=== PATIENT | female | born 1995 | race Caucasian/White ===

== ENCOUNTER 2017-09-01 05:31 | Outpatient (CLI) | payer BC ==
[~2017-09-01] VITALS: Ht 165.1 cm; Wt 63.5 kg
[~2017-09-01 05:31] MED LIST: [UNRECOGNIZED DRUG - REMARK]
[2017-09-06] MEDS ORDERED: PANT40TA2 PO (15:11)
[2017-09-06] MEDS ORDERED: METO5TAB75 PO (15:11)
== END 2017-09-01 11:44 ==
LOC: PREOP 05:31
PROVIDERS: ATTEND Surgery
DX: Z01.818 Encounter for other preprocedural examination (principal); R13.10 Dysphagia, unspecified

== ENCOUNTER 2017-09-06 13:54 | Day surgery (SDC) | payer BC ==
[~2017-09-06] VITALS: Ht 165.1 cm; Wt 63.5 kg
[2017-09-06] MEDS ORDERED: NS IV 500 ML 500 ML ONE (13:57)
--- OUTSIDE RECORDS SUMMARY | 2017-09-06 14:02 | XMS REPORT | Clinical Summary ---
Author Author Admin, CRISTOPHER Organization [facility] Address Unknown Phone Unavailable Allergies, Adverse Reactions, Alerts Allergy Name Reaction Description Start Date Severity Status Provider No Known Allergies CADE Carter NKDA Critical Active Amie Gant RN Conditions or Problems Problem Name Problem Code Onset Date Status Entry Date Provider Comment Standard Description Annotate ACUTE PHARYNGITIS 462 Resolved Natanael Araujo MD Acute pharyngitis FH DIABETES V18.0 Resolved Natanael Araujo MD Family history of diabetes mellitus CHEST PAIN 786.50 Correction Mary De Paz Unspecified chest pain left CHEST WALL PAIN 786.52 Resolved Natanael Araujo MD Painful respiration left ACUTE PHARYNGITIS 462 Resolved Natanael Araujo MD Acute pharyngitis LUMBAR-SACRAL STRAIN 846.0 Resolved Natanael Araujo MD Lumbosacral (joint) (ligament) sprain Sinusitis, acute 461.9 Resolved Natanael Araujo MD Acute sinusitis, unspecified Dysphagia 787.20 Resolved Natanael Araujo MD Dysphagia, unspecified Influenza like illness 487.1 Resolved Natanael Araujo MD Influenza with other respiratory manifestations Knee pain, left 719.46 Resolved Natanael Araujo MD Pain in joint involving lower leg Postconcussion syndrome 310.2 Resolved Natanael Araujo MD Postconcussion syndrome Back pain 724.5 Resolved Natanael Araujo MD Backache, unspecified Dysphagia 787.20 Resolved Natanael Araujo MD Dysphagia, unspecified Anxiety 300.00 Inactive Natanael Araujo MD Anxiety state, unspecified Depression/anxiety 300.4 Active Natanael Araujo MD Dysthymic disorder Allergic reaction 995.3 Resolved Natanael Araujo MD Allergy, unspecified, not elsewhere classified Eosinophilic esophagitis 530.13 Active Mahogany Garza [employer] Eosinophilic esophagitis Pharyngitis 462 Resolved Natanael Araujo MD Acute pharyngitis Nausea alone 787.02 Resolved Natanael Araujo MD Nausea alone Bilateral headache 784.0 Resolved Natanael Araujo MD Headache Hair loss 704.00 Active Natanael Araujo MD Alopecia, unspecified Folliculitis 704.8 Active Natanael Araujo MD Other specified diseases of hair and hair follicles ACUTE PHARYNGITIS ICD-462 Inactive Natanael Araujo MD FH DIABETES ICD-V18.0 Inactive Natanael Araujo MD CHEST WALL PAIN ICD-786.52 Inactive Natanael Araujo MD ACUTE PHARYNGITIS ICD-462 Inactive Natanael Araujo MD LUMBAR-SACRAL STRAIN ICD-846.0 Inactive Natanael Araujo MD Sinusitis, acute ICD-461.9 Inactive Natanael Araujo MD Dysphagia ICD-787.20 Inactive Natanael Araujo MD Influenza like illness ICD-487.1 Inactive Natanael Araujo MD Knee pain, left ICD-719.46 Inactive Natanael Araujo MD Postconcussion syndrome ICD-310.2 Inactive Natanael Araujo MD Back pain ICD-724.5 Inactive Natanael Araujo MD Dysphagia ICD-787.20 Inactive Natanael Araujo MD Allergic reaction ICD-995.3 Inactive Natanael Araujo MD Pharyngitis ICD-462 Inactive Natanael Araujo MD Nausea alone ICD-787.02 Inactive Natanael Araujo MD Bilateral headache ICD-784.0 Inactive Natanael Araujo MD Medication List Medication Instructions Start Date Stop Date Generic Name NDC Status Provider Patient Instruction DOXYCYCLINE MONOHYDRATE 100 MG ORAL CAPS 1 po BID x 10 days 05/15 DOXYCYCLINE MONOHYDRATE 11844227396 Active Natanael Araujo MD Active SAFYRAL 3-0.03-0.451 MG ORAL TABS Take one by mouth daily DROSPIREN-ETH ESTRAD-LEVOMEFOL 98537424263 No Longer Active Natanael Araujo MD Active NAPROXEN SODIUM 550 MG ORAL TABS 1 po BID PRN Headache NAPROXEN SODIUM 56753417333 No Longer Active Natanael Araujo MD Active PREDNISONE 10 MG ORAL TABS 3 po qd x 3 days, then 2 po qd x 3 days, then 1 po qd x 2 days PREDNISONE 33990939129 No Longer Active Natanael Araujo MD Active LEXAPRO 10 MG TABS 1 tablet by mouth daily ESCITALOPRAM OXALATE 08212825987 No Longer Active Natanael Araujo MD Active CLARITIN 10 MG TAB 1 tablet by mouth daily as needed for allergies LORATADINE 10515635899 No Longer Active Natanael Araujo MD Active OMEPRAZOLE 20 MG TBEC 1 po q a.m. 30min prior to first food intake OMEPRAZOLE 21479655353 No Longer Active Natanael Araujo MD Active ZOFRAN 4 MG TABS 1 po q6hr PRN Nausea ONDANSETRON HCL 22980469155 No Longer Active Natanael Araujo MD Active AZITHROMYCIN 250 MG TABS 2 po qd x 1 day, then 1 po qd x 4 days AZITHROMYCIN 86486062201 No Longer Active Mahogany Garza [employer] Active PROAIR HFA 108 (90 BASE) MCG/ACT AERS 2 puffs four times a day as needed 2012 ALBUTEROL SULFATE 79844405311 No Longer Active Natanael Araujo MD Active PRILOSEC 20 MG CAP CR 1 tab po q am OMEPRAZOLE 00236917104 No Longer Active Natanael Araujo MD Active CELEBREX 200 MG CAPS 1 tablet by mouth daily with meals CELECOXIB 22749411786 No Longer Active Natanael Araujo MD Active CLARITIN 10 MG TAB 1 tablet by mouth daily as needed for allergies LORATADINE 79584014136 No Longer Active Natanael Araujo MD Active PULMICORT 0.5 MG/2ML INH SUSP mix 2 ml with 5 packets of splenda and swallow. rinse the mouth after 30 min. do not eat or drink anything for 30 min. 12/19 BUDESONIDE 82257431196 No Longer Active Natanael Araujo MD Active OMEPRAZOLE 20 MG CPDR 1 tablet by mouth daily OMEPRAZOLE 87933356992 No Longer Active Natanael Araujo MD Active PROTONIX 40 MG SOLR 1 po q a.m. PANTOPRAZOLE SODIUM 95361441478 No Longer Active Natanael Araujo MD Active CYCLOBENZAPRINE HCL 5 MG ORAL TABS 1/2 tab po q hs, prn CYCLOBENZAPRINE HCL 10517128307 No Longer Active Natanael Araujo MD Active CELEBREX 100 MG CAPS 1 tab daily CELECOXIB 46055338984 No Longer Active Mahogany Cuellarcelsa MOLINA Active OMEPRAZOLE 20 MG CPDR 1 tablet by mouth daily OMEPRAZOLE 55678586413 No Longer Active Natanael Araujo MD Active TAMIFLU 75 MG CAPS 1 bid x 5 days OSELTAMIVIR PHOSPHATE 10058460015 No Longer Active Natanael Araujo MD Active PREDNISONE 20 MG TAB 2 tabs daily for 3 days, 1 tab daily for 3 days, 1/2 tab daily for 2 days PREDNISONE 71363263795 No Longer Active Natanael Araujo MD Active AMOXICILLIN 400 MG/5ML SUSR 12.5ml po BID x 10 days AMOXICILLIN 58654516206 No Longer Active Natanael Araujo MD Active IBUPROFEN 800 MG TABS 1 tab every 8 hours as needed IBUPROFEN 52826279666 No Longer Active Natanael Araujo MD Active FLEXERIL 10 MG TAB 1 tablet by mouth at bedtime as needed for pain CYCLOBENZAPRINE HCL 64524840172 No Longer Active Natanael Araujo MD Active AMOXICILLIN 500 MG TABS take one tab po tid x 7 days AMOXICILLIN 66401190364 No Longer Active Natanael Araujo MD Active PRILOSEC 10 MG CAP CR Take one by mouth daily OMEPRAZOLE 90036391922 No Longer Active Natanael Araujo MD Active ZYRTEC ALLERGY 10 MG CAPS Take one by mouth daily as needed 10/25 CETIRIZINE HCL 84679865147 No Longer Active Natanael Araujo MD Active ZYRTEC ALLERGY 10 MG CAPS Take one by mouth daily as needed 10/25 ZYRTEC ALLERGY 10 MG CAPS CETIRIZINE HCL Inactive PRILOSEC 10 MG CAP CR Take one by mouth daily PRILOSEC 10 MG CAP CR 985327 OMEPRAZOLE Inactive AMOXICILLIN 500 MG TABS take one tab po tid x 7 days AMOXICILLIN 500 MG TABS 730196 AMOXICILLIN Inactive FLEXERIL 10 MG TAB 1 tablet by mouth at bedtime as needed for pain FLEXERIL 10 MG TAB CYCLOBENZAPRINE HCL Inactive IBUPROFEN 800 MG TABS 1 tab every 8 hours as needed IBUPROFEN 800 MG TABS 457076 IBUPROFEN Inactive OMEPRAZOLE 20 MG CPDR 1 tablet by mouth daily OMEPRAZOLE 20 MG CPDR 970738 OMEPRAZOLE Inactive CELEBREX 100 MG CAPS 1 tab daily CELEBREX 100 MG CAPS 156597 CELECOXIB Inactive CYCLOBENZAPRINE HCL 5 MG ORAL TABS 1/2 tab po q hs, prn CYCLOBENZAPRINE HCL 5 MG ORAL TABS 082419 CYCLOBENZAPRINE HCL Inactive OMEPRAZOLE 20 MG CPDR 1 tablet by mouth daily OMEPRAZOLE 20 MG CPDR 19791102 OMEPRAZOLE Inactive PULMICORT 0.5 MG/2ML INH SUSP mix 2 ml with 5 packets of splenda and swallow. rinse the mouth after 30 min. do not eat or drink anything for 30 min. 12/19 PULMICORT 0.5 MG/2ML INH SUSP 842294 BUDESONIDE Inactive CLARITIN 10 MG TAB 1 tablet by mouth daily as needed for allergies CLARITIN 10 MG TAB 850074 LORATADINE Inactive CELEBREX 200 MG CAPS 1 tablet by mouth daily with meals CELEBREX 200 MG CAPS 053374 CELECOXIB Inactive PRILOSEC 20 MG CAP CR 1 tab po q am PRILOSEC 20 MG CAP CR 979925 OMEPRAZOLE Inactive PROAIR HFA 108 (90 BASE) MCG/ACT AERS 2 puffs four times a day as needed 2012 PROAIR HFA 108 (90 BASE) MCG/ACT AERS ALBUTEROL SULFATE Inactive ZOFRAN 4 MG TABS 1 po q6hr PRN Nausea ZOFRAN 4 MG TABS 184843 ONDANSETRON HCL Inactive OMEPRAZOLE 20 MG TBEC 1 po q a.m. 30min prior to first food intake OMEPRAZOLE 20 MG TBEC 794641 OMEPRAZOLE Inactive CLARITIN 10 MG TAB 1 tablet by mouth daily as needed for allergies CLARITIN 10 MG TAB 725487 LORATADINE Inactive LEXAPRO 10 MG TABS 1 tablet by mouth daily LEXAPRO 10 MG TABS 482568 ESCITALOPRAM OXALATE Inactive NAPROXEN SODIUM 550 MG ORAL TABS 1 po BID PRN Headache NAPROXEN SODIUM 550 MG ORAL TABS 042905 NAPROXEN SODIUM Inactive SAFYRAL 3-0.03-0.451 MG ORAL TABS Take one by mouth daily SAFYRAL 3-0.03-0.451 MG ORAL TABS 0168760 DROSPIREN-ETH ESTRAD-LEVOMEFOL Inactive AMOXICILLIN 400 MG/5ML SUSR 12.5ml po BID x 10 days AMOXICILLIN 400 MG/5ML SUSR 091628 AMOXICILLIN Inactive PREDNISONE 20 MG TAB 2 tabs daily for 3 days, 1 tab daily for 3 days, 1/2 tab daily for 2 days PREDNISONE 20 MG TAB 365459 PREDNISONE Inactive TAMIFLU 75 MG CAPS 1 bid x 5 days TAMIFLU 75 MG CAPS 210398 OSELTAMIVIR PHOSPHATE Inactive AZITHROMYCIN 250 MG TABS 2 po qd x 1 day, then 1 po qd x 4 days AZITHROMYCIN 250 MG TABS 020971 AZITHROMYCIN Inactive PREDNISONE 10 MG ORAL TABS 3 po qd x 3 days, then 2 po qd x 3 days, then 1 po qd x 2 days PREDNISONE 10 MG ORAL TABS 414011 PREDNISONE Inactive Advance Directives Directive Description Start Date PERMISSION TO SHARE Vital Signs Date Name Value Unit Range Description blood pressure, diastolic 64 mm[Hg] BP parada blood pressure, systolic 108 mm[Hg] BP sys height E&M 67 [in_us] Bdy height pulse rate E&M 88 /min Heart rate temperature E&M 97.1 [degF] Body temperature weight E&M 138.5 [lb_av] Weight Measured blood pressure, diastolic 73 mm[Hg] BP parada blood pressure, systolic 119 mm[Hg] BP sys pulse rate E&M 70 /min Heart rate temperature E&M 98.8 [degF] Body temperature weight E&M 138.50 [lb_av] Weight Measured Diagnostic Results Date Name Value Unit Range Description Lab Report: CBC W/DIFF, Comp. Metabolic Panel, Free Thyroxine (L), Thyro ... - Chemistry sodium, serum 144 mmol/L 299-137 8386/11/02 carbon dioxide, venous blood 25.2 mmol/L 21.0-32.0 potassium, serum 4.4 mmol/L 3.5-5.2 chloride, serum 107 mmol/L 98-107 blood glucose 85 mg/dL 65-110 urea nitrogen, blood 12 mg/dL 7-18 creatinine, serum 1.16 mg/dL 0.60-1.30 alanine aminotransferase (SGPT), serum 28 U/L 12-78 aspartate aminotransferase (SGOT), serum 17 U/L 15-37 calcium, serum 9.0 mg/dL 8.5-10.1 bilirubin, serum, total 0.40 mg/dL 0.00-1.00 thyroxine, serum, free 0.90 ng/dL 0.59-1.17 TSH 1.06 m[iU]/mL 0.36-3.74 Lab Report: CBC W/DIFF, Comp. Metabolic Panel, Free Thyroxine (L), Thyro ... - Hematology leukocyte count, blood 4.8 10^3/MM^3 10*3/mm3 4.6-10.2 neutrophils as percent of blood leukocytes 56.0 % 42.2-75.2 monocytes as percent of blood leukocytes 9.4 % 1.7-9.3 lymphocytes as percent of blood leukocytes 29.2 % 20.5-51.1 erythrocyte (RBC) count 4.76 10^6/MM^3 10*6/mm3 3.80-5.80 hemoglobin, blood 13.7 g/dL 12.0-16.0 hematocrit, blood 41.5 % 37.0-47.0 mean corpuscular volume, RBC 87 fL 80-97 mean corpuscular hemoglobin, RBC 28.9 pg 27.0-31.2 mean corpuscular hemoglobin concentration, RBC 33.1 G/DL % 31.8- 35.4 red blood cell distribution width 13.0 % 13.0-18.0 platelet count 257 10^3/MM^3 10*3/mm3 142-424 Encounters Code Encounter Date Provider Facility CPT-16567 Level 4 Est. Patient 09:59:40 CDT Natanael Araujo MD [facility] CPT-00991 Level 3 Est. Patient 14:27:39 CDT Natanael Araujo MD [facility] CPT-00432 Level 3 Est. Patient 16:08:13 CDT Natanael Araujo MD [facility] CPT-68662 Level 3 Est. Patient 10:44:11 [facility] Est[facility] 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 Patient 16:32:02 SOFTWARE QA MANAGER Natanael Araujo MD [facility] CPT-65445 Level 3 Est. Patient 15:45:10 CDT Natanael Araujo MD [facility] CPT-34217 Level 4 Est. Patient 16:43:28 CDT Natanael Araujo MD [facility] CPT-12630 Level 3 Est. Patient 15:06:06 CDT Natanael Araujo MD [facility] CPT-35053 Level 3 Est. 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 Patient 10:18:16 SOFTWARE QA MANAGER Natanael Araujo MD [facility] CPT-18277 Level 3 Est. Patient 16:04:12 CDT Natanael Araujo MD [facility] CPT-19092 Level 3 Est. Patient 11:25:05 CDT Natanael Araujo MD [facility] CPT-15154 Level 3 Est. Patient 13:17:34 CDT Gail Valerio [facility] CPT-31014 Level 3 Est. Patient 17:03:36 CDT Natanael Araujo MD [facility] CPT-20878 Level 2 Est. Patient 14:41:40 SOFTWARE QA MANAGER Mahogany Garza [facility] CPT-70332 Level 3 New Patient 16:12:19 SOFTWARE QA MANAGER Gail Valerio [facility] Procedures Code Procedure Name Date Entry Date Standard Description CPT-33291 Menactra 10:44:48 CDT CPT-58022 Administration single or combination vaccine inc oral 10 :44:48 CDT CPT-69795 Menactra 10:42:17 CDT CPT-40180 Administration single or combination vaccine inc oral 10 :42:17 CDT CPT-42043 Knee 3V 13:46:23 SOFTWARE QA MANAGER CPT-94911 LS spine comp w obliq 16:17:55 CDT CPT-JTINJ Joint Injection 17:03:35 CDT CPT-J0561 Bicillin LA 1,200,000 u (PCN G Benzathine) 16:12:19 SOFTWARE QA MANAGER [facility]-78604 Abx/Therapy Injection 16:12:19 SOFTWARE QA MANAGER
--- OUTSIDE RECORDS SUMMARY | 2017-09-06 14:02 | XMS REPORT | Clinical Summary ---
Author Author Admin, CRISTOPHER Organization [facility] Address Unknown Phone Unavailable Allergies, Adverse Reactions, Alerts Allergy Name Reaction Description Start Date Severity Status Provider No Known Allergies CADE Carter NKKAYE Critical Active Amie Gant RN Conditions or [...] Natanael Araujo MD Backache, unspecified Dysphagia 787.20 Active Natanael Araujo MD Dysphagia, unspecified Anxiety 300.00 Active Natanael Araujo MD Anxiety state, unspecified Allergic reaction 995.3 Active Natanael Araujo MD Allergy, unspecified, not elsewhere classified ACUTE PHARYNGITIS ICD-462 Inactive Natanael Araujo MD [...] Back pain ICD-724.5 Inactive Natanael Araujo MD Medication List Medication Instructions Start Date Stop Date Generic Name NDC Status Provider Patient Instruction CELEBREX 200 MG CAPS 1 tablet by mouth daily with meals CELECOXIB 92625588137 Active Natanael Araujo MD Active OMEPRAZOLE 20 MG CPDR 1 tablet by mouth daily OMEPRAZOLE 44028698399 No Longer Active Natanael Araujo MD Active PROTONIX 40 MG SOLR 1 po q a.m. PANTOPRAZOLE SODIUM 83709555054 Active Natanael Araujo MD Active CYCLOBENZAPRINE HCL 5 MG ORAL TABS 1/2 tab po q hs, prn CYCLOBENZAPRINE HCL 57234814133 No Longer Active Natanael Araujo MD Active CELEBREX 100 MG CAPS 1 tab daily CELECOXIB 95905568296 No Longer Active Mahogany Polocelsa BEEN Active OMEPRAZOLE 20 MG CPDR 1 tablet by mouth daily OMEPRAZOLE 19330066681 No Longer Active Natanael Araujo MD Active TAMIFLU 75 MG CAPS 1 bid x 5 days OSELTAMIVIR PHOSPHATE 92002900805 No Longer Active Natanael Araujo MD Active PREDNISONE 20 MG TAB 2 tabs daily for 3 days, 1 tab daily for 3 days, 1/2 tab daily for 2 days PREDNISONE 57324197103 No Longer Active Natanael Araujo MD Active AMOXICILLIN 400 MG/5ML SUSR 12.5ml po BID x 10 days AMOXICILLIN 11759912617 No Longer Active Natanael Araujo MD Active IBUPROFEN 800 MG TABS 1 tab every 8 hours as needed IBUPROFEN 86467286875 No Longer Active Natanael Araujo MD Active PROAIR HFA 108 (90 BASE) MCG/ACT AERS 2 puffs four times a day as needed 2012 ALBUTEROL SULFATE 22154723274 Active Natanael Araujo MD Active FLEXERIL 10 MG TAB 1 tablet by mouth at bedtime as needed for pain CYCLOBENZAPRINE HCL 94105057445 No Longer Active Natanael Araujo MD Active AMOXICILLIN 500 MG TABS take one tab po tid x 7 days AMOXICILLIN 32473942009 No Longer Active Natanael Araujo MD Active PRILOSEC 10 MG CAP CR Take one by mouth daily OMEPRAZOLE 30160717901 No Longer Active Natanael Araujo MD Active ZYRTEC ALLERGY 10 MG CAPS Take one by mouth daily as needed 10/25 CETIRIZINE HCL 91107350187 No Longer Active Natanael Araujo MD Active ZYRTEC ALLERGY 10 MG CAPS Take one by mouth daily as needed 10/25 ZYRTEC ALLERGY 10 MG CAPS CETIRIZINE HCL Inactive PRILOSEC 10 MG CAP CR Take one by mouth daily PRILOSEC 10 MG CAP CR 19900712 OMEPRAZOLE Inactive AMOXICILLIN 500 MG TABS take one tab po tid x 7 days AMOXICILLIN 500 MG TABS 947716 AMOXICILLIN Inactive FLEXERIL 10 MG TAB 1 tablet by mouth at bedtime as needed for pain FLEXERIL 10 MG TAB CYCLOBENZAPRINE HCL Inactive IBUPROFEN 800 MG TABS 1 tab every 8 hours as needed IBUPROFEN 800 MG TABS 893138 IBUPROFEN Inactive OMEPRAZOLE 20 MG CPDR 1 tablet by mouth daily OMEPRAZOLE 20 MG CPDR 172555 OMEPRAZOLE Inactive CELEBREX 100 MG CAPS 1 tab daily CELEBREX 100 MG CAPS 569195 CELECOXIB Inactive CYCLOBENZAPRINE HCL 5 MG ORAL TABS 1/2 tab po q hs, prn CYCLOBENZAPRINE HCL 5 MG ORAL TABS 373566 CYCLOBENZAPRINE HCL Inactive OMEPRAZOLE 20 MG CPDR 1 tablet by mouth daily OMEPRAZOLE 20 MG CPDR 001178 OMEPRAZOLE Inactive AMOXICILLIN 400 MG/5ML SUSR 12.5ml po BID x 10 days AMOXICILLIN 400 MG/5ML SUSR 264080 AMOXICILLIN Inactive PREDNISONE 20 MG TAB 2 tabs daily for 3 days, 1 tab daily for 3 days, 1/2 tab daily for 2 days PREDNISONE 20 MG TAB 648102 PREDNISONE Inactive TAMIFLU 75 MG CAPS 1 bid x 5 days TAMIFLU 75 MG CAPS OSELTAMIVIR PHOSPHATE Inactive Advance Directives Directive Description Start Date PERMISSION TO SHARE Vital Signs Date Name Value Unit Range Description blood pressure, diastolic - 8462-4 78 mm[Hg] BP parada blood pressure, systolic - 8480-6 108 mm[Hg] BP sys pulse rate E&M - 8867-4 62 /min Heart rate temperature E&M 98.4 [degF] Body temperature weight E&M - 3141-9 138 [lb_av] Weight Measured blood pressure, diastolic - 8462-4 68 mm[Hg] BP parada blood pressure, systolic - 8480-6 104 mm[Hg] BP sys pulse rate E&M - 8867-4 56 /min Heart rate temperature E&M 97.6 [degF] Body temperature weight E&M - 3141-9 139 [lb_av] Weight Measured blood pressure, diastolic - 8462-4 71 mm[Hg] BP parada blood pressure, systolic - 8480-6 116 mm[Hg] BP sys pulse rate E&M - 8867-4 59 /min Heart rate temperature E&M 98.3 [degF] Body temperature weight E&M - 3141-9 141 [lb_av] Weight Measured blood pressure, diastolic - 8462-4 65 mm[Hg] BP parada blood pressure, systolic - 8480-6 102 mm[Hg] BP sys height E&M - 8302-2 67 [in_us] Bdy height pulse rate E&M - 8867-4 67 /min Heart rate temperature E&M 96.5 [degF] Body temperature weight E&M - 3141-9 150 [lb_av] Weight Measured blood pressure, diastolic - 8462-4 74 mm[Hg] BP paraad blood pressure, systolic - 8480-6 119 mm[Hg] BP sys pulse rate E&M - 8867-4 66 /min Heart rate temperature E&M 98.1 [degF] Body temperature weight E&M - 3141-9 142 [lb_av] Weight Measured Diagnostic Results Date Name Value Unit Range Description Lab Report: CBC, Comp. Metabolic Panel, UADIP W/MICRO, AUTO - Chemistry sodium, serum 143 mmol/L 157-568 0630/01/07 potassium, serum 4.2 mmol/L 3.5-5.2 chloride, serum 107 mmol/L 98-107 carbon dioxide, venous blood 30.4 mmol/L 21.0-32.0 blood glucose 76 mg/dL 65-110 urea nitrogen, blood 13 mg/dL 7-18 creatinine, serum 1.10 mg/dL 0.60-1.30 alanine aminotransferase (SGPT), serum 15 U/L 12-78 aspartate aminotransferase (SGOT), serum 13 U/L 15-37 calcium, serum 8.6 mg/dL 8.5-10.1 bilirubin, serum, total 0.30 mg/dL 0.00-1.00 protein, total urine random Negative mg/dL Negative RBC, urine, dipstick Negative Negative Lab Report: CBC, Comp. Metabolic Panel, UADIP W/MICRO, AUTO - Hematology leukocyte count, blood 5.4 10^3/MM^3 10*3/mm3 4.6-10.2 erythrocyte (RBC) count 4.60 10^6/MM^3 10*6/mm3 4.04-5.48 hemoglobin, blood 13.0 g/dL 12.0-16.0 hematocrit, blood 39.8 % 36.0-46.0 mean corpuscular volume, RBC 87 fL 80-97 mean corpuscular hemoglobin, RBC 28.3 pg 27.0-31.2 mean corpuscular hemoglobin concentration, RBC 32.7 G/DL % 31.8- 35.4 red blood cell distribution width 14.2 % 11.6-14.8 platelet count 267 10^3/MM^3 10*3/mm3 142-424 Lab Report: CBC, Comp. Metabolic Panel, UADIP W/MICRO, AUTO - Urinalysis urine color Yellow Colorless;Lightyellow;Straw;Yellow appearance, urine Clear Clear specific gravity, urine 1.025 1.000-1.030 pH, urine, semiquantitative 7.5 5.0-8.5 urobilinogen, urine, semiquantitative (dipstick) 1.0 Normal leukocyte esterase, urine, by dipstick Negative Negative nitrite, urine, semiquantitative Negative Negative glucose, urine, semiquantitative Negative Negative ketones, urine, by test strip Negative Negative bilirubin, urine Negative Negative Encounters Code Encounter Date Provider Facility CPT-81116 Level 3 Est. Patient 15:45:10 CDT Natanael Araujo MD [facility] CPT-79146 Level 4 Est. Patient 16:43:28 CDT Natanael Araujo MD [facility] CPT-68750 Level 3 Est. Patient 15:06:06 CDT Natanael Araujo MD [facility] CPT-28128 Level 3 Est. 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 Patient 10:18:16 DIMENSION MILL WORKER Natanael Araujo MD [facility] CPT-01621 Level 3 Est. Patient 16:04:12 CDT Natanael Araujo MD [facility] CPT-63882 Level 3 Est. Patient 11:25:05 CDT Natanael Araujo MD [facility] CPT-98670 Level 3 Est. Patient 13:17:34 CDT Gail KIMBALL [facility] CPT-76684 Level 3 Est. Patient 17:03:36 CDT Natanael Araujo MD [facility] CPT-19811 Level 2 Est. Patient 14:41:40 DIMENSION MILL WORKER Mahogany Garza APRN [facility] CPT-44811 Level 3 New Patient 16:12:19 DIMENSION MILL WORKER Gail KIMBALL [facility] Procedures Code Procedure Name Date Entry Date Standard Description CPT-61690 Knee 3V 13:46:23 DIMENSION MILL WORKER CPT-41064 LS spine comp w obliq 16:17:55 CDT CPT-JTINJ Joint Injection 17:03:35 CDT CPT-J0561 Bicillin LA 1,200,000 u (PCN G Benzathine) 16:12:19 DIMENSION MILL WORKER CPT-85752 Abx/Therapy Injection 16:12:19 DIMENSION MILL WORKER
--- OUTSIDE RECORDS SUMMARY | 2017-09-06 14:03 | XMS REPORT | Clinical Summary ---
Author Author Admin, CRISTOPHER Organization [facility] Address Unknown Phone Unavailable Allergies, Adverse Reactions, [...] unspecified Influenza like illness 487.1 Resolved Natanael Arajuo MD Influenza with other respiratory manifestations Knee [...] Araujo MD Dysthymic disorder Allergic reaction 995.3 Active Natanael Araujo MD Allergy, unspecified, not elsewhere classified Eosinophilic esophagitis 530.13 Active Jillrandy Garza BPM SOLUTION ARCHITECT Eosinophilic esophagitis Pharyngitis 462 Active Mahogany Garza BPM SOLUTION ARCHITECT Acute pharyngitis ACUTE PHARYNGITIS ICD-462 Inactive Natanael Araujo MD FH DIABETES ICD-V18.0 Inactive Natanael Araujo MD ACUTE PHARYNGITIS ICD-462 Inactive Natanael Araujo MD LUMBAR-SACRAL STRAIN ICD-846.0 Inactive Natanael Araujo MD Sinusitis, acute ICD-461.9 Inactive Natanael Araujo MD CHEST WALL PAIN ICD-786.52 Inactive Natanael Araujo MD Dysphagia ICD-787.20 Inactive Natanael Arauoj MD Influenza like illness ICD-487.1 Inactive Natanael Araujo MD Knee pain, left ICD-719.46 Inactive Natanael Araujo MD Back pain ICD-724.5 Inactive Natanael Araujo MD Postconcussion syndrome ICD-310.2 Inactive Natanael Araujo MD Medication List Medication Instructions Start Date Stop Date Generic Name NDC Status Provider Patient Instruction CLARITIN 10 MG TAB 1 tablet by mouth daily as needed for allergies LORATADINE 77885762299 Active Mahogany Garza APRN Active AZITHROMYCIN 250 MG TABS 2 po qd x 1 day, then 1 po qd x 4 days AZITHROMYCIN 82025050996 No Longer Active Jillina Greg BPM SOLUTION ARCHITECT Active LEXAPRO 10 MG TABS 1 tablet by mouth daily ESCITALOPRAM OXALATE 99686644691 Active Ntaanael Araujo MD Active PROAIR HFA 108 (90 BASE) MCG/ACT AERS 2 puffs four times a day as needed 2012 ALBUTEROL SULFATE 02338261549 No Longer Active Natanael Araujo MD Active PRILOSEC 20 MG CAP CR 1 tab po q am OMEPRAZOLE 33464222748 No Longer Active Natanael Araujo MD Active CELEBREX 200 MG CAPS 1 tablet by mouth daily with meals CELECOXIB 38262360707 No Longer Active Natanael Araujo MD Active CLARITIN 10 MG TAB 1 tablet by mouth daily as needed for allergies LORATADINE 39489558073 No Longer Active Natanael Araujo MD Active PULMICORT 0.5 MG/2ML INH SUSP mix 2 ml with 5 packets of splenda and swallow. rinse the mouth after 30 min. do not eat or drink anything for 30 min. 12/19 BUDESONIDE 12751753371 No Longer Active Natanael Araujo MD Active OMEPRAZOLE 20 MG CPDR 1 tablet by mouth daily OMEPRAZOLE 82491410876 No Longer Active Natanael Araujo MD Active PROTONIX 40 MG SOLR 1 po q a.m. PANTOPRAZOLE SODIUM 44574840836 No Longer Active Natanael Araujo MD Active CYCLOBENZAPRINE HCL 5 MG ORAL TABS 1/2 tab po q hs, prn CYCLOBENZAPRINE HCL 64490823871 No Longer Active Natanael Araujo MD Active CELEBREX 100 MG CAPS 1 tab daily CELECOXIB 24155425552 No Longer Active Mahogany Garza APRN Active OMEPRAZOLE 20 MG CPDR 1 tablet by mouth daily OMEPRAZOLE 71080932861 No Longer Active Natanael Araujo MD Active TAMIFLU 75 MG CAPS 1 bid x 5 days OSELTAMIVIR PHOSPHATE 63032589819 No Longer Active Natanael Araujo MD Active PREDNISONE 20 MG TAB 2 tabs daily for 3 days, 1 tab daily for 3 days, 1/2 tab daily for 2 days PREDNISONE 57291566399 No Longer Active Natanael Araujo MD Active AMOXICILLIN 400 MG/5ML SUSR 12.5ml po BID x 10 days AMOXICILLIN 05450838721 No Longer Active Natanael Araujo MD Active IBUPROFEN 800 MG TABS 1 tab every 8 hours as needed IBUPROFEN 68051304731 No Longer Active Natanael Araujo MD Active FLEXERIL 10 MG TAB 1 tablet by mouth at bedtime as needed for pain CYCLOBENZAPRINE HCL 25885816066 No Longer Active Natanael Araujo MD Active AMOXICILLIN 500 MG TABS take one tab po tid x 7 days AMOXICILLIN 88265787235 No Longer Active Natanael Araujo MD Active PRILOSEC 10 MG CAP CR Take one by mouth daily OMEPRAZOLE 34721341393 No Longer Active Natanael Araujo MD Active ZYRTEC ALLERGY 10 MG CAPS Take one by mouth daily as needed 10/25 CETIRIZINE HCL 87927548214 No Longer Active Natanael Araujo MD Active ZYRTEC ALLERGY 10 MG CAPS Take one by mouth daily as needed 10/25 ZYRTEC ALLERGY 10 MG CAPS CETIRIZINE HCL Inactive PRILOSEC 10 MG CAP CR Take one by mouth daily PRILOSEC 10 MG CAP CR 856161 OMEPRAZOLE Inactive AMOXICILLIN 500 MG TABS take one tab po tid x 7 days AMOXICILLIN 500 MG TABS 804203 AMOXICILLIN Inactive FLEXERIL 10 MG TAB 1 tablet by mouth at bedtime as needed for pain FLEXERIL 10 MG TAB CYCLOBENZAPRINE HCL Inactive IBUPROFEN 800 MG TABS 1 tab every 8 hours as needed IBUPROFEN 800 MG TABS 488452 IBUPROFEN Inactive OMEPRAZOLE 20 MG CPDR 1 tablet by mouth daily OMEPRAZOLE 20 MG CPDR 509252 OMEPRAZOLE Inactive CELEBREX 100 MG CAPS 1 tab daily CELEBREX 100 MG CAPS 579906 CELECOXIB Inactive CYCLOBENZAPRINE HCL 5 MG ORAL TABS 1/2 tab po q hs, prn CYCLOBENZAPRINE HCL 5 MG ORAL TABS 912834 CYCLOBENZAPRINE HCL Inactive OMEPRAZOLE 20 MG CPDR 1 tablet by mouth daily OMEPRAZOLE 20 MG CPDR 19791102 OMEPRAZOLE Inactive PULMICORT 0.5 MG/2ML INH SUSP mix 2 ml with 5 packets of splenda and swallow. rinse the mouth after 30 min. do not eat or drink anything for 30 min. 12/19 PULMICORT 0.5 MG/2ML INH SUSP 664744 BUDESONIDE Inactive CLARITIN 10 MG TAB 1 tablet by mouth daily as needed for allergies CLARITIN 10 MG TAB 896435 LORATADINE Inactive CELEBREX 200 MG CAPS 1 tablet by mouth daily with meals CELEBREX 200 MG CAPS 026226 CELECOXIB Inactive PRILOSEC 20 MG CAP CR 1 tab po q am PRILOSEC 20 MG CAP CR 744612 OMEPRAZOLE Inactive PROAIR HFA 108 (90 BASE) MCG/ACT AERS 2 puffs four times a day as needed 2012 PROAIR HFA 108 (90 BASE) MCG/ACT AERS ALBUTEROL SULFATE Inactive AMOXICILLIN 400 MG/5ML SUSR 12.5ml po BID x 10 days AMOXICILLIN 400 MG/5ML SUSR 044400 AMOXICILLIN Inactive PREDNISONE 20 MG TAB 2 tabs daily for 3 days, 1 tab daily for 3 days, 1/2 tab daily for 2 days PREDNISONE 20 MG TAB 217911 PREDNISONE Inactive TAMIFLU 75 MG CAPS 1 bid x 5 days TAMIFLU 75 MG CAPS OSELTAMIVIR PHOSPHATE Inactive AZITHROMYCIN 250 MG TABS 2 po qd x 1 day, then 1 po qd x 4 days AZITHROMYCIN 250 MG TABS 3679867 AZITHROMYCIN Inactive Advance Directives Directive Description Start Date PERMISSION TO SHARE Vital Signs Date Name Value Unit Range Description blood pressure, diastolic - 8462-4 65 mm[Hg] BP parada blood pressure, systolic - 8480-6 114 mm[Hg] BP sys pulse rate E&M - 8867-4 72 /min Heart rate temperature E&M 96.8 [degF] Body temperature weight E&M - 3141-9 139 [lb_av] Weight Measured blood pressure, diastolic - 8462-4 73 mm[Hg] BP parada blood pressure, systolic - 8480-6 110 mm[Hg] BP sys pulse rate E&M - 8867-4 74 /min Heart rate temperature E&M 99.1 [degF] Body temperature weight E&M - 3141-9 140.0 [lb_av] Weight Measured blood pressure, diastolic - 8462-4 67 mm[Hg] BP parada blood pressure, systolic - 8480-6 109 mm[Hg] BP sys pulse rate E&M - 8867-4 87 /min Heart rate temperature E&M 99 [degF] Body temperature weight E&M - 3141-9 138.5 [lb_av] Weight Measured blood pressure, diastolic - 8462-4 71 mm[Hg] BP parada blood pressure, systolic - 8480-6 103 mm[Hg] BP sys pulse rate E&M - 8867-4 61 /min Heart rate temperature E&M 98.6 [degF] Body temperature weight E&M - 3141-9 137.2 [lb_av] Weight Measured blood pressure, diastolic - 8462-4 78 mm[Hg] [...] E&M - 3141-9 139 [lb_av] Weight Measured Diagnostic Results Date Name Value Unit Range Description Lab Report: YUE INFLUENZA A/B, RapidStrep Rflx/Cx - Lab Microbial identification kit, rapid strep method Negative-Throat Culture to Follow Negative Lab Report: YUE INFLUENZA A/B, RapidStrep Rflx/Cx - Toxicology rapid flu test Negative Negative;Positive Encounters Code Encounter Date Provider Facility CPT-01281 Level 3 Est. Patient 10:44:11 CDT Mahogany Garza APRN [facility] CPT-00207 Level 3 Est. Patient 15:58:41 GRADER GREEN MEAT Natanael Araujo MD [facility] CPT-30817 Level 3 Est. Patient 16:32:02 GRADER GREEN MEAT Natanael Araujo MD [facility] CPT-99456 Level 3 Est. Patient 15:45:10 CDT Natanael Araujo MD [facility] CPT-34837 Level 4 Est. Patient 16:43:28 CDT Natanael Araujo MD [facility] CPT-74847 Level 3 Est. Patient 15:06:06 CDT Natanael Araujo MD [facility] CPT-49080 Level 3 Est. Patient 13:38:04 GRADER GREEN MEAT Natanael Araujo MD [facility] CPT-37571 Level 3 Est. Patient 10:18:16 GRADER GREEN MEAT Natanael Araujo MD [facility] CPT-14569 Level 3 Est. Patient 16:04:12 CDT Natanael Araujo MD [facility] CPT-06082 Level 3 Est. Patient 11:25:05 CDT Natanael Araujo MD [facility] CPT-00305 Level 3 Est. Patient 13:17:34 CDT Gail Valerio [facility] CPT-07134 Level 3 Est. Patient 17:03:36 CDT Natanael Araujo MD [facility] CPT-72797 Level 2 Est. Patient 14:41:40 GRADER GREEN MEAT [facility] Level 3 New Patient 16:12:19 GRADER GREEN MEAT Gail KIMBALL [facility] Procedures Code Procedure Name Date Entry Date Standard Description CPT-08233 Menactra 10:44:48 CDT CPT-60209 Administration single or combination vaccine inc oral 10 :44:48 CDT CPT-44476 Menactra 10:42:17 CDT CPT-03829 Administration single or combination vaccine inc oral 10 :42:17 CDT CPT-07403 Knee 3V 13:46:23 GRADER GREEN MEAT CPT-34491 LS spine comp w obliq 16:17:55 CDT CPT-JTINJ Joint Injection 17:03:35 CDT CPT-J0561 Bicillin LA 1,200,000 u (PCN G Benzathine) 16:12:19 GRADER GREEN [employer] CPT-47536 Abx/Therapy Injection 16:12:19 GRADER GREEN [employer]
--- OUTSIDE RECORDS SUMMARY | 2017-09-06 14:03 | XMS REPORT | Clinical Summary ---
Author Author Admin, CRISTOPHER Organization [facility] Address Unknown Phone Unavailable Allergies, Adverse Reactions, [...] classified Eosinophilic esophagitis 530.13 Active Mahogany Garza APRN Eosinophilic esophagitis ACUTE PHARYNGITIS ICD-462 Inactive Natanael Araujo MD [...] Generic Name NDC Status Provider Patient Instruction PULMICORT 0.5 MG/2ML INH SUSP mix 2 ml with 5 packets of splenda and swallow. rinse the mouth after 30 min. do not eat or drink anything for 30 min. 12/19 BUDESONIDE 84575808122 Active Jillina Frazell CARE AIDE Active CLARITIN 10 MG TAB 1 tablet by mouth daily as needed for allergies LORATADINE 65245918941 Active Mahogany Garza APRN Active PRILOSEC 20 MG CAP CR 1 tab po q am OMEPRAZOLE 64555680557 Active Mahogany Garza APRN Active CELEBREX 200 MG CAPS 1 tablet by mouth daily with meals CELECOXIB 50806034799 Active Natanael Araujo MD Active OMEPRAZOLE 20 MG CPDR 1 tablet by mouth daily OMEPRAZOLE 97881123444 No Longer Active Natanael Araujo MD Active PROTONIX 40 MG SOLR 1 po q a.m. PANTOPRAZOLE SODIUM 93662903560 No Longer Active Natanael Araujo MD Active CYCLOBENZAPRINE HCL 5 MG ORAL TABS 1/2 tab po q hs, prn CYCLOBENZAPRINE HCL 99241001938 No Longer Active Natanael Araujo MD Active CELEBREX 100 MG CAPS 1 tab daily CELECOXIB 83807296524 No Longer Active Mahogany Garza APRN Active OMEPRAZOLE 20 MG CPDR 1 tablet by mouth daily OMEPRAZOLE 06984993454 No Longer Active Natanael Araujo MD Active TAMIFLU 75 MG CAPS 1 bid x 5 days OSELTAMIVIR PHOSPHATE 65375908398 No Longer Active Natanael Araujo MD Active PREDNISONE 20 MG TAB 2 tabs daily for 3 days, 1 tab daily for 3 days, 1/2 tab daily for 2 days PREDNISONE 92070121354 No Longer Active Natanael Araujo MD Active AMOXICILLIN 400 MG/5ML SUSR 12.5ml po BID x 10 days AMOXICILLIN 40834276571 No Longer Active Natanael Araujo MD Active IBUPROFEN 800 MG TABS 1 tab every 8 hours as needed IBUPROFEN 47143240752 No Longer Active Natanael Aruajo MD Active PROAIR HFA 108 (90 BASE) MCG/ACT AERS 2 puffs four times a day as needed 2012 ALBUTEROL SULFATE 57479537627 Active Mahogany Garza TRACY Active FLEXERIL 10 MG TAB 1 tablet by mouth at bedtime as needed for pain CYCLOBENZAPRINE HCL 30966894292 No Longer Active Natanael Araujo MD Active AMOXICILLIN 500 MG TABS take one tab po tid x 7 days AMOXICILLIN 87727851848 No Longer Active Natanael Araujo MD Active PRILOSEC 10 MG CAP CR Take one by mouth daily OMEPRAZOLE 12573424134 No Longer Active Natanael Araujo MD Active ZYRTEC ALLERGY 10 MG CAPS Take one by mouth daily as needed 10/25 CETIRIZINE HCL 82088416720 No Longer Active Natanael Araujo MD Active ZYRTEC ALLERGY 10 MG CAPS Take one by mouth daily as needed 10/25 ZYRTEC ALLERGY 10 MG CAPS CETIRIZINE HCL Inactive PRILOSEC 10 MG CAP CR Take one by mouth daily PRILOSEC 10 MG CAP CR 534518 OMEPRAZOLE Inactive AMOXICILLIN 500 MG TABS take one tab po tid x 7 days AMOXICILLIN 500 MG TABS 285969 AMOXICILLIN Inactive FLEXERIL 10 MG TAB 1 tablet by mouth at bedtime as needed for pain FLEXERIL 10 MG TAB CYCLOBENZAPRINE HCL Inactive IBUPROFEN 800 MG TABS 1 tab every 8 hours as needed IBUPROFEN 800 MG TABS 549705 IBUPROFEN Inactive OMEPRAZOLE 20 MG CPDR 1 tablet by mouth daily OMEPRAZOLE 20 MG CPDR 19791102 OMEPRAZOLE Inactive CELEBREX 100 MG CAPS 1 tab daily CELEBREX 100 MG CAPS 979024 CELECOXIB Inactive CYCLOBENZAPRINE HCL 5 MG ORAL TABS 1/2 tab po q hs, prn CYCLOBENZAPRINE HCL 5 MG ORAL TABS 458528 CYCLOBENZAPRINE HCL Inactive OMEPRAZOLE 20 MG CPDR 1 tablet by mouth daily OMEPRAZOLE 20 MG CPDR 19791102 OMEPRAZOLE Inactive AMOXICILLIN 400 MG/5ML SUSR 12.5ml po BID x 10 days AMOXICILLIN 400 MG/5ML SUSR 363156 AMOXICILLIN Inactive PREDNISONE 20 MG TAB 2 tabs daily for 3 days, 1 tab daily for 3 days, 1/2 tab daily for 2 days PREDNISONE 20 MG TAB 225703 PREDNISONE Inactive TAMIFLU 75 MG CAPS 1 bid x 5 days TAMIFLU 75 MG CAPS OSELTAMIVIR PHOSPHATE Inactive Advance Directives Directive Description Start Date PERMISSION TO SHARE Vital Signs Date Name Value Unit Range Description blood pressure, diastolic - 8462-4 71 mm[Hg] [...] pressure, diastolic - 8462-4 74 mm[Hg] BP parada blood pressure, systolic - 8480-6 119 mm[Hg] BP sys pulse rate E&M - 8867-4 66 /min Heart rate temperature E&M 98.1 [degF] Body temperature weight E&M - 3141-9 142 [lb_av] Weight Measured Diagnostic Results Date Name Value Unit Range Description Lab Report: CBC, Comp. Metabolic Panel, UADIP W/MICRO, AUTO - Chemistry sodium, serum 143 mmol/L 241-206 9534/01/07 potassium, serum 4.2 mmol/L 3.5-5.2 chloride, serum [...] Negative Encounters Code Encounter Date Provider Facility CPT-80817 Level 3 Est. Patient 15:45:10 CDT Natanael Araujo MD [facility] CPT-85852 Level 4 Est. Patient 16:43:28 CDT Natanael Araujo MD [facility] CPT-59777 Level 3 Est. Patient 15:06:06 CDT Natanael Araujo MD [facility] CPT-54211 Level 3 Est. Patient 13:38:04 SPRINKLER REPAIR TECHNICIAN Natanael Araujo MD [facility] CPT-60196 Level 3 Est. Patient 10:18:16 SPRINKLER REPAIR TECHNICIAN Natanael Araujo MD [facility] CPT-75033 Level 3 Est. Patient 16:04:12 CDT Natanael Araujo MD [facility] CPT-92616 Level 3 Est. Patient 11:25:05 CDT Natanael Araujo MD [facility] CPT-07964 Level 3 Est. Patient 13:17:34 CDT Gail Valerio [facility] CPT-70469 Level 3 Est. Patient 17:03:36 CDT Natanael Araujo MD [facility] CPT-01766 Level 2 Est. Patient 14:41:40 SPRINKLER REPAIR TECHNICIAN [facility] Level 3 New Patient 16:12:19 SPRINKLER REPAIR TECHNICIAN Gail Valerio [facility] Procedures Code Procedure Name Date Entry Date Standard Description CPT-91989 Knee 3V 13:46:23 SPRINKLER REPAIR TECHNICIAN CPT-04630 LS spine comp w obliq 16:17:55 CDT CPT-JTINJ Joint Injection 17:03:35 CDT CPT-J0561 Bicillin LA 1,200,000 u (PCN G Benzathine) 16:12:19 SPRINKLER REPAIR TECHNICIAN CPT-45884 Abx/Therapy Injection 16:12:19 SPRINKLER REPAIR TECHNICIAN
--- OUTSIDE RECORDS SUMMARY | 2017-09-06 14:04 | XMS REPORT | Clinical Summary ---
Author Author Admin, CRISTOPHER Organization [facility] Address Unknown Phone Unavailable Allergies, Adverse Reactions, [...] classified Eosinophilic esophagitis 530.13 Active Mahogany Garza COMPUTER TAPE LIBRARIAN Eosinophilic esophagitis FH DIABETES ICD-V18.0 Inactive Natanael Araujo MD ACUTE PHARYNGITIS ICD-462 Inactive Natanael Araujo MD ACUTE PHARYNGITIS ICD-462 Inactive Natanael Araujo MD LUMBAR-SACRAL STRAIN ICD-846.0 Inactive Natanael Araujo MD Sinusitis, acute ICD-461.9 Inactive Natanael Araujo MD CHEST WALL PAIN ICD-786.52 Inactive Natanael Araujo MD Knee pain, left ICD-719.46 Inactive Natanael Araujo MD Postconcussion syndrome ICD-310.2 Inactive Natanael Araujo MD Back pain ICD-724.5 Inactive Natanael Araujo MD Dysphagia ICD-787.20 Inactive Natanael Araujo MD Influenza like illness ICD-487.1 Inactive Natanael Araujo MD Medication List Medication Instructions Start Date Stop Date Generic Name NDC Status Provider Patient Instruction LEXAPRO 10 MG TABS 1 tablet by mouth daily ESCITALOPRAM OXALATE 92754027274 Active Natanael Araujo MD Active PROAIR HFA 108 (90 BASE) MCG/ACT AERS 2 puffs four times a day as needed 2012 ALBUTEROL SULFATE 31650530481 No Longer Active Natanael Araujo MD Active PRILOSEC 20 MG CAP CR 1 tab po q am OMEPRAZOLE 78765924449 No Longer Active Natanael Araujo MD Active CELEBREX 200 MG CAPS 1 tablet by mouth daily with meals CELECOXIB 45788249829 No Longer Active Natanael Araujo MD Active CLARITIN 10 MG TAB 1 tablet by mouth daily as needed for allergies LORATADINE 25279440852 No Longer Active Natanael Araujo MD Active PULMICORT 0.5 MG/2ML INH SUSP mix 2 ml with 5 packets of splenda and swallow. rinse the mouth after 30 min. do not eat or drink anything for 30 min. 12/19 BUDESONIDE 82028932819 No Longer Active Natanael Araujo MD Active OMEPRAZOLE 20 MG CPDR 1 tablet by mouth daily OMEPRAZOLE 90143079196 No Longer Active Natanael Araujo MD Active PROTONIX 40 MG SOLR 1 po q a.m. PANTOPRAZOLE SODIUM 31532963905 No Longer Active Natanael Araujo MD Active CYCLOBENZAPRINE HCL 5 MG ORAL TABS 1/2 tab po q hs, prn CYCLOBENZAPRINE HCL 39322257900 No Longer Active Natanael Araujo MD Active CELEBREX 100 MG CAPS 1 tab daily CELECOXIB 33554269655 No Longer Active Mahogany Garza APRN Active OMEPRAZOLE 20 MG CPDR 1 tablet by mouth daily OMEPRAZOLE 76054851206 No Longer Active Natanael Araujo MD Active TAMIFLU 75 MG CAPS 1 bid x 5 days OSELTAMIVIR PHOSPHATE 96650512811 No Longer Active Natanael Araujo MD Active PREDNISONE 20 MG TAB 2 tabs daily for 3 days, 1 tab daily for 3 days, 1/2 tab daily for 2 days PREDNISONE 06025085181 No Longer Active Natanael Araujo MD Active AMOXICILLIN 400 MG/5ML SUSR 12.5ml po BID x 10 days AMOXICILLIN 18038597220 No Longer Active Natanael Araujo MD Active IBUPROFEN 800 MG TABS 1 tab every 8 hours as needed IBUPROFEN 71527576676 No Longer Active Natanael Araujo MD Active FLEXERIL 10 MG TAB 1 tablet by mouth at bedtime as needed for pain CYCLOBENZAPRINE HCL 83909567409 No Longer Active Natanael Araujo MD Active AMOXICILLIN 500 MG TABS take one tab po tid x 7 days AMOXICILLIN 34674288098 No Longer Active Natanael Araujo MD Active PRILOSEC 10 MG CAP CR Take one by mouth daily OMEPRAZOLE 65186293870 No Longer Active Natanael Araujo MD Active ZYRTEC ALLERGY 10 MG CAPS Take one by mouth daily as needed 10/25 CETIRIZINE HCL 69198917577 No Longer Active Natanael Araujo MD Active ZYRTEC ALLERGY 10 MG CAPS Take one by mouth daily as needed 10/25 ZYRTEC ALLERGY 10 MG CAPS CETIRIZINE HCL Inactive PRILOSEC 10 MG CAP CR Take one by mouth daily PRILOSEC 10 MG CAP CR 945137 OMEPRAZOLE Inactive AMOXICILLIN 500 MG TABS take one tab po tid x 7 days AMOXICILLIN 500 MG TABS 106042 AMOXICILLIN Inactive FLEXERIL 10 MG TAB 1 tablet by mouth at bedtime as needed for pain FLEXERIL 10 MG TAB CYCLOBENZAPRINE HCL Inactive IBUPROFEN 800 MG TABS 1 tab every 8 hours as needed IBUPROFEN 800 MG TABS IBUPROFEN Inactive OMEPRAZOLE 20 MG CPDR 1 tablet by mouth daily OMEPRAZOLE 20 MG CPDR 765690 OMEPRAZOLE Inactive CELEBREX 100 MG CAPS 1 tab daily CELEBREX 100 MG CAPS 603357 CELECOXIB Inactive CYCLOBENZAPRINE HCL 5 MG ORAL TABS 1/2 tab po q hs, prn CYCLOBENZAPRINE HCL 5 MG ORAL TABS 940665 CYCLOBENZAPRINE HCL Inactive OMEPRAZOLE 20 MG CPDR 1 tablet by mouth daily OMEPRAZOLE 20 MG CPDR 619924 OMEPRAZOLE Inactive PULMICORT 0.5 MG/2ML INH SUSP mix 2 ml with 5 packets of splenda and swallow. rinse the mouth after 30 min. do not eat or drink anything for 30 min. 12/19 PULMICORT 0.5 MG/2ML INH SUSP 064318 BUDESONIDE Inactive CLARITIN 10 MG TAB 1 tablet by mouth daily as needed for allergies CLARITIN 10 MG TAB 758315 LORATADINE Inactive CELEBREX 200 MG CAPS 1 tablet by mouth daily with meals CELEBREX 200 MG CAPS 864977 CELECOXIB Inactive PRILOSEC 20 MG CAP CR 1 tab po q am PRILOSEC 20 MG CAP CR 605014 OMEPRAZOLE Inactive PROAIR HFA 108 (90 BASE) MCG/ACT AERS 2 puffs four times a day as needed 2012 PROAIR HFA 108 (90 BASE) MCG/ACT AERS ALBUTEROL SULFATE Inactive AMOXICILLIN 400 MG/5ML SUSR 12.5ml po BID x 10 days AMOXICILLIN 400 MG/5ML SUSR 894745 AMOXICILLIN Inactive PREDNISONE 20 MG TAB 2 tabs daily for 3 days, 1 tab daily for 3 days, 1/2 tab daily for 2 days PREDNISONE 20 MG TAB 658884 PREDNISONE Inactive TAMIFLU 75 MG CAPS 1 bid x 5 days TAMIFLU 75 MG CAPS OSELTAMIVIR PHOSPHATE Inactive Advance Directives Directive Description Start Date PERMISSION TO SHARE Vital Signs Date Name Value Unit Range Description blood pressure, diastolic - 8462-4 67 mm[Hg] [...] E&M - 3141-9 141 [lb_av] Weight Measured Encounters Code Encounter Date Provider Facility CPT-49752 Level 3 Est. Patient 16:32:02 ADVERTISING SALES ASSOCIATE Natanael Araujo MD [facility] CPT-32438 Level 3 Est. Patient 15:45:10 CDT Natanael Araujo MD [facility] CPT-36008 Level 4 Est. Patient 16:43:28 CDT Natanael Araujo MD [facility] CPT-48126 Level 3 Est. Patient 15:06:06 CDT Natanael Araujo MD [facility] CPT-64595 Level 3 Est. Patient 13:38:04 ADVERTISING SALES ASSOCIATE Natanael Araujo MD [facility] CPT-70432 Level 3 Est. Patient 10:18:16 ADVERTISING SALES ASSOCIATE Natanael Araujo MD [facility] CPT-05175 Level 3 Est. Patient 16:04:12 CDT Natanael Araujo MD [facility] CPT-15461 Level 3 Est. Patient 11:25:05 CDT Natanael Araujo MD [facility] CPT-82194 Level 3 Est. Patient 13:17:34 CDT Gail Valerio [facility] CPT-91488 Level 3 Est. Patient 17:03:36 CDT Natanael Araujo MD [facility] CPT-97604 Level 2 Est. Patient 14:41:40 ADVERTISING SALES ASSOCIATE Mahogany Garza APRN [facility] CPT-09899 Level 3 New Patient 16:12:19 ADVERTISING SALES ASSOCIATE Gail KIMBALL [facility] Procedures Code Procedure Name Date Entry Date Standard Description CPT-66880 Menactra 10:44:48 CDT CPT-31070 Administration single or combination vaccine inc oral 10 :44:48 CDT CPT-48064 Menactra 10:42:17 CDT CPT-33165 Administration single or combination vaccine inc oral 10 :42:17 CDT CPT-23420 Knee 3V 13:46:23 ADVERTISING SALES ASSOCIATE CPT-01668 LS spine comp w obliq 16:17:55 CDT CPT-JTINJ Joint Injection 17:03:35 CDT CPT-J0561 Bicillin LA 1,200,000 u (PCN G Benzathine) 16:12:19 ADVERTISING SALES ASSOCIATE CPT-85984 Abx/Therapy Injection 16:12:19 ADVERTISING SALES ASSOCIATE
--- OUTSIDE RECORDS SUMMARY | 2017-09-06 14:04 | XMS REPORT | Clinical Summary ---
Author Author Admin, CRISTOPHER Organization [facility] Address Unknown Phone Unavailable Allergies, Adverse Reactions, [...] of diabetes mellitus CHEST PAIN 786.50 Correction Mayr De Paz Unspecified chest pain left CHEST [...] tablet by mouth daily with meals CELECOXIB 93345518990 Active Natanael Araujo MD Active OMEPRAZOLE 20 MG CPDR 1 tablet by mouth daily OMEPRAZOLE 13620966132 No Longer Active Natanael Araujo MD Active PROTONIX 40 MG SOLR 1 po q a.m. PANTOPRAZOLE SODIUM 55868233824 Active Natanael Araujo MD Active CYCLOBENZAPRINE HCL 5 MG ORAL TABS 1/2 tab po q hs, prn CYCLOBENZAPRINE HCL 62594261242 No Longer Active Natanael Araujo MD Active CELEBREX 100 MG CAPS 1 tab daily CELECOXIB 03664257068 No Longer Active Mahogany Polocelsa BEEN Active OMEPRAZOLE 20 MG CPDR 1 tablet by mouth daily OMEPRAZOLE 99030499183 No Longer Active Natanael Araujo MD Active TAMIFLU 75 MG CAPS 1 bid x 5 days OSELTAMIVIR PHOSPHATE 49248189765 No Longer Active Natanael Araujo MD Active PREDNISONE 20 MG TAB 2 tabs daily for 3 days, 1 tab daily for 3 days, 1/2 tab daily for 2 days PREDNISONE 46800503696 No Longer Active Natanael Araujo MD Active AMOXICILLIN 400 MG/5ML SUSR 12.5ml po BID x 10 days AMOXICILLIN 17819353720 No Longer Active Natanael Araujo MD Active IBUPROFEN 800 MG TABS 1 tab every 8 hours as needed IBUPROFEN 67697248194 No Longer Active Natanael Araujo MD Active PROAIR HFA 108 (90 BASE) MCG/ACT AERS 2 puffs four times a day as needed 2012 ALBUTEROL SULFATE 10295577165 Active Natanael Araujo MD Active FLEXERIL 10 MG TAB 1 tablet by mouth at bedtime as needed for pain CYCLOBENZAPRINE HCL 59004529961 No Longer Active Natanael Araujo MD Active AMOXICILLIN 500 MG TABS take one tab po tid x 7 days AMOXICILLIN 77858805296 No Longer Active Natanael Araujo MD Active PRILOSEC 10 MG CAP CR Take one by mouth daily OMEPRAZOLE 50996058702 No Longer Active Natanael Araujo MD Active ZYRTEC ALLERGY 10 MG CAPS Take one by mouth daily as needed 10/25 CETIRIZINE HCL 53607670124 No Longer Active Natanael Araujo MD Active ZYRTEC ALLERGY 10 MG CAPS Take one by mouth daily as needed 10/25 ZYRTEC ALLERGY 10 MG CAPS CETIRIZINE HCL Inactive PRILOSEC 10 MG CAP CR Take one by mouth daily PRILOSEC 10 MG CAP CR 19900712 OMEPRAZOLE Inactive AMOXICILLIN 500 MG TABS take one tab po tid x 7 days AMOXICILLIN 500 MG TABS 282036 AMOXICILLIN Inactive FLEXERIL 10 MG TAB 1 tablet by mouth at bedtime as needed for pain FLEXERIL 10 MG TAB CYCLOBENZAPRINE HCL Inactive IBUPROFEN 800 MG TABS 1 tab every 8 hours as needed IBUPROFEN 800 MG TABS 540188 IBUPROFEN Inactive OMEPRAZOLE 20 MG CPDR 1 tablet by mouth daily OMEPRAZOLE 20 MG CPDR 208896 OMEPRAZOLE Inactive CELEBREX 100 MG CAPS 1 tab daily CELEBREX 100 MG CAPS 319658 CELECOXIB Inactive CYCLOBENZAPRINE HCL 5 MG ORAL TABS 1/2 tab po q hs, prn CYCLOBENZAPRINE HCL 5 MG ORAL TABS 367682 CYCLOBENZAPRINE HCL Inactive OMEPRAZOLE 20 MG CPDR 1 tablet by mouth daily OMEPRAZOLE 20 MG CPDR 853263 OMEPRAZOLE Inactive AMOXICILLIN 400 MG/5ML SUSR 12.5ml po BID x 10 days AMOXICILLIN 400 MG/5ML SUSR 934188 AMOXICILLIN Inactive PREDNISONE 20 MG TAB 2 tabs daily for 3 days, 1 tab daily for 3 days, 1/2 tab daily for 2 days PREDNISONE 20 MG TAB 367730 PREDNISONE Inactive TAMIFLU 75 MG CAPS 1 bid x 5 days TAMIFLU 75 MG CAPS OSELTAMIVIR PHOSPHATE Inactive Advance Directives Directive Description Start Date PERMISSION TO SHARE Vital Signs Date Name Value Unit Range Description blood pressure, diastolic - 8462-4 68 mm[Hg] [...] AUTO - Chemistry sodium, serum 143 mmol/L 000-324 3843/01/07 potassium, serum 4.2 mmol/L 3.5-5.2 chloride, serum [...] Negative Encounters Code Encounter Date Provider Facility CPT-28402 Level 3 Est. Patient 15:45:10 CDT Natanael Araujo MD [facility] CPT-07264 Level 4 Est. Patient 16:43:28 CDT Natanael Araujo MD [facility] CPT-15513 Level 3 Est. Patient 15:06:06 CDT Natanael Araujo MD [facility] CPT-89668 Level 3 Est. Patient 13:38:04 AMBULANCE PARAMEDIC Natanael Araujo MD [facility] CPT-14522 Level 3 Est. Patient 10:18:16 AMBULANCE PARAMEDIC Natanael Araujo MD [facility] CPT-17280 Level 3 Est. Patient 16:04:12 CDT Natanael Araujo MD [facility] CPT-06059 Level 3 Est. Patient 11:25:05 CDT Natanael Araujo MD [facility] CPT-04466 Level 3 Est. Patient 13:17:34 CDT Gail KIMBALL [facility] CPT-98295 Level 3 Est. Patient 17:03:36 CDT Natanael Araujo MD [facility] CPT-31882 Level 2 Est. Patient 14:41:40 AMBULANCE PARAMEDIC Mahogany Garza APRN [facility] CPT-53089 Level 3 New Patient 16:12:19 AMBULANCE PARAMEDIC Gail [facility] Procedures Code Procedure Name Date Entry Date Standard Description CPT-64555 Knee 3V 13:46:23 AMBULANCE PARAMEDIC CPT-10790 LS spine comp w obliq 16:17:55 CDT CPT-JTINJ Joint Injection 17:03:35 CDT CPT-J0561 Bicillin LA 1,200,000 u (PCN G Benzathine) 16:12:19 AMBULANCE PARAMEDIC CPT-66307 Abx/Therapy Injection 16:12:19 AMBULANCE PARAMEDIC
--- OUTSIDE RECORDS SUMMARY | 2017-09-06 14:05 | XMS REPORT | Clinical Summary ---
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 30min prior to first food intake OMEPRAZOLE 38796074255 Active Natanael Araujo MD Active CLARITIN 10 MG TAB 1 tablet by mouth daily as needed for allergies LORATADINE 66756040452 Active Mahogany Garza APRN Active AZITHROMYCIN 250 MG TABS 2 po qd x 1 day, then 1 po qd x 4 days AZITHROMYCIN 62482845284 No Longer Active Mahogany Garza REFRIGERATION ENGINEER Active LEXAPRO 10 MG TABS 1 tablet by mouth daily ESCITALOPRAM OXALATE 18561121839 Active Natanael Araujo MD Active PROAIR HFA 108 (90 BASE) MCG/ACT AERS 2 puffs four times a day as needed 2012 ALBUTEROL SULFATE 24645629553 No Longer Active Natanael Araujo MD Active PRILOSEC 20 MG CAP CR 1 tab po q am OMEPRAZOLE 20810630915 No Longer Active Natanael Araujo MD Active CELEBREX 200 MG CAPS 1 tablet by mouth daily with meals CELECOXIB 11598929885 No Longer Active Natanael Araujo MD Active CLARITIN 10 MG TAB 1 tablet by mouth daily as needed for allergies LORATADINE 37825494533 No Longer Active Natanael Araujo MD Active PULMICORT 0.5 MG/2ML INH SUSP mix 2 ml with 5 packets of splenda and swallow. rinse the mouth after 30 min. do not eat or drink anything for 30 min. 12/19 BUDESONIDE 23190409294 No Longer Active Natanael Araujo MD Active OMEPRAZOLE 20 MG CPDR 1 tablet by mouth daily OMEPRAZOLE 59334750627 No Longer Active Natanael Araujo MD Active PROTONIX 40 MG SOLR 1 po q a.m. PANTOPRAZOLE SODIUM 91490391082 No Longer Active Natanael Araujo MD Active CYCLOBENZAPRINE HCL 5 MG ORAL TABS 1/2 tab po q hs, prn CYCLOBENZAPRINE HCL 48838103070 No Longer Active Natanael Araujo MD Active CELEBREX 100 MG CAPS 1 tab daily CELECOXIB 33992575539 No Longer Active Mahogany Garza APRN Active OMEPRAZOLE 20 MG CPDR 1 tablet by mouth daily OMEPRAZOLE 70893591192 No Longer Active Natanael Araujo MD Active TAMIFLU 75 MG CAPS 1 bid x 5 days OSELTAMIVIR PHOSPHATE 08988783784 No Longer Active Natanael Araujo MD Active PREDNISONE 20 MG TAB 2 tabs daily for 3 days, 1 tab daily for 3 days, 1/2 tab daily for 2 days PREDNISONE 05436257901 No Longer Active Natanael Araujo MD Active AMOXICILLIN 400 MG/5ML SUSR 12.5ml po BID x 10 days AMOXICILLIN 39303536165 No Longer Active Natanael Araujo MD Active IBUPROFEN 800 MG TABS 1 tab every 8 hours as needed IBUPROFEN 81338129488 No Longer Active Natanael Araujo MD Active FLEXERIL 10 MG TAB 1 tablet by mouth at bedtime as needed for pain CYCLOBENZAPRINE HCL 27913445595 No Longer Active Natanael Araujo MD Active AMOXICILLIN 500 MG TABS take one tab po tid x 7 days AMOXICILLIN 55093120919 No Longer Active Natanael Araujo MD Active PRILOSEC 10 MG CAP CR Take one by mouth daily OMEPRAZOLE 89600577907 No Longer Active Natanael Araujo MD Active ZYRTEC ALLERGY 10 MG CAPS Take one by mouth daily as needed 10/25 CETIRIZINE HCL 50451248704 No Longer Active Natanael Araujo MD Active ZYRTEC ALLERGY 10 MG CAPS Take one by mouth daily as needed 10/25 ZYRTEC ALLERGY 10 MG CAPS CETIRIZINE HCL Inactive PRILOSEC 10 MG CAP CR Take one by mouth daily PRILOSEC 10 MG CAP CR 19900712 OMEPRAZOLE Inactive AMOXICILLIN 500 MG TABS take one tab po tid x 7 days AMOXICILLIN 500 MG TABS 226931 AMOXICILLIN Inactive FLEXERIL 10 MG TAB 1 tablet by mouth at bedtime as needed for pain FLEXERIL 10 MG TAB CYCLOBENZAPRINE HCL Inactive IBUPROFEN 800 MG TABS 1 tab every 8 hours as needed IBUPROFEN 800 MG TABS 105643 IBUPROFEN Inactive OMEPRAZOLE 20 MG CPDR 1 tablet by mouth daily OMEPRAZOLE 20 MG CPDR 19791102 OMEPRAZOLE Inactive CELEBREX 100 MG CAPS 1 tab daily CELEBREX 100 MG CAPS 028647 CELECOXIB Inactive CYCLOBENZAPRINE HCL 5 MG ORAL TABS 1/2 tab po q hs, prn CYCLOBENZAPRINE HCL 5 MG ORAL TABS 485926 CYCLOBENZAPRINE HCL Inactive OMEPRAZOLE 20 MG CPDR 1 tablet by mouth daily OMEPRAZOLE 20 MG CPDR 19791102 OMEPRAZOLE Inactive PULMICORT 0.5 MG/2ML INH SUSP mix 2 ml with 5 packets of splenda and swallow. rinse the mouth after 30 min. do not eat or drink anything for 30 min. 12/19 PULMICORT 0.5 MG/2ML INH SUSP 458112 BUDESONIDE Inactive CLARITIN 10 MG TAB 1 tablet by mouth daily as needed for allergies CLARITIN 10 MG TAB 035738 LORATADINE Inactive CELEBREX 200 MG CAPS 1 tablet by mouth daily with meals CELEBREX 200 MG CAPS 253952 CELECOXIB Inactive PRILOSEC 20 MG CAP CR 1 tab po q am PRILOSEC 20 MG CAP CR 576946 OMEPRAZOLE Inactive PROAIR HFA 108 (90 BASE) MCG/ACT AERS 2 puffs four times a day as needed 2012 PROAIR HFA 108 (90 BASE) MCG/ACT AERS ALBUTEROL SULFATE Inactive AMOXICILLIN 400 MG/5ML SUSR 12.5ml po BID x 10 days AMOXICILLIN 400 MG/5ML SUSR 968485 AMOXICILLIN Inactive PREDNISONE 20 MG TAB 2 tabs daily for 3 days, 1 tab daily for 3 days, 1/2 tab daily for 2 days PREDNISONE 20 MG TAB 055588 PREDNISONE Inactive TAMIFLU 75 MG CAPS 1 bid x 5 days TAMIFLU 75 MG CAPS OSELTAMIVIR PHOSPHATE Inactive AZITHROMYCIN 250 MG TABS 2 po qd x 1 day, then 1 po qd x 4 days AZITHROMYCIN 250 MG TABS 0979353 AZITHROMYCIN Inactive Advance Directives Directive Description Start Date PERMISSION TO SHARE Vital Signs Date Name Value Unit Range Description blood pressure, diastolic - 8462-4 70 mm[Hg] BP parada blood pressure, systolic - 8480-6 113 mm[Hg] BP sys pulse rate E&M - 8867-4 88 /min Heart rate temperature E&M 99 [degF] Body temperature weight E&M - 3141-9 139.5 [lb_av] Weight Measured blood pressure, diastolic - [...] E&M - 3141-9 138.5 [lb_av] Weight Measured Diagnostic Results Date Name Value Unit Range Description Lab Report: YUE INFLUENZA A/B, RapidStrep Rflx/Cx - Lab Microbial identification kit, rapid strep method Negative-Throat Culture to Follow Negative Lab Report: YUE INFLUENZA A/B, RapidStrep Rflx/Cx - Toxicology rapid flu test Negative Negative;Positive Encounters Code Encounter Date Provider Facility CPT-76508 Level 3 Est. Patient 16:08:13 CDT Natanael Araujo MD [facility] CPT-56871 Level 3 Est. Patient 10:44:11 [facility] Level 3 Est. Patient 15:58:41 DATA MANAGEMENT ASSOCIATE Natanael Araujo MD [facility] CPT-09404 Level 3 Est. Patient 16:32:02 DATA MANAGEMENT ASSOCIATE Natanael Araujo MD [facility] CPT-97815 Level 3 Est. Patient 15:45:10 CDT Natanael Araujo MD [facility] CPT-23366 Level 4 Est. Patient 16:43:28 CDT Natanael Araujo MD [facility] CPT-78825 Level 3 Est. Patient 15:06:06 CDT Natanael Araujo MD [facility] CPT-46788 Level 3 Est. Patient 13:38:04 DATA MANAGEMENT ASSOCIATE Natanael Araujo MD [facility] CPT-70659 Level 3 Est. Patient 10:18:16 DATA MANAGEMENT ASSOCIATE Natanael Araujo MD [facility] CPT-69535 Level 3 Est. Patient 16:04:12 CDT Natanael Araujo MD [facility] CPT-82180 Level 3 Est. Patient 11:25:05 CDT Natanael Araujo MD [facility] CPT-21791 Level 3 Est. Patient 13:17:34 CDT Gail Valerio [facility] CPT-44982 Level 3 Est. Patient 17:03:36 CDT Natanael Araujo MD [facility] CPT-71218 Level 2 Est. Patient 14:41:40 DATA MANAGEMENT ASSOCIATE Mahogany Garza [facility] CPT-51505 Level 3 New Patient 16:12:19 DATA MANAGEMENT ASSOCIATE Gail Valerio [facility] Procedures Code Procedure Name Date Entry Date Standard Description CPT-06318 Menactra 10:44:48 CDT CPT-99327 Administration single or combination vaccine inc oral 10 :44:48 CDT CPT-83199 Menactra 10:42:17 CDT CPT-33163 Administration single or combination vaccine inc oral 10 :42:17 CDT CPT-30489 Knee 3V 13:46:23 DATA MANAGEMENT ASSOCIATE CPT-39162 LS spine comp w obliq 16:17:55 CDT CPT-JTINJ Joint Injection 17:03:35 CDT CPT-J0561 Bicillin LA 1,200,000 u (PCN G Benzathine) 16:12:19 DATA MANAGEMENT ASSOCIATE CPT-49445 Abx/Therapy Injection 16:12:19 DATA MANAGEMENT ASSOCIATE
--- OUTSIDE RECORDS SUMMARY | 2017-09-06 14:05 | XMS REPORT | Clinical Summary ---
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 Eosinophilic esophagitis Pharyngitis 462 Resolved Natanael Araujo MD Acute pharyngitis Nausea alone 787.02 Active Natanael Araujo MD Nausea alone Bilateral headache 784.0 Active Natanael Araujo MD Headache ACUTE PHARYNGITIS ICD-462 Inactive Natanael Araujo MD [...] Generic Name NDC Status Provider Patient Instruction NAPROXEN SODIUM 550 MG ORAL TABS 1 po BID PRN Headache NAPROXEN SODIUM 13903723365 Active Natanael Araujo MD Active PREDNISONE 10 MG ORAL TABS 3 po qd x 3 days, then 2 po qd x 3 days, then 1 po qd x 2 days PREDNISONE 20650710293 No Longer Active Natanael Araujo MD Active SAFYRAL 3-0.03-0.451 MG ORAL TABS Take one by mouth daily DROSPIREN- ETH ESTRAD-LEVOMEFOL 76387319591 Active Natanael Araujo MD Active LEXAPRO 10 MG TABS 1 tablet by mouth daily ESCITALOPRAM OXALATE 36396339823 No Longer Active Natanael Araujo MD Active CLARITIN 10 MG TAB 1 tablet by mouth daily as needed for allergies LORATADINE 20471552814 No Longer Active Natanael Araujo MD Active OMEPRAZOLE 20 MG TBEC 1 po q a.m. 30min prior to first food intake OMEPRAZOLE 33197784972 No Longer Active Natanael Araujo MD Active ZOFRAN 4 MG TABS 1 po q6hr PRN Nausea ONDANSETRON HCL 50416249569 No Longer Active Natanael Araujo MD Active AZITHROMYCIN 250 MG TABS 2 po qd x 1 day, then 1 po qd x 4 days AZITHROMYCIN 52441947349 No Longer Active Mahogany Garza APRN Active PROAIR HFA 108 (90 BASE) MCG/ACT AERS 2 puffs four times a day as needed 2012 ALBUTEROL SULFATE 91676997324 No Longer Active Natanael Araujo MD Active PRILOSEC 20 MG CAP CR 1 tab po q am OMEPRAZOLE 19805678040 No Longer Active Natanael Araujo MD Active CELEBREX 200 MG CAPS 1 tablet by mouth daily with meals CELECOXIB 54882805017 No Longer Active Natanael Araujo MD Active CLARITIN 10 MG TAB 1 tablet by mouth daily as needed for allergies LORATADINE 76905716100 No Longer Active Natanael Araujo MD Active PULMICORT 0.5 MG/2ML INH SUSP mix 2 ml with 5 packets of splenda and swallow. rinse the mouth after 30 min. do not eat or drink anything for 30 min. 12/19 BUDESONIDE 54351199264 No Longer Active Natanael Araujo MD Active OMEPRAZOLE 20 MG CPDR 1 tablet by mouth daily OMEPRAZOLE 48449616522 No Longer Active Natanael Araujo MD Active PROTONIX 40 MG SOLR 1 po q a.m. PANTOPRAZOLE SODIUM 43979248725 No Longer Active Natanael Araujo MD Active CYCLOBENZAPRINE HCL 5 MG ORAL TABS 1/2 tab po q hs, prn CYCLOBENZAPRINE HCL 75933241835 No Longer Active Natanael Araujo MD Active CELEBREX 100 MG CAPS 1 tab daily CELECOXIB 09478208541 No Longer Active Mahogany Garza APRN Active OMEPRAZOLE 20 MG CPDR 1 tablet by mouth daily OMEPRAZOLE 27551549289 No Longer Active Natanael Araujo MD Active TAMIFLU 75 MG CAPS 1 bid x 5 days OSELTAMIVIR PHOSPHATE 52884258465 No Longer Active Natanael Araujo MD Active PREDNISONE 20 MG TAB 2 tabs daily for 3 days, 1 tab daily for 3 days, 1/2 tab daily for 2 days PREDNISONE 52343163857 No Longer Active Natanael Araujo MD Active AMOXICILLIN 400 MG/5ML SUSR 12.5ml po BID x 10 days AMOXICILLIN 20051154581 No Longer Active Natanael Araujo MD Active IBUPROFEN 800 MG TABS 1 tab every 8 hours as needed IBUPROFEN 55998505213 No Longer Active Natanael Araujo MD Active FLEXERIL 10 MG TAB 1 tablet by mouth at bedtime as needed for pain CYCLOBENZAPRINE HCL 98322138216 No Longer Active Natanael Araujo MD Active AMOXICILLIN 500 MG TABS take one tab po tid x 7 days AMOXICILLIN 92507013756 No Longer Active Natanael Araujo MD Active PRILOSEC 10 MG CAP CR Take one by mouth daily OMEPRAZOLE 97072954694 No Longer Active Natanael Araujo MD Active ZYRTEC ALLERGY 10 MG CAPS Take one by mouth daily as needed 10/25 CETIRIZINE HCL 81747132773 No Longer Active Natanael Araujo MD Active ZYRTEC ALLERGY 10 MG CAPS Take one by mouth daily as needed 10/25 ZYRTEC ALLERGY 10 MG CAPS CETIRIZINE HCL Inactive PRILOSEC 10 MG CAP CR Take one by mouth daily PRILOSEC 10 MG CAP CR OMEPRAZOLE Inactive AMOXICILLIN 500 MG TABS take one tab po tid x 7 days AMOXICILLIN 500 MG TABS 596084 AMOXICILLIN Inactive FLEXERIL 10 MG TAB 1 tablet by mouth at bedtime as needed for pain FLEXERIL 10 MG TAB CYCLOBENZAPRINE HCL Inactive IBUPROFEN 800 MG TABS 1 tab every 8 hours as needed IBUPROFEN 800 MG TABS 825658 IBUPROFEN Inactive OMEPRAZOLE 20 MG CPDR 1 tablet by mouth daily OMEPRAZOLE 20 MG CPDR 19791102 OMEPRAZOLE Inactive CELEBREX 100 MG CAPS 1 tab daily CELEBREX 100 MG CAPS 174254 CELECOXIB Inactive CYCLOBENZAPRINE HCL 5 MG ORAL TABS 1/2 tab po q hs, prn CYCLOBENZAPRINE HCL 5 MG ORAL TABS 997648 CYCLOBENZAPRINE HCL Inactive OMEPRAZOLE 20 MG CPDR 1 tablet by mouth daily OMEPRAZOLE 20 MG CPDR 19791102 OMEPRAZOLE Inactive PULMICORT 0.5 MG/2ML INH SUSP mix 2 ml with 5 packets of splenda and swallow. rinse the mouth after 30 min. do not eat or drink anything for 30 min. 12/19 PULMICORT 0.5 MG/2ML INH SUSP 218598 BUDESONIDE Inactive CLARITIN 10 MG TAB 1 tablet by mouth daily as needed for allergies CLARITIN 10 MG TAB 821084 LORATADINE Inactive CELEBREX 200 MG CAPS 1 tablet by mouth daily with meals CELEBREX 200 MG CAPS 010620 CELECOXIB Inactive PRILOSEC 20 MG CAP CR 1 tab po q am PRILOSEC 20 MG CAP CR 092297 OMEPRAZOLE Inactive PROAIR HFA 108 (90 BASE) MCG/ACT AERS 2 puffs four times a day as needed 2012 PROAIR HFA 108 (90 BASE) MCG/ACT AERS ALBUTEROL SULFATE Inactive ZOFRAN 4 MG TABS 1 po q6hr PRN Nausea ZOFRAN 4 MG TABS 651819 ONDANSETRON HCL Inactive OMEPRAZOLE 20 MG TBEC 1 po q a.m. 30min prior to first food intake OMEPRAZOLE 20 MG TBEC 031129 OMEPRAZOLE Inactive CLARITIN 10 MG TAB 1 tablet by mouth daily as needed for allergies CLARITIN 10 MG TAB 437133 LORATADINE Inactive LEXAPRO 10 MG TABS 1 tablet by mouth daily LEXAPRO 10 MG TABS 378590 ESCITALOPRAM OXALATE Inactive AMOXICILLIN 400 MG/5ML SUSR 12.5ml po BID x 10 days AMOXICILLIN 400 MG/5ML SUSR 997735 AMOXICILLIN Inactive PREDNISONE 20 MG TAB 2 tabs daily for 3 days, 1 tab daily for 3 days, 1/2 tab daily for 2 days PREDNISONE 20 MG TAB 741004 PREDNISONE Inactive TAMIFLU 75 MG CAPS 1 bid x 5 days TAMIFLU 75 MG CAPS 956247 OSELTAMIVIR PHOSPHATE Inactive AZITHROMYCIN 250 MG TABS 2 po qd x 1 day, then 1 po qd x 4 days AZITHROMYCIN 250 MG TABS 8120275 AZITHROMYCIN Inactive PREDNISONE 10 MG ORAL TABS 3 po qd x 3 days, then 2 po qd x 3 days, then 1 po qd x 2 days PREDNISONE 10 MG ORAL TABS 946036 PREDNISONE Inactive Advance Directives Directive Description Start Date PERMISSION TO SHARE Vital Signs Date Name Value Unit Range Description blood pressure, diastolic - 8462-4 73 mm[Hg] BP parada blood pressure, systolic - 8480-6 119 mm[Hg] BP sys pulse rate E&M - 8867-4 70 /min Heart rate temperature E&M 98.8 [degF] Body temperature weight E&M - 3141-9 138.50 [lb_av] Weight Measured blood pressure, diastolic - 8462-4 70 mm[Hg] BP parada blood pressure, systolic - 8480-6 113 mm[Hg] BP sys pulse rate E&M - 8867-4 88 /min Heart rate temperature E&M 99 [degF] Body temperature weight E&M - 3141-9 139.5 [lb_av] Weight Measured Encounters Code Encounter Date Provider Facility CPT-80686 Level 3 Est. Patient 14:27:39 CDT Natanael Araujo MD [facility] CPT-77562 Level 3 Est. Patient 16:08:13 CDT Natanael Araujo MD [facility] CPT-32002 Level 3 Est. Patient 10:44:11 CDT Mahogany Garza APRN [facility] CPT-27086 Level 3 Est. Patient 15:58:41 WATER AND SEWER SYSTEMS SUPERINTENDENT Natanael Araujo MD [facility] CPT-39310 Level 3 Est. Patient 16:32:02 WATER AND SEWER SYSTEMS SUPERINTENDENT Natanael Araujo MD [facility] CPT-22333 Level 3 Est. Patient 15:45:10 CDT Natanael Araujo MD [facility] CPT-85560 Level 4 Est. Patient 16:43:28 CDT Natanael Araujo MD [facility] CPT-70750 Level 3 Est. Patient 15:06:06 CDT Natanael Araujo MD [facility] CPT-24647 Level 3 Est. Patient 13:38:04 WATER AND SEWER SYSTEMS SUPERINTENDENT Natanael Araujo MD [facility] CPT-50187 Level 3 Est. Patient 10:18:16 WATER AND SEWER SYSTEMS SUPERINTENDENT Natanael Araujo MD [facility] CPT-37310 Level 3 Est. Patient 16:04:12 CDT Natanael Araujo MD [facility] CPT-68512 Level 3 Est. Patient 11:25:05 CDT Natanael Araujo MD [facility] CPT-26148 Level 3 Est. Patient 13:17:34 CDT Gail Valerio [facility] CPT-06890 Level 3 Est. Patient 17:03:36 CDT Natanael Araujo MD [facility] CPT-02079 Level 2 Est. Patient 14:41:40 WATER AND SEWER SYSTEMS SUPERINTENDENT [facility] Level 3 New Patient 16:12:19 WATER AND SEWER SYSTEMS SUPERINTENDENT Gail Valerio [facility] Procedures Code Procedure Name Date Entry Date Standard Description CPT-47180 Menactra 10:44:48 CDT CPT-23916 Administration single or combination vaccine inc oral 10 :44:48 CDT CPT-82283 Menactra 10:42:17 CDT CPT-62546 Administration single or combination vaccine inc oral 10 :42:17 CDT CPT-19560 Knee 3V 13:46:23 WATER AND SEWER SYSTEMS SUPERINTENDENT CPT-95923 LS spine comp w obliq 16:17:55 CDT CPT-JTINJ Joint Injection 17:03:35 CDT CPT-J0561 Bicillin LA 1,200,000 u (PCN G Benzathine) 16:12:19 WATER AND SEWER SYSTEMS SUPERINTENDENT CPT-56346 Abx/Therapy Injection 16:12:19 WATER AND SEWER SYSTEMS SUPERINTENDENT
--- OUTSIDE RECORDS SUMMARY | 2017-09-06 14:06 | XMS REPORT | Clinical Summary ---
Author Author Admin, CRISTOPHER Organization [facility] Address Unknown Phone Unavailable Allergies, Adverse Reactions, [...] drink anything for 30 min. 12/19 BUDESONIDE 18026849497 Active Jillina Frazell [employer]APE[employer] SUPPORT STAFF Active CLARITIN 10 MG TAB 1 tablet by mouth daily as needed for allergies LORATADINE 18541766621 Active Mahogany Garza APRN Active PRILOSEC 20 MG CAP CR 1 tab po q am OMEPRAZOLE 55314851963 Active Mahogany Garza APRN Active CELEBREX 200 MG CAPS 1 tablet by mouth daily with meals CELECOXIB 69759153813 Active Natanael Araujo MD Active OMEPRAZOLE 20 MG CPDR 1 tablet by mouth daily OMEPRAZOLE 61244403422 No Longer Active Natanael Araujo MD Active PROTONIX 40 MG SOLR 1 po q a.m. PANTOPRAZOLE SODIUM 69834445298 No Longer Active Natanael Araujo MD Active CYCLOBENZAPRINE HCL 5 MG ORAL TABS 1/2 tab po q hs, prn CYCLOBENZAPRINE HCL 55570129562 No Longer Active Natanael Araujo MD Active CELEBREX 100 MG CAPS 1 tab daily CELECOXIB 41358572385 No Longer Active Mahogany Garza APRN Active OMEPRAZOLE 20 MG CPDR 1 tablet by mouth daily OMEPRAZOLE 41198549406 No Longer Active Natanael Araujo MD Active TAMIFLU 75 MG CAPS 1 bid x 5 days OSELTAMIVIR PHOSPHATE 62842491269 No Longer Active Natanael Araujo MD Active PREDNISONE 20 MG TAB 2 tabs daily for 3 days, 1 tab daily for 3 days, 1/2 tab daily for 2 days PREDNISONE 42831509833 No Longer Active Natanael Araujo MD Active AMOXICILLIN 400 MG/5ML SUSR 12.5ml po BID x 10 days AMOXICILLIN 35490309693 No Longer Active Natanael Araujo MD Active IBUPROFEN 800 MG TABS 1 tab every 8 hours as needed IBUPROFEN 99459392959 No Longer Active Natanael Araujo MD Active PROAIR HFA 108 (90 BASE) MCG/ACT AERS 2 puffs four times a day as needed 2012 ALBUTEROL SULFATE 16099767255 Active Mahogany Garza TRACY Active FLEXERIL 10 MG TAB 1 tablet by mouth at bedtime as needed for pain CYCLOBENZAPRINE HCL 30877405399 No Longer Active Natanael Araujo MD Active AMOXICILLIN 500 MG TABS take one tab po tid x 7 days AMOXICILLIN 40566046886 No Longer Active Natanael Araujo MD Active PRILOSEC 10 MG CAP CR Take one by mouth daily OMEPRAZOLE 30979479156 No Longer Active Natanael Araujo MD Active ZYRTEC ALLERGY 10 MG CAPS Take one by mouth daily as needed 10/25 CETIRIZINE HCL 90921242015 No Longer Active Natanael Araujo MD Active ZYRTEC ALLERGY 10 MG CAPS Take one by mouth daily as needed 10/25 ZYRTEC ALLERGY 10 MG CAPS CETIRIZINE HCL Inactive PRILOSEC 10 MG CAP CR Take one by mouth daily PRILOSEC 10 MG CAP CR 323306 OMEPRAZOLE Inactive AMOXICILLIN 500 MG TABS take one tab po tid x 7 days AMOXICILLIN 500 MG TABS 778042 AMOXICILLIN Inactive FLEXERIL 10 MG TAB 1 tablet by mouth at bedtime as needed for pain FLEXERIL 10 MG TAB CYCLOBENZAPRINE HCL Inactive IBUPROFEN 800 MG TABS 1 tab every 8 hours as needed IBUPROFEN 800 MG TABS 829382 IBUPROFEN Inactive OMEPRAZOLE 20 MG CPDR 1 tablet by mouth daily OMEPRAZOLE 20 MG CPDR 19791102 OMEPRAZOLE Inactive CELEBREX 100 MG CAPS 1 tab daily CELEBREX 100 MG CAPS 746767 CELECOXIB Inactive CYCLOBENZAPRINE HCL 5 MG ORAL TABS 1/2 tab po q hs, prn CYCLOBENZAPRINE HCL 5 MG ORAL TABS 843015 CYCLOBENZAPRINE HCL Inactive OMEPRAZOLE 20 MG CPDR 1 tablet by mouth daily OMEPRAZOLE 20 MG CPDR 19791102 OMEPRAZOLE Inactive AMOXICILLIN 400 MG/5ML SUSR 12.5ml po BID x 10 days AMOXICILLIN 400 MG/5ML SUSR 201311 AMOXICILLIN Inactive PREDNISONE 20 MG TAB 2 tabs daily for 3 days, 1 tab daily for 3 days, 1/2 tab daily for 2 days PREDNISONE 20 MG TAB 907409 PREDNISONE Inactive TAMIFLU 75 MG CAPS 1 [...] Metabolic Panel, UADIP W/MICRO, AUTO - Chemistry potassium, serum 4.2 mmol/L 3.5-5.2 chloride, serum [...] mg/dL Negative RBC, urine, dipstick Negative Negative sodium, serum 143 mmol/L 136-145 Lab Report: CBC, Comp. Metabolic Panel, UADIP W/MICRO, AUTO - Hematology platelet count 267 10^3/MM^3 10*3/mm3 850-743 3044/01/07 red blood cell distribution width 14.2 % 11.6-14.8 mean corpuscular hemoglobin concentration, RBC 32.7 G/DL % 31.8- 35.4 mean corpuscular hemoglobin, RBC 28.3 pg 27.0-31.2 mean corpuscular volume, RBC 87 fL 80-97 hematocrit, blood 39.8 % 36.0-46.0 hemoglobin, blood 13.0 g/dL 12.0-16.0 erythrocyte (RBC) count 4.60 10^6/MM^3 10*6/mm3 4.04-5.48 leukocyte count, blood 5.4 10^3/MM^3 10*3/mm3 4.6-10.2 Lab Report: CBC, Comp. Metabolic Panel, UADIP W/MICRO, AUTO - Urinalysis urobilinogen, urine, semiquantitative (dipstick) 1.0 Normal leukocyte esterase, urine, by dipstick Negative Negative nitrite, urine, semiquantitative Negative Negative glucose, urine, semiquantitative Negative Negative ketones, urine, by test strip Negative Negative bilirubin, urine Negative Negative urine color Yellow Colorless;Lightyellow;Straw;Yellow appearance, urine Clear Clear specific gravity, urine 1.025 1.000-1.030 pH, urine, semiquantitative 7.5 5.0-8.5 Encounters Code Encounter Date Provider Facility CPT-57983 Level 3 Est. Patient 15:45:10 CDT Natanael Araujo MD [facility] CPT-78526 Level 4 Est. Patient 16:43:28 CDT Natanael Araujo MD [facility] CPT-20009 Level 3 Est. Patient 15:06:06 CDT Natanael Araujo MD [facility] CPT-53943 Level 3 Est. Patient 13:38:04 DOSIMETRIST Natanael Araujo MD [facility] CPT-79455 Level 3 Est. Patient 10:18:16 DOSIMETRIST Natanael Araujo MD [facility] CPT-20059 Level 3 Est. Patient 16:04:12 CDT Natanael Araujo MD [facility] CPT-42589 Level 3 Est. Patient 11:25:05 CDT Natanael Araujo MD [facility] CPT-52268 Level 3 Est. Patient 13:17:34 CDT Gail Valerio [facility] CPT-32733 Level 3 Est. Patient 17:03:36 CDT Natanael Araujo MD [facility] CPT-77834 Level 2 Est. Patient 14:41:40 DOSIMETRIST Mahogany Garza APRN [facility] CPT-42190 Level 3 New Patient 16:12:19 DOSIMETRIST Gail Valerio [facility] Procedures Code Procedure Name Date Entry Date Standard Description CPT-58305 Menactra 10:44:48 CDT CPT-93001 Administration single or combination vaccine inc oral 10 :44:48 CDT CPT-87973 Menactra 10:42:17 CDT CPT-04156 Administration single or combination vaccine inc oral 10 :42:17 CDT CPT-97111 Knee 3V 13:46:23 DOSIMETRIST CPT-39174 LS spine comp w obliq 16:17:55 CDT CPT-JTINJ Joint Injection 17:03:35 CDT CPT-J0561 Bicillin LA 1,200,000 u (PCN G Benzathine) 16:12:19 DOSIMETRIST CPT-00897 Abx/Therapy Injection 16:12:19 DOSIMETRIST
--- OUTSIDE RECORDS SUMMARY | 2017-09-06 14:06 | XMS REPORT | Clinical Summary ---
Author Author Admin, CRISTOPHER Organization [facility] Address Unknown Phone Unavailable Allergies, Adverse Reactions, [...] classified Eosinophilic esophagitis 530.13 Active Mahogany Garza [employer] Eosinophilic esophagitis Pharyngitis 462 Resolved Natanael Araujo [...] Araujo MD Postconcussion syndrome ICD-310.2 Inactive Natanael Arauoj MD Back pain ICD-724.5 Inactive Natanael Araujo [...] BID x 10 days 05/15 DOXYCYCLINE MONOHYDRATE 84934495728 Active Natanael Araujo MD Active SAFYRAL 3-0.03-0.451 MG ORAL TABS Take one by mouth daily DROSPIREN-ETH ESTRAD-LEVOMEFOL 92401415841 No Longer Active Natanael Araujo MD Active NAPROXEN SODIUM 550 MG ORAL TABS 1 po BID PRN Headache NAPROXEN SODIUM 41267869948 No Longer Active Natanael Araujo MD Active PREDNISONE 10 MG ORAL TABS 3 po qd x 3 days, then 2 po qd x 3 days, then 1 po qd x 2 days PREDNISONE 64610919100 No Longer Active Natanael Araujo MD Active LEXAPRO 10 MG TABS 1 tablet by mouth daily ESCITALOPRAM OXALATE 61700758855 No Longer Active Natanael Araujo MD Active CLARITIN 10 MG TAB 1 tablet by mouth daily as needed for allergies LORATADINE 29947679092 No Longer Active Natanael Araujo MD Active OMEPRAZOLE 20 MG TBEC 1 po q a.m. 30min prior to first food intake OMEPRAZOLE 90498380995 No Longer Active Natanael Araujo MD Active ZOFRAN 4 MG TABS 1 po q6hr PRN Nausea ONDANSETRON HCL 10428250803 No Longer Active Natanael Araujo MD Active AZITHROMYCIN 250 MG TABS 2 po qd x 1 day, then 1 po qd x 4 days AZITHROMYCIN 27095005306 No Longer Active Mahogany Garza [employer] Active PROAIR HFA 108 (90 BASE) MCG/ACT AERS 2 puffs four times a day as needed 2012 ALBUTEROL SULFATE 24432897375 No Longer Active Natanael Araujo MD Active PRILOSEC 20 MG CAP CR 1 tab po q am OMEPRAZOLE 86125527572 No Longer Active Natanael Araujo MD Active CELEBREX 200 MG CAPS 1 tablet by mouth daily with meals CELECOXIB 35723456216 No Longer Active Natanael Araujo MD Active CLARITIN 10 MG TAB 1 tablet by mouth daily as needed for allergies LORATADINE 20214172008 No Longer Active Natanael Araujo MD Active PULMICORT 0.5 MG/2ML INH SUSP mix 2 ml with 5 packets of splenda and swallow. rinse the mouth after 30 min. do not eat or drink anything for 30 min. 12/19 BUDESONIDE 80821330853 No Longer Active Natanael Araujo MD Active OMEPRAZOLE 20 MG CPDR 1 tablet by mouth daily OMEPRAZOLE 69445888821 No Longer Active Natanael Araujo MD Active PROTONIX 40 MG SOLR 1 po q a.m. PANTOPRAZOLE SODIUM 20079686122 No Longer Active Natanael Araujo MD Active CYCLOBENZAPRINE HCL 5 MG ORAL TABS 1/2 tab po q hs, prn CYCLOBENZAPRINE HCL 90478852672 No Longer Active Natanael Araujo MD Active CELEBREX 100 MG CAPS 1 tab daily CELECOXIB 71965682517 No Longer Active Mahogany Cuellarcelsa MOLINA Active OMEPRAZOLE 20 MG CPDR 1 tablet by mouth daily OMEPRAZOLE 67449316841 No Longer Active Natanael Araujo MD Active TAMIFLU 75 MG CAPS 1 bid x 5 days OSELTAMIVIR PHOSPHATE 88784483622 No Longer Active Natanael Araujo MD Active PREDNISONE 20 MG TAB 2 tabs daily for 3 days, 1 tab daily for 3 days, 1/2 tab daily for 2 days PREDNISONE 12872185854 No Longer Active Natanael Araujo MD Active AMOXICILLIN 400 MG/5ML SUSR 12.5ml po BID x 10 days AMOXICILLIN 53835054430 No Longer Active Natanael Araujo MD Active IBUPROFEN 800 MG TABS 1 tab every 8 hours as needed IBUPROFEN 71257393149 No Longer Active Natanael Araujo MD Active FLEXERIL 10 MG TAB 1 tablet by mouth at bedtime as needed for pain CYCLOBENZAPRINE HCL 44998705514 No Longer Active Natanael Araujo MD Active AMOXICILLIN 500 MG TABS take one tab po tid x 7 days AMOXICILLIN 57881678327 No Longer Active Natanael Araujo MD Active PRILOSEC 10 MG CAP CR Take one by mouth daily OMEPRAZOLE 23471992619 No Longer Active Natanael Araujo MD Active ZYRTEC ALLERGY 10 MG CAPS Take one by mouth daily as needed 10/25 CETIRIZINE HCL 84306970693 No Longer Active Natanael Araujo MD Active ZYRTEC ALLERGY 10 MG CAPS Take one by mouth daily as needed 10/25 ZYRTEC ALLERGY 10 MG CAPS CETIRIZINE HCL Inactive PRILOSEC 10 MG CAP CR Take one by mouth daily PRILOSEC 10 MG CAP CR 567382 OMEPRAZOLE Inactive AMOXICILLIN 500 MG TABS take one tab po tid x 7 days AMOXICILLIN 500 MG TABS 957286 AMOXICILLIN Inactive FLEXERIL 10 MG TAB 1 tablet by mouth at bedtime as needed for pain FLEXERIL 10 MG TAB CYCLOBENZAPRINE HCL Inactive IBUPROFEN 800 MG TABS 1 tab every 8 hours as needed IBUPROFEN 800 MG TABS 073717 IBUPROFEN Inactive OMEPRAZOLE 20 MG CPDR 1 tablet by mouth daily OMEPRAZOLE 20 MG CPDR 053082 OMEPRAZOLE Inactive CELEBREX 100 MG CAPS 1 tab daily CELEBREX 100 MG CAPS 409406 CELECOXIB Inactive CYCLOBENZAPRINE HCL 5 MG ORAL TABS 1/2 tab po q hs, prn CYCLOBENZAPRINE HCL 5 MG ORAL TABS 070363 CYCLOBENZAPRINE HCL Inactive OMEPRAZOLE 20 MG CPDR 1 tablet by mouth daily OMEPRAZOLE 20 MG CPDR 19791102 OMEPRAZOLE Inactive PULMICORT 0.5 MG/2ML INH SUSP mix 2 ml with 5 packets of splenda and swallow. rinse the mouth after 30 min. do not eat or drink anything for 30 min. 12/19 PULMICORT 0.5 MG/2ML INH SUSP 937311 BUDESONIDE Inactive CLARITIN 10 MG TAB 1 tablet by mouth daily as needed for allergies CLARITIN 10 MG TAB 352890 LORATADINE Inactive CELEBREX 200 MG CAPS 1 tablet by mouth daily with meals CELEBREX 200 MG CAPS 421974 CELECOXIB Inactive PRILOSEC 20 MG CAP CR 1 tab po q am PRILOSEC 20 MG CAP CR 012118 OMEPRAZOLE Inactive PROAIR HFA 108 (90 BASE) MCG/ACT AERS 2 puffs four times a day as needed 2012 PROAIR HFA 108 (90 BASE) MCG/ACT AERS ALBUTEROL SULFATE Inactive ZOFRAN 4 MG TABS 1 po q6hr PRN Nausea ZOFRAN 4 MG TABS 905700 ONDANSETRON HCL Inactive OMEPRAZOLE 20 MG TBEC 1 po q a.m. 30min prior to first food intake OMEPRAZOLE 20 MG TBEC 948720 OMEPRAZOLE Inactive CLARITIN 10 MG TAB 1 tablet by mouth daily as needed for allergies CLARITIN 10 MG TAB 476871 LORATADINE Inactive LEXAPRO 10 MG TABS 1 tablet by mouth daily LEXAPRO 10 MG TABS 197415 ESCITALOPRAM OXALATE Inactive NAPROXEN SODIUM 550 MG ORAL TABS 1 po BID PRN Headache NAPROXEN SODIUM 550 MG ORAL TABS 660749 NAPROXEN SODIUM Inactive SAFYRAL 3-0.03-0.451 MG ORAL TABS Take one by mouth daily SAFYRAL 3-0.03-0.451 MG ORAL TABS 6013078 DROSPIREN-ETH ESTRAD-LEVOMEFOL Inactive AMOXICILLIN 400 MG/5ML SUSR 12.5ml po BID x 10 days AMOXICILLIN 400 MG/5ML SUSR 521291 AMOXICILLIN Inactive PREDNISONE 20 MG TAB 2 tabs daily for 3 days, 1 tab daily for 3 days, 1/2 tab daily for 2 days PREDNISONE 20 MG TAB 704102 PREDNISONE Inactive TAMIFLU 75 MG CAPS 1 bid x 5 days TAMIFLU 75 MG CAPS 048730 OSELTAMIVIR PHOSPHATE Inactive AZITHROMYCIN 250 MG TABS 2 po qd x 1 day, then 1 po qd x 4 days AZITHROMYCIN 250 MG TABS 458998 AZITHROMYCIN Inactive PREDNISONE 10 MG ORAL TABS 3 po qd x 3 days, then 2 po qd x 3 days, then 1 po qd x 2 days PREDNISONE 10 MG ORAL TABS 975747 PREDNISONE Inactive Advance Directives Directive Description Start [...] ... - Chemistry sodium, serum 144 mmol/L 843-954 4050/11/02 carbon dioxide, venous blood 25.2 mmol/L 21.0-32.0 [...] 142-424 Encounters Code Encounter Date Provider Facility CPT-90259 Level 4 Est. Patient 09:59:40 CDT Natanael Araujo MD [facility] CPT-90422 Level 3 Est. Patient 14:27:39 CDT Natanael Araujo MD [facility] CPT-26943 Level 3 Est. Patient 16:08:13 CDT Natanael Araujo MD [facility] CPT-17444 Level 3 Est. Patient 10:44:11 CDT [facility] Level 3 Est. Patient 15:58:41 BAG SORTER Natanael Araujo MD [facility] CPT-60034 Level 3 Est. Patient 16:32:02 BAG SORTER Natanael Araujo MD [facility] CPT-01216 Level 3 Est. Patient 15:45:10 CDT Natanael Araujo MD [facility] CPT-36943 Level 4 Est. Patient 16:43:28 CDT Natanael Araujo MD [facility] CPT-69232 Level 3 Est. Patient 15:06:06 CDT Natanael Araujo MD [facility] CPT-77209 Level 3 Est. Patient 13:38:04 BAG SORTER Natanael Araujo MD [facility] CPT-04122 Level 3 Est. Patient 10:18:16 BAG SORTER Natanael Araujo MD [facility] CPT-53628 Level 3 Est. Patient 16:04:12 CDT Natanael Araujo MD [facility] CPT-33420 Level 3 Est. Patient 11:25:05 CDT Natanael Araujo MD [facility] CPT-02983 Level 3 Est. Patient 13:17:[address] [facility] CPT-22066 Level 3 Est. Patient 17:03:36 CDT Natanael Araujo MD [facility] CPT-01424 Level 2 Est. Patient 14:41:40 BAG SORTER Mahogany Garza [facility] CPT-90431 Level 3 New Patient 16:12:19 [address]AG [address] [facility] Procedures Code Procedure Name Date Entry Date Standard Description CPT-52641 Menactra 10:44:48 CDT CPT-07450 Administration single or combination vaccine inc oral 10 :44:48 CDT CPT-79681 Menactra 10:42:17 CDT CPT-52755 Administration single or combination vaccine inc oral 10 :42:17 CDT CPT-70585 Knee 3V 13:46:23 BAG SORTER CPT-45383 LS spine comp w obliq 16:17:55 CDT CPT-JTINJ Joint Injection 17:03:35 CDT CPT-J0561 Bicillin LA 1,200,000 u (PCN G Benzathine) 16:12:19 BAG SORTER [facility]-84824 Abx/Therapy Injection 16:12:19 BAG SORTER
--- OUTSIDE RECORDS SUMMARY | 2017-09-06 14:07 | XMS REPORT ---
Author Author [email or web address] Medical Staff [facility] Address [address] [place] [address] Phone [phone] Care Team Providers Care Event Coordinator Marketing And Sales Name Role Phone AARON SHANKAR MD PP [phone] AARON SHANKAR MD PP [phone] Summary purpose TRANSITION OF CARE AUTO GENERATION Chief Complaint and Reason for Visit Admit Diagnosis 1 DYSPHAGIA NOS Problem list No authorized problems tracked for continuity of care are available for this visit. Encounters The following conditions tracked for encounter diagnoses were recorded for this visit: Finding or Diagnosis Status Certainty Chronicity Onset *EGD Active Medications No medications recorded for this patient visit Allergies, adverse reactions, alerts Allergen Category Ingredient Status Reaction Severity Onset No known drug allergies No known drug allergies No known drug allergies Confirmed or Verified Immunizations No immunizations recorded for this patient visit Relevant diagnostic tests and/or laboratory data RESULTS Special Chemistry 96-28-976498:25:00 Result Normal Range Units HCG (Qualitative) Negative History of procedures Procedure Code Code Type Description Date Performed Performing Physician 45.16 ICD9-CM EGD WITH CLOSED BIOPSY 12-12-2014 22193 CPT-4 UPPER GI ENDOSCOPY, BIOPSY 12-12-2014 GEOVANI SAHU 35736 CPT-4 CHORIONIC GONADOTROPIN ASSAY 12-12-2014 GEOVANI SAHU J7120 CPT-4 RINGERS LACTATE INFUSION 12-12-2014 GEOVANI SAHU J2250 CPT-4 INJ MIDAZOLAM HYDROCHLORIDE 12-12-2014 GEOVANI SAHU J2704 CPT-4 INJ, PROPOFOL, 10 MG 12-12-2014 GEOVANI SAHU J2250 CPT-4 INJ MIDAZOLAM HYDROCHLORIDE 12-12-2014 GEOVANI SAHU 02072 CPT-4 ROUTINE VENIPUNCTURE 12-12-2014 GEOVANI SAHU Functional status Functional Status Finding Observation Time Hearing Prob Loc none 54-25-483501:36 Vision Problems yes 47-19-572553:36 Vision Correct Dev glasses 24-95-855643:36 Ambulation Asst Dev none 53-79-056126:36 Range of Motion full 71-40-371182:45 Muscle Strength RUE 5 ROM full resist :45 Muscle Strength RLE 5 ROM full resist :45 Muscle Strength LUE 5 ROM full resist :45 Muscle Strength LLE 5 ROM full resist :45 Transfers independent :45 Ambulation up ad sandra :45 Balance steady :45 Bathing Assistance none :36 Eating Assistance none :36 Dressing Assistance none :36 Toileting Assistance none :36 Transfer Assistance none :36 Decline Slf Care/Mob no :36 Phys Cond Stable yes 19-57-609524:36 Nutrition dysphagia :45 Diet regular 05-22-825707:45 Oral Cavity moist and intact :45 Teeth intact 24-23-531950:45 Dental Hygiene good 91-97-423051:45 Abdomen Appearance flat 62-07-345444:45 Abdomen soft 86-55-986989:45 Bowel Sounds present 82-38-485862:45 NG Tube no :45 Feeding Tube none :45 Chan no :45 Cont Bladder Irr no 23-99-981264:45 Ostomy no 85-14-515716:45 Stool normal :45 Urination normal 08-06-759798:45 Quality sym/unlabored :45 Cough absent :45 Secretions no :45 Breath Sounds RUL clear :45 Breath Sounds RML clear :45 Breath Sounds RLL clear :45 Breath Sounds COLETTE clear :45 Breath Sounds LLL clear 24-48-481318:45 Airway natural :45 Oxygen no 96-16-108894:30 C-PAP no 13-45-719626:45 BI-PAP no 43-88-103274:45 Temp >100.4 no 42-29-550016:45 Temp <96.8 no :45 Chills with rigors no :45 HR > 90bpm no :45 Respirations > 20 no :45 Systolic <90 no :45 headache stiff neck no :45 Rapid Resp no :45 IV Site Location L Hand :30 IV Type peripheral 45-70-681596:30 IV Site Information discontinued 66-22-835977:30 IV Site Start Attmpt 1 times 00-46-036251:39 IV Site Jono 20 :45 IV Site Appearance WNL :45 IV Site Color clear :45 IV Site Patent yes :45 Dressing Changed yes :45 Dressing Type occlusive 71-17-438308:45 Nursing Note Pt dc'd to home in stable condition ambulatory with mother in personal vehical. Belongings intact. 63-88-672444:40 Cognitive Status Finding Observation Time Learning Ability comprehends well :30 Neurological no 10-83-558757:30 Psychological no 17-84-811998:30 Physical no :30 Hearing no :30 Net Finisher Needed no :30 Sign Language no :30 Emotional no :30 Vision no :30 [place] no 64-31-513300:30 Financial no :30 Vital signs Type Value Date Respiration Rate 16breaths per minute :30 Pulse 62beats per minute :30 Oxygen Saturation 100% :30 BP Systolic 110mmHg :30 BP Diastolic 64mmHg 35-66-827652:30 Temperature 96.6F 42-30-188907:41 Height 66inches :34 Weight 138LB :34 Social history Type Value Smoking Status NEVER SMOKER Treatment Plan No treatment plan text is available for this visit. Hospital discharge instructions Discharge Date/Time 12/12/14 8882 Accompanied By Mary Relationship parent Dismissal Condition good Disposition on DC home Valuables yes Valuable Type cell phone Valuables Returned T patient DC Inst/Educ Give yes Exit Care Educ Given yes PNE Vac Never Flu Vac Unknown Tetanus Vac Unknown Diet Explained yes Follow up appt other (specify) Comment: [place] will call with bx results
--- OUTSIDE RECORDS SUMMARY | 2017-09-06 14:07 | XMS REPORT | Clinical Summary ---
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 SEGMENT SPECIALIST Eosinophilic esophagitis Pharyngitis 462 Resolved Natanael Araujo [...] BID x 10 days 05/15 DOXYCYCLINE MONOHYDRATE 69869691348 Active Natanael Araujo MD Active SAFYRAL 3-0.03-0.451 MG ORAL TABS Take one by mouth daily DROSPIREN-ETH ESTRAD-LEVOMEFOL 84570996939 No Longer Active Natanael Araujo MD Active NAPROXEN SODIUM 550 MG ORAL TABS 1 po BID PRN Headache NAPROXEN SODIUM 48008284751 No Longer Active Natanael Araujo MD Active PREDNISONE 10 MG ORAL TABS 3 po qd x 3 days, then 2 po qd x 3 days, then 1 po qd x 2 days PREDNISONE 23084588785 No Longer Active Natanael Araujo MD Active LEXAPRO 10 MG TABS 1 tablet by mouth daily ESCITALOPRAM OXALATE 52591780990 No Longer Active Natanael Araujo MD Active CLARITIN 10 MG TAB 1 tablet by mouth daily as needed for allergies LORATADINE 00470829221 No Longer Active Natanael Araujo MD Active OMEPRAZOLE 20 MG TBEC 1 po q a.m. 30min prior to first food intake OMEPRAZOLE 32820487787 No Longer Active Natanael Araujo MD Active ZOFRAN 4 MG TABS 1 po q6hr PRN Nausea ONDANSETRON HCL 53012374238 No Longer Active Natanael Araujo MD Active AZITHROMYCIN 250 MG TABS 2 po qd x 1 day, then 1 po qd x 4 days AZITHROMYCIN 47775993340 No Longer Active Mahogany Garza INDUSTRY SEGMENT SPECIALIST Active PROAIR HFA 108 (90 BASE) MCG/ACT AERS 2 puffs four times a day as needed 2012 ALBUTEROL SULFATE 56350158854 No Longer Active Natanael Araujo MD Active PRILOSEC 20 MG CAP CR 1 tab po q am OMEPRAZOLE 92228175887 No Longer Active Natanael Araujo MD Active CELEBREX 200 MG CAPS 1 tablet by mouth daily with meals CELECOXIB 16572865933 No Longer Active Natanael Araujo MD Active CLARITIN 10 MG TAB 1 tablet by mouth daily as needed for allergies LORATADINE 59801520651 No Longer Active Natanael Araujo MD Active PULMICORT 0.5 MG/2ML INH SUSP mix 2 ml with 5 packets of splenda and swallow. rinse the mouth after 30 min. do not eat or drink anything for 30 min. 12/19 BUDESONIDE 44084157745 No Longer Active Natanael Araujo MD Active OMEPRAZOLE 20 MG CPDR 1 tablet by mouth daily OMEPRAZOLE 23160788274 No Longer Active Natanael Araujo MD Active PROTONIX 40 MG SOLR 1 po q a.m. PANTOPRAZOLE SODIUM 08137396104 No Longer Active Natanael Araujo MD Active CYCLOBENZAPRINE HCL 5 MG ORAL TABS 1/2 tab po q hs, prn CYCLOBENZAPRINE HCL 35693753991 No Longer Active Natanael Araujo MD Active CELEBREX 100 MG CAPS 1 tab daily CELECOXIB 48080260349 No Longer Active Mahogany Cuellarcelsa MOILNA Active OMEPRAZOLE 20 MG CPDR 1 tablet by mouth daily OMEPRAZOLE 69234630479 No Longer Active Natanael Araujo MD Active TAMIFLU 75 MG CAPS 1 bid x 5 days OSELTAMIVIR PHOSPHATE 43710255801 No Longer Active Natanael Araujo MD Active PREDNISONE 20 MG TAB 2 tabs daily for 3 days, 1 tab daily for 3 days, 1/2 tab daily for 2 days PREDNISONE 35355659421 No Longer Active Natanael Araujo MD Active AMOXICILLIN 400 MG/5ML SUSR 12.5ml po BID x 10 days AMOXICILLIN 76564024763 No Longer Active Natanael Araujo MD Active IBUPROFEN 800 MG TABS 1 tab every 8 hours as needed IBUPROFEN 83177646905 No Longer Active Natanael Araujo MD Active FLEXERIL 10 MG TAB 1 tablet by mouth at bedtime as needed for pain CYCLOBENZAPRINE HCL 47387878622 No Longer Active Natanael Araujo MD Active AMOXICILLIN 500 MG TABS take one tab po tid x 7 days AMOXICILLIN 55745875338 No Longer Active Natanael Araujo MD Active PRILOSEC 10 MG CAP CR Take one by mouth daily OMEPRAZOLE 95454461296 No Longer Active Natanael Araujo MD Active ZYRTEC ALLERGY 10 MG CAPS Take one by mouth daily as needed 10/25 CETIRIZINE HCL 14895855581 No Longer Active Natanael Araujo MD Active ZYRTEC ALLERGY 10 MG CAPS Take one by mouth daily as needed 10/25 ZYRTEC ALLERGY 10 MG CAPS CETIRIZINE HCL Inactive PRILOSEC 10 MG CAP CR Take one by mouth daily PRILOSEC 10 MG CAP CR 705205 OMEPRAZOLE Inactive AMOXICILLIN 500 MG TABS take one tab po tid x 7 days AMOXICILLIN 500 MG TABS 426046 AMOXICILLIN Inactive FLEXERIL 10 MG TAB 1 tablet by mouth at bedtime as needed for pain FLEXERIL 10 MG TAB CYCLOBENZAPRINE HCL Inactive IBUPROFEN 800 MG TABS 1 tab every 8 hours as needed IBUPROFEN 800 MG TABS 239372 IBUPROFEN Inactive OMEPRAZOLE 20 MG CPDR 1 tablet by mouth daily OMEPRAZOLE 20 MG CPDR 327334 OMEPRAZOLE Inactive CELEBREX 100 MG CAPS 1 tab daily CELEBREX 100 MG CAPS 063075 CELECOXIB Inactive CYCLOBENZAPRINE HCL 5 MG ORAL TABS 1/2 tab po q hs, prn CYCLOBENZAPRINE HCL 5 MG ORAL TABS 972961 CYCLOBENZAPRINE HCL Inactive OMEPRAZOLE 20 MG CPDR 1 tablet by mouth daily OMEPRAZOLE 20 MG CPDR 19791102 OMEPRAZOLE Inactive PULMICORT 0.5 MG/2ML INH SUSP mix 2 ml with 5 packets of splenda and swallow. rinse the mouth after 30 min. do not eat or drink anything for 30 min. 12/19 PULMICORT 0.5 MG/2ML INH SUSP 716545 BUDESONIDE Inactive CLARITIN 10 MG TAB 1 tablet by mouth daily as needed for allergies CLARITIN 10 MG TAB 764982 LORATADINE Inactive CELEBREX 200 MG CAPS 1 tablet by mouth daily with meals CELEBREX 200 MG CAPS 373280 CELECOXIB Inactive PRILOSEC 20 MG CAP CR 1 tab po q am PRILOSEC 20 MG CAP CR 078569 OMEPRAZOLE Inactive PROAIR HFA 108 (90 BASE) MCG/ACT AERS 2 puffs four times a day as needed 2012 PROAIR HFA 108 (90 BASE) MCG/ACT AERS ALBUTEROL SULFATE Inactive ZOFRAN 4 MG TABS 1 po q6hr PRN Nausea ZOFRAN 4 MG TABS 828125 ONDANSETRON HCL Inactive OMEPRAZOLE 20 MG TBEC 1 po q a.m. 30min prior to first food intake OMEPRAZOLE 20 MG TBEC 014670 OMEPRAZOLE Inactive CLARITIN 10 MG TAB 1 tablet by mouth daily as needed for allergies CLARITIN 10 MG TAB 441708 LORATADINE Inactive LEXAPRO 10 MG TABS 1 tablet by mouth daily LEXAPRO 10 MG TABS 986719 ESCITALOPRAM OXALATE Inactive NAPROXEN SODIUM 550 MG ORAL TABS 1 po BID PRN Headache NAPROXEN SODIUM 550 MG ORAL TABS 122556 NAPROXEN SODIUM Inactive SAFYRAL 3-0.03-0.451 MG ORAL TABS Take one by mouth daily SAFYRAL 3-0.03-0.451 MG ORAL TABS 6300515 DROSPIREN-ETH ESTRAD-LEVOMEFOL Inactive AMOXICILLIN 400 MG/5ML SUSR 12.5ml po BID x 10 days AMOXICILLIN 400 MG/5ML SUSR 618413 AMOXICILLIN Inactive PREDNISONE 20 MG TAB 2 tabs daily for 3 days, 1 tab daily for 3 days, 1/2 tab daily for 2 days PREDNISONE 20 MG TAB 482970 PREDNISONE Inactive TAMIFLU 75 MG CAPS 1 bid x 5 days TAMIFLU 75 MG CAPS 519405 OSELTAMIVIR PHOSPHATE Inactive AZITHROMYCIN 250 MG TABS 2 po qd x 1 day, then 1 po qd x 4 days AZITHROMYCIN 250 MG TABS 408986 AZITHROMYCIN Inactive PREDNISONE 10 MG ORAL TABS 3 po qd x 3 days, then 2 po qd x 3 days, then 1 po qd x 2 days PREDNISONE 10 MG ORAL TABS 162495 PREDNISONE Inactive Advance Directives Directive Description Start [...] ... - Chemistry sodium, serum 144 mmol/L 009-036 4059/11/02 carbon dioxide, venous blood 25.2 mmol/L 21.0-32.0 [...] 142-424 Encounters Code Encounter Date Provider Facility CPT-91834 Level 4 Est. Patient 09:59:40 CDT Natanael Araujo MD [facility] CPT-47395 Level 3 Est. Patient 14:27:39 CDT Natanael Araujo MD [facility] CPT-53618 Level 3 Est. Patient 16:08:13 CDT Natanael Araujo MD [facility] CPT-80856 Level 3 Est. Patient 10:44:11 [facility] Level 3 Est. Patient 15:58:41 INDUSTRY SEGMENT SPECIALIST Natanael Araujo MD [facility] CPT-50886 Level 3 Est. Patient 16:32:02 INDUSTRY SEGMENT SPECIALIST Natanael Araujo MD [facility] CPT-57453 Level 3 Est. Patient 15:45:10 CDT Natanael Araujo MD [facility] CPT-51048 Level 4 Est. Patient 16:43:28 CDT Natanael Araujo MD [facility] CPT-48004 Level 3 Est. Patient 15:06:06 CDT Natanael Araujo MD [facility] CPT-69656 Level 3 Est. Patient 13:38:04 INDUSTRY SEGMENT SPECIALIST Natanael Araujo MD [facility] CPT-55805 Level 3 Est. Patient 10:18:16 INDUSTRY SEGMENT SPECIALIST Natanael Araujo MD [facility] CPT-35861 Level 3 Est. Patient 16:04:12 CDT Natanael Araujo MD [facility] CPT-15425 Level 3 Est. Patient 11:25:05 CDT Natanael Araujo MD [facility] CPT-78944 Level 3 Est. Patient 13:17:34 CDT [facility] CPT-25046 Level 3 Est. Patient 17:03:36 CDT Natanael Araujo MD [facility] CPT-88406 Level 2 Est. Patient 14:41:40 INDUSTRY SEGMENT SPECIALIST Mahogany Garza [facility] CPT-83121 Level 3 New Patient 16:12:19 INDUSTRY SEGMENT SPECIALIST [facility] Procedures Code Procedure Name Date Entry Date Standard Description CPT-36108 Menactra 10:44:48 CDT CPT-30227 Administration single or combination vaccine inc oral 10 :44:48 CDT CPT-04474 Menactra 10:42:17 CDT CPT-82557 Administration single or combination vaccine inc oral 10 :42:17 CDT CPT-94052 Knee 3V 13:46:23 INDUSTRY SEGMENT SPECIALIST CPT-15194 LS spine comp w obliq 16:17:55 CDT CPT-JTINJ Joint Injection 17:03:35 CDT CPT-J0561 Bicillin LA 1,200,000 u (PCN G Benzathine) 16:12:19 INDUSTRY SEGMENT SPECIALIST [facility]-74577 Abx/Therapy Injection 16:12:19 INDUSTRY SEGMENT SPECIALIST
--- OUTSIDE RECORDS SUMMARY | 2017-09-06 14:07 | XMS REPORT | Clinical Summary ---
Author Author Admin, CRISTOPHER Organization [employer] Address Unknown Phone Unavailable Allergies, Adverse Reactions, [...] tablet by mouth daily with meals CELECOXIB 39811255253 Active Natanael Araujo MD Active OMEPRAZOLE 20 MG CPDR 1 tablet by mouth daily OMEPRAZOLE 52324653534 No Longer Active Natanael Araujo MD Active PROTONIX 40 MG SOLR 1 po q a.m. PANTOPRAZOLE SODIUM 74070454951 Active Natanael Araujo MD Active CYCLOBENZAPRINE HCL 5 MG ORAL TABS 1/2 tab po q hs, prn CYCLOBENZAPRINE HCL 28250734131 No Longer Active Natanael Araujo MD Active CELEBREX 100 MG CAPS 1 tab daily CELECOXIB 39234432341 No Longer Active Mahogany Polocelsa BEEN Active OMEPRAZOLE 20 MG CPDR 1 tablet by mouth daily OMEPRAZOLE 19771002716 No Longer Active Natanael Araujo MD Active TAMIFLU 75 MG CAPS 1 bid x 5 days OSELTAMIVIR PHOSPHATE 86506818165 No Longer Active Natanael Araujo MD Active PREDNISONE 20 MG TAB 2 tabs daily for 3 days, 1 tab daily for 3 days, 1/2 tab daily for 2 days PREDNISONE 40845256214 No Longer Active Natanael Araujo MD Active AMOXICILLIN 400 MG/5ML SUSR 12.5ml po BID x 10 days AMOXICILLIN 85199944493 No Longer Active Natanael Araujo MD Active IBUPROFEN 800 MG TABS 1 tab every 8 hours as needed IBUPROFEN 00922714640 No Longer Active Natanael Araujo MD Active PROAIR HFA 108 (90 BASE) MCG/ACT AERS 2 puffs four times a day as needed 2012 ALBUTEROL SULFATE 52696138575 Active Natanael Araujo MD Active FLEXERIL 10 MG TAB 1 tablet by mouth at bedtime as needed for pain CYCLOBENZAPRINE HCL 07891898250 No Longer Active Natanael Araujo MD Active AMOXICILLIN 500 MG TABS take one tab po tid x 7 days AMOXICILLIN 22397308172 No Longer Active Natanael Araujo MD Active PRILOSEC 10 MG CAP CR Take one by mouth daily OMEPRAZOLE 58251122060 No Longer Active Natanael Araujo MD Active ZYRTEC ALLERGY 10 MG CAPS Take one by mouth daily as needed 10/25 CETIRIZINE HCL 21499172691 No Longer Active Natanael Araujo MD Active ZYRTEC ALLERGY 10 MG CAPS Take one by mouth daily as needed 10/25 ZYRTEC ALLERGY 10 MG CAPS CETIRIZINE HCL Inactive PRILOSEC 10 MG CAP CR Take one by mouth daily PRILOSEC 10 MG CAP CR 19900712 OMEPRAZOLE Inactive AMOXICILLIN 500 MG TABS take one tab po tid x 7 days AMOXICILLIN 500 MG TABS 595659 AMOXICILLIN Inactive FLEXERIL 10 MG TAB 1 tablet by mouth at bedtime as needed for pain FLEXERIL 10 MG TAB CYCLOBENZAPRINE HCL Inactive IBUPROFEN 800 MG TABS 1 tab every 8 hours as needed IBUPROFEN 800 MG TABS 857059 IBUPROFEN Inactive OMEPRAZOLE 20 MG CPDR 1 tablet by mouth daily OMEPRAZOLE 20 MG CPDR 620580 OMEPRAZOLE Inactive CELEBREX 100 MG CAPS 1 tab daily CELEBREX 100 MG CAPS 092241 CELECOXIB Inactive CYCLOBENZAPRINE HCL 5 MG ORAL TABS 1/2 tab po q hs, prn CYCLOBENZAPRINE HCL 5 MG ORAL TABS 918586 CYCLOBENZAPRINE HCL Inactive OMEPRAZOLE 20 MG CPDR 1 tablet by mouth daily OMEPRAZOLE 20 MG CPDR 803682 OMEPRAZOLE Inactive AMOXICILLIN 400 MG/5ML SUSR 12.5ml po BID x 10 days AMOXICILLIN 400 MG/5ML SUSR 178554 AMOXICILLIN Inactive PREDNISONE 20 MG TAB 2 tabs daily for 3 days, 1 tab daily for 3 days, 1/2 tab daily for 2 days PREDNISONE 20 MG TAB 060633 PREDNISONE Inactive TAMIFLU 75 MG CAPS 1 [...] AUTO - Chemistry sodium, serum 143 mmol/L 297-074 2037/01/07 potassium, serum 4.2 mmol/L 3.5-5.2 chloride, serum [...] Negative Encounters Code Encounter Date Provider Facility CPT-81712 Level 3 Est. Patient 15:45:10 CDT Natanael Araujo MD [facility] CPT-70209 Level 4 Est. Patient 16:43:28 CDT Natanael Araujo MD [facility] CPT-86311 Level 3 Est. Patient 15:06:06 CDT Natanael Araujo MD [facility] CPT-36713 Level 3 Est. Patient 13:38:04 COMBINATION SAW OPERATOR Natanael Araujo MD [facility] CPT-66461 Level 3 Est. Patient 10:18:16 COMBINATION SAW OPERATOR Natanael Araujo MD [facility] CPT-75822 Level 3 Est. Patient 16:04:12 CDT Natanael Araujo MD [facility] CPT-88768 Level 3 Est. Patient 11:25:05 CDT Natanael Araujo MD [facility] CPT-11386 Level 3 Est. Patient 13:17:34 CDT [facility] CPT-50313 Level 3 Est. Patient 17:03:36 CDT Natanael Araujo MD [facility] CPT-99767 Level 2 Est. Patient 14:41:40 COMBINATION SAW OPERATOR Mahogany Garza APRN [facility] CPT-67974 Level 3 New Patient 16:12:19 COMBINATION SAW OPERATOR [facility] Procedures Code Procedure Name Date Entry Date Standard Description CPT-85541 Knee 3V 13:46:23 COMBINATION SAW OPERATOR CPT-19261 LS spine comp w obliq 16:17:55 CDT CPT-JTINJ Joint Injection 17:03:35 CDT CPT-J0561 Bicillin LA 1,200,000 u (PCN G Benzathine) 16:12:19 COMBINATION SAW OPERATOR CPT-60569 Abx/Therapy Injection 16:12:19 COMBINATION SAW OPERATOR
--- OUTSIDE RECORDS SUMMARY | 2017-09-06 14:08 | XMS REPORT | Clinical Summary ---
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 Eosinophilic esophagitis Pharyngitis 462 Resolved Natanael Araujo [...] Bilateral headache ICD-784.0 Inactive Natanael Araujo MD Dysphagia ICD-787.20 Inactive Natanael Araujo MD Influenza like illness ICD-487.1 Inactive Natanael Araujo MD Medication List Medication Instructions Start Date Stop Date Generic Name NDC Status Provider Patient Instruction DOXYCYCLINE MONOHYDRATE 100 MG ORAL CAPSULE 1 po BID x 10 days DOXYCYCLINE MONOHYDRATE 65132390945 No Longer Active Natanael Araujo MD Active SAFYRAL 3-0.03-0.451 MG ORAL TABLET Take one by mouth daily DROSPIREN-ETH ESTRAD-LEVOMEFOL 06065948780 No Longer Active Natanael Araujo MD Active NAPROXEN SODIUM 550 MG ORAL TABLET 1 po BID PRN Headache NAPROXEN SODIUM 00895645717 No Longer Active Natanael Araujo MD Active PREDNISONE 10 MG ORAL TABLET 3 po qd x 3 days, then 2 po qd x 3 days, then 1 po qd x 2 days PREDNISONE 64379316667 No Longer Active Natanael Araujo MD Active LEXAPRO 10 MG ORAL TABLET 1 tablet by mouth daily ESCITALOPRAM OXALATE 43889529401 No Longer Active Natanael Araujo MD Active CLARITIN 10 MG ORAL TABLET 1 tablet by mouth daily as needed for allergies LORATADINE 47386905393 No Longer Active Natanael Araujo MD Active OMEPRAZOLE 20 MG ORAL TABLET DELAYED RELEASE 1 po q a.m. 30min prior to first food intake OMEPRAZOLE 87838021718 No Longer Active Natanael Araujo MD Active ZOFRAN 4 MG ORAL TABLET 1 po q6hr PRN Nausea ONDANSETRON HCL 92379186714 No Longer Active Natanael Araujo MD Active AZITHROMYCIN 250 MG ORAL TABLET 2 po qd x 1 day, then 1 po qd x 4 days 09/14 AZITHROMYCIN 02003105190 No Longer Active Mahogany Garza APRN Active PROAIR HFA 108 (90 Base) MCG/ACT INHALATION AEROSOL SOLUTION 2 puffs four times a day as needed ALBUTEROL SULFATE 29316562868 No Longer Active Natanael Araujo MD Active PRILOSEC 20 MG ORAL CAPSULE DELAYED RELEASE 1 tab po q am OMEPRAZOLE 59451481542 No Longer Active Natanael Araujo MD Active CELEBREX 200 MG ORAL CAPSULE 1 tablet by mouth daily with meals CELECOXIB 41569949653 No Longer Active Natanael Araujo MD Active CLARITIN 10 MG ORAL TABLET 1 tablet by mouth daily as needed for allergies LORATADINE 75672000142 No Longer Active Natanael Araujo MD Active PULMICORT 0.5 MG/2ML INHALATION SUSPENSION mix 2 ml with 5 packets of splenda and swallow. rinse the mouth after 30 min. do not eat or drink anything for 30 min. BUDESONIDE 91771914630 No Longer Active Natanael Araujo MD Active OMEPRAZOLE 20 MG ORAL CAPSULE DELAYED RELEASE 1 tablet by mouth daily OMEPRAZOLE 01491881850 No Longer Active Natanael Araujo MD Active PROTONIX 40 MG INTRAVENOUS SOLUTION RECONSTITUTED 1 po q a.m. PANTOPRAZOLE SODIUM 01317869449 No Longer Active Natanael Araujo MD Active CYCLOBENZAPRINE HCL 5 MG ORAL TABLET 1/2 tab po q hs, prn CYCLOBENZAPRINE HCL 30897815046 No Longer Active Natanael Araujo MD Active CELEBREX 100 MG ORAL CAPSULE 1 tab daily CELECOXIB 79851071268 No Longer Active Mahogany Garza APRN Active OMEPRAZOLE 20 MG ORAL CAPSULE DELAYED RELEASE 1 tablet by mouth daily OMEPRAZOLE 35767020332 No Longer Active Natanael Araujo MD Active TAMIFLU 75 MG ORAL CAPSULE 1 bid x 5 days OSELTAMIVIR PHOSPHATE 51845303941 No Longer Active Natanael Araujo MD Active PREDNISONE 20 MG ORAL TABLET 2 tabs daily for 3 days, 1 tab daily for 3 days, 1/2 tab daily for 2 days PREDNISONE 86758832388 No Longer Active Natanael Araujo MD Active AMOXICILLIN 400 MG/5ML ORAL SUSPENSION RECONSTITUTED 12.5ml po BID x 10 days AMOXICILLIN 50171341960 No Longer Active Natanael Araujo MD Active IBUPROFEN 800 MG ORAL TABLET 1 tab every 8 hours as needed 08/01 IBUPROFEN 87468972001 No Longer Active Natanael Araujo MD Active FLEXERIL 10 MG TAB 1 tablet by mouth at bedtime as needed for pain CYCLOBENZAPRINE HCL 60738384316 No Longer Active Natanael Araujo MD Active AMOXICILLIN 500 MG ORAL TABLET take one tab po tid x 7 days 02/22 AMOXICILLIN 46683679891 No Longer Active Natanael Araujo MD Active PRILOSEC 10 MG ORAL CAPSULE DELAYED RELEASE Take one by mouth daily OMEPRAZOLE 89433698891 No Longer Active Natanael Araujo MD Active ZYRTEC ALLERGY 10 MG ORAL CAPSULE Take one by mouth daily as needed CETIRIZINE HCL 38769251252 No Longer Active Natanael Araujo MD Active ZYRTEC ALLERGY 10 MG ORAL CAPSULE Take one by mouth daily as needed ZYRTEC ALLERGY 10 MG ORAL CAPSULE CETIRIZINE HCL Inactive PRILOSEC 10 MG ORAL CAPSULE DELAYED RELEASE Take one by mouth daily PRILOSEC 10 MG ORAL CAPSULE DELAYED RELEASE 137239 OMEPRAZOLE Inactive AMOXICILLIN 500 MG ORAL TABLET take one tab po tid x 7 days 02/22 AMOXICILLIN 500 MG ORAL TABLET 383008 AMOXICILLIN Inactive FLEXERIL 10 MG TAB 1 tablet by mouth at bedtime as needed for pain FLEXERIL 10 MG TAB CYCLOBENZAPRINE HCL Inactive IBUPROFEN 800 MG ORAL TABLET 1 tab every 8 hours as needed 08/01 IBUPROFEN 800 MG ORAL TABLET 558878 IBUPROFEN Inactive OMEPRAZOLE 20 MG ORAL CAPSULE DELAYED RELEASE 1 tablet by mouth daily OMEPRAZOLE 20 MG ORAL CAPSULE DELAYED RELEASE 091239 OMEPRAZOLE Inactive CELEBREX 100 MG ORAL CAPSULE 1 tab daily CELEBREX 100 MG ORAL CAPSULE 258937 CELECOXIB Inactive CYCLOBENZAPRINE HCL 5 MG ORAL TABLET 1/2 tab po q hs, prn CYCLOBENZAPRINE HCL 5 MG ORAL TABLET 063004 CYCLOBENZAPRINE HCL Inactive OMEPRAZOLE 20 MG ORAL CAPSULE DELAYED RELEASE 1 tablet by mouth daily OMEPRAZOLE 20 MG ORAL CAPSULE DELAYED RELEASE 350259 OMEPRAZOLE Inactive PULMICORT 0.5 MG/2ML INHALATION SUSPENSION mix 2 ml with 5 packets of splenda and swallow. rinse the mouth after 30 min. do not eat or drink anything for 30 min. PULMICORT 0.5 MG/2ML INHALATION SUSPENSION 019227 BUDESONIDE Inactive CLARITIN 10 MG ORAL TABLET 1 tablet by mouth daily as needed for allergies CLARITIN 10 MG ORAL TABLET 563511 LORATADINE Inactive CELEBREX 200 MG ORAL CAPSULE 1 tablet by mouth daily with meals CELEBREX 200 MG ORAL CAPSULE 184227 CELECOXIB Inactive PRILOSEC 20 MG ORAL CAPSULE DELAYED RELEASE 1 tab po q am PRILOSEC 20 MG ORAL CAPSULE DELAYED RELEASE 050695 OMEPRAZOLE Inactive PROAIR HFA 108 (90 Base) MCG/ACT INHALATION AEROSOL SOLUTION 2 puffs four times a day as needed PROAIR HFA 108 (90 Base) MCG/ACT INHALATION AEROSOL SOLUTION ALBUTEROL SULFATE Inactive ZOFRAN 4 MG ORAL TABLET 1 po q6hr PRN Nausea ZOFRAN 4 MG ORAL TABLET 218820 ONDANSETRON HCL Inactive OMEPRAZOLE 20 MG ORAL TABLET DELAYED RELEASE 1 po q a.m. 30min prior to first food intake OMEPRAZOLE 20 MG ORAL TABLET DELAYED RELEASE 095095 OMEPRAZOLE Inactive CLARITIN 10 MG ORAL TABLET 1 tablet by mouth daily as needed for allergies CLARITIN 10 MG ORAL TABLET 736373 LORATADINE Inactive LEXAPRO 10 MG ORAL TABLET 1 tablet by mouth daily LEXAPRO 10 MG ORAL TABLET 196594 ESCITALOPRAM OXALATE Inactive NAPROXEN SODIUM 550 MG ORAL TABLET 1 po BID PRN Headache NAPROXEN SODIUM 550 MG ORAL TABLET 480477 NAPROXEN SODIUM Inactive SAFYRAL 3-0.03-0.451 MG ORAL TABLET Take one by mouth daily SAFYRAL 3-0.03-0.451 MG ORAL TABLET DROSPIREN-ETH ESTRAD-LEVOMEFOL Inactive AMOXICILLIN 400 MG/5ML ORAL SUSPENSION RECONSTITUTED 12.5ml po BID x 10 days AMOXICILLIN 400 MG/5ML ORAL SUSPENSION RECONSTITUTED 661864 AMOXICILLIN Inactive PREDNISONE 20 MG ORAL TABLET 2 tabs daily for 3 days, 1 tab daily for 3 days, 1/2 tab daily for 2 days PREDNISONE 20 MG ORAL TABLET 582006 PREDNISONE Inactive TAMIFLU 75 MG ORAL CAPSULE 1 bid x 5 days TAMIFLU 75 MG ORAL CAPSULE 612123 OSELTAMIVIR PHOSPHATE Inactive AZITHROMYCIN 250 MG ORAL TABLET 2 po qd x 1 day, then 1 po qd x 4 days 09/14 AZITHROMYCIN 250 MG ORAL TABLET 006535 AZITHROMYCIN Inactive PREDNISONE 10 MG ORAL TABLET 3 po qd x 3 days, then 2 po qd x 3 days, then 1 po qd x 2 days PREDNISONE 10 MG ORAL TABLET 218131 PREDNISONE Inactive DOXYCYCLINE MONOHYDRATE 100 MG ORAL CAPSULE 1 po BID x 10 days DOXYCYCLINE MONOHYDRATE 100 MG ORAL CAPSULE 0896748 DOXYCYCLINE MONOHYDRATE Inactive Advance Directives Directive Description Start Date [...] ... - Chemistry sodium, serum 144 mmol/L 939-377 6955/11/02 carbon dioxide, venous blood 25.2 mmol/L 21.0-32.0 [...] 142-424 Encounters Code Encounter Date Provider Facility CPT-94904 Level 4 Est. Patient 09:59:40 CDT Natanael Araujo MD [facility] CPT-30130 Level 3 Est. Patient 14:27:39 CDT Natanael Araujo MD [facility] CPT-33051 Level 3 Est. Patient 16:08:13 CDT Natanael Araujo MD [facility] CPT-35402 Level 3 Est. Patient 10:44:11 CDT Mahogany Garza APRN [facility] CPT-52848 Level 3 Est. Patient 15:58:41 IT GENERALIST Natanael Araujo MD [facility] CPT-10459 Level 3 Est. Patient 16:32:02 IT GENERALIST Natanael Araujo MD [facility] CPT-40392 Level 3 Est. Patient 15:45:10 CDT Natanael Araujo MD [facility] CPT-43063 Level 4 Est. Patient 16:43:28 CDT Natanael Araujo MD [facility] CPT-86988 Level 3 Est. Patient 15:06:06 CDT Natanael Araujo MD [facility] CPT-73650 Level 3 Est. Patient 13:38:04 IT GENERALIST Natanael Araujo MD [facility] CPT-65050 Level 3 Est. Patient 10:18:16 IT GENERALIST Natanael Araujo MD [facility] CPT-50034 Level 3 Est. Patient 16:04:12 CDT Natanael Araujo MD [facility] CPT-41726 Level 3 Est. Patient 11:25:05 CDT Natanael Araujo MD [facility] CPT-07502 Level 3 Est. Patient 13:17:34 CDT Gail Valerio [facility] CPT-12402 Level 3 Est. Patient 17:03:36 CDT Natanael Araujo MD [facility] CPT-47498 Level 2 Est. Patient 14:41:40 IT GENERALIST Mahogany Garza APRN [facility] CPT-29879 Level 3 New Patient 16:12:19 IT GENERALIST Gail Valerio [facility] Procedures Code Procedure Name Date Entry Date Standard Description CPT-75865 Menactra 10:44:48 CDT CPT-20472 Administration single or combination vaccine inc oral 10 :44:48 CDT CPT-85786 Menactra 10:42:17 CDT CPT-22649 Administration single or combination vaccine inc oral 10 :42:17 CDT CPT-43325 Knee 3V 13:46:23 IT GENERALIST CPT-36098 LS spine comp w obliq 16:17:55 CDT CPT-JTINJ Joint Injection 17:03:35 CDT CPT-J0561 Bicillin LA 1,200,000 u (PCN G Benzathine) 16:12:19 IT GENERALIST CPT-28393 Abx/Therapy Injection 16:12:19 IT GENERALIST
--- OUTSIDE RECORDS SUMMARY | 2017-09-06 14:08 | XMS REPORT | Clinical Summary ---
Author Author Admin, CRISTOPHER Organization [email or web address] Address Unknown Phone Unavailable Allergies, Adverse Reactions, [...] classified Eosinophilic esophagitis 530.13 Active Mahogany Garza GLASS NOVELTY MAKER Eosinophilic esophagitis Pharyngitis 462 Resolved Natanael Araujo [...] Araujo MD Back pain ICD-724.5 Inactive Natanael Arajuo MD Pharyngitis ICD-462 Inactive Natanael Araujo MD Medication List Medication Instructions Start Date Stop Date Generic Name NDC Status Provider Patient Instruction ZOFRAN 4 MG TABS 1 po q6hr PRN Nausea ONDANSETRON HCL 78115767122 Active Natanael Araujo MD Active OMEPRAZOLE 20 MG TBEC 1 po q a.m. 30min prior to first food intake OMEPRAZOLE 42490466864 Active Natanael Araujo MD Active CLARITIN 10 MG TAB 1 tablet by mouth daily as needed for allergies LORATADINE 24221147335 Active Mahogany Garza APRN Active AZITHROMYCIN 250 MG TABS 2 po qd x 1 day, then 1 po qd x 4 days AZITHROMYCIN 37522210898 No Longer Active Mahogany Garza GLASS NOVELTY MAKER Active LEXAPRO 10 MG TABS 1 tablet by mouth daily ESCITALOPRAM OXALATE 09189810786 Active Natanael Araujo MD Active PROAIR HFA 108 (90 BASE) MCG/ACT AERS 2 puffs four times a day as needed 2012 ALBUTEROL SULFATE 30317946719 No Longer Active Natanael Araujo MD Active PRILOSEC 20 MG CAP CR 1 tab po q am OMEPRAZOLE 46945796922 No Longer Active Nataanel Araujo MD Active CELEBREX 200 MG CAPS 1 tablet by mouth daily with meals CELECOXIB 75285038340 No Longer Active Natanael Araujo MD Active CLARITIN 10 MG TAB 1 tablet by mouth daily as needed for allergies LORATADINE 66307278081 No Longer Active Natanael Araujo MD Active PULMICORT 0.5 MG/2ML INH SUSP mix 2 ml with 5 packets of splenda and swallow. rinse the mouth after 30 min. do not eat or drink anything for 30 min. 12/19 BUDESONIDE 71432444677 No Longer Active Natanael Araujo MD Active OMEPRAZOLE 20 MG CPDR 1 tablet by mouth daily OMEPRAZOLE 87851469397 No Longer Active Natanael Araujo MD Active PROTONIX 40 MG SOLR 1 po q a.m. PANTOPRAZOLE SODIUM 23412549487 No Longer Active Natanael Araujo MD Active CYCLOBENZAPRINE HCL 5 MG ORAL TABS 1/2 tab po q hs, prn CYCLOBENZAPRINE HCL 80422645903 No Longer Active Natanael Araujo MD Active CELEBREX 100 MG CAPS 1 tab daily CELECOXIB 98131884902 No Longer Active Mahogany Garza APRN Active OMEPRAZOLE 20 MG CPDR 1 tablet by mouth daily OMEPRAZOLE 87044845460 No Longer Active Natanael Araujo MD Active TAMIFLU 75 MG CAPS 1 bid x 5 days OSELTAMIVIR PHOSPHATE 30923723550 No Longer Active Natanael Araujo MD Active PREDNISONE 20 MG TAB 2 tabs daily for 3 days, 1 tab daily for 3 days, 1/2 tab daily for 2 days PREDNISONE 66577718017 No Longer Active Natanael Araujo MD Active AMOXICILLIN 400 MG/5ML SUSR 12.5ml po BID x 10 days AMOXICILLIN 59639940027 No Longer Active Natanael Araujo MD Active IBUPROFEN 800 MG TABS 1 tab every 8 hours as needed IBUPROFEN 32453943239 No Longer Active Natanael Araujo MD Active FLEXERIL 10 MG TAB 1 tablet by mouth at bedtime as needed for pain CYCLOBENZAPRINE HCL 26638515276 No Longer Active Natanael Araujo MD Active AMOXICILLIN 500 MG TABS take one tab po tid x 7 days AMOXICILLIN 62035696534 No Longer Active Natanael Araujo MD Active PRILOSEC 10 MG CAP CR Take one by mouth daily OMEPRAZOLE 00522524745 No Longer Active Natanael Araujo MD Active ZYRTEC ALLERGY 10 MG CAPS Take one by mouth daily as needed 10/25 CETIRIZINE HCL 68381515316 No Longer Active Natanael Araujo MD Active ZYRTEC ALLERGY 10 MG CAPS Take one by mouth daily as needed 10/25 ZYRTEC ALLERGY 10 MG CAPS CETIRIZINE HCL Inactive PRILOSEC 10 MG CAP CR Take one by mouth daily PRILOSEC 10 MG CAP CR 19900712 OMEPRAZOLE Inactive AMOXICILLIN 500 MG TABS take one tab po tid x 7 days AMOXICILLIN 500 MG TABS 458340 AMOXICILLIN Inactive FLEXERIL 10 MG TAB 1 tablet by mouth at bedtime as needed for pain FLEXERIL 10 MG TAB CYCLOBENZAPRINE HCL Inactive IBUPROFEN 800 MG TABS 1 tab every 8 hours as needed IBUPROFEN 800 MG TABS 728707 IBUPROFEN Inactive OMEPRAZOLE 20 MG CPDR 1 tablet by mouth daily OMEPRAZOLE 20 MG CPDR 19791102 OMEPRAZOLE Inactive CELEBREX 100 MG CAPS 1 tab daily CELEBREX 100 MG CAPS 846638 CELECOXIB Inactive CYCLOBENZAPRINE HCL 5 MG ORAL TABS 1/2 tab po q hs, prn CYCLOBENZAPRINE HCL 5 MG ORAL TABS 411946 CYCLOBENZAPRINE HCL Inactive OMEPRAZOLE 20 MG CPDR 1 tablet by mouth daily OMEPRAZOLE 20 MG CPDR 19791102 OMEPRAZOLE Inactive PULMICORT 0.5 MG/2ML INH SUSP mix 2 ml with 5 packets of splenda and swallow. rinse the mouth after 30 min. do not eat or drink anything for 30 min. 12/19 PULMICORT 0.5 MG/2ML INH SUSP 013325 BUDESONIDE Inactive CLARITIN 10 MG TAB 1 tablet by mouth daily as needed for allergies CLARITIN 10 MG TAB 421201 LORATADINE Inactive CELEBREX 200 MG CAPS 1 tablet by mouth daily with meals CELEBREX 200 MG CAPS 161116 CELECOXIB Inactive PRILOSEC 20 MG CAP CR 1 tab po q am PRILOSEC 20 MG CAP CR 098353 OMEPRAZOLE Inactive PROAIR HFA 108 (90 BASE) MCG/ACT AERS 2 puffs four times a day as needed 2012 PROAIR HFA 108 (90 BASE) MCG/ACT AERS ALBUTEROL SULFATE Inactive AMOXICILLIN 400 MG/5ML SUSR 12.5ml po BID x 10 days AMOXICILLIN 400 MG/5ML SUSR 810287 AMOXICILLIN Inactive PREDNISONE 20 MG TAB 2 tabs daily for 3 days, 1 tab daily for 3 days, 1/2 tab daily for 2 days PREDNISONE 20 MG TAB 808955 PREDNISONE Inactive TAMIFLU 75 MG CAPS 1 bid x 5 days TAMIFLU 75 MG CAPS OSELTAMIVIR PHOSPHATE Inactive AZITHROMYCIN 250 MG TABS 2 po qd x 1 day, then 1 po qd x 4 days AZITHROMYCIN 250 MG TABS 7554868 AZITHROMYCIN Inactive Advance Directives Directive Description Start [...] Negative;Positive Encounters Code Encounter Date Provider Facility CPT-72378 Level 3 Est. Patient 16:08:13 CDT Natanael Araujo MD [facility] CPT-39302 Level 3 Est. Patient 10:44:11 [facility] Est[facility] Patient 15:58:41 SPECIAL NEEDS TEACHER Natanael Araujo MD [facility] CPT-04208 Level 3 Est. Patient 16:32:02 SPECIAL NEEDS TEACHER Natanael Araujo MD [facility] CPT-76506 Level 3 Est. Patient 15:45:10 CDT Natanael Araujo MD [facility] CPT-97474 Level 4 Est. Patient 16:43:28 CDT Natanael Araujo MD [facility] CPT-47792 Level 3 Est. Patient 15:06:06 CDT Natanael Araujo MD [facility] CPT-50322 Level 3 Est. Patient 13:38:04 SPECIAL NEEDS TEACHER Natanael Araujo MD [facility] CPT-58378 Level 3 Est. Patient 10:18:16 SPECIAL NEEDS TEACHER Natanael Araujo MD [facility] CPT-33797 Level 3 Est. Patient 16:04:12 CDT Natanael Araujo MD [facility] CPT-18981 Level 3 Est. Patient 11:25:05 CDT Natanael Araujo MD [facility] CPT-04216 Level 3 Est. Patient 13:17:34 CDT Gail Valerio [facility] CPT-74509 Level 3 Est. Patient 17:03:36 CDT Natanael Araujo MD [facility] CPT-89190 Level 2 Est. Patient 14:41:40 SPECIAL NEEDS TEACHER Mahogany Garza [facility] CPT-09163 Level 3 New Patient 16:12:19 SPECIAL NEEDS TEACHER Gail Valerio [facility] Procedures Code Procedure Name Date Entry Date Standard Description CPT-15452 Menactra 10:44:48 CDT CPT-42220 Administration single or combination vaccine inc oral 10 :44:48 CDT CPT-70945 Menactra 10:42:17 CDT CPT-89439 Administration single or combination vaccine inc oral 10 :42:17 CDT CPT-21684 Knee 3V 13:46:23 SPECIAL NEEDS TEACHER CPT-16222 LS spine comp w obliq 16:17:55 CDT CPT-JTINJ Joint Injection 17:03:35 CDT CPT-J0561 Bicillin LA 1,200,000 u (PCN G Benzathine) 16:12:19 SPECIAL NEEDS TEACHER CPT-81546 Abx/Therapy Injection 16:12:19 SPECIAL NEEDS TEACHER
--- OUTSIDE RECORDS SUMMARY | 2017-09-06 14:09 | XMS REPORT | Clinical Summary ---
Author Author Admin, CRISTOPHER Organization [employer] Address Unknown Phone Unavailable Allergies, Adverse Reactions, Alerts Allergy Name Reaction Description Start Date Severity Status Provider No Known Allergies CAED Carter NKKAYE Critical Active Amie Gant RN [...] MD Acute sinusitis, unspecified Dysphagia 787.20 Resolved Natanale Araujo MD Dysphagia, unspecified Influenza like illness [...] classified Eosinophilic esophagitis 530.13 Active Jillrandy Garza DATA RECOVERY PLANNER Eosinophilic esophagitis Pharyngitis 462 Active Mahogany Garza DATA RECOVERY PLANNER Acute pharyngitis ACUTE PHARYNGITIS ICD-462 Inactive Natanael [...] mouth daily as needed for allergies LORATADINE 68634426382 Active Mahogany Garza APRN Active AZITHROMYCIN 250 MG TABS 2 po qd x 1 day, then 1 po qd x 4 days AZITHROMYCIN 90848222357 Active Jillina Fraguanakol DATA RECOVERY PLANNER Active LEXAPRO 10 MG TABS 1 tablet by mouth daily ESCITALOPRAM OXALATE 84045393434 Active Natanael Araujo MD Active PROAIR HFA 108 (90 BASE) MCG/ACT AERS 2 puffs four times a day as needed 2012 ALBUTEROL SULFATE 91289451903 No Longer Active Natanael Araujo MD Active PRILOSEC 20 MG CAP CR 1 tab po q am OMEPRAZOLE 95106461503 No Longer Active Natanael Araujo MD Active CELEBREX 200 MG CAPS 1 tablet by mouth daily with meals CELECOXIB 71176938212 No Longer Active Natanael Araujo MD Active CLARITIN 10 MG TAB 1 tablet by mouth daily as needed for allergies LORATADINE 80335677720 No Longer Active Natanael Araujo MD Active PULMICORT 0.5 MG/2ML INH SUSP mix 2 ml with 5 packets of splenda and swallow. rinse the mouth after 30 min. do not eat or drink anything for 30 min. 12/19 BUDESONIDE 99360970477 No Longer Active Natanael Araujo MD Active OMEPRAZOLE 20 MG CPDR 1 tablet by mouth daily OMEPRAZOLE 48826576665 No Longer Active Natanael Araujo MD Active PROTONIX 40 MG SOLR 1 po q a.m. PANTOPRAZOLE SODIUM 80947765339 No Longer Active Natanael Araujo MD Active CYCLOBENZAPRINE HCL 5 MG ORAL TABS 1/2 tab po q hs, prn CYCLOBENZAPRINE HCL 52690874255 No Longer Active Natanael Araujo MD Active CELEBREX 100 MG CAPS 1 tab daily CELECOXIB 91688750505 No Longer Active Mahogany Garza APRN Active OMEPRAZOLE 20 MG CPDR 1 tablet by mouth daily OMEPRAZOLE 54882362495 No Longer Active Natanael Araujo MD Active TAMIFLU 75 MG CAPS 1 bid x 5 days OSELTAMIVIR PHOSPHATE 25814902648 No Longer Active Natanael Araujo MD Active PREDNISONE 20 MG TAB 2 tabs daily for 3 days, 1 tab daily for 3 days, 1/2 tab daily for 2 days PREDNISONE 21460981266 No Longer Active Natanael Araujo MD Active AMOXICILLIN 400 MG/5ML SUSR 12.5ml po BID x 10 days AMOXICILLIN 07530784882 No Longer Active Natanael Araujo MD Active IBUPROFEN 800 MG TABS 1 tab every 8 hours as needed IBUPROFEN 42984311247 No Longer Active Natanael Araujo MD Active FLEXERIL 10 MG TAB 1 tablet by mouth at bedtime as needed for pain CYCLOBENZAPRINE HCL 23043386453 No Longer Active Natanael Araujo MD Active AMOXICILLIN 500 MG TABS take one tab po tid x 7 days AMOXICILLIN 39060793568 No Longer Active Natanael Araujo MD Active PRILOSEC 10 MG CAP CR Take one by mouth daily OMEPRAZOLE 56532987920 No Longer Active Natanael Araujo MD Active ZYRTEC ALLERGY 10 MG CAPS Take one by mouth daily as needed 10/25 CETIRIZINE HCL 63045420434 No Longer Active Natanael Araujo MD Active ZYRTEC ALLERGY 10 MG CAPS Take one by mouth daily as needed 10/25 ZYRTEC ALLERGY 10 MG CAPS CETIRIZINE HCL Inactive PRILOSEC 10 MG CAP CR Take one by mouth daily PRILOSEC 10 MG CAP CR 111290 OMEPRAZOLE Inactive AMOXICILLIN 500 MG TABS take one tab po tid x 7 days AMOXICILLIN 500 MG TABS 159066 AMOXICILLIN Inactive FLEXERIL 10 MG TAB 1 tablet by mouth at bedtime as needed for pain FLEXERIL 10 MG TAB CYCLOBENZAPRINE HCL Inactive IBUPROFEN 800 MG TABS 1 tab every 8 hours as needed IBUPROFEN 800 MG TABS 141922 IBUPROFEN Inactive OMEPRAZOLE 20 MG CPDR 1 tablet by mouth daily OMEPRAZOLE 20 MG CPDR 19791102 OMEPRAZOLE Inactive CELEBREX 100 MG CAPS 1 tab daily CELEBREX 100 MG CAPS 454118 CELECOXIB Inactive CYCLOBENZAPRINE HCL 5 MG ORAL TABS 1/2 tab po q hs, prn CYCLOBENZAPRINE HCL 5 MG ORAL TABS 036661 CYCLOBENZAPRINE HCL Inactive OMEPRAZOLE 20 MG CPDR 1 tablet by mouth daily OMEPRAZOLE 20 MG CPDR 19791102 OMEPRAZOLE Inactive PULMICORT 0.5 MG/2ML INH SUSP mix 2 ml with 5 packets of splenda and swallow. rinse the mouth after 30 min. do not eat or drink anything for 30 min. 12/19 PULMICORT 0.5 MG/2ML INH SUSP 729642 BUDESONIDE Inactive CLARITIN 10 MG TAB 1 tablet by mouth daily as needed for allergies CLARITIN 10 MG TAB 798567 LORATADINE Inactive CELEBREX 200 MG CAPS 1 tablet by mouth daily with meals CELEBREX 200 MG CAPS 119148 CELECOXIB Inactive PRILOSEC 20 MG CAP CR 1 tab po q am PRILOSEC 20 MG CAP CR 311329 OMEPRAZOLE Inactive PROAIR HFA 108 (90 BASE) MCG/ACT AERS 2 puffs four times a day as needed 2012 PROAIR HFA 108 (90 BASE) MCG/ACT AERS ALBUTEROL SULFATE Inactive AMOXICILLIN 400 MG/5ML SUSR 12.5ml po BID x 10 days AMOXICILLIN 400 MG/5ML SUSR 137744 AMOXICILLIN Inactive PREDNISONE 20 MG TAB 2 tabs daily for 3 days, 1 tab daily for 3 days, 1/2 tab daily for 2 days PREDNISONE 20 MG TAB 504900 PREDNISONE Inactive TAMIFLU 75 MG CAPS 1 [...] Negative;Positive Encounters Code Encounter Date Provider Facility CPT-44485 Level 3 Est. Patient 10:44:11 CDT Mahogayn Garza APRN [facility] CPT-80213 Level 3 Est. Patient 15:58:41 MOLDING MACHINE OPERATOR Natanael Araujo MD [facility] CPT-74118 Level 3 Est. Patient 16:32:02 MOLDING MACHINE OPERATOR Natanael Araujo MD [facility] CPT-06168 Level 3 Est. Patient 15:45:10 CDT Natanael Araujo MD [facility] CPT-08146 Level 4 Est. Patient 16:43:28 CDT Natanael Araujo MD [facility] CPT-26269 Level 3 Est. Patient 15:06:06 CDT Natanael Araujo MD [facility] CPT-57347 Level 3 Est. Patient 13:38:04 MOLDING MACHINE OPERATOR Natanael Araujo MD [facility] CPT-24488 Level 3 Est. Patient 10:18:16 MOLDING MACHINE OPERATOR Natanael Araujo MD [facility] CPT-00119 Level 3 Est. Patient 16:04:12 CDT Natanael Araujo MD [facility] CPT-49404 Level 3 Est. Patient 11:25:05 CDT Natanael Araujo MD [facility] CPT-03181 Level 3 Est. Patient 13:17:34 CDT Gail KIMBALL [facility] CPT-45316 Level 3 Est. Patient 17:03:36 CDT Natanael Araujo MD [facility] CPT-44028 Level 2 Est. Patient 14:41:40 MOLDING MACHINE OPERATOR Mahogany Garza APRN [facility] CPT-90616 Level 3 New Patient 16:12:19 MOLDING MACHINE OPERATOR Gail KIMBALL [facility] Procedures Code Procedure Name Date Entry Date Standard Description CPT-68848 Menactra 10:44:48 CDT CPT-79852 Administration single or combination vaccine inc oral 10 :44:48 CDT CPT-38503 Menactra 10:42:17 CDT CPT-62915 Administration single or combination vaccine inc oral 10 :42:17 CDT CPT-61323 Knee 3V 13:46:23 MOLDING MACHINE OPERATOR CPT-68190 LS spine comp w obliq 16:17:55 CDT CPT-JTINJ Joint Injection 17:03:35 CDT CPT-J0561 Bicillin LA 1,200,000 u (PCN G Benzathine) 16:12:19 MOLDING MACHINE OPERATOR CPT-96855 Abx/Therapy Injection 16:12:19 MOLDING MACHINE OPERATOR
--- OUTSIDE RECORDS SUMMARY | 2017-09-06 14:09 | XMS REPORT | Clinical Summary ---
Author Author Admin, CRISTOPHER Organization [employer] Address Unknown Phone Unavailable Allergies, Adverse Reactions, [...] Araujo MD Backache, unspecified Dysphagia 787.20 Active Ntaanael Araujo MD Dysphagia, unspecified Anxiety 300.00 Inactive Natanael Araujo MD Anxiety state, unspecified Depression/anxiety 300.4 Active Natanael Araujo MD Dysthymic disorder Allergic reaction 995.3 Active Natanael Araujo MD Allergy, unspecified, not elsewhere classified Eosinophilic esophagitis 530.13 Active Mahogany Garza MANAGER [employer]LOBAL COMM[employer]ICATIONS Eosinophilic esophagitis Pharyngitis 462 Resolved Natanael Araujo MD Acute pharyngitis Nausea alone 787.02 Active Natanael Araujo MD Nausea alone ACUTE PHARYNGITIS ICD-462 Inactive Natanael Aarujo MD [facility] DIABETES ICD-V18.0 Inactive Natanael Araujo [...] 1 po q6hr PRN Nausea ONDANSETRON HCL 64157937064 Active Natanael Araujo MD Active OMEPRAZOLE 20 MG TBEC 1 po q a.m. 30min prior to first food intake OMEPRAZOLE 97595282452 Active Natanael Araujo MD Active CLARITIN 10 MG TAB 1 tablet by mouth daily as needed for allergies LORATADINE 70527199587 Active Mahogany Garza APRN Active AZITHROMYCIN 250 MG TABS 2 po qd x 1 day, then 1 po qd x 4 days AZITHROMYCIN 57051007421 No Longer Active Mahogany Garza MANAGER [employer]S Active LEXAPRO 10 MG TABS 1 tablet by mouth daily ESCITALOPRAM OXALATE 91033420460 Active Natanael Araujo MD Active PROAIR HFA 108 (90 BASE) MCG/ACT AERS 2 puffs four times a day as needed 2012 ALBUTEROL SULFATE 80043895509 No Longer Active Natanael Araujo MD Active PRILOSEC 20 MG CAP CR 1 tab po q am OMEPRAZOLE 04914851493 No Longer Active Natanael Araujo MD Active CELEBREX 200 MG CAPS 1 tablet by mouth daily with meals CELECOXIB 00703125860 No Longer Active Natanael Araujo MD Active CLARITIN 10 MG TAB 1 tablet by mouth daily as needed for allergies LORATADINE 86843466601 No Longer Active Natanael Araujo MD Active PULMICORT 0.5 MG/2ML INH SUSP mix 2 ml with 5 packets of splenda and swallow. rinse the mouth after 30 min. do not eat or drink anything for 30 min. 12/19 BUDESONIDE 59346618442 No Longer Active Natanael Araujo MD Active OMEPRAZOLE 20 MG CPDR 1 tablet by mouth daily OMEPRAZOLE 47087583049 No Longer Active Natanael Araujo MD Active PROTONIX 40 MG SOLR 1 po q a.m. PANTOPRAZOLE SODIUM 95735912281 No Longer Active Natanael Araujo MD Active CYCLOBENZAPRINE HCL 5 MG ORAL TABS 1/2 tab po q hs, prn CYCLOBENZAPRINE HCL 42093713514 No Longer Active Natanael Araujo MD Active CELEBREX 100 MG CAPS 1 tab daily CELECOXIB 23702788450 No Longer Active Mahogany Garza APRN Active OMEPRAZOLE 20 MG CPDR 1 tablet by mouth daily OMEPRAZOLE 11618263741 No Longer Active Natanael Araujo MD Active TAMIFLU 75 MG CAPS 1 bid x 5 days OSELTAMIVIR PHOSPHATE 18406307002 No Longer Active Natanael Araujo MD Active PREDNISONE 20 MG TAB 2 tabs daily for 3 days, 1 tab daily for 3 days, 1/2 tab daily for 2 days PREDNISONE 53578019097 No Longer Active Natanael Araujo MD Active AMOXICILLIN 400 MG/5ML SUSR 12.5ml po BID x 10 days AMOXICILLIN 68286350662 No Longer Active Natanael Araujo MD Active IBUPROFEN 800 MG TABS 1 tab every 8 hours as needed IBUPROFEN 91855704736 No Longer Active Natanael Araujo MD Active FLEXERIL 10 MG TAB 1 tablet by mouth at bedtime as needed for pain CYCLOBENZAPRINE HCL 42545719692 No Longer Active Natanael Araujo MD Active AMOXICILLIN 500 MG TABS take one tab po tid x 7 days AMOXICILLIN 07895045001 No Longer Active Natanael Araujo MD Active PRILOSEC 10 MG CAP CR Take one by mouth daily OMEPRAZOLE 28093324908 No Longer Active Natanael Araujo MD Active ZYRTEC ALLERGY 10 MG CAPS Take one by mouth daily as needed 10/25 CETIRIZINE HCL 81154201871 No Longer Active Natanael Araujo MD Active ZYRTEC ALLERGY 10 MG CAPS Take one by mouth daily as needed 10/25 ZYRTEC ALLERGY 10 MG CAPS CETIRIZINE HCL Inactive PRILOSEC 10 MG CAP CR Take one by mouth daily PRILOSEC 10 MG CAP CR 19900712 OMEPRAZOLE Inactive AMOXICILLIN 500 MG TABS take one tab po tid x 7 days AMOXICILLIN 500 MG TABS 073023 AMOXICILLIN Inactive FLEXERIL 10 MG TAB 1 tablet by mouth at bedtime as needed for pain FLEXERIL 10 MG TAB CYCLOBENZAPRINE HCL Inactive IBUPROFEN 800 MG TABS 1 tab every 8 hours as needed IBUPROFEN 800 MG TABS 592324 IBUPROFEN Inactive OMEPRAZOLE 20 MG CPDR 1 tablet by mouth daily OMEPRAZOLE 20 MG CPDR 19791102 OMEPRAZOLE Inactive CELEBREX 100 MG CAPS 1 tab daily CELEBREX 100 MG CAPS 131439 CELECOXIB Inactive CYCLOBENZAPRINE HCL 5 MG ORAL TABS 1/2 tab po q hs, prn CYCLOBENZAPRINE HCL 5 MG ORAL TABS 283924 CYCLOBENZAPRINE HCL Inactive OMEPRAZOLE 20 MG CPDR 1 tablet by mouth daily OMEPRAZOLE 20 MG CPDR 19791102 OMEPRAZOLE Inactive PULMICORT 0.5 MG/2ML INH SUSP mix 2 ml with 5 packets of splenda and swallow. rinse the mouth after 30 min. do not eat or drink anything for 30 min. 12/19 PULMICORT 0.5 MG/2ML INH SUSP 003861 BUDESONIDE Inactive CLARITIN 10 MG TAB 1 tablet by mouth daily as needed for allergies CLARITIN 10 MG TAB 419983 LORATADINE Inactive CELEBREX 200 MG CAPS 1 tablet by mouth daily with meals CELEBREX 200 MG CAPS 604187 CELECOXIB Inactive PRILOSEC 20 MG CAP CR 1 tab po q am PRILOSEC 20 MG CAP CR 953102 OMEPRAZOLE Inactive PROAIR HFA 108 (90 BASE) MCG/ACT AERS 2 puffs four times a day as needed 2012 PROAIR HFA 108 (90 BASE) MCG/ACT AERS ALBUTEROL SULFATE Inactive AMOXICILLIN 400 MG/5ML SUSR 12.5ml po BID x 10 days AMOXICILLIN 400 MG/5ML SUSR 229452 AMOXICILLIN Inactive PREDNISONE 20 MG TAB 2 tabs daily for 3 days, 1 tab daily for 3 days, 1/2 tab daily for 2 days PREDNISONE 20 MG TAB 026066 PREDNISONE Inactive TAMIFLU 75 MG CAPS 1 bid x 5 days TAMIFLU 75 MG CAPS OSELTAMIVIR PHOSPHATE Inactive AZITHROMYCIN 250 MG TABS 2 po qd x 1 day, then 1 po qd x 4 days AZITHROMYCIN 250 MG TABS 4806048 AZITHROMYCIN Inactive Advance Directives Directive Description Start [...] Negative;Positive Encounters Code Encounter Date Provider Facility CPT-16440 Level 3 Est. Patient 16:08:13 CDT Natanael Araujo MD [facility] CPT-05957 Level 3 Est. Patient 10:44:11 CDT [facility] Level 3 Est. Patient 15:58:41 CADD INSTRUCTOR Natanael Araujo MD [facility] CPT-57009 Level 3 Est. Patient 16:32:02 CADD INSTRUCTOR Natanael Araujo MD [facility] CPT-17302 Level 3 Est. Patient 15:45:10 CDT Natanael Araujo MD [facility] CPT-65696 Level 4 Est. Patient 16:43:28 CDT Natanael Araujo MD [facility] CPT-13260 Level 3 Est. Patient 15:06:06 CDT Natanael Araujo MD [facility] CPT-62300 Level 3 Est. Patient 13:38:04 CADD INSTRUCTOR Natanael Araujo MD [facility] CPT-65973 Level 3 Est. Patient 10:18:16 CADD INSTRUCTOR Natanael Araujo MD [facility] CPT-35323 Level 3 Est. Patient 16:04:12 CDT Natanael Araujo MD [facility] CPT-39417 Level 3 Est. Patient 11:25:05 CDT Natanael Araujo MD [facility] CPT-98126 Level 3 Est. Patient 13:17:34 CDT Gail Valerio [facility] CPT-28363 Level 3 Est. Patient 17:03:36 CDT Natanael Araujo MD [facility] CPT-48667 Level 2 Est. Patient 14:41:40 CADD INSTRUCTOR Mahogany Garza [facility] CPT-33757 Level 3 New Patient 16:12:19 CADD INSTRUCTOR Gail Valerio [facility] Procedures Code Procedure Name Date Entry Date Standard Description CPT-58135 Menactra 10:44:48 CDT CPT-94310 Administration single or combination vaccine inc oral 10 :44:48 CDT CPT-66302 Menactra 10:42:17 CDT CPT-20160 Administration single or combination vaccine inc oral 10 :42:17 CDT CPT-01754 Knee 3V 13:46:23 CADD INSTRUCTOR CPT-57901 LS spine comp w obliq 16:17:55 CDT CPT-JTINJ Joint Injection 17:03:35 CDT CPT-J0561 Bicillin LA 1,200,000 u (PCN G Benzathine) 16:12:19 CADD INSTRUCTOR CPT-31418 Abx/Therapy Injection 16:12:19 CADD INSTRUCTOR
--- OUTSIDE RECORDS SUMMARY | 2017-09-06 14:10 | XMS REPORT ---
Author Author [facility] [facility] Medical Staff [facility] Address [address] [place] [id number] Phone [phone] Care Team Providers Care Director Of Hospitality Name Role Phone AARON SHANKAR MD PP [phone] AARON SHANKAR MD PP [phone] Summary purpose TRANSITION OF CARE AUTO GENERATION Chief Complaint and Reason for Visit Admit Diagnosis 1 GASTROSCOPY Problem list No authorized problems tracked for [...] tests and/or laboratory data RESULTS Special Chemistry :25:00 Result Normal Range Units HCG (Qualitative) Negative History of procedures No procedures recorded for this patient visit. Functional status Functional Status Finding Observation Time Hearing Prob Loc none [id number]:36 Vision Problems yes :36 Vision Correct Dev glasses 22-23-441057:36 Ambulation Asst Dev none 58-80-011175:36 Range of Motion full :45 Muscle Strength RUE 5 ROM full resist :45 Muscle Strength RLE 5 ROM full resist :45 Muscle Strength LUE 5 ROM full resist :45 Muscle Strength LLE 5 ROM full resist :45 Transfers independent :45 Ambulation up ad sandra :45 Balance steady :45 Bathing Assistance none 74-46-373060:36 Eating Assistance none 77-56-566165:36 Dressing Assistance none 05-17-578821:36 Toileting Assistance none 92-04-927288:36 Transfer Assistance none :36 Decline Slf Care/Mob no :36 Phys Cond Stable yes 03-88-275125:36 Nutrition dysphagia :45 Diet regular 78-35-954329:45 Oral Cavity moist and intact :45 Teeth intact 97-98-346038:45 Dental Hygiene good 43-42-310072:45 Abdomen Appearance flat :45 Abdomen soft 90-41-477004:45 Bowel Sounds present 43-19-126900:45 NG Tube no :45 Feeding Tube none 41-76-634531:45 Chan no :45 Cont Bladder Irr no :45 Ostomy no :45 Stool normal :45 Urination normal 70-86-178165:45 Quality sym/unlabored :45 Cough absent :45 Secretions no :45 Breath Sounds RUL clear 21-53-770309:45 Breath Sounds RML clear :45 Breath Sounds RLL clear :45 Breath Sounds COLETTE clear :45 Breath Sounds LLL clear 66-95-249233:45 Airway natural :45 Oxygen no :30 C-PAP no :45 BI-PAP no :45 Temp >100.4 no :45 Temp <96.8 no :45 Chills with rigors no :45 HR > 90bpm no :45 Respirations > 20 no :45 Systolic <90 no :45 headache stiff neck no :45 Rapid Resp no :45 IV Site Location L Hand :30 IV Type peripheral :30 IV Site Information discontinued :30 IV Site Start Attmpt 1 times :39 IV Site Jono 20 :45 IV Site Appearance WNL :45 IV Site Color clear :45 IV Site Patent yes :45 Dressing Changed yes :45 Dressing Type occlusive :45 Nursing Note Pt dc'd to home in stable condition ambulatory with mother in personal vehical. Belongings intact. :40 Cognitive Status Finding Observation Time Learning Ability comprehends well :30 Neurological no :30 Psychological no :30 Physical no :30 Hearing no :30 Network Support Specialist Needed no :30 Sign Language no :30 Emotional no :30 Vision no :30 Laguage no :30 Financial no :30 Vital signs Type Value Date Respiration Rate 16breaths per minute :30 Pulse 62beats per minute :30 Oxygen Saturation 100% :30 BP Systolic 110mmHg :30 BP Diastolic 64mmHg :30 Temperature 96.6F :41 Height 66inches :34 Weight 138LB 72-26-680738:34 Social history Type Value Smoking Status NEVER SMOKER Treatment Plan No treatment plan text is available for this visit. Hospital discharge instructions Discharge Date/Time 12/12/14 0940 Accompanied By Mary Relationship parent Dismissal Condition good Disposition on DC home Valuables yes Valuable Type cell phone Valuables Returned T patient DC Inst/Educ Give yes Exit Care Educ Given yes PNE Vac Never Flu Vac Unknown Tetanus Vac Unknown Diet Explained yes Follow up appt other (specify) Comment: [place] will call with bx results
--- OUTSIDE RECORDS SUMMARY | 2017-09-06 14:10 | XMS REPORT | Clinical Summary ---
Author Author Admin, CRISTOPHER Organization [employer] Address Unknown Phone Unavailable Allergies, Adverse Reactions, [...] classified Eosinophilic esophagitis 530.13 Active Jillrandy Garza LOG RIDER Eosinophilic esophagitis Pharyngitis 462 Active Mahogany Garza LOG RIDER Acute pharyngitis FH DIABETES ICD-V18.0 Inactive Natanael Araujo MD [...] mouth daily as needed for allergies LORATADINE 56416697974 Active Mahogany Garza APRN Active AZITHROMYCIN 250 MG TABS 2 po qd x 1 day, then 1 po qd x 4 days AZITHROMYCIN 26007219935 No Longer Active Jillina Greg LOG RIDER Active LEXAPRO 10 MG TABS 1 tablet by mouth daily ESCITALOPRAM OXALATE 29286612870 Active Natanael Araujo MD Active PROAIR HFA 108 (90 BASE) MCG/ACT AERS 2 puffs four times a day as needed 2012 ALBUTEROL SULFATE 77998518333 No Longer Active Natanael Araujo MD Active PRILOSEC 20 MG CAP CR 1 tab po q am OMEPRAZOLE 66678326387 No Longer Active Natanael Araujo MD Active CELEBREX 200 MG CAPS 1 tablet by mouth daily with meals CELECOXIB 54990830683 No Longer Active Natanael Araujo MD Active CLARITIN 10 MG TAB 1 tablet by mouth daily as needed for allergies LORATADINE 25023121561 No Longer Active Natanael Araujo MD Active PULMICORT 0.5 MG/2ML INH SUSP mix 2 ml with 5 packets of splenda and swallow. rinse the mouth after 30 min. do not eat or drink anything for 30 min. 12/19 BUDESONIDE 95251793665 No Longer Active Natanael Araujo MD Active OMEPRAZOLE 20 MG CPDR 1 tablet by mouth daily OMEPRAZOLE 09641473911 No Longer Active Natanael Araujo MD Active PROTONIX 40 MG SOLR 1 po q a.m. PANTOPRAZOLE SODIUM 36151364121 No Longer Active Natanael Araujo MD Active CYCLOBENZAPRINE HCL 5 MG ORAL TABS 1/2 tab po q hs, prn CYCLOBENZAPRINE HCL 56061494783 No Longer Active Natanael Araujo MD Active CELEBREX 100 MG CAPS 1 tab daily CELECOXIB 35672213701 No Longer Active Mahogany Garza APRN Active OMEPRAZOLE 20 MG CPDR 1 tablet by mouth daily OMEPRAZOLE 05392765105 No Longer Active Natanael Araujo MD Active TAMIFLU 75 MG CAPS 1 bid x 5 days OSELTAMIVIR PHOSPHATE 53145997013 No Longer Active Natanael Araujo MD Active PREDNISONE 20 MG TAB 2 tabs daily for 3 days, 1 tab daily for 3 days, 1/2 tab daily for 2 days PREDNISONE 10960537646 No Longer Active Natanael Araujo MD Active AMOXICILLIN 400 MG/5ML SUSR 12.5ml po BID x 10 days AMOXICILLIN 45667821435 No Longer Active Natanael Araujo MD Active IBUPROFEN 800 MG TABS 1 tab every 8 hours as needed IBUPROFEN 88723604779 No Longer Active Natanael Araujo MD Active FLEXERIL 10 MG TAB 1 tablet by mouth at bedtime as needed for pain CYCLOBENZAPRINE HCL 34589393903 No Longer Active Natanael Araujo MD Active AMOXICILLIN 500 MG TABS take one tab po tid x 7 days AMOXICILLIN 23493273476 No Longer Active Natanael Araujo MD Active PRILOSEC 10 MG CAP CR Take one by mouth daily OMEPRAZOLE 08887157352 No Longer Active Natanael Araujo MD Active ZYRTEC ALLERGY 10 MG CAPS Take one by mouth daily as needed 10/25 CETIRIZINE HCL 45520036718 No Longer Active Natanael Araujo MD Active ZYRTEC ALLERGY 10 MG CAPS Take one by mouth daily as needed 10/25 ZYRTEC ALLERGY 10 MG CAPS CETIRIZINE HCL Inactive PRILOSEC 10 MG CAP CR Take one by mouth daily PRILOSEC 10 MG CAP CR 752859 OMEPRAZOLE Inactive AMOXICILLIN 500 MG TABS take one tab po tid x 7 days AMOXICILLIN 500 MG TABS 112404 AMOXICILLIN Inactive FLEXERIL 10 MG TAB 1 tablet by mouth at bedtime as needed for pain FLEXERIL 10 MG TAB CYCLOBENZAPRINE HCL Inactive IBUPROFEN 800 MG TABS 1 tab every 8 hours as needed IBUPROFEN 800 MG TABS 217077 IBUPROFEN Inactive OMEPRAZOLE 20 MG CPDR 1 tablet by mouth daily OMEPRAZOLE 20 MG CPDR 247649 OMEPRAZOLE Inactive CELEBREX 100 MG CAPS 1 tab daily CELEBREX 100 MG CAPS 292498 CELECOXIB Inactive CYCLOBENZAPRINE HCL 5 MG ORAL TABS 1/2 tab po q hs, prn CYCLOBENZAPRINE HCL 5 MG ORAL TABS 704250 CYCLOBENZAPRINE HCL Inactive OMEPRAZOLE 20 MG CPDR 1 tablet by mouth daily OMEPRAZOLE 20 MG CPDR 19791102 OMEPRAZOLE Inactive PULMICORT 0.5 MG/2ML INH SUSP mix 2 ml with 5 packets of splenda and swallow. rinse the mouth after 30 min. do not eat or drink anything for 30 min. 12/19 PULMICORT 0.5 MG/2ML INH SUSP 098210 BUDESONIDE Inactive CLARITIN 10 MG TAB 1 tablet by mouth daily as needed for allergies CLARITIN 10 MG TAB 751744 LORATADINE Inactive CELEBREX 200 MG CAPS 1 tablet by mouth daily with meals CELEBREX 200 MG CAPS 373912 CELECOXIB Inactive PRILOSEC 20 MG CAP CR 1 tab po q am PRILOSEC 20 MG CAP CR 309499 OMEPRAZOLE Inactive PROAIR HFA 108 (90 BASE) MCG/ACT AERS 2 puffs four times a day as needed 2012 PROAIR HFA 108 (90 BASE) MCG/ACT AERS ALBUTEROL SULFATE Inactive AMOXICILLIN 400 MG/5ML SUSR 12.5ml po BID x 10 days AMOXICILLIN 400 MG/5ML SUSR 883009 AMOXICILLIN Inactive PREDNISONE 20 MG TAB 2 tabs daily for 3 days, 1 tab daily for 3 days, 1/2 tab daily for 2 days PREDNISONE 20 MG TAB 721932 PREDNISONE Inactive TAMIFLU 75 MG CAPS 1 bid x 5 days TAMIFLU 75 MG CAPS OSELTAMIVIR PHOSPHATE Inactive AZITHROMYCIN 250 MG TABS 2 po qd x 1 day, then 1 po qd x 4 days AZITHROMYCIN 250 MG TABS 1122771 AZITHROMYCIN Inactive Advance Directives Directive Description Start [...] Negative;Positive Encounters Code Encounter Date Provider Facility CPT-59229 Level 3 Est. Patient 10:44:11 CDT Mahogany Garza APRN [facility] CPT-11352 Level 3 Est. Patient 15:58:41 RELIABILITY ENGINEER Natanael Araujo MD [facility] CPT-82466 Level 3 Est. Patient 16:32:02 RELIABILITY ENGINEER Natanael Araujo MD [facility] CPT-63605 Level 3 Est. Patient 15:45:10 CDT Natanael Araujo MD [facility] CPT-71910 Level 4 Est. Patient 16:43:28 CDT Natanael Araujo MD [facility] CPT-73608 Level 3 Est. Patient 15:06:06 CDT Natanael Araujo MD [facility] CPT-72779 Level 3 Est. Patient 13:38:04 RELIABILITY ENGINEER Natanael Araujo MD [facility] CPT-76371 Level 3 Est. Patient 10:18:16 RELIABILITY ENGINEER Natanael Araujo MD [facility] CPT-22002 Level 3 Est. Patient 16:04:12 CDT Natanael Araujo MD [facility] CPT-08428 Level 3 Est. Patient 11:25:05 CDT Natanael Araujo MD [facility] CPT-86630 Level 3 Est. Patient 13:17:34 CDT Gail Valerio [facility] CPT-83372 Level 3 Est. Patient 17:03:36 CDT Natanael Araujo MD [facility] CPT-88049 Level 2 Est. Patient 14:41:40 RELIABILITY ENGINEER [facility] Level 3 New Patient 16:12:19 RELIABILITY ENGINEER Gail KIMBALL [facility] Procedures Code Procedure Name Date Entry Date Standard Description CPT-38489 Menactra 10:44:48 CDT CPT-54619 Administration single or combination vaccine inc oral 10 :44:48 CDT CPT-32802 Menactra 10:42:17 CDT CPT-24715 Administration single or combination vaccine inc oral 10 :42:17 CDT CPT-61461 Knee 3V 13:46:23 RELIABILITY ENGINEER CPT-38118 LS spine comp w obliq 16:17:55 CDT CPT-JTINJ Joint Injection 17:03:35 CDT CPT-J0561 Bicillin LA 1,200,000 u (PCN G Benzathine) 16:12:19 RELIABILITY ENGINEER CPT-00994 Abx/Therapy Injection 16:12:19 RELIABILITY ENGINEER
--- OUTSIDE RECORDS SUMMARY | 2017-09-06 14:10 | XMS REPORT | Clinical Summary ---
Author Author Admin, CRISTOPHER Organization [employer] Address Unknown Phone Unavailable Allergies, Adverse Reactions, [...] classified Eosinophilic esophagitis 530.13 Active Jillrandy Garza AUDIOMETRIST Eosinophilic esophagitis Pharyngitis 462 Active Mahogany Garza AUDIOMETRIST Acute pharyngitis FH DIABETES ICD-V18.0 Inactive Natanael Araujo MD ACUTE PHARYNGITIS ICD-462 Inactive Natanael Araujo MD ACUTE PHARYNGITIS ICD-462 Inactive Natanael Araujo MD LUMBAR-SACRAL STRAIN ICD-846.0 Inactive Natanael Araujo MD Sinusitis, acute ICD-461.9 Inactive Natanael Araujo MD Dysphagia ICD-787.20 Inactive Natanael Araujo MD Influenza like illness ICD-487.1 Inactive Natanael Araujo MD CHEST WALL PAIN ICD-786.52 Inactive Natanael Araujo MD Knee pain, left ICD-719.46 Inactive Nataanel Araujo MD Back pain ICD-724.5 Inactive Natanael Araujo MD Postconcussion syndrome ICD-310.2 Inactive Natanael Araujo MD Medication List Medication Instructions Start Date Stop Date Generic Name NDC Status Provider Patient Instruction CLARITIN 10 MG TAB 1 tablet by mouth daily as needed for allergies LORATADINE 32170055782 Active Mahogany Garza APRN Active AZITHROMYCIN 250 MG TABS 2 po qd x 1 day, then 1 po qd x 4 days AZITHROMYCIN 71035426499 No Longer Active Jillina Greg AUDIOMETRIST Active LEXAPRO 10 MG TABS 1 tablet by mouth daily ESCITALOPRAM OXALATE 60595761717 Active Natanael Araujo MD Active PROAIR HFA 108 (90 BASE) MCG/ACT AERS 2 puffs four times a day as needed 2012 ALBUTEROL SULFATE 86886154399 No Longer Active Natanael Araujo MD Active PRILOSEC 20 MG CAP CR 1 tab po q am OMEPRAZOLE 50955105360 No Longer Active Natanael Araujo MD Active CELEBREX 200 MG CAPS 1 tablet by mouth daily with meals CELECOXIB 15001089109 No Longer Active Natanael Araujo MD Active CLARITIN 10 MG TAB 1 tablet by mouth daily as needed for allergies LORATADINE 26471263644 No Longer Active Natanael Araujo MD Active PULMICORT 0.5 MG/2ML INH SUSP mix 2 ml with 5 packets of splenda and swallow. rinse the mouth after 30 min. do not eat or drink anything for 30 min. 12/19 BUDESONIDE 90763376348 No Longer Active Natanael Araujo MD Active OMEPRAZOLE 20 MG CPDR 1 tablet by mouth daily OMEPRAZOLE 76644789443 No Longer Active Natanael Araujo MD Active PROTONIX 40 MG SOLR 1 po q a.m. PANTOPRAZOLE SODIUM 43234009987 No Longer Active Natanael Araujo MD Active CYCLOBENZAPRINE HCL 5 MG ORAL TABS 1/2 tab po q hs, prn CYCLOBENZAPRINE HCL 86053773416 No Longer Active Natanael Araujo MD Active CELEBREX 100 MG CAPS 1 tab daily CELECOXIB 77563684620 No Longer Active Mahogany Garza APRN Active OMEPRAZOLE 20 MG CPDR 1 tablet by mouth daily OMEPRAZOLE 79622230065 No Longer Active Natanael Araujo MD Active TAMIFLU 75 MG CAPS 1 bid x 5 days OSELTAMIVIR PHOSPHATE 18076659688 No Longer Active Natanael Araujo MD Active PREDNISONE 20 MG TAB 2 tabs daily for 3 days, 1 tab daily for 3 days, 1/2 tab daily for 2 days PREDNISONE 03570508698 No Longer Active Natanael Araujo MD Active AMOXICILLIN 400 MG/5ML SUSR 12.5ml po BID x 10 days AMOXICILLIN 13785528728 No Longer Active Natanael Araujo MD Active IBUPROFEN 800 MG TABS 1 tab every 8 hours as needed IBUPROFEN 78321249429 No Longer Active Natanael Araujo MD Active FLEXERIL 10 MG TAB 1 tablet by mouth at bedtime as needed for pain CYCLOBENZAPRINE HCL 58420851223 No Longer Active Natanael Araujo MD Active AMOXICILLIN 500 MG TABS take one tab po tid x 7 days AMOXICILLIN 68056656914 No Longer Active Natanael Araujo MD Active PRILOSEC 10 MG CAP CR Take one by mouth daily OMEPRAZOLE 26971147082 No Longer Active Natanael Araujo MD Active ZYRTEC ALLERGY 10 MG CAPS Take one by mouth daily as needed 10/25 CETIRIZINE HCL 50670405033 No Longer Active Natanael Araujo MD Active ZYRTEC ALLERGY 10 MG CAPS Take one by mouth daily as needed 10/25 ZYRTEC ALLERGY 10 MG CAPS CETIRIZINE HCL Inactive PRILOSEC 10 MG CAP CR Take one by mouth daily PRILOSEC 10 MG CAP CR 010668 OMEPRAZOLE Inactive AMOXICILLIN 500 MG TABS take one tab po tid x 7 days AMOXICILLIN 500 MG TABS 578448 AMOXICILLIN Inactive FLEXERIL 10 MG TAB 1 tablet by mouth at bedtime as needed for pain FLEXERIL 10 MG TAB CYCLOBENZAPRINE HCL Inactive IBUPROFEN 800 MG TABS 1 tab every 8 hours as needed IBUPROFEN 800 MG TABS 129824 IBUPROFEN Inactive OMEPRAZOLE 20 MG CPDR 1 tablet by mouth daily OMEPRAZOLE 20 MG CPDR 563700 OMEPRAZOLE Inactive CELEBREX 100 MG CAPS 1 tab daily CELEBREX 100 MG CAPS 845305 CELECOXIB Inactive CYCLOBENZAPRINE HCL 5 MG ORAL TABS 1/2 tab po q hs, prn CYCLOBENZAPRINE HCL 5 MG ORAL TABS 298121 CYCLOBENZAPRINE HCL Inactive OMEPRAZOLE 20 MG CPDR 1 tablet by mouth daily OMEPRAZOLE 20 MG CPDR 19791102 OMEPRAZOLE Inactive PULMICORT 0.5 MG/2ML INH SUSP mix 2 ml with 5 packets of splenda and swallow. rinse the mouth after 30 min. do not eat or drink anything for 30 min. 12/19 PULMICORT 0.5 MG/2ML INH SUSP 257614 BUDESONIDE Inactive CLARITIN 10 MG TAB 1 tablet by mouth daily as needed for allergies CLARITIN 10 MG TAB 015226 LORATADINE Inactive CELEBREX 200 MG CAPS 1 tablet by mouth daily with meals CELEBREX 200 MG CAPS 411331 CELECOXIB Inactive PRILOSEC 20 MG CAP CR 1 tab po q am PRILOSEC 20 MG CAP CR 190694 OMEPRAZOLE Inactive PROAIR HFA 108 (90 BASE) MCG/ACT AERS 2 puffs four times a day as needed 2012 PROAIR HFA 108 (90 BASE) MCG/ACT AERS ALBUTEROL SULFATE Inactive AMOXICILLIN 400 MG/5ML SUSR 12.5ml po BID x 10 days AMOXICILLIN 400 MG/5ML SUSR 770500 AMOXICILLIN Inactive PREDNISONE 20 MG TAB 2 tabs daily for 3 days, 1 tab daily for 3 days, 1/2 tab daily for 2 days PREDNISONE 20 MG TAB 268887 PREDNISONE Inactive TAMIFLU 75 MG CAPS 1 bid x 5 days TAMIFLU 75 MG CAPS OSELTAMIVIR PHOSPHATE Inactive AZITHROMYCIN 250 MG TABS 2 po qd x 1 day, then 1 po qd x 4 days AZITHROMYCIN 250 MG TABS 7717311 AZITHROMYCIN Inactive Advance Directives Directive Description Start [...] Negative;Positive Encounters Code Encounter Date Provider Facility CPT-49280 Level 3 Est. Patient 10:44:11 CDT Mahogany Garza APRN [facility] CPT-44789 Level 3 Est. Patient 15:58:41 COOK APPRENTICE Natanael Araujo MD [facility] CPT-24152 Level 3 Est. Patient 16:32:02 COOK APPRENTICE Natanael Araujo MD [facility] CPT-49393 Level 3 Est. Patient 15:45:10 CDT Natanale Araujo MD [facility] CPT-56718 Level 4 Est. Patient 16:43:28 CDT Natanael Araujo MD [facility] CPT-85404 Level 3 Est. Patient 15:06:06 CDT Natanael Araujo MD [facility] CPT-86826 Level 3 Est. Patient 13:38:04 COOK APPRENTICE Natanael Araujo MD [facility] CPT-80335 Level 3 Est. Patient 10:18:16 COOK APPRENTICE Natanael Araujo MD [facility] CPT-29169 Level 3 Est. Patient 16:04:12 CDT Natanael Araujo MD [facility] CPT-59952 Level 3 Est. Patient 11:25:05 CDT Natanael Araujo MD [facility] CPT-04375 Level 3 Est. Patient 13:17:34 CDT Gail KIMBALL [facility] CPT-55265 Level 3 Est. Patient 17:03:36 CDT Natanael Araujo MD [facility] CPT-49625 Level 2 Est. Patient 14:41:40 COOK APPRENTICE Mahogany Garza APRN [facility] CPT-08569 Level 3 New Patient 16:12:19 COOK APPRENTICE Gail KIMBALL [facility] Procedures Code Procedure Name Date Entry Date Standard Description CPT-50134 Menactra 10:44:48 CDT CPT-21437 Administration single or combination vaccine inc oral 10 :44:48 CDT CPT-50524 Menactra 10:42:17 CDT CPT-54616 Administration single or combination vaccine inc oral 10 :42:17 CDT CPT-58822 Knee 3V 13:46:23 COOK APPRENTICE CPT-13958 LS spine comp w obliq 16:17:55 CDT CPT-JTINJ Joint Injection 17:03:35 CDT CPT-J0561 Bicillin LA 1,200,000 u (PCN G Benzathine) 16:12:19 COOK APPRENTICE CPT-43783 Abx/Therapy Injection 16:12:19 COOK APPRENTICE
--- OUTSIDE RECORDS SUMMARY | 2017-09-06 14:11 | XMS REPORT | Clinical Summary ---
Author Author Admin, CRISTOPHER Organization [employer] Address Unknown Phone Unavailable Allergies, Adverse Reactions, [...] classified Eosinophilic esophagitis 530.13 Active Jillrandy Garza PROFESSIONAL HOUSING CONSULTANT Eosinophilic esophagitis Pharyngitis 462 Active Mahogany Garza PROFESSIONAL HOUSING CONSULTANT Acute pharyngitis ACUTE PHARYNGITIS ICD-462 Inactive Natanael [...] mouth daily as needed for allergies LORATADINE 57458845897 Active Mahogany Garza APRN Active AZITHROMYCIN 250 MG TABS 2 po qd x 1 day, then 1 po qd x 4 days AZITHROMYCIN 57496771013 No Longer Active Jillina Greg PROFESSIONAL HOUSING CONSULTANT Active LEXAPRO 10 MG TABS 1 tablet by mouth daily ESCITALOPRAM OXALATE 73638152073 Active Natanael Araujo MD Active PROAIR HFA 108 (90 BASE) MCG/ACT AERS 2 puffs four times a day as needed 2012 ALBUTEROL SULFATE 45704536499 No Longer Active Natanael Araujo MD Active PRILOSEC 20 MG CAP CR 1 tab po q am OMEPRAZOLE 21936308273 No Longer Active Natanael Araujo MD Active CELEBREX 200 MG CAPS 1 tablet by mouth daily with meals CELECOXIB 18523817581 No Longer Active Natanael Araujo MD Active CLARITIN 10 MG TAB 1 tablet by mouth daily as needed for allergies LORATADINE 12089995607 No Longer Active Natanael Araujo MD Active PULMICORT 0.5 MG/2ML INH SUSP mix 2 ml with 5 packets of splenda and swallow. rinse the mouth after 30 min. do not eat or drink anything for 30 min. 12/19 BUDESONIDE 92142158441 No Longer Active Natanael Araujo MD Active OMEPRAZOLE 20 MG CPDR 1 tablet by mouth daily OMEPRAZOLE 65795589016 No Longer Active Natanael Araujo MD Active PROTONIX 40 MG SOLR 1 po q a.m. PANTOPRAZOLE SODIUM 70128315228 No Longer Active Natanael Araujo MD Active CYCLOBENZAPRINE HCL 5 MG ORAL TABS 1/2 tab po q hs, prn CYCLOBENZAPRINE HCL 62160465077 No Longer Active Natanael Araujo MD Active CELEBREX 100 MG CAPS 1 tab daily CELECOXIB 23310800054 No Longer Active Mahogany Garza APRN Active OMEPRAZOLE 20 MG CPDR 1 tablet by mouth daily OMEPRAZOLE 91393538218 No Longer Active Natanael Araujo MD Active TAMIFLU 75 MG CAPS 1 bid x 5 days OSELTAMIVIR PHOSPHATE 49680969973 No Longer Active Natanael Araujo MD Active PREDNISONE 20 MG TAB 2 tabs daily for 3 days, 1 tab daily for 3 days, 1/2 tab daily for 2 days PREDNISONE 39057288824 No Longer Active Natanael Araujo MD Active AMOXICILLIN 400 MG/5ML SUSR 12.5ml po BID x 10 days AMOXICILLIN 39257961386 No Longer Active Natanael Araujo MD Active IBUPROFEN 800 MG TABS 1 tab every 8 hours as needed IBUPROFEN 20290569772 No Longer Active Natanael Araujo MD Active FLEXERIL 10 MG TAB 1 tablet by mouth at bedtime as needed for pain CYCLOBENZAPRINE HCL 50993642818 No Longer Active Natanael Araujo MD Active AMOXICILLIN 500 MG TABS take one tab po tid x 7 days AMOXICILLIN 16119981509 No Longer Active Natanael Araujo MD Active PRILOSEC 10 MG CAP CR Take one by mouth daily OMEPRAZOLE 72511022970 No Longer Active Natanael Araujo MD Active ZYRTEC ALLERGY 10 MG CAPS Take one by mouth daily as needed 10/25 CETIRIZINE HCL 29042531782 No Longer Active Natanael Araujo MD Active ZYRTEC ALLERGY 10 MG CAPS Take one by mouth daily as needed 10/25 ZYRTEC ALLERGY 10 MG CAPS CETIRIZINE HCL Inactive PRILOSEC 10 MG CAP CR Take one by mouth daily PRILOSEC 10 MG CAP CR 644924 OMEPRAZOLE Inactive AMOXICILLIN 500 MG TABS take one tab po tid x 7 days AMOXICILLIN 500 MG TABS 256905 AMOXICILLIN Inactive FLEXERIL 10 MG TAB 1 tablet by mouth at bedtime as needed for pain FLEXERIL 10 MG TAB CYCLOBENZAPRINE HCL Inactive IBUPROFEN 800 MG TABS 1 tab every 8 hours as needed IBUPROFEN 800 MG TABS 173267 IBUPROFEN Inactive OMEPRAZOLE 20 MG CPDR 1 tablet by mouth daily OMEPRAZOLE 20 MG CPDR 973307 OMEPRAZOLE Inactive CELEBREX 100 MG CAPS 1 tab daily CELEBREX 100 MG CAPS 294084 CELECOXIB Inactive CYCLOBENZAPRINE HCL 5 MG ORAL TABS 1/2 tab po q hs, prn CYCLOBENZAPRINE HCL 5 MG ORAL TABS 893758 CYCLOBENZAPRINE HCL Inactive OMEPRAZOLE 20 MG CPDR 1 tablet by mouth daily OMEPRAZOLE 20 MG CPDR 19791102 OMEPRAZOLE Inactive PULMICORT 0.5 MG/2ML INH SUSP mix 2 ml with 5 packets of splenda and swallow. rinse the mouth after 30 min. do not eat or drink anything for 30 min. 12/19 PULMICORT 0.5 MG/2ML INH SUSP 610890 BUDESONIDE Inactive CLARITIN 10 MG TAB 1 tablet by mouth daily as needed for allergies CLARITIN 10 MG TAB 947788 LORATADINE Inactive CELEBREX 200 MG CAPS 1 tablet by mouth daily with meals CELEBREX 200 MG CAPS 284634 CELECOXIB Inactive PRILOSEC 20 MG CAP CR 1 tab po q am PRILOSEC 20 MG CAP CR 743558 OMEPRAZOLE Inactive PROAIR HFA 108 (90 BASE) MCG/ACT AERS 2 puffs four times a day as needed 2012 PROAIR HFA 108 (90 BASE) MCG/ACT AERS ALBUTEROL SULFATE Inactive AMOXICILLIN 400 MG/5ML SUSR 12.5ml po BID x 10 days AMOXICILLIN 400 MG/5ML SUSR 336029 AMOXICILLIN Inactive PREDNISONE 20 MG TAB 2 tabs daily for 3 days, 1 tab daily for 3 days, 1/2 tab daily for 2 days PREDNISONE 20 MG TAB 478305 PREDNISONE Inactive TAMIFLU 75 MG CAPS 1 bid x 5 days TAMIFLU 75 MG CAPS OSELTAMIVIR PHOSPHATE Inactive AZITHROMYCIN 250 MG TABS 2 po qd x 1 day, then 1 po qd x 4 days AZITHROMYCIN 250 MG TABS 3826921 AZITHROMYCIN Inactive Advance Directives Directive Description Start [...] Negative;Positive Encounters Code Encounter Date Provider Facility CPT-43776 Level 3 Est. Patient 10:44:11 CDT Mahogany Garza APRN [facility] CPT-75759 Level 3 Est. 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 Patient 16:32:02 FISH HOUSEKEEPER Natanael Araujo MD [facility] CPT-78663 Level 3 Est. Patient 15:45:10 CDT Natanael Araujo MD [facility] CPT-77735 Level 4 Est. Patient 16:43:28 CDT Natanael Araujo MD [facility] CPT-90983 Level 3 Est. Patient 15:06:06 CDT Natanael Araujo MD [facility] CPT-79110 Level 3 Est. Patient 13:38:04 FISH HOUSEKEEPER Natanael Araujo MD [facility] CPT-15287 Level 3 Est. Patient 10:18:16 FISH HOUSEKEEPER Natanael Araujo MD [facility] CPT-03110 Level 3 Est. Patient 16:04:12 CDT Natanael Araujo MD [facility] CPT-84875 Level 3 Est. Patient 11:25:05 CDT Natanael Araujo MD [facility] CPT-79745 Level 3 Est. Patient 13:17:34 CDT Gail KIMBALL [facility] CPT-55493 Level 3 Est. Patient 17:03:36 CDT Natanael Araujo MD [facility] CPT-29428 Level 2 Est. Patient 14:41:40 FISH HOUSEKEEPER Mahogany Garza APRN [facility] CPT-33398 Level 3 New Patient 16:12:19 FISH HOUSEKEEPER Gail KIMBALL [facility] Procedures Code Procedure Name Date Entry Date Standard Description CPT-32304 Menactra 10:44:48 CDT CPT-01533 Administration single or combination vaccine inc oral 10 :44:48 CDT CPT-26847 Menactra 10:42:17 CDT CPT-27761 Administration single or combination vaccine inc oral 10 :42:17 CDT CPT-84931 Knee 3V 13:46:23 FISH HOUSEKEEPER CPT-75388 LS spine comp w obliq 16:17:55 CDT CPT-JTINJ Joint Injection 17:03:35 CDT CPT-J0561 Bicillin LA 1,200,000 u (PCN G Benzathine) 16:12:19 FISH HOUSEKEEPER CPT-33952 Abx/Therapy Injection 16:12:19 FISH HOUSEKEEPER
--- OUTSIDE RECORDS SUMMARY | 2017-09-06 14:11 | XMS REPORT | Clinical Summary ---
Author Author Admin, CRISTOPHER Organization [employer] Address Unknown Phone Unavailable Allergies, Adverse Reactions, [...] classified Eosinophilic esophagitis 530.13 Active Jillrandy Garza BI ARCHITECT Eosinophilic esophagitis Pharyngitis 462 Active Mahogany Garza BI ARCHITECT Acute pharyngitis ACUTE PHARYNGITIS ICD-462 Inactive [...] mouth daily as needed for allergies LORATADINE 23340611078 Active Mahogany Garza APRN Active AZITHROMYCIN 250 MG TABS 2 po qd x 1 day, then 1 po qd x 4 days AZITHROMYCIN 99979899363 No Longer Active Jillina Greg BI ARCHITECT Active LEXAPRO 10 MG TABS 1 tablet by mouth daily ESCITALOPRAM OXALATE 54824018313 Active Natanael Araujo MD Active PROAIR HFA 108 (90 BASE) MCG/ACT AERS 2 puffs four times a day as needed 2012 ALBUTEROL SULFATE 63818585801 No Longer Active Natanael Araujo MD Active PRILOSEC 20 MG CAP CR 1 tab po q am OMEPRAZOLE 25063776989 No Longer Active Natanael Araujo MD Active CELEBREX 200 MG CAPS 1 tablet by mouth daily with meals CELECOXIB 58216005371 No Longer Active Natanael Araujo MD Active CLARITIN 10 MG TAB 1 tablet by mouth daily as needed for allergies LORATADINE 08282358558 No Longer Active Natanael Araujo MD Active PULMICORT 0.5 MG/2ML INH SUSP mix 2 ml with 5 packets of splenda and swallow. rinse the mouth after 30 min. do not eat or drink anything for 30 min. 12/19 BUDESONIDE 22017824779 No Longer Active Natanael Araujo MD Active OMEPRAZOLE 20 MG CPDR 1 tablet by mouth daily OMEPRAZOLE 43647019149 No Longer Active Natanael Araujo MD Active PROTONIX 40 MG SOLR 1 po q a.m. PANTOPRAZOLE SODIUM 33617319889 No Longer Active Natanael Araujo MD Active CYCLOBENZAPRINE HCL 5 MG ORAL TABS 1/2 tab po q hs, prn CYCLOBENZAPRINE HCL 52741135552 No Longer Active Natanael Araujo MD Active CELEBREX 100 MG CAPS 1 tab daily CELECOXIB 54436097017 No Longer Active Mahogany Garza APRN Active OMEPRAZOLE 20 MG CPDR 1 tablet by mouth daily OMEPRAZOLE 56495912584 No Longer Active Natanael Araujo MD Active TAMIFLU 75 MG CAPS 1 bid x 5 days OSELTAMIVIR PHOSPHATE 23269477357 No Longer Active Natanael Araujo MD Active PREDNISONE 20 MG TAB 2 tabs daily for 3 days, 1 tab daily for 3 days, 1/2 tab daily for 2 days PREDNISONE 09050397502 No Longer Active Natanael Araujo MD Active AMOXICILLIN 400 MG/5ML SUSR 12.5ml po BID x 10 days AMOXICILLIN 69615540939 No Longer Active Natanael Araujo MD Active IBUPROFEN 800 MG TABS 1 tab every 8 hours as needed IBUPROFEN 22930068759 No Longer Active Natanael Araujo MD Active FLEXERIL 10 MG TAB 1 tablet by mouth at bedtime as needed for pain CYCLOBENZAPRINE HCL 44542899687 No Longer Active Natanael Araujo MD Active AMOXICILLIN 500 MG TABS take one tab po tid x 7 days AMOXICILLIN 85815471698 No Longer Active Natanael Araujo MD Active PRILOSEC 10 MG CAP CR Take one by mouth daily OMEPRAZOLE 97241116112 No Longer Active Natanael Araujo MD Active ZYRTEC ALLERGY 10 MG CAPS Take one by mouth daily as needed 10/25 CETIRIZINE HCL 31696928819 No Longer Active Natanael Araujo MD Active ZYRTEC ALLERGY 10 MG CAPS Take one by mouth daily as needed 10/25 ZYRTEC ALLERGY 10 MG CAPS CETIRIZINE HCL Inactive PRILOSEC 10 MG CAP CR Take one by mouth daily PRILOSEC 10 MG CAP CR 708570 OMEPRAZOLE Inactive AMOXICILLIN 500 MG TABS take one tab po tid x 7 days AMOXICILLIN 500 MG TABS 382970 AMOXICILLIN Inactive FLEXERIL 10 MG TAB 1 tablet by mouth at bedtime as needed for pain FLEXERIL 10 MG TAB CYCLOBENZAPRINE HCL Inactive IBUPROFEN 800 MG TABS 1 tab every 8 hours as needed IBUPROFEN 800 MG TABS 177193 IBUPROFEN Inactive OMEPRAZOLE 20 MG CPDR 1 tablet by mouth daily OMEPRAZOLE 20 MG CPDR 555989 OMEPRAZOLE Inactive CELEBREX 100 MG CAPS 1 tab daily CELEBREX 100 MG CAPS 497530 CELECOXIB Inactive CYCLOBENZAPRINE HCL 5 MG ORAL TABS 1/2 tab po q hs, prn CYCLOBENZAPRINE HCL 5 MG ORAL TABS 851910 CYCLOBENZAPRINE HCL Inactive OMEPRAZOLE 20 MG CPDR 1 tablet by mouth daily OMEPRAZOLE 20 MG CPDR 19791102 OMEPRAZOLE Inactive PULMICORT 0.5 MG/2ML INH SUSP mix 2 ml with 5 packets of splenda and swallow. rinse the mouth after 30 min. do not eat or drink anything for 30 min. 12/19 PULMICORT 0.5 MG/2ML INH SUSP 674069 BUDESONIDE Inactive CLARITIN 10 MG TAB 1 tablet by mouth daily as needed for allergies CLARITIN 10 MG TAB 329265 LORATADINE Inactive CELEBREX 200 MG CAPS 1 tablet by mouth daily with meals CELEBREX 200 MG CAPS 003960 CELECOXIB Inactive PRILOSEC 20 MG CAP CR 1 tab po q am PRILOSEC 20 MG CAP CR 060045 OMEPRAZOLE Inactive PROAIR HFA 108 (90 BASE) MCG/ACT AERS 2 puffs four times a day as needed 2012 PROAIR HFA 108 (90 BASE) MCG/ACT AERS ALBUTEROL SULFATE Inactive AMOXICILLIN 400 MG/5ML SUSR 12.5ml po BID x 10 days AMOXICILLIN 400 MG/5ML SUSR 326450 AMOXICILLIN Inactive PREDNISONE 20 MG TAB 2 tabs daily for 3 days, 1 tab daily for 3 days, 1/2 tab daily for 2 days PREDNISONE 20 MG TAB 810479 PREDNISONE Inactive TAMIFLU 75 MG CAPS 1 bid x 5 days TAMIFLU 75 MG CAPS OSELTAMIVIR PHOSPHATE Inactive AZITHROMYCIN 250 MG TABS 2 po qd x 1 day, then 1 po qd x 4 days AZITHROMYCIN 250 MG TABS 9174977 AZITHROMYCIN Inactive Advance Directives Directive Description Start [...] Negative;Positive Encounters Code Encounter Date Provider Facility CPT-93421 Level 3 Est. Patient 10:44:11 CDT Mahogany Garza APRN [facility] CPT-89138 Level 3 Est. Patient 15:58:41 SAP DATA ARCHITECT Natanael Araujo MD [facility] CPT-07161 Level 3 Est. Patient 16:32:02 SAP DATA ARCHITECT Natanael Araujo MD [facility] CPT-28335 Level 3 Est. Patient 15:45:10 CDT Natanael Araujo MD [facility] CPT-59561 Level 4 Est. Patient 16:43:28 CDT Natanael Araujo MD [facility] CPT-61917 Level 3 Est. Patient 15:06:06 CDT Natanael Araujo MD [facility] CPT-80550 Level 3 Est. Patient 13:38:04 SAP DATA ARCHITECT Natanael Araujo MD [facility] CPT-41143 Level 3 Est. Patient 10:18:16 SAP DATA ARCHITECT Natanael Araujo MD [facility] CPT-92790 Level 3 Est. Patient 16:04:12 CDT Natanael Araujo MD [facility] CPT-60141 Level 3 Est. Patient 11:25:05 CDT Natanael Araujo MD [facility] CPT-90168 Level 3 Est. Patient 13:17:34 CDT Gail Valerio [facility] CPT-08792 Level 3 Est. Patient 17:03:36 CDT Natanael Araujo MD [facility] CPT-59989 Level 2 Est. Patient 14:41:40 SAP DATA ARCHITECT [facility] Level 3 New Patient 16:12:19 SAP DATA ARCHITECT Gail KIMBALL [facility] Procedures Code Procedure Name Date Entry Date Standard Description CPT-37907 Menactra 10:44:48 CDT CPT-05863 Administration single or combination vaccine inc oral 10 :44:48 CDT CPT-89699 Menactra 10:42:17 CDT CPT-53564 Administration single or combination vaccine inc oral 10 :42:17 CDT CPT-53205 Knee 3V 13:46:23 SAP DATA ARCHITECT CPT-05930 LS spine comp w obliq 16:17:55 CDT CPT-JTINJ Joint Injection 17:03:35 CDT CPT-J0561 Bicillin LA 1,200,000 u (PCN G Benzathine) 16:12:19 SAP DATA ARCHITECT CPT-48680 Abx/Therapy Injection 16:12:19 SAP DATA ARCHITECT
--- OUTSIDE RECORDS SUMMARY | 2017-09-06 14:12 | XMS REPORT | Clinical Summary ---
Author Author Admin, CRISTOPHER Organization [employer] Address Unknown Phone Unavailable Allergies, Adverse [...] classified Eosinophilic esophagitis 530.[address] [employer]ICER Eosinophilic esophagitis Pharyngitis 462 Resolved Natanael Araujo MD Acute pharyngitis Nausea alone 787.02 Active Natanael Araujo MD Nausea alone FH DIABETES ICD-V18.0 Inactive Natanael Araujo MD ACUTE PHARYNGITIS ICD-462 Inactive Natanael Araujo MD ACUTE PHARYNGITIS ICD-462 Inactive Natanael Araujo MD CHEST WALL PAIN ICD-786.52 Inactive Natanael Araujo MD LUMBAR-SACRAL STRAIN ICD-846.0 Inactive Natanael Araujo MD Sinusitis, acute ICD-461.9 Inactive Natanael Araujo MD Influenza like illness ICD-487.1 Inactive Natanael Araujo MD Dysphagia ICD-787.20 Inactive Natanael Araujo MD Knee pain, left ICD-719.46 Inactive Natanael Araujo MD Back pain ICD-724.5 Inactive Natanael Araujo MD Postconcussion syndrome ICD-310.2 Inactive Natanael Araujo MD Pharyngitis ICD-462 Inactive Natanael Araujo MD Medication List Medication Instructions Start Date Stop Date Generic Name NDC Status Provider Patient Instruction ZOFRAN 4 MG TABS 1 po q6hr PRN Nausea ONDANSETRON HCL 52615729972 Active Natanael Araujo MD Active OMEPRAZOLE 20 MG TBEC 1 po q a.m. 30min prior to first food intake OMEPRAZOLE 69331476519 Active Natanael Araujo MD Active CLARITIN 10 MG TAB 1 tablet by mouth daily as needed for allergies LORATADINE 48811545611 Active Mahogany Garza APRN Active AZITHROMYCIN 250 MG TABS 2 po qd x 1 day, then 1 po qd x 4 days AZITHROMYCIN 35518047140 No Longer Active Mahogany Garza [employer] OFFICER Active LEXAPRO 10 MG TABS 1 tablet by mouth daily ESCITALOPRAM OXALATE 90420509576 Active Natanael Araujo MD Active PROAIR HFA 108 (90 BASE) MCG/ACT AERS 2 puffs four times a day as needed 2012 ALBUTEROL SULFATE 13141611594 No Longer Active Natanael Araujo MD Active PRILOSEC 20 MG CAP CR 1 tab po q am OMEPRAZOLE 45759714936 No Longer Active Natanael Araujo MD Active CELEBREX 200 MG CAPS 1 tablet by mouth daily with meals CELECOXIB 48768847980 No Longer Active Natanael Araujo MD Active CLARITIN 10 MG TAB 1 tablet by mouth daily as needed for allergies LORATADINE 01385645782 No Longer Active Natanael Araujo MD Active PULMICORT 0.5 MG/2ML INH SUSP mix 2 ml with 5 packets of splenda and swallow. rinse the mouth after 30 min. do not eat or drink anything for 30 min. 12/19 BUDESONIDE 30032922902 No Longer Active Natanael Araujo MD Active OMEPRAZOLE 20 MG CPDR 1 tablet by mouth daily OMEPRAZOLE 32938588563 No Longer Active Natanael Araujo MD Active PROTONIX 40 MG SOLR 1 po q a.m. PANTOPRAZOLE SODIUM 00321833864 No Longer Active Natanael Araujo MD Active CYCLOBENZAPRINE HCL 5 MG ORAL TABS 1/2 tab po q hs, prn CYCLOBENZAPRINE HCL 58717302396 No Longer Active Natanael Araujo MD Active CELEBREX 100 MG CAPS 1 tab daily CELECOXIB 01603339059 No Longer Active Mahogany Garza APRN Active OMEPRAZOLE 20 MG CPDR 1 tablet by mouth daily OMEPRAZOLE 27798519523 No Longer Active Natanael Araujo MD Active TAMIFLU 75 MG CAPS 1 bid x 5 days OSELTAMIVIR PHOSPHATE 17092640474 No Longer Active Natanael Araujo MD Active PREDNISONE 20 MG TAB 2 tabs daily for 3 days, 1 tab daily for 3 days, 1/2 tab daily for 2 days PREDNISONE 30162925630 No Longer Active Natanael Araujo MD Active AMOXICILLIN 400 MG/5ML SUSR 12.5ml po BID x 10 days AMOXICILLIN 99930775896 No Longer Active Natanael Araujo MD Active IBUPROFEN 800 MG TABS 1 tab every 8 hours as needed IBUPROFEN 98831831414 No Longer Active Natanael Araujo MD Active FLEXERIL 10 MG TAB 1 tablet by mouth at bedtime as needed for pain CYCLOBENZAPRINE HCL 25284718920 No Longer Active Natanael Araujo MD Active AMOXICILLIN 500 MG TABS take one tab po tid x 7 days AMOXICILLIN 09075129266 No Longer Active Natanael Araujo MD Active PRILOSEC 10 MG CAP CR Take one by mouth daily OMEPRAZOLE 14181932131 No Longer Active Natanael Araujo MD Active ZYRTEC ALLERGY 10 MG CAPS Take one by mouth daily as needed 10/25 CETIRIZINE HCL 16235450921 No Longer Active Natanael Araujo MD Active ZYRTEC ALLERGY 10 MG CAPS Take one by mouth daily as needed 10/25 ZYRTEC ALLERGY 10 MG CAPS CETIRIZINE HCL Inactive PRILOSEC 10 MG CAP CR Take one by mouth daily PRILOSEC 10 MG CAP CR 19900712 OMEPRAZOLE Inactive AMOXICILLIN 500 MG TABS take one tab po tid x 7 days AMOXICILLIN 500 MG TABS 466858 AMOXICILLIN Inactive FLEXERIL 10 MG TAB 1 tablet by mouth at bedtime as needed for pain FLEXERIL 10 MG TAB CYCLOBENZAPRINE HCL Inactive IBUPROFEN 800 MG TABS 1 tab every 8 hours as needed IBUPROFEN 800 MG TABS 045629 IBUPROFEN Inactive OMEPRAZOLE 20 MG CPDR 1 tablet by mouth daily OMEPRAZOLE 20 MG CPDR 19791102 OMEPRAZOLE Inactive CELEBREX 100 MG CAPS 1 tab daily CELEBREX 100 MG CAPS 572905 CELECOXIB Inactive CYCLOBENZAPRINE HCL 5 MG ORAL TABS 1/2 tab po q hs, prn CYCLOBENZAPRINE HCL 5 MG ORAL TABS 042321 CYCLOBENZAPRINE HCL Inactive OMEPRAZOLE 20 MG CPDR 1 tablet by mouth daily OMEPRAZOLE 20 MG CPDR 19791102 OMEPRAZOLE Inactive PULMICORT 0.5 MG/2ML INH SUSP mix 2 ml with 5 packets of splenda and swallow. rinse the mouth after 30 min. do not eat or drink anything for 30 min. 12/19 PULMICORT 0.5 MG/2ML INH SUSP 462514 BUDESONIDE Inactive CLARITIN 10 MG TAB 1 tablet by mouth daily as needed for allergies CLARITIN 10 MG TAB 891179 LORATADINE Inactive CELEBREX 200 MG CAPS 1 tablet by mouth daily with meals CELEBREX 200 MG CAPS 325265 CELECOXIB Inactive PRILOSEC 20 MG CAP CR 1 tab po q am PRILOSEC 20 MG CAP CR 050786 OMEPRAZOLE Inactive PROAIR HFA 108 (90 BASE) MCG/ACT AERS 2 puffs four times a day as needed 2012 PROAIR HFA 108 (90 BASE) MCG/ACT AERS ALBUTEROL SULFATE Inactive AMOXICILLIN 400 MG/5ML SUSR 12.5ml po BID x 10 days AMOXICILLIN 400 MG/5ML SUSR 707030 AMOXICILLIN Inactive PREDNISONE 20 MG TAB 2 tabs daily for 3 days, 1 tab daily for 3 days, 1/2 tab daily for 2 days PREDNISONE 20 MG TAB 944579 PREDNISONE Inactive TAMIFLU 75 MG CAPS 1 bid x 5 days TAMIFLU 75 MG CAPS OSELTAMIVIR PHOSPHATE Inactive AZITHROMYCIN 250 MG TABS 2 po qd x 1 day, then 1 po qd x 4 days AZITHROMYCIN 250 MG TABS 7868931 AZITHROMYCIN Inactive Advance Directives Directive Description Start [...] Negative;Positive Encounters Code Encounter Date Provider Facility CPT-05428 Level 3 Est. Patient 16:08:13 CDT Natanael Araujo MD [facility] CPT-77879 Level 3 Est. Patient 10:44:11 CD[facility] Level 3 Est. 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 Patient 16:32:02 ROUTE DELIVERY SERVICE DRIVER Natanael Araujo MD [facility] CPT-67736 Level 3 Est. Patient 15:45:10 CDT Natanael Araujo MD [facility] CPT-33370 Level 4 Est. Patient 16:43:28 CDT Natanael Araujo MD [facility] CPT-93031 Level 3 Est. Patient 15:06:06 CDT Natanael Araujo MD [facility] CPT-30214 Level 3 Est. 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 Patient 10:18:16 ROUTE DELIVERY SERVICE DRIVER Natanael Araujo MD [facility] CPT-92258 Level 3 Est. Patient 16:04:12 CDT Natanael Araujo MD [facility] CPT-62791 Level 3 Est. Patient 11:25:05 CDT Natanael Araujo MD [facility] CPT-03812 Level 3 Est. Patient 13:17:34 CDT Gail Valerio [facility] CPT-85431 Level 3 Est. Patient 17:03:36 CDT Natanael Araujo MD [facility] CPT-65310 Level 2 Est. Patient 14:41:40 ROUTE DELIVERY SERVICE DRIVER Mahogany Garza [facility] CPT-43598 Level 3 New Patient 16:12:19 ROUTE DELIVERY SERVICE DRIVER Gail Valerio [facility] Procedures Code Procedure Name Date Entry Date Standard Description CPT-34130 Menactra 10:44:48 CDT CPT-73048 Administration single or combination vaccine inc oral 10 :44:48 CDT CPT-98454 Menactra 10:42:17 CDT CPT-01523 Administration single or combination vaccine inc oral 10 :42:17 CDT CPT-93862 Knee 3V 13:46:23 ROUTE DELIVERY SERVICE DRIVER CPT-74740 LS spine comp w obliq 16:17:55 CDT CPT-JTINJ Joint Injection 17:03:35 CDT CPT-J0561 Bicillin LA 1,200,000 u (PCN G Benzathine) 16:12:19 ROUTE DELIVERY SERVICE DRIVER CPT-54051 Abx/Therapy Injection 16:12:19 ROUTE DELIVERY SERVICE DRIVER
--- OUTSIDE RECORDS SUMMARY | 2017-09-06 14:12 | XMS REPORT | Clinical Summary ---
Author Author Admin, CRISTOPHER Organization [employer] Address Unknown Phone Unavailable Allergies, Adverse Reactions, [...] classified Eosinophilic esophagitis 530.13 Active Mahogany Garza [employer] Eosinophilic esophagitis Pharyngitis 462 Resolved Natanael Araujo [...] 1 po q6hr PRN Nausea ONDANSETRON HCL 36012190262 Active Natanael Araujo MD Active OMEPRAZOLE 20 MG TBEC 1 po q a.m. 30min prior to first food intake OMEPRAZOLE 51339588481 Active Natanael Araujo MD Active CLARITIN 10 MG TAB 1 tablet by mouth daily as needed for allergies LORATADINE 94445348371 Active Mahogany Garza APRN Active AZITHROMYCIN 250 MG TABS 2 po qd x 1 day, then 1 po qd x 4 days AZITHROMYCIN 00407550079 No Longer Active Mahogany Garza [employer] Active LEXAPRO 10 MG TABS 1 tablet by mouth daily ESCITALOPRAM OXALATE 68822626342 Active Natanael Araujo MD Active PROAIR HFA 108 (90 BASE) MCG/ACT AERS 2 puffs four times a day as needed 2012 ALBUTEROL SULFATE 49420207077 No Longer Active Natanael Araujo MD Active PRILOSEC 20 MG CAP CR 1 tab po q am OMEPRAZOLE 84592103801 No Longer Active Natanael Araujo MD Active CELEBREX 200 MG CAPS 1 tablet by mouth daily with meals CELECOXIB 19534369375 No Longer Active Natanael Araujo MD Active CLARITIN 10 MG TAB 1 tablet by mouth daily as needed for allergies LORATADINE 31236595170 No Longer Active Natanael Araujo MD Active PULMICORT 0.5 MG/2ML INH SUSP mix 2 ml with 5 packets of splenda and swallow. rinse the mouth after 30 min. do not eat or drink anything for 30 min. 12/19 BUDESONIDE 77473554809 No Longer Active Natanael Araujo MD Active OMEPRAZOLE 20 MG CPDR 1 tablet by mouth daily OMEPRAZOLE 55647273835 No Longer Active Natanael Araujo MD Active PROTONIX 40 MG SOLR 1 po q a.m. PANTOPRAZOLE SODIUM 97993729642 No Longer Active Natanael Araujo MD Active CYCLOBENZAPRINE HCL 5 MG ORAL TABS 1/2 tab po q hs, prn CYCLOBENZAPRINE HCL 89723670982 No Longer Active Natanael Araujo MD Active CELEBREX 100 MG CAPS 1 tab daily CELECOXIB 03042777629 No Longer Active Mahogany Garza APRN Active OMEPRAZOLE 20 MG CPDR 1 tablet by mouth daily OMEPRAZOLE 78992248012 No Longer Active Natanael Araujo MD Active TAMIFLU 75 MG CAPS 1 bid x 5 days OSELTAMIVIR PHOSPHATE 56472809690 No Longer Active Natanael Araujo MD Active PREDNISONE 20 MG TAB 2 tabs daily for 3 days, 1 tab daily for 3 days, 1/2 tab daily for 2 days PREDNISONE 35806377414 No Longer Active Natanael Araujo MD Active AMOXICILLIN 400 MG/5ML SUSR 12.5ml po BID x 10 days AMOXICILLIN 85112418972 No Longer Active Natanael Araujo MD Active IBUPROFEN 800 MG TABS 1 tab every 8 hours as needed IBUPROFEN 29837995442 No Longer Active Natanael Araujo MD Active FLEXERIL 10 MG TAB 1 tablet by mouth at bedtime as needed for pain CYCLOBENZAPRINE HCL 80114106836 No Longer Active Natanael Araujo MD Active AMOXICILLIN 500 MG TABS take one tab po tid x 7 days AMOXICILLIN 20407162676 No Longer Active Natanael Araujo MD Active PRILOSEC 10 MG CAP CR Take one by mouth daily OMEPRAZOLE 97763857869 No Longer Active Natanael Araujo MD Active ZYRTEC ALLERGY 10 MG CAPS Take one by mouth daily as needed 10/25 CETIRIZINE HCL 68102919087 No Longer Active Natanael Araujo MD Active ZYRTEC ALLERGY 10 MG CAPS Take one by mouth daily as needed 10/25 ZYRTEC ALLERGY 10 MG CAPS CETIRIZINE HCL Inactive PRILOSEC 10 MG CAP CR Take one by mouth daily PRILOSEC 10 MG CAP CR 19900712 OMEPRAZOLE Inactive AMOXICILLIN 500 MG TABS take one tab po tid x 7 days AMOXICILLIN 500 MG TABS 589663 AMOXICILLIN Inactive FLEXERIL 10 MG TAB 1 tablet by mouth at bedtime as needed for pain FLEXERIL 10 MG TAB CYCLOBENZAPRINE HCL Inactive IBUPROFEN 800 MG TABS 1 tab every 8 hours as needed IBUPROFEN 800 MG TABS 874165 IBUPROFEN Inactive OMEPRAZOLE 20 MG CPDR 1 tablet by mouth daily OMEPRAZOLE 20 MG CPDR 19791102 OMEPRAZOLE Inactive CELEBREX 100 MG CAPS 1 tab daily CELEBREX 100 MG CAPS 929502 CELECOXIB Inactive CYCLOBENZAPRINE HCL 5 MG ORAL TABS 1/2 tab po q hs, prn CYCLOBENZAPRINE HCL 5 MG ORAL TABS 663062 CYCLOBENZAPRINE HCL Inactive OMEPRAZOLE 20 MG CPDR 1 tablet by mouth daily OMEPRAZOLE 20 MG CPDR 19791102 OMEPRAZOLE Inactive PULMICORT 0.5 MG/2ML INH SUSP mix 2 ml with 5 packets of splenda and swallow. rinse the mouth after 30 min. do not eat or drink anything for 30 min. 12/19 PULMICORT 0.5 MG/2ML INH SUSP 341512 BUDESONIDE Inactive CLARITIN 10 MG TAB 1 tablet by mouth daily as needed for allergies CLARITIN 10 MG TAB 507353 LORATADINE Inactive CELEBREX 200 MG CAPS 1 tablet by mouth daily with meals CELEBREX 200 MG CAPS 711316 CELECOXIB Inactive PRILOSEC 20 MG CAP CR 1 tab po q am PRILOSEC 20 MG CAP CR 743784 OMEPRAZOLE Inactive PROAIR HFA 108 (90 BASE) MCG/ACT AERS 2 puffs four times a day as needed 2012 PROAIR HFA 108 (90 BASE) MCG/ACT AERS ALBUTEROL SULFATE Inactive AMOXICILLIN 400 MG/5ML SUSR 12.5ml po BID x 10 days AMOXICILLIN 400 MG/5ML SUSR 907423 AMOXICILLIN Inactive PREDNISONE 20 MG TAB 2 tabs daily for 3 days, 1 tab daily for 3 days, 1/2 tab daily for 2 days PREDNISONE 20 MG TAB 955960 PREDNISONE Inactive TAMIFLU 75 MG CAPS 1 bid x 5 days TAMIFLU 75 MG CAPS OSELTAMIVIR PHOSPHATE Inactive AZITHROMYCIN 250 MG TABS 2 po qd x 1 day, then 1 po qd x 4 days AZITHROMYCIN 250 MG TABS 1556712 AZITHROMYCIN Inactive Advance Directives Directive Description Start [...] Negative;Positive Encounters Code Encounter Date Provider Facility CPT-99559 Level 3 Est. Patient 16:08:13 CDT Natanael Araujo MD [facility] CPT-05560 Level 3 Est. Patient 10:44:11 CDT [facility] Level 3 Est. 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 Patient 16:32:02 MARKETING EDUCATION TEACHER Natanael Araujo MD [facility] CPT-60790 Level 3 Est. Patient 15:45:10 CDT Natanael Araujo MD [facility] CPT-23543 Level 4 Est. Patient 16:43:28 CDT Natanael Araujo MD [facility] CPT-40553 Level 3 Est. Patient 15:06:06 CDT Natanael Araujo MD [facility] CPT-99777 Level 3 Est. 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 Patient 10:18:16 MARKETING EDUCATION TEACHER Natanael Araujo MD [facility] CPT-02685 Level 3 Est. Patient 16:04:12 CDT Natanael Araujo MD [facility] CPT-95521 Level 3 Est. Patient 11:25:05 CDT Natanael Araujo MD [facility] CPT-60357 Level 3 Est. Patient 13:17:34 CDT Gail Valerio [facility] CPT-75716 Level 3 Est. Patient 17:03:36 CDT Natanael Araujo MD [facility] CPT-28206 Level 2 Est. Patient 14:41:40 MARKETING EDUCATION TEACHER Mahogany Garza [facility] CPT-30098 Level 3 New Patient 16:12:19 MARKETING EDUCATION TEACHER Gail Valerio [facility] Procedures Code Procedure Name Date Entry Date Standard Description CPT-63023 Menactra 10:44:48 CDT CPT-51948 Administration single or combination vaccine inc oral 10 :44:48 CDT CPT-81353 Menactra 10:42:17 CDT CPT-59837 Administration single or combination vaccine inc oral 10 :42:17 CDT CPT-01657 Knee 3V 13:46:23 MARKETING EDUCATION TEACHER CPT-03487 LS spine comp w obliq 16:17:55 CDT CPT-JTINJ Joint Injection 17:03:35 CDT CPT-J0561 Bicillin LA 1,200,000 u (PCN G Benzathine) 16:12:19 MARKETING EDUCATION TEACHER CPT-98703 Abx/Therapy Injection 16:12:19 MARKETING EDUCATION TEACHER
--- OUTSIDE RECORDS SUMMARY | 2017-09-06 14:12 | XMS REPORT ---
Author Author Reena Gaona [facility] Address [address] [place], [place] [address] Care Team Providers Care Saw Handle Assembler Name Role Phone Reena Gaona PCP Unavailable Allergies and Adverse Reactions Name Reaction Notes NO KNOWN DRUG ALLERGIES Plan of Treatment Not available. Medications Active Name Start Date Estimated Completion Date SIG Comments Zoloft 25 mg oral tablet 02/10/2015 05/11/2015 Take one tablet daily. Name Start Date Expiration Date SIG Comments Depo-Provera 150 mg/mL intramuscular syringe 01/16/2015 01/20/2015 inject 1 milliliter (150 mg) by intramuscular route every 3 months for 1 day Problem List Not available. Vital Signs Date Time BP-Sys(mm[Hg] BP-Genna(mm[Hg]) HR(bpm) RR(rpm) Temp WT HT HC BMI BSA BMI Percentile O2 Sat(%) 01/16/2015 10:48:00 AM 100 mmHg 58 mmHg 80 bpm 18 rpm 98 F 137.125 lbs 66 in 22.13 kg/m2 1.70 m2 58.5 % Social History Name Description Comments Tobacco Never smoker History of Procedures Date Ordered Description Order Status 01/16/2015 1:33 PM URINE TEST Reviewed 01/16/2015 12:00 AM SPECIMEN HANDLING OFFICE-LAB Reviewed 01/16/2015 12:00 AM CHLAMYDIA CULTURE Returned 01/16/2015 12:00 AM N.GONORRHOEAE DNA AMP PROB Returned Results Summary Data and Description Results 01/16/2015 1:33 PM Test, Urine negative History Of Immunizations Not available. 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
--- OUTSIDE RECORDS SUMMARY | 2017-09-06 14:13 | XMS REPORT | Clinical Summary ---
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 Eosinophilic esophagitis Pharyngitis 462 Resolved Natanael Araujo [...] 1 po BID PRN Headache NAPROXEN SODIUM 00488242351 Active Natanael Araujo MD Active PREDNISONE 10 MG ORAL TABS 3 po qd x 3 days, then 2 po qd x 3 days, then 1 po qd x 2 days PREDNISONE 81010543024 Active Natanael Araujo MD Active SAFYRAL 3-0.03-0.451 MG ORAL TABS Take one by mouth daily DROSPIREN- ETH ESTRAD-LEVOMEFOL 91084434774 Active Natanael Araujo MD Active LEXAPRO 10 MG TABS 1 tablet by mouth daily ESCITALOPRAM OXALATE 66700453268 No Longer Active Natanael Araujo MD Active CLARITIN 10 MG TAB 1 tablet by mouth daily as needed for allergies LORATADINE 93869189421 No Longer Active Natanael Araujo MD Active OMEPRAZOLE 20 MG TBEC 1 po q a.m. 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 rinse the mouth after 30 min. do not eat or drink anything for 30 min. 12/19 BUDESONIDE 04267284470 No Longer Active Natanael Araujo MD Active OMEPRAZOLE 20 MG CPDR 1 tablet by mouth daily OMEPRAZOLE 84341554025 No Longer Active Natanael Araujo MD Active PROTONIX 40 MG SOLR 1 po q a.m. PANTOPRAZOLE SODIUM 33133959347 No Longer Active Natanael Araujo MD Active CYCLOBENZAPRINE HCL 5 MG ORAL TABS 1/2 tab po q hs, prn CYCLOBENZAPRINE HCL 12794905592 No Longer Active Natanael Araujo MD Active CELEBREX 100 MG CAPS 1 tab daily CELECOXIB 88380344665 No Longer Active Mahogany Garza APRN Active OMEPRAZOLE 20 MG CPDR 1 tablet by mouth daily OMEPRAZOLE 54283776616 No Longer Active Natanael Araujo MD Active TAMIFLU 75 MG CAPS 1 bid x 5 days OSELTAMIVIR PHOSPHATE 83481381920 No Longer Active Natanael Araujo MD Active PREDNISONE 20 MG TAB 2 tabs daily for 3 days, 1 tab daily for 3 days, 1/2 tab daily for 2 days PREDNISONE 08242685281 No Longer Active Natanael Araujo MD Active AMOXICILLIN 400 MG/5ML SUSR 12.5ml po BID x 10 days AMOXICILLIN 82950187357 No Longer Active Natanael Araujo MD Active IBUPROFEN 800 MG TABS 1 tab every 8 hours as needed IBUPROFEN 92499125874 No Longer Active Natanael Araujo MD Active FLEXERIL 10 MG TAB 1 tablet by mouth at bedtime as needed for pain CYCLOBENZAPRINE HCL 51023306838 No Longer Active Natanael Araujo MD Active AMOXICILLIN 500 MG TABS take one tab po tid x 7 days AMOXICILLIN 28488457493 No Longer Active Natanael Araujo MD Active PRILOSEC 10 MG CAP CR Take one by mouth daily OMEPRAZOLE 92114425729 No Longer Active Natanael Aarujo MD Active ZYRTEC ALLERGY 10 MG CAPS Take one by mouth daily as needed 10/25 CETIRIZINE HCL 21588699516 No Longer Active Natanael Araujo MD Active ZYRTEC ALLERGY 10 MG CAPS Take one by mouth daily as needed 10/25 ZYRTEC ALLERGY 10 MG CAPS CETIRIZINE HCL Inactive PRILOSEC 10 MG CAP CR Take one by mouth daily PRILOSEC 10 MG CAP CR OMEPRAZOLE Inactive AMOXICILLIN 500 MG TABS take one tab po tid x 7 days AMOXICILLIN 500 MG TABS 262589 AMOXICILLIN Inactive FLEXERIL 10 MG TAB 1 tablet by mouth at bedtime as needed for pain FLEXERIL 10 MG TAB CYCLOBENZAPRINE HCL Inactive IBUPROFEN 800 MG TABS 1 tab every 8 hours as needed IBUPROFEN 800 MG TABS 009204 IBUPROFEN Inactive OMEPRAZOLE 20 MG CPDR 1 tablet by mouth daily OMEPRAZOLE 20 MG CPDR 19791102 OMEPRAZOLE Inactive CELEBREX 100 MG CAPS 1 tab daily CELEBREX 100 MG CAPS 393640 CELECOXIB Inactive CYCLOBENZAPRINE HCL 5 MG ORAL TABS 1/2 tab po q hs, prn CYCLOBENZAPRINE HCL 5 MG ORAL TABS 197388 CYCLOBENZAPRINE HCL Inactive OMEPRAZOLE 20 MG CPDR 1 tablet by mouth daily OMEPRAZOLE 20 MG CPDR 19791102 OMEPRAZOLE Inactive PULMICORT 0.5 MG/2ML INH SUSP mix 2 ml with 5 packets of splenda and swallow. rinse the mouth after 30 min. do not eat or drink anything for 30 min. 12/19 PULMICORT 0.5 MG/2ML INH SUSP 705474 BUDESONIDE Inactive CLARITIN 10 MG TAB 1 tablet by mouth daily as needed for allergies CLARITIN 10 MG TAB 045139 LORATADINE Inactive CELEBREX 200 MG CAPS 1 tablet by mouth daily with meals CELEBREX 200 MG CAPS 783434 CELECOXIB Inactive PRILOSEC 20 MG CAP CR 1 tab po q am PRILOSEC 20 MG CAP CR 330807 OMEPRAZOLE Inactive PROAIR HFA 108 (90 BASE) MCG/ACT AERS 2 puffs four times a day as needed 2012 PROAIR HFA 108 (90 BASE) MCG/ACT AERS ALBUTEROL SULFATE Inactive ZOFRAN 4 MG TABS 1 po q6hr PRN Nausea ZOFRAN 4 MG TABS 782826 ONDANSETRON HCL Inactive OMEPRAZOLE 20 MG TBEC 1 po q a.m. 30min prior to first food intake OMEPRAZOLE 20 MG TBEC 184476 OMEPRAZOLE Inactive CLARITIN 10 MG TAB 1 tablet by mouth daily as needed for allergies CLARITIN 10 MG TAB 166849 LORATADINE Inactive LEXAPRO 10 MG TABS 1 tablet by mouth daily LEXAPRO 10 MG TABS 411628 ESCITALOPRAM OXALATE Inactive AMOXICILLIN 400 MG/5ML SUSR 12.5ml po BID x 10 days AMOXICILLIN 400 MG/5ML SUSR 642022 AMOXICILLIN Inactive PREDNISONE 20 MG TAB 2 tabs daily for 3 days, 1 tab daily for 3 days, 1/2 tab daily for 2 days PREDNISONE 20 MG TAB 272048 PREDNISONE Inactive TAMIFLU 75 MG CAPS 1 bid x 5 days TAMIFLU 75 MG CAPS 985731 OSELTAMIVIR PHOSPHATE Inactive AZITHROMYCIN 250 MG TABS 2 po qd x 1 day, then 1 po qd x 4 days AZITHROMYCIN 250 MG TABS 6129226 AZITHROMYCIN Inactive Advance Directives Directive Description Start [...] Measured Encounters Code Encounter Date Provider Facility CPT-12432 Level 3 Est. Patient 14:27:39 CDT Natanael Araujo MD [facility] CPT-66033 Level 3 Est. Patient 16:08:13 CDT Natanael Araujo MD [facility] CPT-00237 Level 3 Est. Patient 10:44:11 CDT Mahogany Garza APRN [facility] CPT-98043 Level 3 Est. Patient 15:58:41 ROUTE JUMPER Natanael Araujo MD [facility] CPT-18378 Level 3 Est. Patient 16:32:02 ROUTE JUMPER Natanael Araujo MD [facility] CPT-54001 Level 3 Est. Patient 15:45:10 CDT Natanael Araujo MD [facility] CPT-17594 Level 4 Est. Patient 16:43:28 CDT Natanael Araujo MD [facility] CPT-67826 Level 3 Est. Patient 15:06:06 CDT Natanael Araujo MD [facility] CPT-40885 Level 3 Est. Patient 13:38:04 ROUTE JUMPER Natanael Araujo MD [facility] CPT-53009 Level 3 Est. Patient 10:18:16 ROUTE JUMPER Natanael Araujo MD [facility] CPT-93725 Level 3 Est. Patient 16:04:12 CDT Natanael Araujo MD [facility] CPT-33671 Level 3 Est. Patient 11:25:05 CDT Natanael Araujo MD [facility] CPT-18547 Level 3 Est. Patient 13:17:34 CDT Gail Valerio [facility] CPT-40808 Level 3 Est. Patient 17:03:36 CDT Natanael Araujo MD [facility] CPT-35203 Level 2 Est. Patient 14:41:40 ROUTE JUMPER Mahogany Garza [facility] CPT-48442 Level 3 New Patient 16:12:19 ROUTE JUMPER Gail Valerio [facility] Procedures Code Procedure Name Date Entry Date Standard Description CPT-68381 Menactra 10:44:48 CDT CPT-45371 Administration single or combination vaccine inc oral 10 :44:48 CDT CPT-98474 Menactra 10:42:17 CDT CPT-96843 Administration single or combination vaccine inc oral 10 :42:17 CDT CPT-25564 Knee 3V 13:46:23 ROUTE JUMPER CPT-83082 LS spine comp w obliq 16:17:55 CDT CPT-JTINJ Joint Injection 17:03:35 CDT CPT-J0561 Bicillin LA 1,200,000 u (PCN G Benzathine) 16:12:19 ROUTE JUMPER CPT-54063 Abx/Therapy Injection 16:12:19 ROUTE JUMPER
--- OUTSIDE RECORDS SUMMARY | 2017-09-06 14:13 | XMS REPORT | Clinical Summary ---
Author Author Admin, CRISTOPHER Organization [employer] Address Unknown Phone Unavailable Allergies, Adverse Reactions, Alerts Allergy Name Reaction Description Start Date Severity Status Provider No Known Allergies CADE aCrter NKKAYE Critical Active Amie Gant RN Conditions [...] tablet by mouth daily with meals CELECOXIB 42800583197 Active Natanael Araujo MD Active OMEPRAZOLE 20 MG CPDR 1 tablet by mouth daily OMEPRAZOLE 30843785000 No Longer Active Natanael Araujo MD Active PROTONIX 40 MG SOLR 1 po q a.m. PANTOPRAZOLE SODIUM 21793048398 Active Natanael Araujo MD Active CYCLOBENZAPRINE HCL 5 MG ORAL TABS 1/2 tab po q hs, prn CYCLOBENZAPRINE HCL 06937365035 No Longer Active Natanael Araujo MD Active CELEBREX 100 MG CAPS 1 tab daily CELECOXIB 53426083925 No Longer Active Mahogany Polocelsa BEEN Active OMEPRAZOLE 20 MG CPDR 1 tablet by mouth daily OMEPRAZOLE 63449503587 No Longer Active Natanael Araujo MD Active TAMIFLU 75 MG CAPS 1 bid x 5 days OSELTAMIVIR PHOSPHATE 94469468840 No Longer Active Natanael Araujo MD Active PREDNISONE 20 MG TAB 2 tabs daily for 3 days, 1 tab daily for 3 days, 1/2 tab daily for 2 days PREDNISONE 67330482255 No Longer Active Natanael Araujo MD Active AMOXICILLIN 400 MG/5ML SUSR 12.5ml po BID x 10 days AMOXICILLIN 88258953302 No Longer Active Natanael Araujo MD Active IBUPROFEN 800 MG TABS 1 tab every 8 hours as needed IBUPROFEN 63665651325 No Longer Active Natanael Araujo MD Active PROAIR HFA 108 (90 BASE) MCG/ACT AERS 2 puffs four times a day as needed 2012 ALBUTEROL SULFATE 03224150656 Active Natanael Araujo MD Active FLEXERIL 10 MG TAB 1 tablet by mouth at bedtime as needed for pain CYCLOBENZAPRINE HCL 91552150442 No Longer Active Natanael Araujo MD Active AMOXICILLIN 500 MG TABS take one tab po tid x 7 days AMOXICILLIN 10344065234 No Longer Active Natanael Araujo MD Active PRILOSEC 10 MG CAP CR Take one by mouth daily OMEPRAZOLE 64951564916 No Longer Active Natanael Araujo MD Active ZYRTEC ALLERGY 10 MG CAPS Take one by mouth daily as needed 10/25 CETIRIZINE HCL 61404049775 No Longer Active Natanael Araujo MD Active ZYRTEC ALLERGY 10 MG CAPS Take one by mouth daily as needed 10/25 ZYRTEC ALLERGY 10 MG CAPS CETIRIZINE HCL Inactive PRILOSEC 10 MG CAP CR Take one by mouth daily PRILOSEC 10 MG CAP CR 19900712 OMEPRAZOLE Inactive AMOXICILLIN 500 MG TABS take one tab po tid x 7 days AMOXICILLIN 500 MG TABS 974081 AMOXICILLIN Inactive FLEXERIL 10 MG TAB 1 tablet by mouth at bedtime as needed for pain FLEXERIL 10 MG TAB CYCLOBENZAPRINE HCL Inactive IBUPROFEN 800 MG TABS 1 tab every 8 hours as needed IBUPROFEN 800 MG TABS 741377 IBUPROFEN Inactive OMEPRAZOLE 20 MG CPDR 1 tablet by mouth daily OMEPRAZOLE 20 MG CPDR 937368 OMEPRAZOLE Inactive CELEBREX 100 MG CAPS 1 tab daily CELEBREX 100 MG CAPS 171672 CELECOXIB Inactive CYCLOBENZAPRINE HCL 5 MG ORAL TABS 1/2 tab po q hs, prn CYCLOBENZAPRINE HCL 5 MG ORAL TABS 589271 CYCLOBENZAPRINE HCL Inactive OMEPRAZOLE 20 MG CPDR 1 tablet by mouth daily OMEPRAZOLE 20 MG CPDR 429657 OMEPRAZOLE Inactive AMOXICILLIN 400 MG/5ML SUSR 12.5ml po BID x 10 days AMOXICILLIN 400 MG/5ML SUSR 406624 AMOXICILLIN Inactive PREDNISONE 20 MG TAB 2 tabs daily for 3 days, 1 tab daily for 3 days, 1/2 tab daily for 2 days PREDNISONE 20 MG TAB 256805 PREDNISONE Inactive TAMIFLU 75 MG CAPS 1 [...] AUTO - Chemistry sodium, serum 143 mmol/L 676-045 3250/01/07 potassium, serum 4.2 mmol/L 3.5-5.2 chloride, serum [...] Metabolic Panel, UADIP W/MICRO, AUTO - Hematology mean corpuscular volume, RBC 87 fL 80-97 hematocrit, blood 39.8 % 36.0-46.0 hemoglobin, blood 13.0 g/dL 12.0-16.0 erythrocyte (RBC) count 4.60 10^6/MM^3 10*6/mm3 4.04-5.48 leukocyte count, blood 5.4 10^3/MM^3 10*3/mm3 4.6-10.2 mean corpuscular hemoglobin, RBC 28.3 pg 27.0-31.2 mean corpuscular hemoglobin concentration, RBC 32.7 G/DL % 31.8- 35.4 red blood cell distribution width 14.2 % 11.6-14.8 platelet count 267 10^3/MM^3 10*3/mm3 142-424 Lab Report: CBC, Comp. Metabolic Panel, UADIP W/MICRO, AUTO - Urinalysis glucose, urine, semiquantitative Negative Negative ketones, urine, by test strip Negative Negative bilirubin, urine Negative Negative urine color Yellow Colorless;Lightyellow;Straw;Yellow appearance, urine Clear Clear specific gravity, urine 1.025 1.000-1.030 pH, urine, semiquantitative 7.5 5.0-8.5 urobilinogen, urine, semiquantitative (dipstick) 1.0 Normal leukocyte esterase, urine, by dipstick Negative Negative nitrite, urine, semiquantitative Negative Negative Encounters Code Encounter Date Provider Facility CPT-08011 Level 3 Est. Patient 15:45:10 CDT Natanael Araujo MD [facility] CPT-51685 Level 4 Est. Patient 16:43:28 CDT Natanael Araujo MD [facility] CPT-94696 Level 3 Est. Patient 15:06:06 CDT Natanael Araujo MD [facility] CPT-35931 Level 3 Est. 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 Patient 10:18:16 ROOMING HOUSE INSPECTOR Natanael Araujo MD [facility] CPT-91984 Level 3 Est. Patient 16:04:12 CDT Natanael Araujo MD [facility] CPT-43825 Level 3 Est. Patient 11:25:05 CDT Natanael Araujo MD [facility] CPT-13947 Level 3 Est. Patient 13:17:34 CDT Gail KIMBALL [facility] CPT-60036 Level 3 Est. Patient 17:03:36 CDT Natanael Araujo MD [facility] CPT-18037 Level 2 Est. Patient 14:41:40 ROOMING HOUSE INSPECTOR Mahogany Garza APRN [facility] CPT-27658 Level 3 New Patient 16:12:19 ROOMING HOUSE INSPECTOR Gail KIMBALL [facility] Procedures Code Procedure Name Date Entry Date Standard Description CPT-02692 Knee 3V 13:46:23 ROOMING HOUSE INSPECTOR CPT-02376 LS spine comp w obliq 16:17:55 CDT CPT-JTINJ Joint Injection 17:03:35 CDT CPT-J0561 Bicillin LA 1,200,000 u (PCN G Benzathine) 16:12:19 ROOMING HOUSE INSPECTOR CPT-80285 Abx/Therapy Injection 16:12:19 ROOMING HOUSE INSPECTOR
[2017-09-06] MEDS ORDERED: NS IV 500 ML 500 ML IV PRN (14:14)
--- OUTSIDE RECORDS SUMMARY | 2017-09-06 14:14 | XMS REPORT | Clinical Summary ---
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 Eosinophilic esophagitis Pharyngitis 462 Resolved Natanael Araujo [...] po BID x 10 days DOXYCYCLINE MONOHYDRATE 06621604590 No Longer Active Natanael Araujo MD Active SAFYRAL 3-0.03-0.451 MG ORAL TABLET Take one by mouth daily DROSPIREN-ETH ESTRAD-LEVOMEFOL 69549714087 No Longer Active Natanael Araujo MD Active NAPROXEN SODIUM 550 MG ORAL TABLET 1 po BID PRN Headache NAPROXEN SODIUM 84736457546 No Longer Active Natanael Araujo MD Active PREDNISONE 10 MG ORAL TABLET 3 po qd x 3 days, then 2 po qd x 3 days, then 1 po qd x 2 days PREDNISONE 74230992634 No Longer Active Natanael Araujo MD Active LEXAPRO 10 MG ORAL TABLET 1 tablet by mouth daily ESCITALOPRAM OXALATE 41408041797 No Longer Active Natanael Araujo MD Active CLARITIN 10 MG ORAL TABLET 1 tablet by mouth daily as needed for allergies LORATADINE 21472197154 No Longer Active Natanael Araujo MD Active OMEPRAZOLE 20 MG ORAL TABLET DELAYED RELEASE 1 po q a.m. 30min prior to first food intake OMEPRAZOLE 43486446085 No Longer Active Natanael Araujo MD Active ZOFRAN 4 MG ORAL TABLET 1 po q6hr PRN Nausea ONDANSETRON HCL 93273850723 No Longer Active Natanael Araujo MD Active AZITHROMYCIN 250 MG ORAL TABLET 2 po qd x 1 day, then 1 po qd x 4 days 09/14 AZITHROMYCIN 31171569052 No Longer Active Mahogany Garza APRN Active PROAIR HFA 108 (90 Base) MCG/ACT INHALATION AEROSOL SOLUTION 2 puffs four times a day as needed ALBUTEROL SULFATE 02786376966 No Longer Active Natanael Araujo MD Active PRILOSEC 20 MG ORAL CAPSULE DELAYED RELEASE 1 tab po q am OMEPRAZOLE 43911391006 No Longer Active Natanael Araujo MD Active CELEBREX 200 MG ORAL CAPSULE 1 tablet by mouth daily with meals CELECOXIB 44222054983 No Longer Active Natanael Araujo MD Active CLARITIN 10 MG ORAL TABLET 1 tablet by mouth daily as needed for allergies LORATADINE 17648223391 No Longer Active Natanael Araujo MD Active PULMICORT 0.5 MG/2ML INHALATION SUSPENSION mix 2 ml with 5 packets of splenda and swallow. rinse the mouth after 30 min. do not eat or drink anything for 30 min. BUDESONIDE 14965988953 No Longer Active Natanael Araujo MD Active OMEPRAZOLE 20 MG ORAL CAPSULE DELAYED RELEASE 1 tablet by mouth daily OMEPRAZOLE 05874985018 No Longer Active Natanael Araujo MD Active PROTONIX 40 MG INTRAVENOUS SOLUTION RECONSTITUTED 1 po q a.m. PANTOPRAZOLE SODIUM 89527510312 No Longer Active Natanael Araujo MD Active CYCLOBENZAPRINE HCL 5 MG ORAL TABLET 1/2 tab po q hs, prn CYCLOBENZAPRINE HCL 37358387655 No Longer Active Natanael Araujo MD Active CELEBREX 100 MG ORAL CAPSULE 1 tab daily CELECOXIB 81774903906 No Longer Active Mahogany Garza APRN Active OMEPRAZOLE 20 MG ORAL CAPSULE DELAYED RELEASE 1 tablet by mouth daily OMEPRAZOLE 53574595438 No Longer Active Natanael Araujo MD Active TAMIFLU 75 MG ORAL CAPSULE 1 bid x 5 days OSELTAMIVIR PHOSPHATE 55567272462 No Longer Active Natanael Araujo MD Active PREDNISONE 20 MG ORAL TABLET 2 tabs daily for 3 days, 1 tab daily for 3 days, 1/2 tab daily for 2 days PREDNISONE 53424258871 No Longer Active Natanael Araujo MD Active AMOXICILLIN 400 MG/5ML ORAL SUSPENSION RECONSTITUTED 12.5ml po BID x 10 days AMOXICILLIN 66580469756 No Longer Active Natanael Araujo MD Active IBUPROFEN 800 MG ORAL TABLET 1 tab every 8 hours as needed 08/01 IBUPROFEN 10478919429 No Longer Active Natanael Araujo MD Active FLEXERIL 10 MG TAB 1 tablet by mouth at bedtime as needed for pain CYCLOBENZAPRINE HCL 33755737061 No Longer Active Natanael Araujo MD Active AMOXICILLIN 500 MG ORAL TABLET take one tab po tid x 7 days 02/22 AMOXICILLIN 81377231878 No Longer Active Natanael Araujo MD Active PRILOSEC 10 MG ORAL CAPSULE DELAYED RELEASE Take one by mouth daily OMEPRAZOLE 40614658904 No Longer Active Natanael Araujo MD Active ZYRTEC ALLERGY 10 MG ORAL CAPSULE Take one by mouth daily as needed CETIRIZINE HCL 56067968615 No Longer Active Natanael Araujo MD Active ZYRTEC ALLERGY 10 MG ORAL CAPSULE Take one by mouth daily as needed ZYRTEC ALLERGY 10 MG ORAL CAPSULE CETIRIZINE HCL Inactive PRILOSEC 10 MG ORAL CAPSULE DELAYED RELEASE Take one by mouth daily PRILOSEC 10 MG ORAL CAPSULE DELAYED RELEASE 127006 OMEPRAZOLE Inactive AMOXICILLIN 500 MG ORAL TABLET take one tab po tid x 7 days 02/22 AMOXICILLIN 500 MG ORAL TABLET 867632 AMOXICILLIN Inactive FLEXERIL 10 MG TAB 1 tablet by mouth at bedtime as needed for pain FLEXERIL 10 MG TAB CYCLOBENZAPRINE HCL Inactive IBUPROFEN 800 MG ORAL TABLET 1 tab every 8 hours as needed 08/01 IBUPROFEN 800 MG ORAL TABLET 101763 IBUPROFEN Inactive OMEPRAZOLE 20 MG ORAL CAPSULE DELAYED RELEASE 1 tablet by mouth daily OMEPRAZOLE 20 MG ORAL CAPSULE DELAYED RELEASE 309289 OMEPRAZOLE Inactive CELEBREX 100 MG ORAL CAPSULE 1 tab daily CELEBREX 100 MG ORAL CAPSULE 524437 CELECOXIB Inactive CYCLOBENZAPRINE HCL 5 MG ORAL TABLET 1/2 tab po q hs, prn CYCLOBENZAPRINE HCL 5 MG ORAL TABLET 922039 CYCLOBENZAPRINE HCL Inactive OMEPRAZOLE 20 MG ORAL CAPSULE DELAYED RELEASE 1 tablet by mouth daily OMEPRAZOLE 20 MG ORAL CAPSULE DELAYED RELEASE 992157 OMEPRAZOLE Inactive PULMICORT 0.5 MG/2ML INHALATION SUSPENSION mix 2 ml with 5 packets of splenda and swallow. rinse the mouth after 30 min. do not eat or drink anything for 30 min. PULMICORT 0.5 MG/2ML INHALATION SUSPENSION 149525 BUDESONIDE Inactive CLARITIN 10 MG ORAL TABLET 1 tablet by mouth daily as needed for allergies CLARITIN 10 MG ORAL TABLET 288467 LORATADINE Inactive CELEBREX 200 MG ORAL CAPSULE 1 tablet by mouth daily with meals CELEBREX 200 MG ORAL CAPSULE 038138 CELECOXIB Inactive PRILOSEC 20 MG ORAL CAPSULE DELAYED RELEASE 1 tab po q am PRILOSEC 20 MG ORAL CAPSULE DELAYED RELEASE 897521 OMEPRAZOLE Inactive PROAIR HFA 108 (90 Base) MCG/ACT INHALATION AEROSOL SOLUTION 2 puffs four times a day as needed PROAIR HFA 108 (90 Base) MCG/ACT INHALATION AEROSOL SOLUTION ALBUTEROL SULFATE Inactive ZOFRAN 4 MG ORAL TABLET 1 po q6hr PRN Nausea ZOFRAN 4 MG ORAL TABLET 777958 ONDANSETRON HCL Inactive OMEPRAZOLE 20 MG ORAL TABLET DELAYED RELEASE 1 po q a.m. 30min prior to first food intake OMEPRAZOLE 20 MG ORAL TABLET DELAYED RELEASE 366475 OMEPRAZOLE Inactive CLARITIN 10 MG ORAL TABLET 1 tablet by mouth daily as needed for allergies CLARITIN 10 MG ORAL TABLET 740496 LORATADINE Inactive LEXAPRO 10 MG ORAL TABLET 1 tablet by mouth daily LEXAPRO 10 MG ORAL TABLET 063986 ESCITALOPRAM OXALATE Inactive NAPROXEN SODIUM 550 MG ORAL TABLET 1 po BID PRN Headache NAPROXEN SODIUM 550 MG ORAL TABLET 840529 NAPROXEN SODIUM Inactive SAFYRAL 3-0.03-0.451 MG ORAL TABLET Take one by mouth daily SAFYRAL 3-0.03-0.451 MG ORAL TABLET DROSPIREN-ETH ESTRAD-LEVOMEFOL Inactive AMOXICILLIN 400 MG/5ML ORAL SUSPENSION RECONSTITUTED 12.5ml po BID x 10 days AMOXICILLIN 400 MG/5ML ORAL SUSPENSION RECONSTITUTED 501601 AMOXICILLIN Inactive PREDNISONE 20 MG ORAL TABLET 2 tabs daily for 3 days, 1 tab daily for 3 days, 1/2 tab daily for 2 days PREDNISONE 20 MG ORAL TABLET 874502 PREDNISONE Inactive TAMIFLU 75 MG ORAL CAPSULE 1 bid x 5 days TAMIFLU 75 MG ORAL CAPSULE 178859 OSELTAMIVIR PHOSPHATE Inactive AZITHROMYCIN 250 MG ORAL TABLET 2 po qd x 1 day, then 1 po qd x 4 days 09/14 AZITHROMYCIN 250 MG ORAL TABLET 452589 AZITHROMYCIN Inactive PREDNISONE 10 MG ORAL TABLET 3 po qd x 3 days, then 2 po qd x 3 days, then 1 po qd x 2 days PREDNISONE 10 MG ORAL TABLET 020482 PREDNISONE Inactive DOXYCYCLINE MONOHYDRATE 100 MG ORAL CAPSULE 1 po BID x 10 days DOXYCYCLINE MONOHYDRATE 100 MG ORAL CAPSULE 1044834 DOXYCYCLINE MONOHYDRATE Inactive Advance Directives Directive Description [...] ... - Chemistry sodium, serum 144 mmol/L 564-652 8730/11/02 carbon dioxide, venous blood 25.2 mmol/L 21.0-32.0 [...] 142-424 Encounters Code Encounter Date Provider Facility CPT-95235 Level 4 Est. Patient 09:59:40 CDT Natanael Araujo MD [facility] CPT-87321 Level 3 Est. Patient 14:27:39 CDT Natanael Araujo MD [facility] CPT-29394 Level 3 Est. Patient 16:08:13 CDT Natanael Araujo MD [facility] CPT-81553 Level 3 Est. Patient 10:44:11 CDT Mahogany Garza APRN [facility] CPT-85181 Level 3 Est. Patient 15:58:41 PURCHASING OFFICER Natanael Araujo MD [facility] CPT-75740 Level 3 Est. Patient 16:32:02 PURCHASING OFFICER Natanael Araujo MD [facility] CPT-63599 Level 3 Est. Patient 15:45:10 CDT Natanael Araujo MD [facility] CPT-72593 Level 4 Est. Patient 16:43:28 CDT Natanael Araujo MD [facility] CPT-34018 Level 3 Est. Patient 15:06:06 CDT Natanael Araujo MD [facility] CPT-75193 Level 3 Est. Patient 13:38:04 PURCHASING OFFICER Natanael Araujo MD [facility] CPT-20831 Level 3 Est. Patient 10:18:16 PURCHASING OFFICER Natanael Araujo MD [facility] CPT-88118 Level 3 Est. Patient 16:04:12 CDT Natanael Araujo MD [facility] CPT-40587 Level 3 Est. Patient 11:25:05 CDT Natanael Araujo MD [facility] CPT-08041 Level 3 Est. Patient 13:17:34 CDT Gail Valerio [facility] CPT-74537 Level 3 Est. Patient 17:03:36 CDT Natanael Araujo MD [facility] CPT-93321 Level 2 Est. Patient 14:41:40 PURCHASING OFFICER Mahogany Garza APRN [facility] CPT-38899 Level 3 New Patient 16:12:19 PURCHASING OFFICER Gail Valerio [facility] Procedures Code Procedure Name Date Entry Date Standard Description CPT-36959 Menactra 10:44:48 CDT CPT-86951 Administration single or combination vaccine inc oral 10 :44:48 CDT CPT-60930 Menactra 10:42:17 CDT CPT-53370 Administration single or combination vaccine inc oral 10 :42:17 CDT CPT-05174 Knee 3V 13:46:23 PURCHASING OFFICER CPT-63273 LS spine comp w obliq 16:17:55 CDT CPT-JTINJ Joint Injection 17:03:35 CDT CPT-J0561 Bicillin LA 1,200,000 u (PCN G Benzathine) 16:12:19 PURCHASING OFFICER CPT-30575 Abx/Therapy Injection 16:12:19 PURCHASING OFFICER
[2017-09-06] MEDS ORDERED: HURRICAINE EXT TUBE (BENZOCAINE) XX PRN (14:15)
[2017-09-06] MEDS ORDERED: LIDOCAINE JELLY 2% (XYLOCAINE) 5 ML TUBE MM PRN (14:15)
--- OUTSIDE RECORDS SUMMARY | 2017-09-06 14:15 | XMS REPORT | Clinical Summary ---
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 Eosinophilic esophagitis Pharyngitis 462 Resolved Natanael Araujo MD Acute pharyngitis Nausea alone 787.02 Active Natanael Araujo MD Nausea alone ACUTE PHARYNGITIS ICD-462 Inactive Natanael Araujo MD FH DIABETES ICD-V18.0 Inactive Natanael Araujo MD ACUTE PHARYNGITIS ICD-462 Inactive Natanael Araujo MD LUMBAR-SACRAL STRAIN ICD-846.0 Inactive Natanael Araujo MD CHEST WALL PAIN ICD-786.52 Inactive Natanael Araujo MD Sinusitis, acute ICD-461.9 Inactive Natanael Araujo MD Influenza like illness ICD-487.1 Inactive Natanael Araujo MD Dysphagia ICD-787.20 Inactive Natanael Araujo MD Knee pain, left ICD-719.46 Inactive Natanael Araujo MD Back pain ICD-724.5 Inactive Natanael Araujo MD Pharyngitis ICD-462 Inactive Natanael Araujo MD Postconcussion syndrome ICD-310.2 Inactive Natanael Araujo MD Medication List Medication Instructions Start Date Stop Date Generic Name NDC Status Provider Patient Instruction ZOFRAN 4 MG TABS 1 po q6hr PRN Nausea ONDANSETRON HCL 98780875021 Active Natanael Araujo MD Active OMEPRAZOLE 20 MG TBEC 1 po q a.m. 30min prior to first food intake OMEPRAZOLE 40468879379 Active Natanael Araujo MD Active CLARITIN 10 MG TAB 1 tablet by mouth daily as needed for allergies LORATADINE 17731704775 Active Mahogany Garza APRN Active AZITHROMYCIN 250 MG TABS 2 po qd x 1 day, then 1 po qd x 4 days AZITHROMYCIN 20772065165 No Longer Active Mahogany Garza APRN Active LEXAPRO 10 MG TABS 1 tablet by mouth daily ESCITALOPRAM OXALATE 68088062112 Active Natanael Araujo MD Active PROAIR HFA 108 (90 BASE) MCG/ACT AERS 2 puffs four times a day as needed 2012 ALBUTEROL SULFATE 02995561630 No Longer Active Natanael Araujo MD Active PRILOSEC 20 MG CAP CR 1 tab po q am OMEPRAZOLE 30857336782 No Longer Active Natanael Araujo MD Active CELEBREX 200 MG CAPS 1 tablet by mouth daily with meals CELECOXIB 42684376946 No Longer Active Natanael Araujo MD Active CLARITIN 10 MG TAB 1 tablet by mouth daily as needed for allergies LORATADINE 25777005624 No Longer Active Natanael Araujo MD Active PULMICORT 0.5 MG/2ML INH SUSP mix 2 ml with 5 packets of splenda and swallow. rinse the mouth after 30 min. do not eat or drink anything for 30 min. 12/19 BUDESONIDE 74915448573 No Longer Active Natanael Araujo MD Active OMEPRAZOLE 20 MG CPDR 1 tablet by mouth daily OMEPRAZOLE 25180167193 No Longer Active Natanael Araujo MD Active PROTONIX 40 MG SOLR 1 po q a.m. PANTOPRAZOLE SODIUM 50482315718 No Longer Active Natanael Araujo MD Active CYCLOBENZAPRINE HCL 5 MG ORAL TABS 1/2 tab po q hs, prn CYCLOBENZAPRINE HCL 69604403962 No Longer Active Natanael Araujo MD Active CELEBREX 100 MG CAPS 1 tab daily CELECOXIB 62022546047 No Longer Active Mahogany Garza APRN Active OMEPRAZOLE 20 MG CPDR 1 tablet by mouth daily OMEPRAZOLE 31996402427 No Longer Active Natanael Araujo MD Active TAMIFLU 75 MG CAPS 1 bid x 5 days OSELTAMIVIR PHOSPHATE 94086496067 No Longer Active Natanael Araujo MD Active PREDNISONE 20 MG TAB 2 tabs daily for 3 days, 1 tab daily for 3 days, 1/2 tab daily for 2 days PREDNISONE 34166936533 No Longer Active Nataneal Araujo MD Active AMOXICILLIN 400 MG/5ML SUSR 12.5ml po BID x 10 days AMOXICILLIN 09520652227 No Longer Active Natanael Araujo MD Active IBUPROFEN 800 MG TABS 1 tab every 8 hours as needed IBUPROFEN 16235600274 No Longer Active Natanael Araujo MD Active FLEXERIL 10 MG TAB 1 tablet by mouth at bedtime as needed for pain CYCLOBENZAPRINE HCL 82267678117 No Longer Active Natanael Araujo MD Active AMOXICILLIN 500 MG TABS take one tab po tid x 7 days AMOXICILLIN 68950266568 No Longer Active Natanael Araujo MD Active PRILOSEC 10 MG CAP CR Take one by mouth daily OMEPRAZOLE 25769356841 No Longer Active Natanael Araujo MD Active ZYRTEC ALLERGY 10 MG CAPS Take one by mouth daily as needed 10/25 CETIRIZINE HCL 64885151601 No Longer Active Natanael Araujo MD Active ZYRTEC ALLERGY 10 MG CAPS Take one by mouth daily as needed 10/25 ZYRTEC ALLERGY 10 MG CAPS CETIRIZINE HCL Inactive PRILOSEC 10 MG CAP CR Take one by mouth daily PRILOSEC 10 MG CAP CR 19900712 OMEPRAZOLE Inactive AMOXICILLIN 500 MG TABS take one tab po tid x 7 days AMOXICILLIN 500 MG TABS 216887 AMOXICILLIN Inactive FLEXERIL 10 MG TAB 1 tablet by mouth at bedtime as needed for pain FLEXERIL 10 MG TAB CYCLOBENZAPRINE HCL Inactive IBUPROFEN 800 MG TABS 1 tab every 8 hours as needed IBUPROFEN 800 MG TABS 261473 IBUPROFEN Inactive OMEPRAZOLE 20 MG CPDR 1 tablet by mouth daily OMEPRAZOLE 20 MG CPDR 19791102 OMEPRAZOLE Inactive CELEBREX 100 MG CAPS 1 tab daily CELEBREX 100 MG CAPS 258013 CELECOXIB Inactive CYCLOBENZAPRINE HCL 5 MG ORAL TABS 1/2 tab po q hs, prn CYCLOBENZAPRINE HCL 5 MG ORAL TABS 742395 CYCLOBENZAPRINE HCL Inactive OMEPRAZOLE 20 MG CPDR 1 tablet by mouth daily OMEPRAZOLE 20 MG CPDR 19791102 OMEPRAZOLE Inactive PULMICORT 0.5 MG/2ML INH SUSP mix 2 ml with 5 packets of splenda and swallow. rinse the mouth after 30 min. do not eat or drink anything for 30 min. 12/19 PULMICORT 0.5 MG/2ML INH SUSP 608444 BUDESONIDE Inactive CLARITIN 10 MG TAB 1 tablet by mouth daily as needed for allergies CLARITIN 10 MG TAB 219730 LORATADINE Inactive CELEBREX 200 MG CAPS 1 tablet by mouth daily with meals CELEBREX 200 MG CAPS 555718 CELECOXIB Inactive PRILOSEC 20 MG CAP CR 1 tab po q am PRILOSEC 20 MG CAP CR 120818 OMEPRAZOLE Inactive PROAIR HFA 108 (90 BASE) MCG/ACT AERS 2 puffs four times a day as needed 2012 PROAIR HFA 108 (90 BASE) MCG/ACT AERS ALBUTEROL SULFATE Inactive AMOXICILLIN 400 MG/5ML SUSR 12.5ml po BID x 10 days AMOXICILLIN 400 MG/5ML SUSR 586724 AMOXICILLIN Inactive PREDNISONE 20 MG TAB 2 tabs daily for 3 days, 1 tab daily for 3 days, 1/2 tab daily for 2 days PREDNISONE 20 MG TAB 450482 PREDNISONE Inactive TAMIFLU 75 MG CAPS 1 bid x 5 days TAMIFLU 75 MG CAPS OSELTAMIVIR PHOSPHATE Inactive AZITHROMYCIN 250 MG TABS 2 po qd x 1 day, then 1 po qd x 4 days AZITHROMYCIN 250 MG TABS 6830953 AZITHROMYCIN Inactive Advance Directives Directive Description Start [...] Negative;Positive Encounters Code Encounter Date Provider Facility CPT-21562 Level 3 Est. Patient 16:08:13 CDT Natanael Araujo MD [facility] CPT-15130 Level 3 Est. Patient 10:44:11 [facility] Level [facility] Est. Patient 15:58:41 ACCOUNTING ASSISTANT Natanael Araujo MD [facility] CPT-73919 Level 3 Est. Patient 16:32:02 ACCOUNTING ASSISTANT Natanael Araujo MD [facility] CPT-78662 Level 3 Est. Patient 15:45:10 CDT Natanael Araujo MD [facility] CPT-31750 Level 4 Est. Patient 16:43:28 CDT Natanael Araujo MD [facility] CPT-93122 Level 3 Est. Patient 15:06:06 CDT Natanael Araujo MD [facility] CPT-43045 Level 3 Est. Patient 13:38:04 ACCOUNTING ASSISTANT Natanael Araujo MD [facility] CPT-68649 Level 3 Est. Patient 10:18:16 ACCOUNTING ASSISTANT Natanael Araujo MD [facility] CPT-35860 Level 3 Est. Patient 16:04:12 CDT Natanael Araujo MD [facility] CPT-66133 Level 3 Est. Patient 11:25:05 CDT Natanael Araujo MD [facility] CPT-07288 Level 3 Est. Patient 13:17:34 CDT Gail Valerio [facility] CPT-18013 Level 3 Est. Patient 17:03:36 CDT Natanael Araujo MD [facility] CPT-71996 Level 2 Est. Patient 14:41:40 ACCOUNTING ASSISTANT Mahogany Garza [facility] CPT-35626 Level 3 New Patient 16:12:19 ACCOUNTING ASSISTANT Gail Valerio [facility] Procedures Code Procedure Name Date Entry Date Standard Description CPT-49686 Menactra 10:44:48 CDT CPT-97229 Administration single or combination vaccine inc oral 10 :44:48 CDT CPT-41751 Menactra 10:42:17 CDT CPT-85818 Administration single or combination vaccine inc oral 10 :42:17 CDT CPT-46331 Knee 3V 13:46:23 ACCOUNTING ASSISTANT CPT-82212 LS spine comp w obliq 16:17:55 CDT CPT-JTINJ Joint Injection 17:03:35 CDT CPT-J0561 Bicillin LA 1,200,000 u (PCN G Benzathine) 16:12:19 ACCOUNTING ASSISTANT CPT-06690 Abx/Therapy Injection 16:12:19 ACCOUNTING ASSISTANT
--- OUTSIDE RECORDS SUMMARY | 2017-09-06 14:15 | XMS REPORT | Clinical Summary ---
Author Author Admin, CRISTOPHER Organization [facility] [employer] Address Unknown Phone Unavailable Allergies, Adverse Reactions, [...] classified Eosinophilic esophagitis 530.13 Active Mahogany Garza OFFICE SERVICES CLERK Eosinophilic esophagitis Pharyngitis 462 Resolved Natanael Araujo [...] BID x 10 days 05/15 DOXYCYCLINE MONOHYDRATE 17056274940 Active Natanael Araujo MD Active SAFYRAL 3-0.03-0.451 MG ORAL TABS Take one by mouth daily DROSPIREN-ETH ESTRAD-LEVOMEFOL 25383451496 No Longer Active Natanael Araujo MD Active NAPROXEN SODIUM 550 MG ORAL TABS 1 po BID PRN Headache NAPROXEN SODIUM 00820547749 No Longer Active Natanael Araujo MD Active PREDNISONE 10 MG ORAL TABS 3 po qd x 3 days, then 2 po qd x 3 days, then 1 po qd x 2 days PREDNISONE 93301154836 No Longer Active Natanael Araujo MD Active LEXAPRO 10 MG TABS 1 tablet by mouth daily ESCITALOPRAM OXALATE 15948772731 No Longer Active Natanael Araujo MD Active CLARITIN 10 MG TAB 1 tablet by mouth daily as needed for allergies LORATADINE 34863974990 No Longer Active Natanael Araujo MD Active OMEPRAZOLE 20 MG TBEC 1 po q a.m. 30min prior to first food intake OMEPRAZOLE 39050570337 No Longer Active Natanael Araujo MD Active ZOFRAN 4 MG TABS 1 po q6hr PRN Nausea ONDANSETRON HCL 40243621207 No Longer Active Natanael Araujo MD Active AZITHROMYCIN 250 MG TABS 2 po qd x 1 day, then 1 po qd x 4 days AZITHROMYCIN 15006739629 No Longer Active Mahogany Garza OFFICE SERVICES CLERK Active PROAIR HFA 108 (90 BASE) MCG/ACT AERS 2 puffs four times a day as needed 2012 ALBUTEROL SULFATE 13192135048 No Longer Active Natanael Araujo MD Active PRILOSEC 20 MG CAP CR 1 tab po q am OMEPRAZOLE 34711621873 No Longer Active Natanael Araujo MD Active CELEBREX 200 MG CAPS 1 tablet by mouth daily with meals CELECOXIB 12124502889 No Longer Active Natanael Araujo MD Active CLARITIN 10 MG TAB 1 tablet by mouth daily as needed for allergies LORATADINE 80979291757 No Longer Active Natanael Araujo MD Active PULMICORT 0.5 MG/2ML INH SUSP mix 2 ml with 5 packets of splenda and swallow. rinse the mouth after 30 min. do not eat or drink anything for 30 min. 12/19 BUDESONIDE 99604950855 No Longer Active Natanael Araujo MD Active OMEPRAZOLE 20 MG CPDR 1 tablet by mouth daily OMEPRAZOLE 54246383696 No Longer Active Natanael Araujo MD Active PROTONIX 40 MG SOLR 1 po q a.m. PANTOPRAZOLE SODIUM 81778232486 No Longer Active Natanael Araujo MD Active CYCLOBENZAPRINE HCL 5 MG ORAL TABS 1/2 tab po q hs, prn CYCLOBENZAPRINE HCL 05033320845 No Longer Active Natanael Araujo MD Active CELEBREX 100 MG CAPS 1 tab daily CELECOXIB 16593765169 No Longer Active Mahogany Cuellarcelsa MOLINA Active OMEPRAZOLE 20 MG CPDR 1 tablet by mouth daily OMEPRAZOLE 29504137494 No Longer Active Natanael Araujo MD Active TAMIFLU 75 MG CAPS 1 bid x 5 days OSELTAMIVIR PHOSPHATE 56797861653 No Longer Active Natanael Araujo MD Active PREDNISONE 20 MG TAB 2 tabs daily for 3 days, 1 tab daily for 3 days, 1/2 tab daily for 2 days PREDNISONE 89817238270 No Longer Active Natanael Araujo MD Active AMOXICILLIN 400 MG/5ML SUSR 12.5ml po BID x 10 days AMOXICILLIN 70277413020 No Longer Active Natanael Araujo MD Active IBUPROFEN 800 MG TABS 1 tab every 8 hours as needed IBUPROFEN 75396635774 No Longer Active Natanael Araujo MD Active FLEXERIL 10 MG TAB 1 tablet by mouth at bedtime as needed for pain CYCLOBENZAPRINE HCL 30775945334 No Longer Active Natanael Araujo MD Active AMOXICILLIN 500 MG TABS take one tab po tid x 7 days AMOXICILLIN 77299624764 No Longer Active Natanael Araujo MD Active PRILOSEC 10 MG CAP CR Take one by mouth daily OMEPRAZOLE 84541615676 No Longer Active Natanael Araujo MD Active ZYRTEC ALLERGY 10 MG CAPS Take one by mouth daily as needed 10/25 CETIRIZINE HCL 41751704218 No Longer Active Natanael Araujo MD Active ZYRTEC ALLERGY 10 MG CAPS Take one by mouth daily as needed 10/25 ZYRTEC ALLERGY 10 MG CAPS CETIRIZINE HCL Inactive PRILOSEC 10 MG CAP CR Take one by mouth daily PRILOSEC 10 MG CAP CR 771017 OMEPRAZOLE Inactive AMOXICILLIN 500 MG TABS take one tab po tid x 7 days AMOXICILLIN 500 MG TABS 947267 AMOXICILLIN Inactive FLEXERIL 10 MG TAB 1 tablet by mouth at bedtime as needed for pain FLEXERIL 10 MG TAB CYCLOBENZAPRINE HCL Inactive IBUPROFEN 800 MG TABS 1 tab every 8 hours as needed IBUPROFEN 800 MG TABS 310443 IBUPROFEN Inactive OMEPRAZOLE 20 MG CPDR 1 tablet by mouth daily OMEPRAZOLE 20 MG CPDR 504836 OMEPRAZOLE Inactive CELEBREX 100 MG CAPS 1 tab daily CELEBREX 100 MG CAPS 128976 CELECOXIB Inactive CYCLOBENZAPRINE HCL 5 MG ORAL TABS 1/2 tab po q hs, prn CYCLOBENZAPRINE HCL 5 MG ORAL TABS 556914 CYCLOBENZAPRINE HCL Inactive OMEPRAZOLE 20 MG CPDR 1 tablet by mouth daily OMEPRAZOLE 20 MG CPDR 19791102 OMEPRAZOLE Inactive PULMICORT 0.5 MG/2ML INH SUSP mix 2 ml with 5 packets of splenda and swallow. rinse the mouth after 30 min. do not eat or drink anything for 30 min. 12/19 PULMICORT 0.5 MG/2ML INH SUSP 152071 BUDESONIDE Inactive CLARITIN 10 MG TAB 1 tablet by mouth daily as needed for allergies CLARITIN 10 MG TAB 545479 LORATADINE Inactive CELEBREX 200 MG CAPS 1 tablet by mouth daily with meals CELEBREX 200 MG CAPS 968281 CELECOXIB Inactive PRILOSEC 20 MG CAP CR 1 tab po q am PRILOSEC 20 MG CAP CR 324755 OMEPRAZOLE Inactive PROAIR HFA 108 (90 BASE) MCG/ACT AERS 2 puffs four times a day as needed 2012 PROAIR HFA 108 (90 BASE) MCG/ACT AERS ALBUTEROL SULFATE Inactive ZOFRAN 4 MG TABS 1 po q6hr PRN Nausea ZOFRAN 4 MG TABS 884809 ONDANSETRON HCL Inactive OMEPRAZOLE 20 MG TBEC 1 po q a.m. 30min prior to first food intake OMEPRAZOLE 20 MG TBEC 001032 OMEPRAZOLE Inactive CLARITIN 10 MG TAB 1 tablet by mouth daily as needed for allergies CLARITIN 10 MG TAB 994951 LORATADINE Inactive LEXAPRO 10 MG TABS 1 tablet by mouth daily LEXAPRO 10 MG TABS 355176 ESCITALOPRAM OXALATE Inactive NAPROXEN SODIUM 550 MG ORAL TABS 1 po BID PRN Headache NAPROXEN SODIUM 550 MG ORAL TABS 182000 NAPROXEN SODIUM Inactive SAFYRAL 3-0.03-0.451 MG ORAL TABS Take one by mouth daily SAFYRAL 3-0.03-0.451 MG ORAL TABS 8512729 DROSPIREN-ETH ESTRAD-LEVOMEFOL Inactive AMOXICILLIN 400 MG/5ML SUSR 12.5ml po BID x 10 days AMOXICILLIN 400 MG/5ML SUSR 722440 AMOXICILLIN Inactive PREDNISONE 20 MG TAB 2 tabs daily for 3 days, 1 tab daily for 3 days, 1/2 tab daily for 2 days PREDNISONE 20 MG TAB 062182 PREDNISONE Inactive TAMIFLU 75 MG CAPS 1 bid x 5 days TAMIFLU 75 MG CAPS 791373 OSELTAMIVIR PHOSPHATE Inactive AZITHROMYCIN 250 MG TABS 2 po qd x 1 day, then 1 po qd x 4 days AZITHROMYCIN 250 MG TABS 139391 AZITHROMYCIN Inactive PREDNISONE 10 MG ORAL TABS 3 po qd x 3 days, then 2 po qd x 3 days, then 1 po qd x 2 days PREDNISONE 10 MG ORAL TABS 724289 PREDNISONE Inactive Advance Directives Directive Description Start [...] ... - Chemistry sodium, serum 144 mmol/L 941-269 9541/11/02 carbon dioxide, venous blood 25.2 mmol/L 21.0-32.0 [...] 142-424 Encounters Code Encounter Date Provider Facility CPT-52526 Level 4 Est. Patient 09:59:40 CDT Natanael Araujo MD [facility] CPT-83613 Level 3 Est. Patient 14:27:39 CDT Natanael Araujo MD [facility] CPT-17159 Level 3 Est. Patient 16:08:13 CDT Natanael Araujo MD [facility] CPT-39183 Level 3 Est. Patient 10:44:11 [facility] Est. Patient 15:58:41 METERMAN Natanael Araujo MD [facility] CPT-62299 Level 3 Est. Patient 16:32:02 METERMAN Natanael Araujo MD [facility] CPT-72242 Level 3 Est. Patient 15:45:10 CDT Natanael Araujo MD [facility] CPT-29603 Level 4 Est. Patient 16:43:28 CDT Natanael Araujo MD [facility] CPT-12593 Level 3 Est. Patient 15:06:06 CDT Natanael Araujo MD [facility] CPT-84856 Level 3 Est. Patient 13:38:04 METERMAN Natanael Araujo MD [facility] CPT-30747 Level 3 Est. Patient 10:18:16 METERMAN Natanael Araujo MD [facility] CPT-28823 Level 3 Est. Patient 16:04:12 CDT Natanael Araujo MD [facility] CPT-50338 Level 3 Est. Patient 11:25:05 CDT Natanael Araujo MD [facility] CPT-33214 Level 3 Est. Patient 13:17:34 CDT Gail Valerio [facility] CPT-93987 Level 3 Est. Patient 17:03:36 CDT Natanael Araujo MD [facility] CPT-33334 Level 2 Est. Patient 14:41:40 METERMAN Mahogany Garza [facility] CPT-53776 Level 3 New Patient 16:12:19 METERMAN Gail Valerio [facility] Procedures Code Procedure Name Date Entry Date Standard Description CPT-88990 Menactra 10:44:48 CDT CPT-18842 Administration single or combination vaccine inc oral 10 :44:48 CDT CPT-00110 Menactra 10:42:17 CDT CPT-74777 Administration single or combination vaccine inc oral 10 :42:17 CDT CPT-50467 Knee 3V 13:46:23 METERMAN CPT-00016 LS spine comp w obliq 16:17:55 CDT CPT-JTINJ Joint Injection 17:03:35 CDT CPT-J0561 Bicillin LA 1,200,000 u (PCN G Benzathine) 16:12:19 METERMAN [facility]-20555 Abx/Therapy Injection 16:12:19 METERMAN
--- OUTSIDE RECORDS SUMMARY | 2017-09-06 14:16 | XMS REPORT | Clinical Summary ---
Author Author Admin, CRISTOPHER Organization [facility] Address Unknown Phone Unavailable Allergies, Adverse Reactions, [...] drink anything for 30 min. 12/19 BUDESONIDE 18095545481 Active Jillina Frazell FINAL INSPECTION SUPERVISOR Active CLARITIN 10 MG TAB 1 tablet by mouth daily as needed for allergies LORATADINE 84394372417 Active Mahogany Garza APRN Active PRILOSEC 20 MG CAP CR 1 tab po q am OMEPRAZOLE 79850449725 Active Mahogany Garza APRN Active CELEBREX 200 MG CAPS 1 tablet by mouth daily with meals CELECOXIB 78879965960 Active Natanael Araujo MD Active OMEPRAZOLE 20 MG CPDR 1 tablet by mouth daily OMEPRAZOLE 09537438172 No Longer Active Natanael Araujo MD Active PROTONIX 40 MG SOLR 1 po q a.m. PANTOPRAZOLE SODIUM 88944912346 No Longer Active Natanael Araujo MD Active CYCLOBENZAPRINE HCL 5 MG ORAL TABS 1/2 tab po q hs, prn CYCLOBENZAPRINE HCL 08246625875 No Longer Active Natanael Araujo MD Active CELEBREX 100 MG CAPS 1 tab daily CELECOXIB 49011753697 No Longer Active Mahogany Garza APRN Active OMEPRAZOLE 20 MG CPDR 1 tablet by mouth daily OMEPRAZOLE 09636238452 No Longer Active Natanael Araujo MD Active TAMIFLU 75 MG CAPS 1 bid x 5 days OSELTAMIVIR PHOSPHATE 67616158416 No Longer Active Natanael Araujo MD Active PREDNISONE 20 MG TAB 2 tabs daily for 3 days, 1 tab daily for 3 days, 1/2 tab daily for 2 days PREDNISONE 73129215057 No Longer Active Natanael Araujo MD Active AMOXICILLIN 400 MG/5ML SUSR 12.5ml po BID x 10 days AMOXICILLIN 58656363305 No Longer Active Natanael Araujo MD Active IBUPROFEN 800 MG TABS 1 tab every 8 hours as needed IBUPROFEN 78479565878 No Longer Active Natanael Araujo MD Active PROAIR HFA 108 (90 BASE) MCG/ACT AERS 2 puffs four times a day as needed 2012 ALBUTEROL SULFATE 97677148998 Active Mahogany Garza TRACY Active FLEXERIL 10 MG TAB 1 tablet by mouth at bedtime as needed for pain CYCLOBENZAPRINE HCL 51987896811 No Longer Active Natanael Araujo MD Active AMOXICILLIN 500 MG TABS take one tab po tid x 7 days AMOXICILLIN 09200947397 No Longer Active Natanael Araujo MD Active PRILOSEC 10 MG CAP CR Take one by mouth daily OMEPRAZOLE 73037675642 No Longer Active Natanael Araujo MD Active ZYRTEC ALLERGY 10 MG CAPS Take one by mouth daily as needed 10/25 CETIRIZINE HCL 71787362294 No Longer Active Natanael Araujo MD Active ZYRTEC ALLERGY 10 MG CAPS Take one by mouth daily as needed 10/25 ZYRTEC ALLERGY 10 MG CAPS CETIRIZINE HCL Inactive PRILOSEC 10 MG CAP CR Take one by mouth daily PRILOSEC 10 MG CAP CR 999720 OMEPRAZOLE Inactive AMOXICILLIN 500 MG TABS take one tab po tid x 7 days AMOXICILLIN 500 MG TABS 188357 AMOXICILLIN Inactive FLEXERIL 10 MG TAB 1 tablet by mouth at bedtime as needed for pain FLEXERIL 10 MG TAB CYCLOBENZAPRINE HCL Inactive IBUPROFEN 800 MG TABS 1 tab every 8 hours as needed IBUPROFEN 800 MG TABS 961446 IBUPROFEN Inactive OMEPRAZOLE 20 MG CPDR 1 tablet by mouth daily OMEPRAZOLE 20 MG CPDR 19791102 OMEPRAZOLE Inactive CELEBREX 100 MG CAPS 1 tab daily CELEBREX 100 MG CAPS 580972 CELECOXIB Inactive CYCLOBENZAPRINE HCL 5 MG ORAL TABS 1/2 tab po q hs, prn CYCLOBENZAPRINE HCL 5 MG ORAL TABS 300479 CYCLOBENZAPRINE HCL Inactive OMEPRAZOLE 20 MG CPDR 1 tablet by mouth daily OMEPRAZOLE 20 MG CPDR 19791102 OMEPRAZOLE Inactive AMOXICILLIN 400 MG/5ML SUSR 12.5ml po BID x 10 days AMOXICILLIN 400 MG/5ML SUSR 118464 AMOXICILLIN Inactive PREDNISONE 20 MG TAB 2 tabs daily for 3 days, 1 tab daily for 3 days, 1/2 tab daily for 2 days PREDNISONE 20 MG TAB 265575 PREDNISONE Inactive TAMIFLU 75 MG CAPS 1 [...] AUTO - Chemistry sodium, serum 143 mmol/L 107-505 4441/01/07 potassium, serum 4.2 mmol/L 3.5-5.2 chloride, serum [...] Negative Encounters Code Encounter Date Provider Facility CPT-82659 Level 3 Est. Patient 15:45:10 CDT Natanael Araujo MD [facility] CPT-90129 Level 4 Est. Patient 16:43:28 CDT Natanael Araujo MD [facility] CPT-13312 Level 3 Est. Patient 15:06:06 CDT Natanael Araujo MD [facility] CPT-97811 Level 3 Est. 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 Patient 10:18:16 ROTARY BAR OPERATOR Natanael Araujo MD [facility] CPT-50710 Level 3 Est. Patient 16:04:12 CDT Natanael Araujo MD [facility] CPT-00440 Level 3 Est. Patient 11:25:05 CDT Natanael Araujo MD [facility] CPT-14621 Level 3 Est. Patient 13:17:34 CDT Gail Valerio [facility] CPT-85172 Level 3 Est. Patient 17:03:36 CDT Natanael Araujo MD [facility] CPT-90661 Level 2 Est. Patient 14:41:40 ROTARY BAR OPERATOR [facility] Level 3 New Patient 16:12:19 ROTARY BAR OPERATOR Gail Valerio [facility] Procedures Code Procedure Name Date Entry Date Standard Description CPT-06098 Knee 3V 13:46:23 ROTARY BAR OPERATOR CPT-71089 LS spine comp w obliq 16:17:55 CDT CPT-JTINJ Joint Injection 17:03:35 CDT CPT-J0561 Bicillin LA 1,200,000 u (PCN G Benzathine) 16:12:19 ROTARY BAR OPERATOR CPT-88764 Abx/Therapy Injection 16:12:19 ROTARY BAR OPERATOR
--- OUTSIDE RECORDS SUMMARY | 2017-09-06 14:17 | XMS REPORT | Clinical Summary ---
Author Author Admin, CRISTOPHER Organization [facility] [employer] Address Unknown Phone Unavailable Allergies, Adverse Reactions, [...] drink anything for 30 min. 12/19 BUDESONIDE 61705340491 Active Jillina Frazell INSPECTOR WIRE ROPE Active CLARITIN 10 MG TAB 1 tablet by mouth daily as needed for allergies LORATADINE 32706960045 Active Mahogany Garza APRN Active PRILOSEC 20 MG CAP CR 1 tab po q am OMEPRAZOLE 44195391909 Active Mahogany Garza APRN Active CELEBREX 200 MG CAPS 1 tablet by mouth daily with meals CELECOXIB 77346852242 Active Natanael Araujo MD Active OMEPRAZOLE 20 MG CPDR 1 tablet by mouth daily OMEPRAZOLE 60531463416 No Longer Active Natanael Araujo MD Active PROTONIX 40 MG SOLR 1 po q a.m. PANTOPRAZOLE SODIUM 14488727078 No Longer Active Natanael Araujo MD Active CYCLOBENZAPRINE HCL 5 MG ORAL TABS 1/2 tab po q hs, prn CYCLOBENZAPRINE HCL 81683267167 No Longer Active Natanael Araujo MD Active CELEBREX 100 MG CAPS 1 tab daily CELECOXIB 44965166851 No Longer Active Mahogany Garza APRN Active OMEPRAZOLE 20 MG CPDR 1 tablet by mouth daily OMEPRAZOLE 94457422018 No Longer Active Natanael Araujo MD Active TAMIFLU 75 MG CAPS 1 bid x 5 days OSELTAMIVIR PHOSPHATE 61091200414 No Longer Active Natanael Araujo MD Active PREDNISONE 20 MG TAB 2 tabs daily for 3 days, 1 tab daily for 3 days, 1/2 tab daily for 2 days PREDNISONE 21781911007 No Longer Active Natanael Araujo MD Active AMOXICILLIN 400 MG/5ML SUSR 12.5ml po BID x 10 days AMOXICILLIN 49572246853 No Longer Active Natanael Araujo MD Active IBUPROFEN 800 MG TABS 1 tab every 8 hours as needed IBUPROFEN 14596315171 No Longer Active Natanael Araujo MD Active PROAIR HFA 108 (90 BASE) MCG/ACT AERS 2 puffs four times a day as needed 2012 ALBUTEROL SULFATE 94284399823 Active Mahogany Garza APRN Active FLEXERIL 10 MG TAB 1 tablet by mouth at bedtime as needed for pain CYCLOBENZAPRINE HCL 74028551308 No Longer Active Natanael Araujo MD Active AMOXICILLIN 500 MG TABS take one tab po tid x 7 days AMOXICILLIN 49676616925 No Longer Active Natanael Araujo MD Active PRILOSEC 10 MG CAP CR Take one by mouth daily OMEPRAZOLE 63689639038 No Longer Active Natanael Araujo MD Active ZYRTEC ALLERGY 10 MG CAPS Take one by mouth daily as needed 10/25 CETIRIZINE HCL 62919938962 No Longer Active Natanael Araujo MD Active FLEXERIL 10 MG TAB 1 tablet by mouth at bedtime as needed for pain FLEXERIL 10 MG TAB CYCLOBENZAPRINE HCL Inactive IBUPROFEN 800 MG TABS 1 tab every 8 hours as needed IBUPROFEN 800 MG TABS 775558 IBUPROFEN Inactive PREDNISONE 20 MG TAB 2 tabs daily for 3 days, 1 tab daily for 3 days, 1/2 tab daily for 2 days PREDNISONE 20 MG TAB 128718 PREDNISONE Inactive PRILOSEC 10 MG CAP CR Take one by mouth daily PRILOSEC 10 MG CAP CR 503513 OMEPRAZOLE Inactive AMOXICILLIN 500 MG TABS take one tab po tid x 7 days AMOXICILLIN 500 MG TABS 029840 AMOXICILLIN Inactive CELEBREX 100 MG CAPS 1 tab daily CELEBREX 100 MG CAPS 681867 CELECOXIB Inactive AMOXICILLIN 400 MG/5ML SUSR 12.5ml po BID x 10 days AMOXICILLIN 400 MG/5ML SUSR 994017 AMOXICILLIN Inactive TAMIFLU 75 MG CAPS 1 bid x 5 days TAMIFLU 75 MG CAPS OSELTAMIVIR PHOSPHATE Inactive OMEPRAZOLE 20 MG CPDR 1 tablet by mouth daily OMEPRAZOLE 20 MG CPDR 069617 OMEPRAZOLE Inactive OMEPRAZOLE 20 MG CPDR 1 tablet by mouth daily OMEPRAZOLE 20 MG CPDR 672841 OMEPRAZOLE Inactive CYCLOBENZAPRINE HCL 5 MG ORAL TABS 1/2 tab po q hs, prn CYCLOBENZAPRINE HCL 5 MG ORAL TABS 154815 CYCLOBENZAPRINE HCL Inactive ZYRTEC ALLERGY 10 MG CAPS Take one by mouth daily as needed 10/25 ZYRTEC ALLERGY 10 MG CAPS CETIRIZINE HCL Inactive Advance Directives Directive Description Start Date [...] AUTO - Chemistry sodium, serum 143 mmol/L 553-972 2270/01/07 potassium, serum 4.2 mmol/L 3.5-5.2 chloride, serum [...] Negative Encounters Code Encounter Date Provider Facility CPT-98430 Level 3 Est. Patient 15:45:10 CDT Natanael Araujo MD [facility] CPT-88811 Level 4 Est. Patient 16:43:28 CDT Natanael Araujo MD [facility] CPT-57562 Level 3 Est. Patient 15:06:06 CDT Natanael Araujo MD [facility] CPT-92264 Level 3 Est. 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 Patient 10:18:16 ELECTRICAL ENGINEER MEP Natanael Araujo MD [facility] CPT-56942 Level 3 Est. Patient 16:04:12 CDT Natanael Araujo MD [facility] CPT-28115 Level 3 Est. Patient 11:25:05 CDT Natanael Araujo MD [facility] CPT-62445 Level 3 Est. Patient 13:17:34 CDT Gail Valerio [facility] CPT-04479 Level 3 Est. Patient 17:03:36 CDT Natanael Araujo MD [facility] CPT-25707 Level 2 Est. Patient 14:41:40 ELECTRICAL ENGINEER MEP [facility] Level 3 New Patient 16:12:19 ELECTRICAL ENGINEER MEP Gail Valerio [facility] Procedures Code Procedure Name Date Entry Date Standard Description CPT-78815 Knee 3V 13:46:23 ELECTRICAL ENGINEER MEP CPT-84099 LS spine comp w obliq 16:17:55 CDT CPT-JTINJ Joint Injection 17:03:35 CDT CPT-J0561 Bicillin LA 1,200,000 u (PCN G Benzathine) 16:12:19 ELECTRICAL ENGINEER MEP CPT-91382 Abx/Therapy Injection 16:12:19 ELECTRICAL ENGINEER MEP
--- OUTSIDE RECORDS SUMMARY | 2017-09-06 14:17 | XMS REPORT | Clinical Summary ---
Author Author Admin, CRISTOPHER Organization [employer] Address Unknown Phone Unavailable Allergies, Adverse Reactions, [...] Natanael Araujo MD Knee pain, left ICD-719.46 Chelsea Araujo MD Postconcussion syndrome ICD-310.2 Inactive Natanael Araujo MD Back pain ICD-724.5 Inactive Natanael Araujo MD Medication List Medication Instructions Start Date Stop Date Generic Name NDC Status Provider Patient Instruction PULMICORT 0.5 MG/2ML INH SUSP mix 2 ml with 5 packets of splenda and swallow. rinse the mouth after 30 min. do not eat or drink anything for 30 min. 12/19 BUDESONIDE 59610405052 Active Jillina Frazell SIGN WRITER HAND Active CLARITIN 10 MG TAB 1 tablet by mouth daily as needed for allergies LORATADINE 75422288881 Active Mahogany Garza APRN Active PRILOSEC 20 MG CAP CR 1 tab po q am OMEPRAZOLE 28054750074 Active Mahogany Garza APRN Active CELEBREX 200 MG CAPS 1 tablet by mouth daily with meals CELECOXIB 31937809541 Active Natanael Araujo MD Active OMEPRAZOLE 20 MG CPDR 1 tablet by mouth daily OMEPRAZOLE 61814001140 No Longer Active Natanael Araujo MD Active PROTONIX 40 MG SOLR 1 po q a.m. PANTOPRAZOLE SODIUM 01204116472 No Longer Active Natanael Araujo MD Active CYCLOBENZAPRINE HCL 5 MG ORAL TABS 1/2 tab po q hs, prn CYCLOBENZAPRINE HCL 82935403033 No Longer Active Natanael Araujo MD Active CELEBREX 100 MG CAPS 1 tab daily CELECOXIB 72470963651 No Longer Active Mahogany Garza APRN Active OMEPRAZOLE 20 MG CPDR 1 tablet by mouth daily OMEPRAZOLE 83126364310 No Longer Active Natanael Araujo MD Active TAMIFLU 75 MG CAPS 1 bid x 5 days OSELTAMIVIR PHOSPHATE 81582785769 No Longer Active Natanael Araujo MD Active PREDNISONE 20 MG TAB 2 tabs daily for 3 days, 1 tab daily for 3 days, 1/2 tab daily for 2 days PREDNISONE 45015268414 No Longer Active Natanael Araujo MD Active AMOXICILLIN 400 MG/5ML SUSR 12.5ml po BID x 10 days AMOXICILLIN 57971358692 No Longer Active Natanael Araujo MD Active IBUPROFEN 800 MG TABS 1 tab every 8 hours as needed IBUPROFEN 63408641278 No Longer Active Natanael Araujo MD Active PROAIR HFA 108 (90 BASE) MCG/ACT AERS 2 puffs four times a day as needed 2012 ALBUTEROL SULFATE 45995016613 Active Mahogany Garza APRN Active FLEXERIL 10 MG TAB 1 tablet by mouth at bedtime as needed for pain CYCLOBENZAPRINE HCL 04041621548 No Longer Active Natanael Araujo MD Active AMOXICILLIN 500 MG TABS take one tab po tid x 7 days AMOXICILLIN 61556201227 No Longer Active Natanael Araujo MD Active PRILOSEC 10 MG CAP CR Take one by mouth daily OMEPRAZOLE 98970706634 No Longer Active Natanael Araujo MD Active ZYRTEC ALLERGY 10 MG CAPS Take one by mouth daily as needed 10/25 CETIRIZINE HCL 71769497166 No Longer Active Natanael Araujo MD Active ZYRTEC ALLERGY 10 MG CAPS Take one by mouth daily as needed 10/25 ZYRTEC ALLERGY 10 MG CAPS CETIRIZINE HCL Inactive PRILOSEC 10 MG CAP CR Take one by mouth daily PRILOSEC 10 MG CAP CR 932834 OMEPRAZOLE Inactive AMOXICILLIN 500 MG TABS take one tab po tid x 7 days AMOXICILLIN 500 MG TABS 783965 AMOXICILLIN Inactive FLEXERIL 10 MG TAB 1 tablet by mouth at bedtime as needed for pain FLEXERIL 10 MG TAB CYCLOBENZAPRINE HCL Inactive IBUPROFEN 800 MG TABS 1 tab every 8 hours as needed IBUPROFEN 800 MG TABS 569872 IBUPROFEN Inactive OMEPRAZOLE 20 MG CPDR 1 tablet by mouth daily OMEPRAZOLE 20 MG CPDR 555786 OMEPRAZOLE Inactive CELEBREX 100 MG CAPS 1 tab daily CELEBREX 100 MG CAPS 998526 CELECOXIB Inactive CYCLOBENZAPRINE HCL 5 MG ORAL TABS 1/2 tab po q hs, prn CYCLOBENZAPRINE HCL 5 MG ORAL TABS 287866 CYCLOBENZAPRINE HCL Inactive OMEPRAZOLE 20 MG CPDR 1 tablet by mouth daily OMEPRAZOLE 20 MG CPDR 685507 OMEPRAZOLE Inactive AMOXICILLIN 400 MG/5ML SUSR 12.5ml po BID x 10 days AMOXICILLIN 400 MG/5ML SUSR 390824 AMOXICILLIN Inactive PREDNISONE 20 MG TAB 2 tabs daily for 3 days, 1 tab daily for 3 days, 1/2 tab daily for 2 days PREDNISONE 20 MG TAB 817644 PREDNISONE Inactive TAMIFLU 75 MG CAPS 1 [...] AUTO - Chemistry sodium, serum 143 mmol/L 024-109 9984/01/07 potassium, serum 4.2 mmol/L 3.5-5.2 chloride, serum [...] Negative Encounters Code Encounter Date Provider Facility CPT-74023 Level 3 Est. Patient 15:45:10 CDT Natanael Araujo MD [facility] CPT-75345 Level 4 Est. Patient 16:43:28 CDT Natanael Araujo MD [facility] CPT-38292 Level 3 Est. Patient 15:06:06 CDT Natanael Araujo MD [facility] CPT-38339 Level 3 Est. Patient 13:38:04 GEOMETRY PROFESSOR Natanael Araujo MD [facility] CPT-50054 Level 3 Est. Patient 10:18:16 GEOMETRY PROFESSOR Natanael Araujo MD [facility] CPT-41920 Level 3 Est. Patient 16:04:12 CDT Natanael Araujo MD [facility] CPT-62048 Level 3 Est. Patient 11:25:05 CDT Natanael Araujo MD [facility] CPT-07213 Level 3 Est. Patient 13:17:34 CDT Gail KIMBALL [facility] CPT-31470 Level 3 Est. Patient 17:03:36 CDT Natanael Araujo MD [facility] CPT-63509 Level 2 Est. Patient 14:41:40 GEOMETRY PROFESSOR Mahogany Garza APRN [facility] CPT-30231 Level 3 New Patient 16:12:19 GEOMETRY PROFESSOR Gail Valerio [facility] Procedures Code Procedure Name Date Entry Date Standard Description CPT-26573 Knee 3V 13:46:23 GEOMETRY PROFESSOR CPT-98239 LS spine comp w obliq 16:17:55 CDT CPT-JTINJ Joint Injection 17:03:35 CDT CPT-J0561 Bicillin LA 1,200,000 u (PCN G Benzathine) 16:12:19 GEOMETRY PROFESSOR CPT-88953 Abx/Therapy Injection 16:12:19 GEOMETRY PROFESSOR
--- OUTSIDE RECORDS SUMMARY | 2017-09-06 14:18 | XMS REPORT | Referral Summary ---
Author Author [facility] Organization [facility] Address Unknown Phone Unavailable Care Team Providers Care Cylinder Handler Name Role Phone Natanael Araujo PCP Encounter [facility] [id number] Date(s): 02/20/15 - 02/20/15 [facility] [address] [place] [address] Discharge Diagnosis: LBP Discharge Diagnosis: Back pain, low back Discharge Diagnosis: Acute low back pain Discharge Diagnosis: Back pain, low back Discharge Disposition: 01-Home or Self Care Attending Physician: Slade Rivera DO Admitting Physician: Slade Rivera DO Vital Signs Most recent to 1 oldest [Reference Range]: Apical Heart Rate 56 bpm [60-100 bpm] *LOW* (02/20/15 9:32 AM) Blood Pressure 118/60 mmHg [90-140/60-90 mmHg] (02/20/15 9:32 AM) Problem List No data available for this section Allergies, Adverse Reactions, Alerts No Known Medication Allergies Medications sertraline 25 mg oral tablet 25 mg 1 tabs, Oral, Daily, # 30 tabs, 0 Refill(s) Start Date: 02/19/15 Status: Ordered Results No data available for this section Immunizations No data available for this section Procedures Procedure Date Related Diagnosis Body Site Angiography of coronary arteries 2012 Social History Social History Type Response Smoking Status Never smoker Assessment and Plan Extracted from: Title: [facility] - Back Pain Author: Luigi Jasso MD Date: 02/20/15 Assessment/Plan Back pain, low back LBP IMAGING - MRI Lumbar spine with thinly slicedstacked axials at T2 FS in all planes were obtained and reviewed today (02-20-2015) : There isno spondylolysis, listhesis, bony tumor, or significant disc degeneration. There was very mild disc herniation on L5-S1 but not significant and no nerve or neuroforamen stenosis. There was some mild facet arthrosis b/l (R>l)in L3-L4 and L4-L5. -Plain X-rays Lumbar Spine withFlexion/Extension views were obtained and reviewed today (02-20-2015): No evidence of listhesis in either direction. Assessment - Facet Syndrome L3-L5 -Refractory low back pain that is causing significant pain and limitations in volleyball. Plan -The following recommendations were discussed with the patient and her mother today: - Start Prednisone 50 mg x 7 days today. Prednisone precautions discussed. - Continue with ibuprofen after prednisone burst finished. NSAID precautions discussed. - Discussed the need for injection today. Given the above findings on MRI and the lack at achieving relief with the previous facet injection, we recommended not doing another facet injection or LESI. - Reevaluate in 2 weeks. If pain is improved at that time, she may continue to play as tolerated during the season. However, if pain is not improved, we discussed the possibility of shutting her down from volleyball altogether. The patient and her mother realize this is an extremely difficult situation but they are going to try to decide if the pain is worth the effort to continue volleyball. We also discussed the possibility of trying track, but that would possibly require transferring to another school. The patient and her mother will come back in 2 weeks to reevaluate her pain. -Images as noted above were reviewed with the patient and her mother. Assessment and plan discussed with patient and mother. All questions answered. Patient and mother demonstrated understanding and agreement with plan. - I discussed the patient with Dr Rivera. The preceptor also was present for the proctor portion of the encounter. -I discussed the patient with the Sports Medicine Fellow, reviewed the chart and was physically present during the critical portion of the provided service, and concur with the assessment and plan as above.
--- OUTSIDE RECORDS SUMMARY | 2017-09-06 14:18 | XMS REPORT | Clinical Summary ---
Author Author Admin, CRISTOPHER Organization [employer] Address Unknown Phone Unavailable Allergies, Adverse Reactions, [...] classified Eosinophilic esophagitis 530.13 Active Mahogany Garza METALLURGY LABORATORY TECHNICIAN Eosinophilic esophagitis Pharyngitis 462 Resolved Natanael [...] 1 po BID PRN Headache NAPROXEN SODIUM 70164044382 Active Natanael Araujo MD Active PREDNISONE 10 MG ORAL TABS 3 po qd x 3 days, then 2 po qd x 3 days, then 1 po qd x 2 days PREDNISONE 95711196312 Active Natanael Araujo MD Active SAFYRAL 3-0.03-0.451 MG ORAL TABS Take one by mouth daily DROSPIREN- ETH ESTRAD-LEVOMEFOL 04313580862 Active Natanael Araujo MD Active LEXAPRO 10 MG TABS 1 tablet by mouth daily ESCITALOPRAM OXALATE 21623071021 No Longer Active Natanael Araujo MD Active CLARITIN 10 MG TAB 1 tablet by mouth daily as needed for allergies LORATADINE 28493234217 No Longer Active Natanael Araujo MD Active OMEPRAZOLE 20 MG TBEC 1 po q a.m. 30min prior to first food intake OMEPRAZOLE 66752626983 No Longer Active Natanael Araujo MD Active ZOFRAN 4 MG TABS 1 po q6hr PRN Nausea ONDANSETRON HCL 29545666114 No Longer Active Natanael Araujo MD Active AZITHROMYCIN 250 MG TABS 2 po qd x 1 day, then 1 po qd x 4 days AZITHROMYCIN 96183622670 No Longer Active Mahogany Garza METALLURGY LABORATORY TECHNICIAN Active PROAIR HFA 108 (90 BASE) MCG/ACT AERS 2 puffs four times a day as needed 2012 ALBUTEROL SULFATE 63745927004 No Longer Active Natanael Araujo MD Active PRILOSEC 20 MG CAP CR 1 tab po q am OMEPRAZOLE 68345746629 No Longer Active Natanael Araujo MD Active CELEBREX 200 MG CAPS 1 tablet by mouth daily with meals CELECOXIB 82169734740 No Longer Active Natanael Araujo MD Active CLARITIN 10 MG TAB 1 tablet by mouth daily as needed for allergies LORATADINE 57941970400 No Longer Active Natanael Araujo MD Active PULMICORT 0.5 MG/2ML INH SUSP mix 2 ml with 5 packets of splenda and swallow. rinse the mouth after 30 min. do not eat or drink anything for 30 min. 12/19 BUDESONIDE 93251733678 No Longer Active Natanael Araujo MD Active OMEPRAZOLE 20 MG CPDR 1 tablet by mouth daily OMEPRAZOLE 54231422791 No Longer Active Natanael Araujo MD Active PROTONIX 40 MG SOLR 1 po q a.m. PANTOPRAZOLE SODIUM 34089889421 No Longer Active Natanael Araujo MD Active CYCLOBENZAPRINE HCL 5 MG ORAL TABS 1/2 tab po q hs, prn CYCLOBENZAPRINE HCL 87044401523 No Longer Active Natanael Araujo MD Active CELEBREX 100 MG CAPS 1 tab daily CELECOXIB 48535345171 No Longer Active Mahogany Garza APRN Active OMEPRAZOLE 20 MG CPDR 1 tablet by mouth daily OMEPRAZOLE 19728630162 No Longer Active Natanael Araujo MD Active TAMIFLU 75 MG CAPS 1 bid x 5 days OSELTAMIVIR PHOSPHATE 19607841545 No Longer Active Natanael Araujo MD Active PREDNISONE 20 MG TAB 2 tabs daily for 3 days, 1 tab daily for 3 days, 1/2 tab daily for 2 days PREDNISONE 03090610223 No Longer Active Natanael Araujo MD Active AMOXICILLIN 400 MG/5ML SUSR 12.5ml po BID x 10 days AMOXICILLIN 30731960363 No Longer Active Natanael Araujo MD Active IBUPROFEN 800 MG TABS 1 tab every 8 hours as needed IBUPROFEN 11733174135 No Longer Active Natanael Araujo MD Active FLEXERIL 10 MG TAB 1 tablet by mouth at bedtime as needed for pain CYCLOBENZAPRINE HCL 85992676023 No Longer Active Natanael Araujo MD Active AMOXICILLIN 500 MG TABS take one tab po tid x 7 days AMOXICILLIN 51144071940 No Longer Active Natanael Araujo MD Active PRILOSEC 10 MG CAP CR Take one by mouth daily OMEPRAZOLE 89087515690 No Longer Active Natanael Araujo MD Active ZYRTEC ALLERGY 10 MG CAPS Take one by mouth daily as needed 10/25 CETIRIZINE HCL 73532067668 No Longer Active Natanael Araujo MD Active ZYRTEC ALLERGY 10 MG CAPS Take one by mouth daily as needed 10/25 ZYRTEC ALLERGY 10 MG CAPS CETIRIZINE HCL Inactive PRILOSEC 10 MG CAP CR Take one by mouth daily PRILOSEC 10 MG CAP CR OMEPRAZOLE Inactive AMOXICILLIN 500 MG TABS take one tab po tid x 7 days AMOXICILLIN 500 MG TABS 064108 AMOXICILLIN Inactive FLEXERIL 10 MG TAB 1 tablet by mouth at bedtime as needed for pain FLEXERIL 10 MG TAB CYCLOBENZAPRINE HCL Inactive IBUPROFEN 800 MG TABS 1 tab every 8 hours as needed IBUPROFEN 800 MG TABS 392267 IBUPROFEN Inactive OMEPRAZOLE 20 MG CPDR 1 tablet by mouth daily OMEPRAZOLE 20 MG CPDR 19791102 OMEPRAZOLE Inactive CELEBREX 100 MG CAPS 1 tab daily CELEBREX 100 MG CAPS 267346 CELECOXIB Inactive CYCLOBENZAPRINE HCL 5 MG ORAL TABS 1/2 tab po q hs, prn CYCLOBENZAPRINE HCL 5 MG ORAL TABS 693601 CYCLOBENZAPRINE HCL Inactive OMEPRAZOLE 20 MG CPDR 1 tablet by mouth daily OMEPRAZOLE 20 MG CPDR 19791102 OMEPRAZOLE Inactive PULMICORT 0.5 MG/2ML INH SUSP mix 2 ml with 5 packets of splenda and swallow. rinse the mouth after 30 min. do not eat or drink anything for 30 min. 12/19 PULMICORT 0.5 MG/2ML INH SUSP 742527 BUDESONIDE Inactive CLARITIN 10 MG TAB 1 tablet by mouth daily as needed for allergies CLARITIN 10 MG TAB 008178 LORATADINE Inactive CELEBREX 200 MG CAPS 1 tablet by mouth daily with meals CELEBREX 200 MG CAPS 527772 CELECOXIB Inactive PRILOSEC 20 MG CAP CR 1 tab po q am PRILOSEC 20 MG CAP CR 068983 OMEPRAZOLE Inactive PROAIR HFA 108 (90 BASE) MCG/ACT AERS 2 puffs four times a day as needed 2012 PROAIR HFA 108 (90 BASE) MCG/ACT AERS ALBUTEROL SULFATE Inactive ZOFRAN 4 MG TABS 1 po q6hr PRN Nausea ZOFRAN 4 MG TABS 206661 ONDANSETRON HCL Inactive OMEPRAZOLE 20 MG TBEC 1 po q a.m. 30min prior to first food intake OMEPRAZOLE 20 MG TBEC 761076 OMEPRAZOLE Inactive CLARITIN 10 MG TAB 1 tablet by mouth daily as needed for allergies CLARITIN 10 MG TAB 216348 LORATADINE Inactive LEXAPRO 10 MG TABS 1 tablet by mouth daily LEXAPRO 10 MG TABS 410032 ESCITALOPRAM OXALATE Inactive AMOXICILLIN 400 MG/5ML SUSR 12.5ml po BID x 10 days AMOXICILLIN 400 MG/5ML SUSR 437119 AMOXICILLIN Inactive PREDNISONE 20 MG TAB 2 tabs daily for 3 days, 1 tab daily for 3 days, 1/2 tab daily for 2 days PREDNISONE 20 MG TAB 703985 PREDNISONE Inactive TAMIFLU 75 MG CAPS 1 bid x 5 days TAMIFLU 75 MG CAPS 499825 OSELTAMIVIR PHOSPHATE Inactive AZITHROMYCIN 250 MG TABS 2 po qd x 1 day, then 1 po qd x 4 days AZITHROMYCIN 250 MG TABS 2945507 AZITHROMYCIN Inactive Advance Directives Directive Description Start [...] Measured Encounters Code Encounter Date Provider Facility CPT-57245 Level 3 Est. Patient 14:27:39 CDT Natanael Araujo MD [facility] CPT-66465 Level 3 Est. Patient 16:08:13 CDT Natanael Araujo MD [facility] CPT-77268 Level 3 Est. Patient 10:44:11 CDT Mahogany Garza APRN [facility] CPT-84373 Level 3 Est. Patient 15:58:41 THEATRE PROFESSOR Natanael Araujo MD [facility] CPT-49948 Level 3 Est. Patient 16:32:02 THEATRE PROFESSOR Natanael Araujo MD [facility] CPT-04998 Level 3 Est. Patient 15:45:10 CDT Nataneal Araujo MD [facility] CPT-78519 Level 4 Est. Patient 16:43:28 CDT Natanael Araujo MD [facility] CPT-30349 Level 3 Est. Patient 15:06:06 CDT Natanael Araujo MD [facility] CPT-16570 Level 3 Est. Patient 13:38:04 THEATRE PROFESSOR Natanael Araujo MD [facility] CPT-02777 Level 3 Est. Patient 10:18:16 THEATRE PROFESSOR Natanael Araujo MD [facility] CPT-47800 Level 3 Est. Patient 16:04:12 CDT Natanael Araujo MD [facility] CPT-72885 Level 3 Est. Patient 11:25:05 CDT Natanael Araujo MD [facility] CPT-65403 Level 3 Est. Patient 13:17:34 CDT Gail Valerio [facility] CPT-69861 Level 3 Est. Patient 17:03:36 CDT Natanael Araujo MD [facility] CPT-38151 Level 2 Est. Patient 14:41:40 THEATRE PROFESSOR Mahogany Garza [facility] CPT-85799 Level 3 New Patient 16:12:19 THEATRE PROFESSOR Gail Valerio [facility] Procedures Code Procedure Name Date Entry Date Standard Description CPT-77966 Menactra 10:44:48 CDT CPT-69250 Administration single or combination vaccine inc oral 10 :44:48 CDT CPT-73959 Menactra 10:42:17 CDT CPT-83114 Administration single or combination vaccine inc oral 10 :42:17 CDT CPT-09624 Knee 3V 13:46:23 THEATRE PROFESSOR CPT-47341 LS spine comp w obliq 16:17:55 CDT CPT-JTINJ Joint Injection 17:03:35 CDT CPT-J0561 Bicillin LA 1,200,000 u (PCN G Benzathine) 16:12:19 THEATRE PROFESSOR CPT-54099 Abx/Therapy Injection 16:12:19 THEATRE PROFESSOR
--- OUTSIDE RECORDS SUMMARY | 2017-09-06 14:18 | XMS REPORT | Clinical Summary ---
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 Eosinophilic esophagitis Pharyngitis 462 Resolved Natanael [...] 1 po BID PRN Headache NAPROXEN SODIUM 20002638016 Active Natanael rAaujo MD Active PREDNISONE 10 MG ORAL TABS 3 po qd x 3 days, then 2 po qd x 3 days, then 1 po qd x 2 days PREDNISONE 63307784071 No Longer Active Natanael Araujo MD Active SAFYRAL 3-0.03-0.451 MG ORAL TABS Take one by mouth daily DROSPIREN- ETH ESTRAD-LEVOMEFOL 39554857440 Active Natanael Araujo MD Active LEXAPRO 10 MG TABS 1 tablet by mouth daily ESCITALOPRAM OXALATE 73054459668 No Longer Active Natanael Araujo MD Active CLARITIN 10 MG TAB 1 tablet by mouth daily as needed for allergies LORATADINE 84139605308 No Longer Active Natanael Araujo MD Active OMEPRAZOLE 20 MG TBEC 1 po q a.m. 30min prior to first food intake OMEPRAZOLE 44302930216 No Longer Active Natanael Araujo MD Active ZOFRAN 4 MG TABS 1 po q6hr PRN Nausea ONDANSETRON HCL 67550201870 No Longer Active Natanael Araujo MD Active AZITHROMYCIN 250 MG TABS 2 po qd x 1 day, then 1 po qd x 4 days AZITHROMYCIN 27053302535 No Longer Active Mahogany Garza APRN Active PROAIR HFA 108 (90 BASE) MCG/ACT AERS 2 puffs four times a day as needed 2012 ALBUTEROL SULFATE 68077441007 No Longer Active Natanael Araujo MD Active PRILOSEC 20 MG CAP CR 1 tab po q am OMEPRAZOLE 09399067707 No Longer Active Natanael Araujo MD Active CELEBREX 200 MG CAPS 1 tablet by mouth daily with meals CELECOXIB 59414986779 No Longer Active Natanael Araujo MD Active CLARITIN 10 MG TAB 1 tablet by mouth daily as needed for allergies LORATADINE 32107290362 No Longer Active Natanael Araujo MD Active PULMICORT 0.5 MG/2ML INH SUSP mix 2 ml with 5 packets of splenda and swallow. rinse the mouth after 30 min. do not eat or drink anything for 30 min. 12/19 BUDESONIDE 12118006495 No Longer Active Natanael Araujo MD Active OMEPRAZOLE 20 MG CPDR 1 tablet by mouth daily OMEPRAZOLE 08327336646 No Longer Active Natanael Araujo MD Active PROTONIX 40 MG SOLR 1 po q a.m. PANTOPRAZOLE SODIUM 94433992071 No Longer Active Natanael Araujo MD Active CYCLOBENZAPRINE HCL 5 MG ORAL TABS 1/2 tab po q hs, prn CYCLOBENZAPRINE HCL 31674953946 No Longer Active Natanael Araujo MD Active CELEBREX 100 MG CAPS 1 tab daily CELECOXIB 30981147654 No Longer Active Mahogany Garza APRN Active OMEPRAZOLE 20 MG CPDR 1 tablet by mouth daily OMEPRAZOLE 04503762086 No Longer Active Natanael Araujo MD Active TAMIFLU 75 MG CAPS 1 bid x 5 days OSELTAMIVIR PHOSPHATE 32600390132 No Longer Active Natanael Araujo MD Active PREDNISONE 20 MG TAB 2 tabs daily for 3 days, 1 tab daily for 3 days, 1/2 tab daily for 2 days PREDNISONE 63776424148 No Longer Active Natanael Araujo MD Active AMOXICILLIN 400 MG/5ML SUSR 12.5ml po BID x 10 days AMOXICILLIN 22123988431 No Longer Active Natanael Araujo MD Active IBUPROFEN 800 MG TABS 1 tab every 8 hours as needed IBUPROFEN 99110418286 No Longer Active Natanael Araujo MD Active FLEXERIL 10 MG TAB 1 tablet by mouth at bedtime as needed for pain CYCLOBENZAPRINE HCL 41991453787 No Longer Active Natanael Araujo MD Active AMOXICILLIN 500 MG TABS take one tab po tid x 7 days AMOXICILLIN 02132599280 No Longer Active Natanael Araujo MD Active PRILOSEC 10 MG CAP CR Take one by mouth daily OMEPRAZOLE 56086055019 No Longer Active Natanael Araujo MD Active ZYRTEC ALLERGY 10 MG CAPS Take one by mouth daily as needed 10/25 CETIRIZINE HCL 09428135690 No Longer Active Natanael Araujo MD Active ZYRTEC ALLERGY 10 MG CAPS Take one by mouth daily as needed 10/25 ZYRTEC ALLERGY 10 MG CAPS CETIRIZINE HCL Inactive PRILOSEC 10 MG CAP CR Take one by mouth daily PRILOSEC 10 MG CAP CR OMEPRAZOLE Inactive AMOXICILLIN 500 MG TABS take one tab po tid x 7 days AMOXICILLIN 500 MG TABS 385388 AMOXICILLIN Inactive FLEXERIL 10 MG TAB 1 tablet by mouth at bedtime as needed for pain FLEXERIL 10 MG TAB CYCLOBENZAPRINE HCL Inactive IBUPROFEN 800 MG TABS 1 tab every 8 hours as needed IBUPROFEN 800 MG TABS 625139 IBUPROFEN Inactive OMEPRAZOLE 20 MG CPDR 1 tablet by mouth daily OMEPRAZOLE 20 MG CPDR 19791102 OMEPRAZOLE Inactive CELEBREX 100 MG CAPS 1 tab daily CELEBREX 100 MG CAPS 954120 CELECOXIB Inactive CYCLOBENZAPRINE HCL 5 MG ORAL TABS 1/2 tab po q hs, prn CYCLOBENZAPRINE HCL 5 MG ORAL TABS 978810 CYCLOBENZAPRINE HCL Inactive OMEPRAZOLE 20 MG CPDR 1 tablet by mouth daily OMEPRAZOLE 20 MG CPDR 19791102 OMEPRAZOLE Inactive PULMICORT 0.5 MG/2ML INH SUSP mix 2 ml with 5 packets of splenda and swallow. rinse the mouth after 30 min. do not eat or drink anything for 30 min. 12/19 PULMICORT 0.5 MG/2ML INH SUSP 574752 BUDESONIDE Inactive CLARITIN 10 MG TAB 1 tablet by mouth daily as needed for allergies CLARITIN 10 MG TAB 997373 LORATADINE Inactive CELEBREX 200 MG CAPS 1 tablet by mouth daily with meals CELEBREX 200 MG CAPS 283126 CELECOXIB Inactive PRILOSEC 20 MG CAP CR 1 tab po q am PRILOSEC 20 MG CAP CR 989399 OMEPRAZOLE Inactive PROAIR HFA 108 (90 BASE) MCG/ACT AERS 2 puffs four times a day as needed 2012 PROAIR HFA 108 (90 BASE) MCG/ACT AERS ALBUTEROL SULFATE Inactive ZOFRAN 4 MG TABS 1 po q6hr PRN Nausea ZOFRAN 4 MG TABS 930796 ONDANSETRON HCL Inactive OMEPRAZOLE 20 MG TBEC 1 po q a.m. 30min prior to first food intake OMEPRAZOLE 20 MG TBEC 165308 OMEPRAZOLE Inactive CLARITIN 10 MG TAB 1 tablet by mouth daily as needed for allergies CLARITIN 10 MG TAB 556911 LORATADINE Inactive LEXAPRO 10 MG TABS 1 tablet by mouth daily LEXAPRO 10 MG TABS 465152 ESCITALOPRAM OXALATE Inactive AMOXICILLIN 400 MG/5ML SUSR 12.5ml po BID x 10 days AMOXICILLIN 400 MG/5ML SUSR 427869 AMOXICILLIN Inactive PREDNISONE 20 MG TAB 2 tabs daily for 3 days, 1 tab daily for 3 days, 1/2 tab daily for 2 days PREDNISONE 20 MG TAB 244630 PREDNISONE Inactive TAMIFLU 75 MG CAPS 1 bid x 5 days TAMIFLU 75 MG CAPS 046812 OSELTAMIVIR PHOSPHATE Inactive AZITHROMYCIN 250 MG TABS 2 po qd x 1 day, then 1 po qd x 4 days AZITHROMYCIN 250 MG TABS 8036070 AZITHROMYCIN Inactive PREDNISONE 10 MG ORAL TABS 3 po qd x 3 days, then 2 po qd x 3 days, then 1 po qd x 2 days PREDNISONE 10 MG ORAL TABS 403083 PREDNISONE Inactive Advance Directives Directive Description Start [...] Measured Encounters Code Encounter Date Provider Facility CPT-67553 Level 3 Est. Patient 14:27:39 CDT Natanael Araujo MD [facility] CPT-41080 Level 3 Est. Patient 16:08:13 CDT Natanael Araujo MD [facility] CPT-66373 Level 3 Est. Patient 10:44:11 CDT Mahogany Garza APRN [facility] CPT-86493 Level 3 Est. Patient 15:58:41 WIRE SAW OPERATOR Natanael Araujo MD [facility] CPT-60662 Level 3 Est. Patient 16:32:02 WIRE SAW OPERATOR Natanael Araujo MD [facility] CPT-23437 Level 3 Est. Patient 15:45:10 CDT Natanael Araujo MD [facility] CPT-67646 Level 4 Est. Patient 16:43:28 CDT Natanael Araujo MD [facility] CPT-48556 Level 3 Est. Patient 15:06:06 CDT Natanael Araujo MD [facility] CPT-05665 Level 3 Est. Patient 13:38:04 WIRE SAW OPERATOR Natanael Araujo MD [facility] CPT-34676 Level 3 Est. Patient 10:18:16 WIRE SAW OPERATOR Natanael Araujo MD [facility] CPT-75552 Level 3 Est. Patient 16:04:12 CDT Natanael Araujo MD [facility] CPT-04010 Level 3 Est. Patient 11:25:05 CDT Natanael Araujo MD [facility] CPT-88688 Level 3 Est. Patient 13:17:34 CDT Gail Valerio [facility] CPT-16817 Level 3 Est. Patient 17:03:36 CDT Natanael Araujo MD [facility] CPT-90945 Level 2 Est. Patient 14:41:40 WIRE SAW OPERATOR [facility] Level 3 New Patient 16:12:19 WIRE SAW OPERATOR Gail Valerio [facility] Procedures Code Procedure Name Date Entry Date Standard Description CPT-15047 Menactra 10:44:48 CDT CPT-68375 Administration single or combination vaccine inc oral 10 :44:48 CDT CPT-02281 Menactra 10:42:17 CDT CPT-98525 Administration single or combination vaccine inc oral 10 :42:17 CDT CPT-67112 Knee 3V 13:46:23 WIRE SAW OPERATOR CPT-84472 LS spine comp w obliq 16:17:55 CDT CPT-JTINJ Joint Injection 17:03:35 CDT CPT-J0561 Bicillin LA 1,200,000 u (PCN G Benzathine) 16:12:19 WIRE SAW OPERATOR CPT-60579 Abx/Therapy Injection 16:12:19 WIRE SAW OPERATOR
--- OUTSIDE RECORDS SUMMARY | 2017-09-06 14:19 | XMS REPORT | Clinical Summary ---
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 Eosinophilic esophagitis Pharyngitis 462 Active Mahogany Garza FOUNDER AND CHIEF TECHNICAL OFFICER Acute pharyngitis FH DIABETES ICD-V18.0 Inactive Natanael Araujo MD ACUTE PHARYNGITIS ICD-462 Inactive Natanael Araujo MD ACUTE PHARYNGITIS ICD-462 Inactive Natanael Araujo MD Sinusitis, acute ICD-461.9 Inactive Natanael Araujo MD CHEST WALL PAIN ICD-786.52 Inactive Natanael Araujo MD LUMBAR-SACRAL STRAIN ICD-846.0 Inactive Nataanel Araujo MD Dysphagia ICD-787.20 Inactive Natanael Araujo [...] mouth daily as needed for allergies LORATADINE 31954007913 Active Mahogany Garza APRN Active AZITHROMYCIN 250 MG TABS 2 po qd x 1 day, then 1 po qd x 4 days AZITHROMYCIN 08884738905 No Longer Active Jillina Greg FOUNDER AND CHIEF TECHNICAL OFFICER Active LEXAPRO 10 MG TABS 1 tablet by mouth daily ESCITALOPRAM OXALATE 13720280377 Active Natanael Araujo MD Active PROAIR HFA 108 (90 BASE) MCG/ACT AERS 2 puffs four times a day as needed 2012 ALBUTEROL SULFATE 55787824717 No Longer Active Natanael Araujo MD Active PRILOSEC 20 MG CAP CR 1 tab po q am OMEPRAZOLE 56205931953 No Longer Active Natanael Araujo MD Active CELEBREX 200 MG CAPS 1 tablet by mouth daily with meals CELECOXIB 31113660509 No Longer Active Natanael Araujo MD Active CLARITIN 10 MG TAB 1 tablet by mouth daily as needed for allergies LORATADINE 97318192127 No Longer Active Natanael Araujo MD Active PULMICORT 0.5 MG/2ML INH SUSP mix 2 ml with 5 packets of splenda and swallow. rinse the mouth after 30 min. do not eat or drink anything for 30 min. 12/19 BUDESONIDE 28698838485 No Longer Active Natanael Araujo MD Active OMEPRAZOLE 20 MG CPDR 1 tablet by mouth daily OMEPRAZOLE 18918943898 No Longer Active Natanael Araujo MD Active PROTONIX 40 MG SOLR 1 po q a.m. PANTOPRAZOLE SODIUM 63216198935 No Longer Active Natanael Araujo MD Active CYCLOBENZAPRINE HCL 5 MG ORAL TABS 1/2 tab po q hs, prn CYCLOBENZAPRINE HCL 18597124816 No Longer Active Natanael rAaujo MD Active CELEBREX 100 MG CAPS 1 tab daily CELECOXIB 06374063023 No Longer Active Mahogany Garza APRN Active OMEPRAZOLE 20 MG CPDR 1 tablet by mouth daily OMEPRAZOLE 42452779911 No Longer Active Natanael Araujo MD Active TAMIFLU 75 MG CAPS 1 bid x 5 days OSELTAMIVIR PHOSPHATE 42289534251 No Longer Active Natanael Araujo MD Active PREDNISONE 20 MG TAB 2 tabs daily for 3 days, 1 tab daily for 3 days, 1/2 tab daily for 2 days PREDNISONE 52051714033 No Longer Active Natanael Araujo MD Active AMOXICILLIN 400 MG/5ML SUSR 12.5ml po BID x 10 days AMOXICILLIN 21097355069 No Longer Active Natanael Araujo MD Active IBUPROFEN 800 MG TABS 1 tab every 8 hours as needed IBUPROFEN 40278299350 No Longer Active Natanael Araujo MD Active FLEXERIL 10 MG TAB 1 tablet by mouth at bedtime as needed for pain CYCLOBENZAPRINE HCL 29017762206 No Longer Active Natanael Araujo MD Active AMOXICILLIN 500 MG TABS take one tab po tid x 7 days AMOXICILLIN 73795172378 No Longer Active Natanael Araujo MD Active PRILOSEC 10 MG CAP CR Take one by mouth daily OMEPRAZOLE 79145743780 No Longer Active Natanael Araujo MD Active ZYRTEC ALLERGY 10 MG CAPS Take one by mouth daily as needed 10/25 CETIRIZINE HCL 00607329379 No Longer Active Natanael Araujo MD Active ZYRTEC ALLERGY 10 MG CAPS Take one by mouth daily as needed 10/25 ZYRTEC ALLERGY 10 MG CAPS CETIRIZINE HCL Inactive PRILOSEC 10 MG CAP CR Take one by mouth daily PRILOSEC 10 MG CAP CR 221564 OMEPRAZOLE Inactive AMOXICILLIN 500 MG TABS take one tab po tid x 7 days AMOXICILLIN 500 MG TABS 397903 AMOXICILLIN Inactive FLEXERIL 10 MG TAB 1 tablet by mouth at bedtime as needed for pain FLEXERIL 10 MG TAB CYCLOBENZAPRINE HCL Inactive IBUPROFEN 800 MG TABS 1 tab every 8 hours as needed IBUPROFEN 800 MG TABS 954067 IBUPROFEN Inactive OMEPRAZOLE 20 MG CPDR 1 tablet by mouth daily OMEPRAZOLE 20 MG CPDR 574672 OMEPRAZOLE Inactive CELEBREX 100 MG CAPS 1 tab daily CELEBREX 100 MG CAPS 398049 CELECOXIB Inactive CYCLOBENZAPRINE HCL 5 MG ORAL TABS 1/2 tab po q hs, prn CYCLOBENZAPRINE HCL 5 MG ORAL TABS 557697 CYCLOBENZAPRINE HCL Inactive OMEPRAZOLE 20 MG CPDR 1 tablet by mouth daily OMEPRAZOLE 20 MG CPDR 19791102 OMEPRAZOLE Inactive PULMICORT 0.5 MG/2ML INH SUSP mix 2 ml with 5 packets of splenda and swallow. rinse the mouth after 30 min. do not eat or drink anything for 30 min. 12/19 PULMICORT 0.5 MG/2ML INH SUSP 508952 BUDESONIDE Inactive CLARITIN 10 MG TAB 1 tablet by mouth daily as needed for allergies CLARITIN 10 MG TAB 186583 LORATADINE Inactive CELEBREX 200 MG CAPS 1 tablet by mouth daily with meals CELEBREX 200 MG CAPS 380503 CELECOXIB Inactive PRILOSEC 20 MG CAP CR 1 tab po q am PRILOSEC 20 MG CAP CR 006618 OMEPRAZOLE Inactive PROAIR HFA 108 (90 BASE) MCG/ACT AERS 2 puffs four times a day as needed 2012 PROAIR HFA 108 (90 BASE) MCG/ACT AERS ALBUTEROL SULFATE Inactive AMOXICILLIN 400 MG/5ML SUSR 12.5ml po BID x 10 days AMOXICILLIN 400 MG/5ML SUSR 402537 AMOXICILLIN Inactive PREDNISONE 20 MG TAB 2 tabs daily for 3 days, 1 tab daily for 3 days, 1/2 tab daily for 2 days PREDNISONE 20 MG TAB 926792 PREDNISONE Inactive TAMIFLU 75 MG CAPS 1 bid x 5 days TAMIFLU 75 MG CAPS OSELTAMIVIR PHOSPHATE Inactive AZITHROMYCIN 250 MG TABS 2 po qd x 1 day, then 1 po qd x 4 days AZITHROMYCIN 250 MG TABS 5690114 AZITHROMYCIN Inactive Advance Directives Directive Description Start [...] Negative;Positive Encounters Code Encounter Date Provider Facility CPT-38207 Level 3 Est. Patient 10:44:11 CDT Mahogany Garza APRN [facility] CPT-66819 Level 3 Est. 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 Patient 16:32:02 RIVER BOAT CAPTAIN Natanael Araujo MD [facility] CPT-54152 Level 3 Est. Patient 15:45:10 CDT Natanael Araujo MD [facility] CPT-22004 Level 4 Est. Patient 16:43:28 CDT Natanael Araujo MD [facility] CPT-76104 Level 3 Est. Patient 15:06:06 CDT Natanael Araujo MD [facility] CPT-37815 Level 3 Est. 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 Patient 10:18:16 RIVER BOAT CAPTAIN Natanael Araujo MD [facility] CPT-26563 Level 3 Est. Patient 16:04:12 CDT Natanael Araujo MD [facility] CPT-66223 Level 3 Est. Patient 11:25:05 CDT Natanael Araujo MD [facility] CPT-98471 Level 3 Est. Patient 13:17:34 CDT Gail Valerio [facility] CPT-18828 Level 3 Est. Patient 17:03:36 CDT Natanael Araujo MD [facility] CPT-46187 Level 2 Est. Patient 14:41:40 RIVER BOAT CAPTAIN [facility] Level 3 New Patient 16:12:19 RIVER BOAT CAPTAIN Gail KIMBALL [facility] Procedures Code Procedure Name Date Entry Date Standard Description CPT-29875 Menactra 10:44:48 CDT CPT-56370 Administration single or combination vaccine inc oral 10 :44:48 CDT CPT-67043 Menactra 10:42:17 CDT CPT-20060 Administration single or combination vaccine inc oral 10 :42:17 CDT CPT-03489 Knee 3V 13:46:23 RIVER BOAT CAPTAIN CPT-32228 LS spine comp w obliq 16:17:55 CDT CPT-JTINJ Joint Injection 17:03:35 CDT CPT-J0561 Bicillin LA 1,200,000 u (PCN G Benzathine) 16:12:19 RIVER BOAT CAPTAIN CPT-94819 Abx/Therapy Injection 16:12:19 RIVER BOAT CAPTAIN
--- OUTSIDE RECORDS SUMMARY | 2017-09-06 14:19 | XMS REPORT | Clinical Summary ---
Author Author Admin, CRISTOPHER Organization [employer] Address Unknown Phone Unavailable Allergies, Adverse Reactions, [...] classified Eosinophilic esophagitis 530.13 Active Jillrandy Garza DIRECTOR BUILDING Eosinophilic esophagitis Pharyngitis 462 Active Mahogany Garza DIRECTOR BUILDING Acute pharyngitis ACUTE PHARYNGITIS ICD-462 Inactive Natanael [...] mouth daily as needed for allergies LORATADINE 12209918388 Active Mahogany Garza APRN Active AZITHROMYCIN 250 MG TABS 2 po qd x 1 day, then 1 po qd x 4 days AZITHROMYCIN 64954267855 Active Jillina Fraguanakol DIRECTOR BUILDING Active LEXAPRO 10 MG TABS 1 tablet by mouth daily ESCITALOPRAM OXALATE 43442306248 Active Natanael Araujo MD Active PROAIR HFA 108 (90 BASE) MCG/ACT AERS 2 puffs four times a day as needed 2012 ALBUTEROL SULFATE 27911474935 No Longer Active Natanael Araujo MD Active PRILOSEC 20 MG CAP CR 1 tab po q am OMEPRAZOLE 82152645588 No Longer Active Natanael Araujo MD Active CELEBREX 200 MG CAPS 1 tablet by mouth daily with meals CELECOXIB 98158709819 No Longer Active Natanael Araujo MD Active CLARITIN 10 MG TAB 1 tablet by mouth daily as needed for allergies LORATADINE 76369693921 No Longer Active Natanael Araujo MD Active PULMICORT 0.5 MG/2ML INH SUSP mix 2 ml with 5 packets of splenda and swallow. rinse the mouth after 30 min. do not eat or drink anything for 30 min. 12/19 BUDESONIDE 52835382501 No Longer Active Natanael Araujo MD Active OMEPRAZOLE 20 MG CPDR 1 tablet by mouth daily OMEPRAZOLE 57409280952 No Longer Active Natanael Araujo MD Active PROTONIX 40 MG SOLR 1 po q a.m. PANTOPRAZOLE SODIUM 64957234855 No Longer Active Natanael Araujo MD Active CYCLOBENZAPRINE HCL 5 MG ORAL TABS 1/2 tab po q hs, prn CYCLOBENZAPRINE HCL 02456133856 No Longer Active Natanael Araujo MD Active CELEBREX 100 MG CAPS 1 tab daily CELECOXIB 41996095381 No Longer Active Mahogany Garza APRN Active OMEPRAZOLE 20 MG CPDR 1 tablet by mouth daily OMEPRAZOLE 73628374550 No Longer Active Natanael Araujo MD Active TAMIFLU 75 MG CAPS 1 bid x 5 days OSELTAMIVIR PHOSPHATE 76726430375 No Longer Active Natanael Araujo MD Active PREDNISONE 20 MG TAB 2 tabs daily for 3 days, 1 tab daily for 3 days, 1/2 tab daily for 2 days PREDNISONE 96075677827 No Longer Active Natanael Araujo MD Active AMOXICILLIN 400 MG/5ML SUSR 12.5ml po BID x 10 days AMOXICILLIN 79068251949 No Longer Active Natanael Araujo MD Active IBUPROFEN 800 MG TABS 1 tab every 8 hours as needed IBUPROFEN 01507084002 No Longer Active Natanael Araujo MD Active FLEXERIL 10 MG TAB 1 tablet by mouth at bedtime as needed for pain CYCLOBENZAPRINE HCL 54514004672 No Longer Active Natanael Araujo MD Active AMOXICILLIN 500 MG TABS take one tab po tid x 7 days AMOXICILLIN 14091852142 No Longer Active Natanael Araujo MD Active PRILOSEC 10 MG CAP CR Take one by mouth daily OMEPRAZOLE 96057766797 No Longer Active Natanael Araujo MD Active ZYRTEC ALLERGY 10 MG CAPS Take one by mouth daily as needed 10/25 CETIRIZINE HCL 88737857241 No Longer Active Natanael Araujo MD Active ZYRTEC ALLERGY 10 MG CAPS Take one by mouth daily as needed 10/25 ZYRTEC ALLERGY 10 MG CAPS CETIRIZINE HCL Inactive PRILOSEC 10 MG CAP CR Take one by mouth daily PRILOSEC 10 MG CAP CR 516708 OMEPRAZOLE Inactive AMOXICILLIN 500 MG TABS take one tab po tid x 7 days AMOXICILLIN 500 MG TABS 175863 AMOXICILLIN Inactive FLEXERIL 10 MG TAB 1 tablet by mouth at bedtime as needed for pain FLEXERIL 10 MG TAB CYCLOBENZAPRINE HCL Inactive IBUPROFEN 800 MG TABS 1 tab every 8 hours as needed IBUPROFEN 800 MG TABS 348220 IBUPROFEN Inactive OMEPRAZOLE 20 MG CPDR 1 tablet by mouth daily OMEPRAZOLE 20 MG CPDR 19791102 OMEPRAZOLE Inactive CELEBREX 100 MG CAPS 1 tab daily CELEBREX 100 MG CAPS 386020 CELECOXIB Inactive CYCLOBENZAPRINE HCL 5 MG ORAL TABS 1/2 tab po q hs, prn CYCLOBENZAPRINE HCL 5 MG ORAL TABS 386163 CYCLOBENZAPRINE HCL Inactive OMEPRAZOLE 20 MG CPDR 1 tablet by mouth daily OMEPRAZOLE 20 MG CPDR 19791102 OMEPRAZOLE Inactive PULMICORT 0.5 MG/2ML INH SUSP mix 2 ml with 5 packets of splenda and swallow. rinse the mouth after 30 min. do not eat or drink anything for 30 min. 12/19 PULMICORT 0.5 MG/2ML INH SUSP 512841 BUDESONIDE Inactive CLARITIN 10 MG TAB 1 tablet by mouth daily as needed for allergies CLARITIN 10 MG TAB 311958 LORATADINE Inactive CELEBREX 200 MG CAPS 1 tablet by mouth daily with meals CELEBREX 200 MG CAPS 828957 CELECOXIB Inactive PRILOSEC 20 MG CAP CR 1 tab po q am PRILOSEC 20 MG CAP CR 975062 OMEPRAZOLE Inactive PROAIR HFA 108 (90 BASE) MCG/ACT AERS 2 puffs four times a day as needed 2012 PROAIR HFA 108 (90 BASE) MCG/ACT AERS ALBUTEROL SULFATE Inactive AMOXICILLIN 400 MG/5ML SUSR 12.5ml po BID x 10 days AMOXICILLIN 400 MG/5ML SUSR 086823 AMOXICILLIN Inactive PREDNISONE 20 MG TAB 2 tabs daily for 3 days, 1 tab daily for 3 days, 1/2 tab daily for 2 days PREDNISONE 20 MG TAB 593634 PREDNISONE Inactive TAMIFLU 75 MG CAPS 1 [...] Negative;Positive Encounters Code Encounter Date Provider Facility CPT-76766 Level 3 Est. Patient 10:44:11 CDT Mahogany Garza APRN [facility] CPT-00045 Level 3 Est. 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 Patient 16:32:02 HAND LAUNDERER Natanael Araujo MD [facility] CPT-57134 Level 3 Est. Patient 15:45:10 CDT Natanael Araujo MD [facility] CPT-73754 Level 4 Est. Patient 16:43:28 CDT Natanael Araujo MD [facility] CPT-89150 Level 3 Est. Patient 15:06:06 CDT Natanael Araujo MD [facility] CPT-17709 Level 3 Est. Patient 13:38:04 HAND LAUNDERER Natanael Araujo MD [facility] CPT-51629 Level 3 Est. Patient 10:18:16 HAND LAUNDERER Natanael Araujo MD [facility] CPT-09132 Level 3 Est. Patient 16:04:12 CDT Natanael Araujo MD [facility] CPT-86290 Level 3 Est. Patient 11:25:05 CDT Natanael Araujo MD [facility] CPT-76074 Level 3 Est. Patient 13:17:34 CDT Gail KIMBALL [facility] CPT-93325 Level 3 Est. Patient 17:03:36 CDT Natanael Araujo MD [facility] CPT-80948 Level 2 Est. Patient 14:41:40 HAND LAUNDERER Mahogany Garza APRN [facility] CPT-27664 Level 3 New Patient 16:12:19 HAND LAUNDERER Gail KIMBALL [facility] Procedures Code Procedure Name Date Entry Date Standard Description CPT-74994 Menactra 10:44:48 CDT CPT-63825 Administration single or combination vaccine inc oral 10 :44:48 CDT CPT-40340 Menactra 10:42:17 CDT CPT-82097 Administration single or combination vaccine inc oral 10 :42:17 CDT CPT-05745 Knee 3V 13:46:23 HAND LAUNDERER CPT-26344 LS spine comp w obliq 16:17:55 CDT CPT-JTINJ Joint Injection 17:03:35 CDT CPT-J0561 Bicillin LA 1,200,000 u (PCN G Benzathine) 16:12:19 HAND LAUNDERER CPT-94757 Abx/Therapy Injection 16:12:19 HAND LAUNDERER
--- OUTSIDE RECORDS SUMMARY | 2017-09-06 14:20 | XMS REPORT | Clinical Summary ---
Author Author Admin, CRISTOPHER Organization [employer] Address Unknown Phone Unavailable Allergies, Adverse Reactions, [...] classified Eosinophilic esophagitis 530.13 Active Mahogany Garza MATTRESS WEAVER Eosinophilic esophagitis Pharyngitis 462 Resolved Natanael Araujo [...] like illness ICD-487.1 Inactive Natanael Araujo MD Postconcussion syndrome ICD-310.2 Inactive Natanael Araujo MD Back pain ICD-724.5 Inactive Natanael Araujo MD Dysphagia ICD-787.20 Inactive Natanael Araujo MD Allergic reaction ICD-995.3 Inactive Natanael Araujo MD Pharyngitis ICD-462 Inactive Natanael Araujo MD Nausea alone ICD-787.02 Inactive Natanael Araujo MD Bilateral headache ICD-784.0 Inactive Natanael Araujo MD Sinusitis, acute ICD-461.9 Inactive Natanael Araujo MD Knee pain, left ICD-719.46 Inactive Natanael Araujo MD Medication List Medication Instructions Start Date Stop Date Generic Name NDC Status Provider Patient Instruction DOXYCYCLINE MONOHYDRATE 100 MG ORAL CAPS 1 po BID x 10 days 05/15 DOXYCYCLINE MONOHYDRATE 63524554600 Active Natanael Araujo MD Active SAFYRAL 3-0.03-0.451 MG ORAL TABS Take one by mouth daily DROSPIREN-ETH ESTRAD-LEVOMEFOL 70349900953 No Longer Active Natanael Araujo MD Active NAPROXEN SODIUM 550 MG ORAL TABS 1 po BID PRN Headache NAPROXEN SODIUM 01151134040 No Longer Active Natanael Araujo MD Active PREDNISONE 10 MG ORAL TABS 3 po qd x 3 days, then 2 po qd x 3 days, then 1 po qd x 2 days PREDNISONE 81296558436 No Longer Active Natanael Araujo MD Active LEXAPRO 10 MG TABS 1 tablet by mouth daily ESCITALOPRAM OXALATE 77000294369 No Longer Active Natanael Araujo MD Active CLARITIN 10 MG TAB 1 tablet by mouth daily as needed for allergies LORATADINE 41903047319 No Longer Active Natanael Araujo MD Active OMEPRAZOLE 20 MG TBEC 1 po q a.m. 30min prior to first food intake OMEPRAZOLE 62846248794 No Longer Active Natanael Araujo MD Active ZOFRAN 4 MG TABS 1 po q6hr PRN Nausea ONDANSETRON HCL 46910229775 No Longer Active Natanael Araujo MD Active AZITHROMYCIN 250 MG TABS 2 po qd x 1 day, then 1 po qd x 4 days AZITHROMYCIN 27193853428 No Longer Active Mahogany Garza MATTRESS WEAVER Active PROAIR HFA 108 (90 BASE) MCG/ACT AERS 2 puffs four times a day as needed 2012 ALBUTEROL SULFATE 68448033967 No Longer Active Natanael Araujo MD Active PRILOSEC 20 MG CAP CR 1 tab po q am OMEPRAZOLE 36948199838 No Longer Active Natanael Araujo MD Active CELEBREX 200 MG CAPS 1 tablet by mouth daily with meals CELECOXIB 55555559419 No Longer Active Natanael Araujo MD Active CLARITIN 10 MG TAB 1 tablet by mouth daily as needed for allergies LORATADINE 48810607576 No Longer Active Natanael Araujo MD Active PULMICORT 0.5 MG/2ML INH SUSP mix 2 ml with 5 packets of splenda and swallow. rinse the mouth after 30 min. do not eat or drink anything for 30 min. 12/19 BUDESONIDE 06144498569 No Longer Active Natanael Araujo MD Active OMEPRAZOLE 20 MG CPDR 1 tablet by mouth daily OMEPRAZOLE 90026042657 No Longer Active Natanael Araujo MD Active PROTONIX 40 MG SOLR 1 po q a.m. PANTOPRAZOLE SODIUM 53198278496 No Longer Active Natanael Araujo MD Active CYCLOBENZAPRINE HCL 5 MG ORAL TABS 1/2 tab po q hs, prn CYCLOBENZAPRINE HCL 66633131380 No Longer Active Natanael Araujo MD Active CELEBREX 100 MG CAPS 1 tab daily CELECOXIB 16324173494 No Longer Active Mahogany Cuellarcelsa MOLINA Active OMEPRAZOLE 20 MG CPDR 1 tablet by mouth daily OMEPRAZOLE 04163222773 No Longer Active Natanael Araujo MD Active TAMIFLU 75 MG CAPS 1 bid x 5 days OSELTAMIVIR PHOSPHATE 41737385513 No Longer Active Natanael Araujo MD Active PREDNISONE 20 MG TAB 2 tabs daily for 3 days, 1 tab daily for 3 days, 1/2 tab daily for 2 days PREDNISONE 09169197832 No Longer Active Natanael Araujo MD Active AMOXICILLIN 400 MG/5ML SUSR 12.5ml po BID x 10 days AMOXICILLIN 58217169172 No Longer Active Natanael Araujo MD Active IBUPROFEN 800 MG TABS 1 tab every 8 hours as needed IBUPROFEN 00578539158 No Longer Active Natanael Araujo MD Active FLEXERIL 10 MG TAB 1 tablet by mouth at bedtime as needed for pain CYCLOBENZAPRINE HCL 79176145814 No Longer Active Natanael Araujo MD Active AMOXICILLIN 500 MG TABS take one tab po tid x 7 days AMOXICILLIN 88822955738 No Longer Active Natanael Araujo MD Active PRILOSEC 10 MG CAP CR Take one by mouth daily OMEPRAZOLE 04233454169 No Longer Active Natanael Araujo MD Active ZYRTEC ALLERGY 10 MG CAPS Take one by mouth daily as needed 10/25 CETIRIZINE HCL 83750817359 No Longer Active Natanael Araujo MD Active ZYRTEC ALLERGY 10 MG CAPS Take one by mouth daily as needed 10/25 ZYRTEC ALLERGY 10 MG CAPS CETIRIZINE HCL Inactive PRILOSEC 10 MG CAP CR Take one by mouth daily PRILOSEC 10 MG CAP CR 607684 OMEPRAZOLE Inactive AMOXICILLIN 500 MG TABS take one tab po tid x 7 days AMOXICILLIN 500 MG TABS 300233 AMOXICILLIN Inactive FLEXERIL 10 MG TAB 1 tablet by mouth at bedtime as needed for pain FLEXERIL 10 MG TAB CYCLOBENZAPRINE HCL Inactive IBUPROFEN 800 MG TABS 1 tab every 8 hours as needed IBUPROFEN 800 MG TABS 693346 IBUPROFEN Inactive OMEPRAZOLE 20 MG CPDR 1 tablet by mouth daily OMEPRAZOLE 20 MG CPDR 309533 OMEPRAZOLE Inactive CELEBREX 100 MG CAPS 1 tab daily CELEBREX 100 MG CAPS 584674 CELECOXIB Inactive CYCLOBENZAPRINE HCL 5 MG ORAL TABS 1/2 tab po q hs, prn CYCLOBENZAPRINE HCL 5 MG ORAL TABS 607992 CYCLOBENZAPRINE HCL Inactive OMEPRAZOLE 20 MG CPDR 1 tablet by mouth daily OMEPRAZOLE 20 MG CPDR 19791102 OMEPRAZOLE Inactive PULMICORT 0.5 MG/2ML INH SUSP mix 2 ml with 5 packets of splenda and swallow. rinse the mouth after 30 min. do not eat or drink anything for 30 min. 12/19 PULMICORT 0.5 MG/2ML INH SUSP 518567 BUDESONIDE Inactive CLARITIN 10 MG TAB 1 tablet by mouth daily as needed for allergies CLARITIN 10 MG TAB 771433 LORATADINE Inactive CELEBREX 200 MG CAPS 1 tablet by mouth daily with meals CELEBREX 200 MG CAPS 180889 CELECOXIB Inactive PRILOSEC 20 MG CAP CR 1 tab po q am PRILOSEC 20 MG CAP CR 296647 OMEPRAZOLE Inactive PROAIR HFA 108 (90 BASE) MCG/ACT AERS 2 puffs four times a day as needed 2012 PROAIR HFA 108 (90 BASE) MCG/ACT AERS ALBUTEROL SULFATE Inactive ZOFRAN 4 MG TABS 1 po q6hr PRN Nausea ZOFRAN 4 MG TABS 747101 ONDANSETRON HCL Inactive OMEPRAZOLE 20 MG TBEC 1 po q a.m. 30min prior to first food intake OMEPRAZOLE 20 MG TBEC 823337 OMEPRAZOLE Inactive CLARITIN 10 MG TAB 1 tablet by mouth daily as needed for allergies CLARITIN 10 MG TAB 916796 LORATADINE Inactive LEXAPRO 10 MG TABS 1 tablet by mouth daily LEXAPRO 10 MG TABS 395287 ESCITALOPRAM OXALATE Inactive NAPROXEN SODIUM 550 MG ORAL TABS 1 po BID PRN Headache NAPROXEN SODIUM 550 MG ORAL TABS 365701 NAPROXEN SODIUM Inactive SAFYRAL 3-0.03-0.451 MG ORAL TABS Take one by mouth daily SAFYRAL 3-0.03-0.451 MG ORAL TABS 2136850 DROSPIREN-ETH ESTRAD-LEVOMEFOL Inactive AMOXICILLIN 400 MG/5ML SUSR 12.5ml po BID x 10 days AMOXICILLIN 400 MG/5ML SUSR 927527 AMOXICILLIN Inactive PREDNISONE 20 MG TAB 2 tabs daily for 3 days, 1 tab daily for 3 days, 1/2 tab daily for 2 days PREDNISONE 20 MG TAB 616330 PREDNISONE Inactive TAMIFLU 75 MG CAPS 1 bid x 5 days TAMIFLU 75 MG CAPS 863645 OSELTAMIVIR PHOSPHATE Inactive AZITHROMYCIN 250 MG TABS 2 po qd x 1 day, then 1 po qd x 4 days AZITHROMYCIN 250 MG TABS 285183 AZITHROMYCIN Inactive PREDNISONE 10 MG ORAL TABS 3 po qd x 3 days, then 2 po qd x 3 days, then 1 po qd x 2 days PREDNISONE 10 MG ORAL TABS 950944 PREDNISONE Inactive Advance Directives Directive Description Start [...] temperature weight E&M 138.50 [lb_av] Weight Measured Encounters Code Encounter Date Provider Facility CPT-27893 Level 4 Est. Patient 09:59:40 CDT Natanael Araujo MD [facility] CPT-95075 Level 3 Est. Patient 14:27:39 CDT Natanael Araujo MD [facility] CPT-88072 Level 3 Est. Patient 16:08:13 CDT Natanael Araujo MD [facility] CPT-76413 Level 3 Est. Patient 10:44:11 [facility] Level 3 Est. Patient 15:58:41 STYLE ADVISOR Natanael Araujo MD [facility] CPT-76145 Level 3 Est. Patient 16:32:02 STYLE ADVISOR Natanael Araujo MD [facility] CPT-99994 Level 3 Est. Patient 15:45:10 CDT Natanael Araujo MD [facility] CPT-40227 Level 4 Est. Patient 16:43:28 CDT Natanael Araujo MD [facility] CPT-93554 Level 3 Est. Patient 15:06:06 CDT Natanael Araujo MD [facility] CPT-71054 Level 3 Est. Patient 13:38:04 STYLE ADVISOR Natanael Araujo MD [facility] CPT-19598 Level 3 Est. Patient 10:18:16 STYLE ADVISOR Natanael Araujo MD [facility] CPT-17296 Level 3 Est. Patient 16:04:12 CDT Natanael Araujo MD [facility] CPT-15936 Level 3 Est. Patient 11:25:05 CDT Natanael Araujo MD [facility] CPT-62891 Level 3 Est. Patient 13:17:34 CDT Gail KIMBALL [facility] CPT-93069 Level 3 Est. Patient 17:03:36 CDT Natanael Araujo MD [facility] CPT-77838 Level 2 Est. Patient 14:41:40 STYLE ADVISOR Mahogany Garza APRN [facility] CPT-00763 Level 3 New Patient 16:12:19 STYLE ADVISOR Gail Valerio [facility] Procedures Code Procedure Name Date Entry Date Standard Description CPT-26991 Menactra 10:44:48 CDT CPT-11328 Administration single or combination vaccine inc oral 10 :44:48 CDT CPT-08129 Menactra 10:42:17 CDT CPT-23105 Administration single or combination vaccine inc oral 10 :42:17 CDT CPT-39023 Knee 3V 13:46:23 STYLE ADVISOR CPT-65509 LS spine comp w obliq 16:17:55 CDT CPT-JTINJ Joint Injection 17:03:35 CDT CPT-J0561 Bicillin LA 1,200,000 u (PCN G Benzathine) 16:12:19 STYLE ADVISOR CPT-93860 Abx/Therapy Injection 16:12:19 STYLE ADVISOR
--- OUTSIDE RECORDS SUMMARY | 2017-09-06 14:21 | XMS REPORT | Clinical Summary ---
Author Author Admin, CRISTOPHER Organization [employer] Address Unknown Phone Unavailable Allergies, Adverse Reactions, [...] classified Eosinophilic esophagitis 530.13 Active Jillrandy Garza ELECTORATE OFFICER Eosinophilic esophagitis Pharyngitis 462 Active Mahogany Garza ELECTORATE OFFICER Acute pharyngitis ACUTE PHARYNGITIS ICD-462 Inactive Natanael [...] mouth daily as needed for allergies LORATADINE 86559554892 Active Mahogany Garza APRN Active AZITHROMYCIN 250 MG TABS 2 po qd x 1 day, then 1 po qd x 4 days AZITHROMYCIN 91936431998 Active Jillina Fraguanakol ELECTORATE OFFICER Active LEXAPRO 10 MG TABS 1 tablet by mouth daily ESCITALOPRAM OXALATE 39665847011 Active Natanael Araujo MD Active PROAIR HFA 108 (90 BASE) MCG/ACT AERS 2 puffs four times a day as needed 2012 ALBUTEROL SULFATE 84947789416 No Longer Active Natanael Araujo MD Active PRILOSEC 20 MG CAP CR 1 tab po q am OMEPRAZOLE 74622953234 No Longer Active Natanael Araujo MD Active CELEBREX 200 MG CAPS 1 tablet by mouth daily with meals CELECOXIB 19389855183 No Longer Active Natanael Araujo MD Active CLARITIN 10 MG TAB 1 tablet by mouth daily as needed for allergies LORATADINE 78393905073 No Longer Active Natanael Araujo MD Active PULMICORT 0.5 MG/2ML INH SUSP mix 2 ml with 5 packets of splenda and swallow. rinse the mouth after 30 min. do not eat or drink anything for 30 min. 12/19 BUDESONIDE 13153251207 No Longer Active Natanael Araujo MD Active OMEPRAZOLE 20 MG CPDR 1 tablet by mouth daily OMEPRAZOLE 62166446302 No Longer Active Natanael Araujo MD Active PROTONIX 40 MG SOLR 1 po q a.m. PANTOPRAZOLE SODIUM 83548467925 No Longer Active Natanael Araujo MD Active CYCLOBENZAPRINE HCL 5 MG ORAL TABS 1/2 tab po q hs, prn CYCLOBENZAPRINE HCL 56048290251 No Longer Active Natanael Araujo MD Active CELEBREX 100 MG CAPS 1 tab daily CELECOXIB 34476414618 No Longer Active Mahogany Garza APRN Active OMEPRAZOLE 20 MG CPDR 1 tablet by mouth daily OMEPRAZOLE 64077762810 No Longer Active Natanael Araujo MD Active TAMIFLU 75 MG CAPS 1 bid x 5 days OSELTAMIVIR PHOSPHATE 70386272317 No Longer Active Natanael Araujo MD Active PREDNISONE 20 MG TAB 2 tabs daily for 3 days, 1 tab daily for 3 days, 1/2 tab daily for 2 days PREDNISONE 67598761038 No Longer Active Natanael Araujo MD Active AMOXICILLIN 400 MG/5ML SUSR 12.5ml po BID x 10 days AMOXICILLIN 24432344357 No Longer Active Natanael Araujo MD Active IBUPROFEN 800 MG TABS 1 tab every 8 hours as needed IBUPROFEN 00877507178 No Longer Active Natanael Araujo MD Active FLEXERIL 10 MG TAB 1 tablet by mouth at bedtime as needed for pain CYCLOBENZAPRINE HCL 85157409205 No Longer Active Natanael Araujo MD Active AMOXICILLIN 500 MG TABS take one tab po tid x 7 days AMOXICILLIN 94546359439 No Longer Active Natanael Araujo MD Active PRILOSEC 10 MG CAP CR Take one by mouth daily OMEPRAZOLE 86956107049 No Longer Active Natanael Araujo MD Active ZYRTEC ALLERGY 10 MG CAPS Take one by mouth daily as needed 10/25 CETIRIZINE HCL 43952663492 No Longer Active Natanael Araujo MD Active ZYRTEC ALLERGY 10 MG CAPS Take one by mouth daily as needed 10/25 ZYRTEC ALLERGY 10 MG CAPS CETIRIZINE HCL Inactive PRILOSEC 10 MG CAP CR Take one by mouth daily PRILOSEC 10 MG CAP CR 372364 OMEPRAZOLE Inactive AMOXICILLIN 500 MG TABS take one tab po tid x 7 days AMOXICILLIN 500 MG TABS 546123 AMOXICILLIN Inactive FLEXERIL 10 MG TAB 1 tablet by mouth at bedtime as needed for pain FLEXERIL 10 MG TAB CYCLOBENZAPRINE HCL Inactive IBUPROFEN 800 MG TABS 1 tab every 8 hours as needed IBUPROFEN 800 MG TABS 472092 IBUPROFEN Inactive OMEPRAZOLE 20 MG CPDR 1 tablet by mouth daily OMEPRAZOLE 20 MG CPDR 19791102 OMEPRAZOLE Inactive CELEBREX 100 MG CAPS 1 tab daily CELEBREX 100 MG CAPS 769988 CELECOXIB Inactive CYCLOBENZAPRINE HCL 5 MG ORAL TABS 1/2 tab po q hs, prn CYCLOBENZAPRINE HCL 5 MG ORAL TABS 085973 CYCLOBENZAPRINE HCL Inactive OMEPRAZOLE 20 MG CPDR 1 tablet by mouth daily OMEPRAZOLE 20 MG CPDR 19791102 OMEPRAZOLE Inactive PULMICORT 0.5 MG/2ML INH SUSP mix 2 ml with 5 packets of splenda and swallow. rinse the mouth after 30 min. do not eat or drink anything for 30 min. 12/19 PULMICORT 0.5 MG/2ML INH SUSP 324068 BUDESONIDE Inactive CLARITIN 10 MG TAB 1 tablet by mouth daily as needed for allergies CLARITIN 10 MG TAB 765303 LORATADINE Inactive CELEBREX 200 MG CAPS 1 tablet by mouth daily with meals CELEBREX 200 MG CAPS 173979 CELECOXIB Inactive PRILOSEC 20 MG CAP CR 1 tab po q am PRILOSEC 20 MG CAP CR 166477 OMEPRAZOLE Inactive PROAIR HFA 108 (90 BASE) MCG/ACT AERS 2 puffs four times a day as needed 2012 PROAIR HFA 108 (90 BASE) MCG/ACT AERS ALBUTEROL SULFATE Inactive AMOXICILLIN 400 MG/5ML SUSR 12.5ml po BID x 10 days AMOXICILLIN 400 MG/5ML SUSR 887541 AMOXICILLIN Inactive PREDNISONE 20 MG TAB 2 tabs daily for 3 days, 1 tab daily for 3 days, 1/2 tab daily for 2 days PREDNISONE 20 MG TAB 386295 PREDNISONE Inactive TAMIFLU 75 MG CAPS 1 [...] Negative;Positive Encounters Code Encounter Date Provider Facility CPT-49619 Level 3 Est. Patient 10:44:11 CDT Mahogany Garza APRN [facility] CPT-16968 Level 3 Est. Patient 15:58:41 BANQUET LINE COOK Natanael Araujo MD [facility] CPT-23861 Level 3 Est. Patient 16:32:02 BANQUET LINE COOK Natanael Araujo MD [facility] CPT-42393 Level 3 Est. Patient 15:45:10 CDT Natanael Araujo MD [facility] CPT-43624 Level 4 Est. Patient 16:43:28 CDT Natanael Araujo MD [facility] CPT-45544 Level 3 Est. Patient 15:06:06 CDT Natanael Araujo MD [facility] CPT-75560 Level 3 Est. Patient 13:38:04 BANQUET LINE COOK Natanael Araujo MD [facility] CPT-94074 Level 3 Est. Patient 10:18:16 BANQUET LINE COOK Natanael Araujo MD [facility] CPT-55593 Level 3 Est. Patient 16:04:12 CDT Natanael Araujo MD [facility] CPT-76716 Level 3 Est. Patient 11:25:05 CDT Natanael Araujo MD [facility] CPT-84825 Level 3 Est. Patient 13:17:[address] [facility] CPT-21084 Level 3 Est. Patient 17:03:36 CDT Natanael Araujo MD [facility] CPT-57250 Level 2 Est. Patient 14:41:40 BANQUET [employer] COOK Mahogany Garza APRN [facility] CPT-63465 Level 3 New Patient 16:12:19 BANQUET LINE COOK Gail KIMBALL [facility] Procedures Code Procedure Name Date Entry Date Standard Description CPT-38566 Menactra 10:44:48 CDT CPT-97685 Administration single or combination vaccine inc oral 10 :44:48 CDT CPT-07365 Menactra 10:42:17 CDT CPT-11036 Administration single or combination vaccine inc oral 10 :42:17 CDT CPT-80706 Knee 3V 13:46:23 BANQUET LINE COOK CPT-51624 LS spine comp w obliq 16:17:55 CDT CPT-JTINJ Joint Injection 17:03:35 CDT CPT-J0561 Bicillin LA 1,200,000 u (PCN G Benzathine) 16:12:19 BAN[employer]ET LINE COOK CPT-90639 Abx/Therapy Injection 16:12:19 BANQUET LINE COOK
--- OUTSIDE RECORDS SUMMARY | 2017-09-06 14:21 | XMS REPORT | Clinical Summary ---
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 Eosinophilic esophagitis ACUTE PHARYNGITIS ICD-462 Inactive aNtanael Araujo MD [facility] ICD-V18.0 Inactive Natanael [...] Back pain ICD-724.5 Inactive Natanael Araujo MD Knee pain, left ICD-719.46 Inactive Natanael Araujo MD Medication List Medication Instructions Start Date Stop Date Generic Name NDC Status Provider Patient Instruction LEXAPRO 10 MG TABS 1 tablet by mouth daily ESCITALOPRAM OXALATE 81302636575 Active aNtanael Araujo MD Active PROAIR HFA 108 (90 BASE) MCG/ACT AERS 2 puffs four times a day as needed 2012 ALBUTEROL SULFATE 00317739000 No Longer Active Natanael Araujo MD Active PRILOSEC 20 MG CAP CR 1 tab po q am OMEPRAZOLE 88422572371 No Longer Active Natanael Araujo MD Active CELEBREX 200 MG CAPS 1 tablet by mouth daily with meals CELECOXIB 97363930405 No Longer Active Natanael Araujo MD Active CLARITIN 10 MG TAB 1 tablet by mouth daily as needed for allergies LORATADINE 96412063127 No Longer Active Natanael Araujo MD Active PULMICORT 0.5 MG/2ML INH SUSP mix 2 ml with 5 packets of splenda and swallow. rinse the mouth after 30 min. do not eat or drink anything for 30 min. 12/19 BUDESONIDE 23182800012 No Longer Active Natanael Araujo MD Active OMEPRAZOLE 20 MG CPDR 1 tablet by mouth daily OMEPRAZOLE 96853651463 No Longer Active Natanael Araujo MD Active PROTONIX 40 MG SOLR 1 po q a.m. PANTOPRAZOLE SODIUM 30810354024 No Longer Active Natanael Araujo MD Active CYCLOBENZAPRINE HCL 5 MG ORAL TABS 1/2 tab po q hs, prn CYCLOBENZAPRINE HCL 10332125182 No Longer Active Natanael Araujo MD Active CELEBREX 100 MG CAPS 1 tab daily CELECOXIB 84188958988 No Longer Active Mahogany Garza APRN Active OMEPRAZOLE 20 MG CPDR 1 tablet by mouth daily OMEPRAZOLE 14288080377 No Longer Active Natanael Araujo MD Active TAMIFLU 75 MG CAPS 1 bid x 5 days OSELTAMIVIR PHOSPHATE 63629013576 No Longer Active Natanael Araujo MD Active PREDNISONE 20 MG TAB 2 tabs daily for 3 days, 1 tab daily for 3 days, 1/2 tab daily for 2 days PREDNISONE 20091654359 No Longer Active Natanael Araujo MD Active AMOXICILLIN 400 MG/5ML SUSR 12.5ml po BID x 10 days AMOXICILLIN 25202187396 No Longer Active Natanael Araujo MD Active IBUPROFEN 800 MG TABS 1 tab every 8 hours as needed IBUPROFEN 24155541803 No Longer Active Natanael Araujo MD Active FLEXERIL 10 MG TAB 1 tablet by mouth at bedtime as needed for pain CYCLOBENZAPRINE HCL 00791004521 No Longer Active Natanael Araujo MD Active AMOXICILLIN 500 MG TABS take one tab po tid x 7 days AMOXICILLIN 78110786885 No Longer Active Natanael Araujo MD Active PRILOSEC 10 MG CAP CR Take one by mouth daily OMEPRAZOLE 25297485396 No Longer Active Natanael Araujo MD Active ZYRTEC ALLERGY 10 MG CAPS Take one by mouth daily as needed 10/25 CETIRIZINE HCL 06298130438 No Longer Active Natanael Araujo MD Active ZYRTEC ALLERGY 10 MG CAPS Take one by mouth daily as needed 10/25 ZYRTEC ALLERGY 10 MG CAPS CETIRIZINE HCL Inactive PRILOSEC 10 MG CAP CR Take one by mouth daily PRILOSEC 10 MG CAP CR 383779 OMEPRAZOLE Inactive AMOXICILLIN 500 MG TABS take one tab po tid x 7 days AMOXICILLIN 500 MG TABS 737662 AMOXICILLIN Inactive FLEXERIL 10 MG TAB 1 tablet by mouth at bedtime as needed for pain FLEXERIL 10 MG TAB CYCLOBENZAPRINE HCL Inactive IBUPROFEN 800 MG TABS 1 tab every 8 hours as needed IBUPROFEN 800 MG TABS IBUPROFEN Inactive OMEPRAZOLE 20 MG CPDR 1 tablet by mouth daily OMEPRAZOLE 20 MG CPDR 861950 OMEPRAZOLE Inactive CELEBREX 100 MG CAPS 1 tab daily CELEBREX 100 MG CAPS 458184 CELECOXIB Inactive CYCLOBENZAPRINE HCL 5 MG ORAL TABS 1/2 tab po q hs, prn CYCLOBENZAPRINE HCL 5 MG ORAL TABS 568493 CYCLOBENZAPRINE HCL Inactive OMEPRAZOLE 20 MG CPDR 1 tablet by mouth daily OMEPRAZOLE 20 MG CPDR 239009 OMEPRAZOLE Inactive PULMICORT 0.5 MG/2ML INH SUSP mix 2 ml with 5 packets of splenda and swallow. rinse the mouth after 30 min. do not eat or drink anything for 30 min. 12/19 PULMICORT 0.5 MG/2ML INH SUSP 235212 BUDESONIDE Inactive CLARITIN 10 MG TAB 1 tablet by mouth daily as needed for allergies CLARITIN 10 MG TAB 743430 LORATADINE Inactive CELEBREX 200 MG CAPS 1 tablet by mouth daily with meals CELEBREX 200 MG CAPS 531219 CELECOXIB Inactive PRILOSEC 20 MG CAP CR 1 tab po q am PRILOSEC 20 MG CAP CR 369555 OMEPRAZOLE Inactive PROAIR HFA 108 (90 BASE) MCG/ACT AERS 2 puffs four times a day as needed 2012 PROAIR HFA 108 (90 BASE) MCG/ACT AERS ALBUTEROL SULFATE Inactive AMOXICILLIN 400 MG/5ML SUSR 12.5ml po BID x 10 days AMOXICILLIN 400 MG/5ML SUSR 646135 AMOXICILLIN Inactive PREDNISONE 20 MG TAB 2 tabs daily for 3 days, 1 tab daily for 3 days, 1/2 tab daily for 2 days PREDNISONE 20 MG TAB 669743 PREDNISONE Inactive TAMIFLU 75 MG CAPS 1 [...] Measured Encounters Code Encounter Date Provider Facility CPT-89149 Level 3 Est. Patient 16:32:02 ELECTRICAL ENGINEERING TECHNOLOGIST Natanael Araujo MD [facility] CPT-50368 Level 3 Est. Patient 15:45:10 CDT Natanael Araujo MD [facility] CPT-96899 Level 4 Est. Patient 16:43:28 CDT Natanael Araujo MD [facility] CPT-88351 Level 3 Est. Patient 15:06:06 CDT Natanael Araujo MD [facility] CPT-12433 Level 3 Est. Patient 13:38:04 ELECTRICAL ENGINEERING TECHNOLOGIST Natanael Araujo MD [facility] CPT-75187 Level 3 Est. Patient 10:18:16 ELECTRICAL ENGINEERING TECHNOLOGIST Natanael Araujo MD [facility] CPT-40872 Level 3 Est. Patient 16:04:12 CDT Natanael Araujo MD [facility] CPT-29354 Level 3 Est. Patient 11:25:05 CDT Natanael Araujo MD [facility] CPT-45831 Level 3 Est. Patient 13:17:34 CDT Gail Valerio [facility] CPT-07072 Level 3 Est. Patient 17:03:36 CDT Natanael Araujo MD [facility] CPT-39659 Level 2 Est. Patient 14:41:40 ELECTRICAL ENGINEERING TECHNOLOGIST Mahogany Garza APRN [facility] CPT-54784 Level 3 New Patient 16:12:19 ELECTRICAL ENGINEERING TECHNOLOGIST Gail KIMBALL [facility] Procedures Code Procedure Name Date Entry Date Standard Description CPT-66172 Menactra 10:44:48 CDT CPT-14713 Administration single or combination vaccine inc oral 10 :44:48 CDT CPT-42919 Menactra 10:42:17 CDT CPT-51701 Administration single or combination vaccine inc oral 10 :42:17 CDT CPT-79483 Knee 3V 13:46:23 ELECTRICAL ENGINEERING TECHNOLOGIST CPT-97914 LS spine comp w obliq 16:17:55 CDT CPT-JTINJ Joint Injection 17:03:35 CDT CPT-J0561 Bicillin LA 1,200,000 u (PCN G Benzathine) 16:12:19 ELECTRICAL ENGINEERING TECHNOLOGIST CPT-55635 Abx/Therapy Injection 16:12:19 ELECTRICAL ENGINEERING TECHNOLOGIST
[2017-09-06 14:22] VITALS: BP 120/83
--- OUTSIDE RECORDS SUMMARY | 2017-09-06 14:22 | XMS REPORT | Clinical Summary ---
Author Author Admin, CRISTOPHER Organization [facility] Address Unknown Phone Unavailable Allergies, Adverse Reactions, [...] tablet by mouth daily with meals CELECOXIB 70081688816 Active Natanael Araujo MD Active OMEPRAZOLE 20 MG CPDR 1 tablet by mouth daily OMEPRAZOLE 45556361298 No Longer Active Natanael Araujo MD Active PROTONIX 40 MG SOLR 1 po q a.m. PANTOPRAZOLE SODIUM 48936926820 Active Natanael Araujo MD Active CYCLOBENZAPRINE HCL 5 MG ORAL TABS 1/2 tab po q hs, prn CYCLOBENZAPRINE HCL 20561085214 No Longer Active Natanael Araujo MD Active CELEBREX 100 MG CAPS 1 tab daily CELECOXIB 95919024906 No Longer Active Mahogany Polocelas BEEN Active OMEPRAZOLE 20 MG CPDR 1 tablet by mouth daily OMEPRAZOLE 50889933273 No Longer Active Natanael Araujo MD Active TAMIFLU 75 MG CAPS 1 bid x 5 days OSELTAMIVIR PHOSPHATE 73835218819 No Longer Active Natanael Araujo MD Active PREDNISONE 20 MG TAB 2 tabs daily for 3 days, 1 tab daily for 3 days, 1/2 tab daily for 2 days PREDNISONE 95633711747 No Longer Active Natanael Araujo MD Active AMOXICILLIN 400 MG/5ML SUSR 12.5ml po BID x 10 days AMOXICILLIN 40393781796 No Longer Active Natanael Araujo MD Active IBUPROFEN 800 MG TABS 1 tab every 8 hours as needed IBUPROFEN 00269260602 No Longer Active Natanael Araujo MD Active PROAIR HFA 108 (90 BASE) MCG/ACT AERS 2 puffs four times a day as needed 2012 ALBUTEROL SULFATE 55630611664 Active Natanael Araujo MD Active FLEXERIL 10 MG TAB 1 tablet by mouth at bedtime as needed for pain CYCLOBENZAPRINE HCL 03857402981 No Longer Active Natanael Araujo MD Active AMOXICILLIN 500 MG TABS take one tab po tid x 7 days AMOXICILLIN 20495658056 No Longer Active Natanael Araujo MD Active PRILOSEC 10 MG CAP CR Take one by mouth daily OMEPRAZOLE 17043041275 No Longer Active Natanael Araujo MD Active ZYRTEC ALLERGY 10 MG CAPS Take one by mouth daily as needed 10/25 CETIRIZINE HCL 64563694218 No Longer Active Natanael Araujo MD Active ZYRTEC ALLERGY 10 MG CAPS Take one by mouth daily as needed 10/25 ZYRTEC ALLERGY 10 MG CAPS CETIRIZINE HCL Inactive PRILOSEC 10 MG CAP CR Take one by mouth daily PRILOSEC 10 MG CAP CR 19900712 OMEPRAZOLE Inactive AMOXICILLIN 500 MG TABS take one tab po tid x 7 days AMOXICILLIN 500 MG TABS 388941 AMOXICILLIN Inactive FLEXERIL 10 MG TAB 1 tablet by mouth at bedtime as needed for pain FLEXERIL 10 MG TAB CYCLOBENZAPRINE HCL Inactive IBUPROFEN 800 MG TABS 1 tab every 8 hours as needed IBUPROFEN 800 MG TABS 385685 IBUPROFEN Inactive OMEPRAZOLE 20 MG CPDR 1 tablet by mouth daily OMEPRAZOLE 20 MG CPDR 627002 OMEPRAZOLE Inactive CELEBREX 100 MG CAPS 1 tab daily CELEBREX 100 MG CAPS 132370 CELECOXIB Inactive CYCLOBENZAPRINE HCL 5 MG ORAL TABS 1/2 tab po q hs, prn CYCLOBENZAPRINE HCL 5 MG ORAL TABS 069772 CYCLOBENZAPRINE HCL Inactive OMEPRAZOLE 20 MG CPDR 1 tablet by mouth daily OMEPRAZOLE 20 MG CPDR 687901 OMEPRAZOLE Inactive AMOXICILLIN 400 MG/5ML SUSR 12.5ml po BID x 10 days AMOXICILLIN 400 MG/5ML SUSR 859280 AMOXICILLIN Inactive PREDNISONE 20 MG TAB 2 tabs daily for 3 days, 1 tab daily for 3 days, 1/2 tab daily for 2 days PREDNISONE 20 MG TAB 045922 PREDNISONE Inactive TAMIFLU 75 MG CAPS 1 [...] AUTO - Chemistry sodium, serum 143 mmol/L 118-902 8570/01/07 potassium, serum 4.2 mmol/L 3.5-5.2 chloride, serum [...] Negative Encounters Code Encounter Date Provider Facility CPT-32967 Level 3 Est. Patient 15:45:10 CDT Natanael Araujo MD [facility] CPT-67646 Level 4 Est. Patient 16:43:28 CDT Natanael Araujo MD [facility] CPT-93357 Level 3 Est. Patient 15:06:06 CDT Natanael Araujo MD [facility] CPT-09569 Level 3 Est. Patient 13:38:04 PHOTOGRAMMETRIC ENGINEER Natanael Araujo MD [facility] CPT-02714 Level 3 Est. Patient 10:18:16 PHOTOGRAMMETRIC ENGINEER Natanael Araujo MD [facility] CPT-88567 Level 3 Est. Patient 16:04:12 CDT Natanael Araujo MD [facility] CPT-13522 Level 3 Est. Patient 11:25:05 CDT Natanael Araujo MD [facility] CPT-33567 Level 3 Est. Patient 13:17:34 CDT Gail KIMBALL [facility] CPT-38109 Level 3 Est. Patient 17:03:36 CDT Natanael Araujo MD [facility] CPT-51459 Level 2 Est. Patient 14:41:40 PHOTOGRAMMETRIC ENGINEER Mahogany Garza APRN [facility] CPT-44470 Level 3 New Patient 16:12:19 PHOTOGRAMMETRIC ENGINEER Gail KIMBALL [facility] Procedures Code Procedure Name Date Entry Date Standard Description CPT-81696 Knee 3V 13:46:23 PHOTOGRAMMETRIC ENGINEER CPT-17551 LS spine comp w obliq 16:17:55 CDT CPT-JTINJ Joint Injection 17:03:35 CDT CPT-J0561 Bicillin LA 1,200,000 u (PCN G Benzathine) 16:12:19 PHOTOGRAMMETRIC ENGINEER CPT-89665 Abx/Therapy Injection 16:12:19 PHOTOGRAMMETRIC ENGINEER
--- OUTSIDE RECORDS SUMMARY | 2017-09-06 14:22 | XMS REPORT | Continuity of Care Document ---
Author Author [facility] Organization [facility] Address Unknown Phone Unavailable Allergies Active Description Code Type Severity Reaction Onset Reported/Identified Relationship to Patient Clinical Status Yes No known drug allergies [id number] ND N/A N/A Confirmed or Verified Medications There is no data. Problems Date Dx Coded Attending Type Code Diagnosis Diagnosed By 07/11/2012 Zully ROMERO, Aisha Thayer 786.50 CHEST PAIN NOS 09/01/2013 JONATAN BURNS 784.49 VOICE/RESONANCE DIS NEC 09/01/2013 JONATAN BURNS V57.3 SPEECH-LANGUAGE THERAPY 11/15/2013 Zafar Wood MD Final 724.2 LUMBAGO 11/15/2013 Zafar Wood MD Admitting 959.19 TRUNK INJURY NEC 12/01/2013 NON STAFF, DR Jimenez 724.2 LUMBAGO 12/01/2013 NON STAFF, DR Jimenez V57.1 PHYSICAL THERAPY NEC 12/11/2013 NON STAFF, DR Jimenez 724.2 LUMBAGO 12/11/2013 NON STAFF, DR Jimenez V57.1 PHYSICAL THERAPY NEC 12/11/2013 NON STAFF, DR Jimenez 724.2 LUMBAGO 12/11/2013 NON STAFF, DR Jimenez V57.1 PHYSICAL THERAPY NEC 12/11/2013 NON STAFF, DR Jimenez 724.2 LUMBAGO 12/11/2013 NON STAFF, DR Jimenez V57.1 PHYSICAL THERAPY NEC 12/11/2013 NON STAFF, DR Jimenez 724.2 LUMBAGO 12/11/2013 NON STAFF, DR Jimenez V57.1 PHYSICAL THERAPY NEC 12/11/2013 NON STAFF, DR Jimenez 724.2 LUMBAGO 12/11/2013 NON STAFF, DR Barbara Christianson7.1 PHYSICAL THERAPY NEC 12/11/2013 NON STAFF, DR Jimenez 724.2 LUMBAGO 12/11/2013 NON STAFF, DR Jimenez V57.1 PHYSICAL THERAPY NEC 12/11/2013 NON STAFF, DR Jimenez 724.2 LUMBAGO 12/11/2013 NON STAFF, DR Barbara Christianson7.1 PHYSICAL THERAPY NEC 12/17/2013 NON STAFF, DR Jimenez 724.2 LUMBAGO 12/17/2013 NON STAFF, DR Jimenez V57.1 PHYSICAL THERAPY NEC 12/20/2013 NON STAFF, DR Jimenez 724.2 LUMBAGO 12/20/2013 NON STAFF, DR Jimenez V57.1 PHYSICAL THERAPY NEC 05/05/2017 Gayle ROMERO, Natanael L65.9 Hair loss 05/05/2017 Gayle ROMERO, Natanael L73.9 Folliculitis Procedures Code [place] [address] PT EVALUATION 12/01/2013 07165 ELECTRIC STIMULATION THERAPY 12/01/2013 35044 THERAPEUTIC EXERCISES 12/01/2013 Results Test Result Range UA - 12/17/13 00:00 PH 6.0 4.5-8.0 SG 1.025 1.003-1.035 UABILI NEGATIVE UABLD NEGATIVE UACOLOR YEL UAGLU NEGATIVE UAKET NEGATIVE UALEUK TRACE UANIT NEGATIVE UAURO 0.2 0-0.2 CLARITY TURBID PROTEIN NEGATIVE UA WBC R05 UA RBC NORBC SQUAMOUS EPITHELIAL CELLS FEW AMORPHOUS CRYSTALS 4+ CBC - 04/19/14 00:00 HCT 39.7 % 36.9-47.0 HGB 12.8 G/DL 12.0-16.0 MCH 28.3 PG 27-31 MCHC 32.2 G/DL 33-37 MCV 87.8 FL 81-99 MPV 10.8 FL 7.3-10.4 PLT 256 10^3u 130-400 RBC 4.5 10^6u 4.2-5.4 RDW 13.4 % 11.5-15.5 WBC 5.7 10^3u 4.8-10.8 FREE T4 - 04/19/14 00:00 FT4 1.00 NG/DL 0.76-1.46 TSH - 04/19/14 00:00 TSH 2.19 UIUML 0.36-3.74 HCG QUAL - 12/12/14 00:00 HCG N Encounters ACCT No. Visit Date/Time Discharge Status Pt. Type Provider Facility Loc./Unit Complaint [id number] 07/11/2012 10:23:00 07/11/2012 10:23:00 DIS Outpatient Zully ROMERO, Aisha W.RAC [id number] 07/05/2013 13:37:00 07/05/2013 23:59:59 CLS Outpatient [id number] 11/15/2013 09:46:00 11/15/2013 23:59:59 CLS Outpatient Zafar Wood MD [facility] [place] [facility] [id number] 05/06/2017 10:18:33 05/06/2017 23:59:59 DIS Outpatient Destinee Martinez [facility] H[facility] Lab [id number] 05/06/2017 09:02:35 05/06/2017 23:59:59 DIS Outpatient Jhony Melbaflakita [facility] [id number] 12/12/2014 07:10:00 12/12/2014 09:45:00 DIS Inpatient GEOVANI SAHU [facility] OPS [id number] 04/18/2014 17:44:00 04/18/2014 17:44:00 DIS Outpatient CHACHA DUNN [facility] [id number] 12/02/2013 00:01:00 12/20/2013 16:29:00 DIS Outpatient NON STAFF, [facility] PT [id number] 12/17/2013 16:19:00 12/17/2013 16:19:00 DIS Outpatient SOLITARIO FRENCH [facility] [id number] 11/19/2013 07:47:00 12/01/2013 23:59:00 DIS Outpatient NON STAFF, [facility] PT [id number] 08/04/2013 00:01:00 08/31/2013 23:59:00 DIS Outpatient JONATAN BURNS [facility] SPEECH [id number] 06/02/2014 00:00:00 Document Registration [id number] 06/02/2013 00:00:00 Document Registration [id number] 06/02/2013 00:00:00 Document Registration [id number] 02/10/2015 22:18:10 02/10/2015 23:59:59 CLS Outpatient Reena Gaona [id number] 05/05/2017 09:32:39 ACT Unknown Gayle ROMERO, Natanael
[2017-09-06] MEDS ORDERED: MIDAZOLAM 2 MG/2 ML (VERSED) VIAL ONE ×7 (14:29→14:46)
[2017-09-06] MEDS ORDERED: fentaNYL INJECTION 100 MCG/2 ML AMP ONE ×2 (14:29→15:35)
[2017-09-06] MEDS ORDERED: LIDOCAINE JELLY 2% (XYLOCAINE) 5 ML TUBE ONE (14:29)
[2017-09-06] MEDS ORDERED: HURRICAINE EXT TUBE (BENZOCAINE) ONE (14:30)
[2017-09-06] MEDS: MIDAZOLAM 2 MG/2 ML (VERSED) VIAL IVP PRN ×7 (14:33→14:49)
[2017-09-06] MEDS: fentaNYL INJECTION 100 MCG/2 ML AMP IVP PRN ×2 (14:34→14:39)
--- NOTE | 2017-09-06 15:07 | Conscious Sedation/ASA ---
Conscious Sedation Pre-Proced Time Reviewed: 14:00 ASA Class: 1 Airway Mallampati Classification: (knik appropriate class) I. II. III, IV Lungs Heart ASA score ASA 1: a normal healthy patient ASA 2: a patient with a mild systemic disease (mid diabetes, controlled hypertension, obesity ASA 3: a patient with a severe systemic disease that limits activity (angina , COPD, prior Myocardial infarction) ASA 4: a patient with an incapacitating disease that is a constant threat to life (CHF, renal failure) ASA 5: a moribund patient not expected to survive 24 hrs. (ruptured aneurysm) ASA 6: a declared brain patient whose organs are being harvested. For emergent operations, add the letter E after the classification Grade 2 Sedation Plan: Analgesia, Amnesia, Plan communicated to team members, Discussed options with patient/fam, Discussed risks with patient/fam Note The patient is an appropriate candidate to undergo the planned procedure, sedation, and anesthesia. The patient immediately re-assessed prior to indication. KELLY DELONG MD Sep 06, 2017 3:07 pm
--- NOTE | 2017-09-06 15:08 | Progress Note-Pre Operative ---
Pre-Operative Progress Note H&P Reviewed The H&P was reviewed, patient examined and no changes noted. Date Seen by Provider: Sep 06, 2017 Time Seen by Provider: 14:00 Date H&P Reviewed: Sep 06, 2017 Time H&P Reviewed: 14:00 Pre-Operative Diagnosis: dysphagia KELLY DELONG MD Sep 06, 2017 3:08 pm
--- NOTE | 2017-09-06 15:09 | Progress Note-Post Operative ---
Post-Operative Progess Note Surgeon (s)/Site Auditor (s) Surgeon KELLY DELONG MD Site Auditor: none Pre-Operative Diagnosis dysphagia Post-Operative Diagnosis reflux esophagitis(class B), distal esophageal stricture, moderate gastritis and duodenitis. Procedure & Operative Findings Date of Procedure 09/06/17 Procedure Performed/Findings EGD with bx and balloon dilatation. Anesthesia Type CS Estimated Blood Loss Estimated blood loss (mL): minimal Specimens/Packing Specimens Removed duodenum, antrum, GE jxn KELLY DELONG MD Sep 06, 2017 3:09 pm
[2017-09-06] MEDS ORDERED: PANT40TA2 PO ×2 (15:11)
[2017-09-06] MEDS ORDERED: METO5TAB75 PO ×2 (15:11)
--- NOTE | 2017-09-06 15:13 | Discharge Inst-Surgical ---
D/C Lap Instructions-KIDO New, Converted, or Re-Newed RX: RX on Chart Follow Up Appt 3-6 months Activity as tolerated Avoid Alcohol, Caffeine, Spicy [place] and Acid foods. Drink 64 fluid oz or more of fluids per day. Symptoms to Report: Fever over 101 degree F, Nausea/Vomiting If any problems/questions: Contact your physician or go to Emergency Room KELLY DELONG MD Sep 06, 2017 3:12 pm
[2017-09-06] MEDS ORDERED: ONDANSETRON 4 MG/2 ML (SDV) Z0FRAN IV PRN (15:15)
[2017-09-06] MEDS ORDERED: morphine INJ 10 MG/ML 1ML (SYR OR VIAL) IV PRN (15:15)
[2017-09-06] MEDS ORDERED: HYDROcodone/APAP 5 MG/325 MG (LORTAB) TAB PO PRN (15:15)
[2017-09-06] MEDS ORDERED: ACETAMINOPHEN 325 MG TABLET/CAPLET (TYLENOL) PO PRN (15:15)
[2017-09-06 15:20] VITALS: BP 101/66
[2017-09-06] MEDS ORDERED: fentaNYL INJECTION 100 MCG/2 ML AMP IVP ONE (15:45)
[2017-09-06 16:20] VITALS: BP 104/78
[2017-09-06 16:40] VITALS: BP 104/78
--- NOTE | 2017-09-06 22:33 | OPERATIVE REPORT ---
DATE OF SERVICE: 09/06/2017 ATTENDING PRIMARY CARE PHYSICIAN: Dr. Araujo. PREOPERATIVE DIAGNOSIS: Dysphagia. POSTOPERATIVE DIAGNOSES: Reflux esophagitis class B, there was a distal esophageal stricture, no hiatal hernia, mild gastritis, mild duodenitis. PROCEDURE: EGD with biopsy and balloon dilatation. SURGEON: Dr. Delong. ANESTHESIA: Conscious sedation. ESTIMATED BLOOD LOSS: Minimal. FINDINGS: Reflux esophagitis class B, distal esophageal stricture, no hiatal hernia, moderate severity gastritis as well as a moderate severity duodenitis. DISPOSITION: The patient tolerated the procedure well. INDICATIONS: The patient is a 22-year-old female who we had initially seen in 01/2016 for dysphagia. She reports that in the past few months, she has had worsening symptoms including substernal chest pressure and pain after food bolus and she would then experienced regurgitation. She did have an EGD done at another institution on 12/12/2014, which appeared normal; however, random biopsies of the esophagus did show an active esophagitis with 15 eosinophils per high power field consistent with potential eosinophilic esophagitis. She reports that her dysphagia has worsened and she again states that usually with lean meats as well as dry breads and cracker she will have the substernal pressure sensation, which would result in regurgitation. She states that this was initially infrequent; however, now occurs every several days. She does have some risk factors including a drinking alcohol approximately one time a week, which normal encompasses a light beer as well as taking in some coffee as well as caffeinated sodas. DESCRIPTION OF PROCEDURE: The patient was brought to the endoscopy suite, laid in the left lateral decubitus position. After adequate IV pain and sedating medications and conscious sedation anesthesia, the mouthpiece was applied. Endoscope was placed in the mouth, visualizing the pharynx and hypopharyngeal region. Vocal cords, epiglottis and vallecula identified and appeared to be normal. The endoscope was then gently intubated at the esophageal opening. Esophagus insufflated. The endoscope was then advanced to the first, second and third portion of the esophagus at the level of the GE junction, a distal esophageal stricture was identified. There was also reflux esophagitis class B; however, no ulcerations or active inflammation. A biopsy was taken of the GE junction with forceps with visualization of good hemostasis. The endoscope was then advanced into the stomach with some mild resistance; the endoscope retroflexed again visualizing the stricture. No hiatal hernia was identified. There was moderate severity gastritis; however, no ulcers, polyps or any neoplasms identified. A biopsy was taken of the stomach antrum with forceps with visualization of good hemostasis. The endoscope was then advanced to the pylorus and the first and second portion of the duodenum. At the level of the duodenum, a moderate duodenitis was also identified. This is consistent with what she had reported as multiple food allergies including fresh fruits and avocado. A biopsy was then taken of the duodenum with forceps with visualization of good hemostasis. We then proceeded with dilatation of esophageal stricture. A CRE Fixed guidewire balloon was placed into the stomach and pulled back to the area of the stricture. The balloon was then insufflated to 3 atmospheres of pressure 18 mm with [id number] resistance. We left this in place for approximately 60 seconds. The patient also did show discomfort consistent with a stricture as well as a successful dilatation. The balloon was desufflated and removed with no mucosal tears or any active bleeding identified. The endoscope was then slowly withdrawn taking a second look and suctioning of residual air with no additional findings. The patient tolerated the procedure well. We will instruct her to proceed with the necessary lifestyle and diet accommodation including avoidance of caffeinated beverages, spicy, greasy and acidic foods as well as avoidance of all foods that known food allergies. We also recommend small more frequent meals are as well as avoidance of eating at night as well as cessation or at least slowing down of caffeinated beverages as well as alcohol. We will also start her on Protonix 40 mg daily. We did dilate to 18 mm. However, she may need a graded dilatation and if she again becomes symptomatic, we will have her follow up for further dilatation. Job ID: [id number] DocumentID: [id number] Dictated Date: 09/06/2017 15:07:06 Color Developer Date: 09/06/2017 22:33:45 Dictated By: KELLY DELONG MD
== END 2017-09-06 16:40 | disposition home or self-care (01) ==
LOC: ENDO 13:54
PROVIDERS: ATTEND Surgery
DX: K21.0 Gastro-esophageal reflux disease with esophagitis (principal); K22.2 Esophageal obstruction; K29.70 Gastritis, unspecified, without bleeding; K29.80 Duodenitis without bleeding; J45.909 Unspecified asthma, uncomplicated; Z91.018 Allergy to other foods
CPT/HCPCS: 84703

== ENCOUNTER → 2017-09-07 | Outpatient (CLI) | payer BC ==
[~2017-09-07] MED LIST changes: +METO5TAB75 PO; +PANT40TA2 PO
--- NOTE | 2017-09-07 12:03 | Diagnostic Imaging Report ---
INDICATION: Shortness of breath and chest pain. TIME OF EXAM: 12:01 p.m. COMPARISON: No prior studies are available for comparison. FINDINGS: The heart size is normal. The pulmonary vascularity is unremarkable. The lungs are clear. No infiltrate, effusion or pneumothorax is detected. IMPRESSION: No acute cardiopulmonary process is detected. Dictated by: Dictated on workstation # [id number]
== END ==
LOC: RAD 11:20
PROVIDERS: ATTEND Surgery
DX: R06.02 Shortness of breath (principal); R07.9 Chest pain, unspecified
CPT/HCPCS: 71046